=== PATIENT | female | born 1945 | race Caucasian/White ===

== ENCOUNTER → 2016-06-19 | Outpatient (CLI) | payer BC ==
[~2016-06-19] MED LIST: ANT25 PO; ATEN25TA PO; EFFSR75 PO; FEXO1TAB49 PO; LPT10 PO; PANT20TA PO; POTA10TA PO; TOLT2TAB9 PO
--- NOTE | 2016-06-20 05:47 | PAP/PSG TECHNICIAN REPORT ---
[facility] Regional Education Manager Polysomnogram Report Study name: None Report date: 06/20/2016 Study date: 06/19/2016 Referring Physician: ALEX GOMEZ M.D. Name: TONE CRAVEN Interpreting Physician: Flavio Vasquez M.D. Date of : 1945 Regional Education Manager: Puneet Crawford RPSGT. Sex: Female Age: 71 StudyType: PSG PAP Weight: 192 lbs Height: 71 years, Height 5' 0" BMI: 37.49 Medications: NASONEX 50 MCG/ACT, VENLAFAXINE HCL ER 75 MG, ATORVASTATIN CALCIUM 10 MG, PANTOPRAZOLE SODIUM 40 MG, MECLIZINE HCL 25 MG, TRAMADOL HCL 50 MG, TRIAMCINOLONE ACETONIDE 0.1%, VESICARE 5 MG, ALAN Patient History PATIENT HAD A SLEEP STUDY DONE IN 2014 AND WAS TREATED WITH CPAP AT A PRESSURE OF 15CWP. RECENTLY, SHE HAS BEEN STRUGGLING WITH COMPLIANCE DUE TO BREATHING THROUGH HER MOUTH WITH A NASAL MASK. SHE HAS ALSO GAINED SOME WEIGHT SINCE HER LAST STUDY. SHE IS HERE TODAY FOR AN UPDATE. ESS = 16 RM 7 Parameters Monitored NPSG: E1-M2, E2-M1, Fp1-M2, Fp2-M1, F3-M2, F4-M2, F4-M1, C3-M2, C4-M2, C4-M1, O1-M2, O2-M2, O2-M1, T3-M2, T4-M1, P3-M2, P4-M1, CHIN1, CHIN2, HR, EKG, Legs, PFLOW, SNOR, FLOW, CFLOW, Tidal Volume, THOR, ABDO, SpO2, PLTH, CPRESS, ETCO2 Wave, ETCO2, pH Sleep Architecture Sleep Stages Time at Lights Off 10:55:01 PM STAGES Time (min.) TST (%) Time at Lights On 5:38:31 AM Wake 28.0 -- Total Recording Time (TRT) 404.00 min. N1 51.5 14 Total Sleep Period (TSP) 391.5 min. N2 298.0 79 Total Sleep Time (TST) 375.5min. N3 26.0 7 Awake Time 28.0 min. REM 0.0 0 Wake after Sleep Onset 16.0 min. Sleep Efficiency (SE) 93 % Sleep Onset Latency (JET) 12.0 min. Number of Stage 1 Shifts None Awakenings 21 Stage Changes 150 Number of REM periods N/A REM 0.0 0 REM Latency NONE min. NREM 375.5 100 Body Position Analysis Supine Right Left Side Prone Vertical Total Sleep Time (min.) 196.8 0.0 199.2 199.24 0.0 0.0 Total Sleep Time (%) 47% 0% 53% 53 0% N/A% Total Sleep Time REM (min.) 0.0 0.0 0.0 None 0.0 0.0 Total Sleep Time NREM (min.) 176.3 0.0 199.2 None 0.0 0.0 Intermittent Wake (min.) 20.5 0.0 7.5 None 0.0 0.0 Total Sleep Period (%) 47% None None None None None Arousals Myoclonus (PLM) * Events Count Index Events Count Index Spontaneous 116 19 Events Awake (PLMW) 43 92.1 Respiratory 83 13.4 Events Asleep w/ Arousal (PLMA) 124 19.8 PLM 123 20 Events Asleep w/o Arousal (PLMS) 337 53.8 Snoring 14 2 Total Asleep 461 73.7 Total 335 54 Total 504 75 Respiratory Analysis * CA OA MA CH H RERA Total Count 5 13 1 0 193 45 212 Index 0.8 2.1 0.2 0 30.8 7 41.1 Mean Duration 14.0 14.7 16.5 0.00 15.8 16.6 15.8 Longest Duration 14.6 21.1 16.5 0.00 16.5 25.4 33.9 Respiratory Event Summary Total Supine ~Supine Right Left Prone REM NREM Apneas Count 19 7 12 N/A 12 N/A N/A 19 Index 3.0 2 4 N/A 3.6 N/A N/A 3 Hypopneas (4% Desat) Count 193 61 132 N/A 132 N/A N/A 193 Index 30.8 20.8 40 N/A 39.8 N/A N/A 30.8 Apneas & All Hypopneas Count 212 68 144 N/A 144 N/A N/A 212 Index 33.9 23 43 N/A 43 N/A N/A 33.9 Respiratory Events (Health Policy Manager+All Hyp+RERA) Count 212 111 146 N/A 146 N/A N/A 212 Index 41.1 38 44 N/A 44.0 N/A N/A 41.1 Respiratory Related Arousal Count 83 111 30 N/A 30 N/A N/A 84 Index 13.4 18 9 N/A 9 N/A N/A 13 Snoring Analysis Supine Right Left Prone REM NREM Total Snore duration 12.4 min Snores count 89 N/A 315 N/A N/A 404 404 Snore mean duration 1.8 Sec Snores index 30 N/A 95 N/A N/A 64.6 64.6 TST with snoring (%) 3.3% Desaturation Event Summary: Minimum %SpO2 Event Count Mean/Min/Max Duration(sec.) Desaturation Index % Time In Bed > 90 242 21.3 / 8.0 / 60.0 41.1 87.8 86 - 90 3 16.5 / 16.0 / 17.3 3.7 12.0 81 - 85 0 N/A 0.0 0.1 76 - 80 0 N/A 0.0 0.0 71 - 75 0 N/A 0.0 0.0 66 - 70 0 N/A 0.0 0.0 61 - 65 0 N/A 0.0 0.0 56 - 60 0 N/A 0.0 0.0 51 - 55 0 N/A 0.0 0.0 < 50 0 N/A 0.0 0.0 Total REM NREM Awake <50% 0.0 min. 0.0 min. 0.0 min. 0.0 min. 51 - 60% 0.0 min. 0.0 min. 0.0 min. 0.0 min. 61 - 70% 0.0 min. 0.0 min. 0.0 min. 0.0 min. 71 - 80% 0.0 min. 0.0 min. 0.0 min. 0.0 min. 81 - 90% 49.1 min. 0.0 min. 46.9 min. 2.2 min. 91 - 100% 353.7 min. 0.0 min. 328.3 min. 25.4 min. Average 93 0 93 93 Minimum SpO2 84 N/A 84 85 Desaturation Event Index 36.0 0.0 37.1 21.4 # Desat. Events below 89% 87 N/A 81 6 Time(%) with Saturation below 89% 2.8 0.0 2.6 0.2 Time(min.) with Saturation below 89% 11.4 0.0 10.5 0.9 Time (mins) REM (mins) NREM (mins) % of TST SpO2 Below 90% 171 N/A N171 6.6 SpO2 Below 88% 22 0 0 1 Heart Rate Analysis Min (bpm) Max (bpm) Average (bpm) Awake 55 72 64 NREM 54 74 65 REM N/A N/A N/A Overall 54 74 65 Supplemental O2 Values Minimum O2 level: None Value Start Time End Time Regional Education Manager Comments Ms. Craven slept in the left and supine positions. No cardiac arrhythmia noted. Leg movements noted. No bruxism noted. CPAP was initiated at +4 CMH2O and up-titrated to a level of +20 CMH2O. Since hypopneas and rera's continued at 20cwp, I switched to BIPAP starting at 17/13 and increased to 25/18. A Balderrama and LEAFER size small full face Simplus mask was used during titration Ms. Craven awoke to use the restroom 0 times during the night. Ms. Craven stated I slept as well as I do when I am in my own bed. Even at a pressure of 25/18, with an acceptable leak, she continued to have hypopneas and rera's. No REM was noted. The final report will be interpreted and signed by a sleep physician. The completed physician report will then be placed in the patient medical record. Therapy Event: Therapy (cm H20) 4 5 6 7 8 9 10 11 12 Total Time at Pressure (min.) 32.0 9.5 10.2 23.6 28.9 14.3 8.8 12.0 8.9 TST at Pressure (min.) 14.0 9.5 10.2 23.1 25.9 14.3 8.3 10.0 8.9 # Periods 1 1 1 1 1 1 1 1 1 Sleep Onset (min.) 12.0 0.0 0.0 0.0 0.0 0.0 0.0 0.0 0.0 REM Onset (min.) N/A N/A N/A N/A N/A N/A N/A N/A N/A Sleep Efficiency % 43 100 100 97 89 100 94 83 100 Wakefulness (%) 56.3 0.0 0.0 2.1 10.4 0.0 5.7 16.6 0.0 Wakefulness (min.) 18.0 0.0 0.0 0.5 3.0 0.0 0.5 2.0 0.0 NREM 1 (%) 20.3 0.0 4.9 12.7 46.7 21.0 5.8 33.2 33.8 NREM 1 (min.) 6.5 0.0 0.5 3.0 13.5 3.0 0.5 4.0 3.0 NREM 2 (%) 23.4 100.0 83.2 47.9 43.0 79.0 88.5 50.2 66.2 NREM 2 (min.) 7.5 9.5 8.5 11.3 12.4 11.3 7.8 6.0 5.9 NREM 3 (%) 0.0 0.0 11.9 37.2 0.0 0.0 0.0 0.0 0.0 NREM 3 (min.) 0.0 0.0 1.2 8.8 0.0 0.0 0.0 0.0 0.0 REM (%) 0.0 0.0 0.0 0.0 0.0 0.0 0.0 0.0 0.0 REM (min.) 0.0 0.0 0.0 0.0 0.0 0.0 0.0 0.0 0.0 # Arousals 7 1 3 14 36 14 6 14 12 Arousal Index 30.0 6.3 17.6 36.4 83.3 58.9 43.3 83.6 81.2 # Snore 8 65 30 98 35 8 3 7 4 Snore Index 34.3 409.3 176.4 254.6 81.0 33.7 21.6 41.8 27.1 AHI 17.2 50.4 52.9 59.8 71.7 54.7 57.7 71.7 94.7 AHI Supine 19.0 N/A N/A N/A N/A N/A N/A N/A N/A AHI Non-Supine 13.4 50.4 52.9 59.8 71.7 54.7 57.7 71.7 94.7 NREM AHI 17.2 50.4 52.9 59.8 71.7 54.7 57.7 71.7 94.7 REM AHI N/A N/A N/A N/A N/A N/A N/A N/A N/A RDI 17.2 50.4 52.9 59.8 71.7 54.7 57.7 71.7 94.7 # Obstructive 1 0 1 0 2 1 0 0 0 # Central Ap 0 0 0 0 2 1 0 2 0 # Mixed 0 0 0 1 0 0 0 0 0 # Hypopneas 3 8 8 22 27 11 8 10 14 RERAS 0 0 0 0 0 0 0 0 0 Total Respiratory Events 4 8 9 23 31 13 8 12 14 Time Below SpO2 89.00% (min.) 0.2 0.5 0.7 1.5 3.8 1.5 0.4 0.7 0.3 Mean NREM SpO2 (%) 92 91 91 91 92 91 91 92 92 Mean REM SpO2 (%) N/A N/A N/A N/A N/A N/A N/A N/A N/A Mean Sleep SpO2 (%) 92 91 91 91 92 91 91 92 92 Min NREM SpO2 (%) 88 87 84 85 85 86 86 86 88 Min REM SpO2 (%) N/A N/A N/A N/A N/A N/A N/A N/A N/A Position Supine (min.) 9.5 0.0 0.0 0.0 0.0 0.0 0.0 0.0 0.0 Position Non-supine (min.) 4.5 9.5 10.2 23.1 25.9 14.3 8.3 10.0 8.9 LM Index Sleep 34.3 18.9 29.4 57.2 113.4 88.4 72.1 107.5 101.5 LM Index NREM 34.3 18.9 29.4 57.2 113.4 88.4 72.1 107.5 101.5 LM Index REM N/A N/A N/A N/A N/A N/A N/A N/A N/A Mean Heart Rate (bpm) 63 64 63 66 65 66 66 66 65 Min Heart Rate (bpm) 58 60 56 61 59 60 61 59 58 Therapy (cm H20) 13 14 15 16 17 18 19 20 17/13 Total Time at Pressure (min.) 10.6 11.4 44.4 30.0 9.6 9.2 11.3 18.3 7.2 TST at Pressure (min.) 10.6 11.4 43.9 29.0 9.6 9.2 11.3 18.3 7.2 # Periods 1 1 1 1 1 1 1 1 1 Sleep Onset (min.) 0.0 0.0 0.0 0.0 0.0 0.0 0.0 0.0 0.0 REM Onset (min.) N/A N/A N/A N/A N/A N/A N/A N/A N/A Sleep Efficiency % 100 100 98 96 100 100 100 100 100 Wakefulness (%) 0.0 0.0 1.1 3.3 0.0 0.0 0.0 0.0 0.0 Wakefulness (min.) 0.0 0.0 0.5 1.0 0.0 0.0 0.0 0.0 0.0 NREM 1 (%) 0.0 17.5 2.3 20.0 0.0 0.0 4.4 10.9 13.9 NREM 1 (min.) 0.0 2.0 1.0 6.0 0.0 0.0 0.5 2.0 1.0 NREM 2 (%) 100.0 82.5 73.0 63.3 100.0 100.0 82.3 89.1 86.1 NREM 2 (min.) 10.6 9.4 32.4 19.0 9.6 9.2 9.3 16.3 6.2 NREM 3 (%) 0.0 0.0 23.6 13.3 0.0 0.0 13.2 0.0 0.0 NREM 3 (min.) 0.0 0.0 10.5 4.0 0.0 0.0 1.5 0.0 0.0 REM (%) 0.0 0.0 0.0 0.0 0.0 0.0 0.0 0.0 0.0 REM (min.) 0.0 0.0 0.0 0.0 0.0 0.0 0.0 0.0 0.0 # Arousals 8 11 40 24 8 6 10 22 9 Arousal Index 45.4 57.7 54.7 49.6 50.1 39.1 53.0 72.2 74.9 # Snore 6 5 42 22 22 5 7 8 24 Snore Index 34.1 26.2 57.4 45.5 137.8 32.6 37.1 26.3 199.6 AHI 62.5 47.2 4.1 12.4 6.3 13.0 10.6 23.0 74.9 AHI Supine N/A N/A N/A 23.1 6.3 13.0 10.6 23.0 74.9 AHI Non-Supine 62.5 47.2 4.1 6.5 N/A N/A N/A N/A N/A NREM AHI 62.5 47.2 4.1 12.4 6.3 13.0 10.6 23.0 74.9 REM AHI N/A N/A N/A N/A N/A N/A N/A N/A N/A RDI 62.5 47.2 6.8 16.5 37.6 45.6 26.5 55.8 74.9 # Obstructive 2 0 0 0 0 0 0 0 2 # Central Ap 0 0 0 0 0 0 0 0 0 # Mixed 0 0 0 0 0 0 0 0 0 # Hypopneas 9 9 3 6 1 2 2 7 7 RERAS 0 0 2 2 5 5 3 10 0 Total Respiratory Events 11 9 5 8 6 7 5 17 9 Time Below SpO2 89.00% (min.) 0.1 0.0 0.0 0.0 0.0 0.0 0.0 0.0 0.4 Mean NREM SpO2 (%) 92 93 93 94 93 93 94 94 93 Mean REM SpO2 (%) N/A N/A N/A N/A N/A N/A N/A N/A N/A Mean Sleep SpO2 (%) 92 93 93 94 93 93 94 94 93 Min NREM SpO2 (%) 88 89 89 90 91 90 92 90 84 Min REM SpO2 (%) N/A N/A N/A N/A N/A N/A N/A N/A N/A Position Supine (min.) 0.0 0.0 0.0 10.4 9.6 9.2 11.3 18.3 7.2 Position Non-supine (min.) 10.6 11.4 43.9 18.6 0.0 0.0 0.0 0.0 0.0 LM Index Sleep 85.2 136.4 95.7 43.4 62.6 65.2 74.2 98.5 66.5 LM Index NREM 85.2 136.4 95.7 43.4 62.6 65.2 74.2 98.5 66.5 LM Index REM N/A N/A N/A N/A N/A N/A N/A N/A N/A Mean Heart Rate (bpm) 64 63 66 67 65 66 66 65 65 Min Heart Rate (bpm) 59 59 59 57 61 61 61 59 59 Therapy (cm H20) Total Time at Pressure (min.) 8.3 5.5 5.7 7.5 8.9 6.0 61.3 TST at Pressure (min.) 8.3 5.5 5.7 7.0 8.9 6.0 59.3 # Periods 1 1 1 1 1 1 1 Sleep Onset (min.) 0.0 0.0 0.0 0.0 0.0 0.0 0.0 REM Onset (min.) N/A N/A N/A N/A N/A N/A N/A Sleep Efficiency % 100 100 100 93 100 100 96 Wakefulness (%) 0.0 0.0 0.0 6.7 0.0 0.0 3.3 Wakefulness (min.) 0.0 0.0 0.0 0.5 0.0 0.0 2.0 NREM 1 (%) 0.0 0.0 0.0 6.7 5.6 0.0 6.5 NREM 1 (min.) 0.0 0.0 0.0 0.5 0.5 0.0 4.0 NREM 2 (%) 100.0 100.0 100.0 86.7 94.4 100.0 90.2 NREM 2 (min.) 8.3 5.5 5.7 6.5 8.4 6.0 55.3 NREM 3 (%) 0.0 0.0 0.0 0.0 0.0 0.0 0.0 NREM 3 (min.) 0.0 0.0 0.0 0.0 0.0 0.0 0.0 REM (%) 0.0 0.0 0.0 0.0 0.0 0.0 0.0 REM (min.) 0.0 0.0 0.0 0.0 0.0 0.0 0.0 # Arousals 7 7 6 9 17 5 39 Arousal Index 50.3 76.3 62.9 77.0 115.0 50.1 39.4 # Snore 0 3 2 0 0 0 0 Snore Index 0.0 32.7 21.0 0.0 0.0 0.0 0.0 AHI 21.6 43.6 52.4 59.9 40.6 30.1 12.1 AHI Supine 21.6 43.6 52.4 59.9 40.6 30.1 12.1 AHI Non-Supine N/A N/A N/A N/A N/A N/A N/A NREM AHI 21.6 43.6 52.4 59.9 40.6 30.1 12.1 REM AHI N/A N/A N/A N/A N/A N/A N/A RDI 43.2 54.5 62.9 68.5 54.1 40.1 21.2 # Obstructive 0 0 0 1 1 2 0 # Central Ap 0 0 0 0 0 0 0 # Mixed 0 0 0 0 0 0 0 # Hypopneas 3 4 5 6 5 1 12 RERAS 3 1 1 1 2 1 9 Total Respiratory Events 6 5 6 8 8 4 21 Time Below SpO2 89.00% (min.) 0.0 0.0 0.0 0.1 0.0 0.2 0.0 Mean NREM SpO2 (%) 93 93 94 93 94 93 94 Mean REM SpO2 (%) N/A N/A N/A N/A N/A N/A N/A Mean Sleep SpO2 (%) 93 93 94 93 94 93 94 Min NREM SpO2 (%) 91 91 89 88 90 85 89 Min REM SpO2 (%) N/A N/A N/A N/A N/A N/A N/A Position Supine (min.) 8.3 5.5 5.7 7.0 8.9 6.0 59.3 Position Non-supine (min.) 0.0 0.0 0.0 0.0 0.0 0.0 0.0 LM Index Sleep 71.9 109.0 62.9 111.2 115.0 110.2 39.4 LM Index NREM 71.9 109.0 62.9 111.2 115.0 110.2 39.4 LM Index REM N/A N/A N/A N/A N/A N/A N/A Mean Heart Rate (bpm) 66 66 65 64 63 62 61 Min Heart Rate (bpm) 61 61 60 56 58 58 54
--- NOTE | 2016-06-23 07:09 | POLYSOMNOGRAPH REPORT ---
CLINICAL DATA: A 71-year-old female with a BMI of 37.[address] King for an updated CPAP titration study. She has sleep apnea, is being treated with CPAP at 15 cm of water pressure but is struggling with compliance, breathing through her mouth using a nasal mask. She also has gained weight since her last study and is sent for an updated CPAP titration study. SLEEP ARCHITECTURE: Total sleep period was 391.5 minutes. Total sleep time was 375.5 minutes, all non-REM sleep. Sleep onset latency was 12 minutes. REM was not achieved. Sleep efficiency was 93%. Awake after sleep onset was 16 minutes. Sleep consisted of stage N1 14%, N2 79% and N3 7%. AROUSAL DATA: 335 arousals were recorded for an index of 54 per hour. 116 were spontaneous, 123 were due to PLM events. PLM DATA: Severe PLMD was noted. There were 461 limb movements during sleep noted for an index of 73.7 per hour with arousal index of 19.8 per hour. RESPIRATORY DATA: The AHI was 33.9. The RDI was 41.1. There were 5 central, 13 obstructive, 1 mixed apneic episode. The longest duration of apnea was 21.1 seconds. There were 193 hypopneic episodes. The longest duration of hypopnea was 16.5 seconds. There were 45 RERAs. The longest RERA was 25.4 seconds. OXIMETRY DATA: Nocturnal hypoxemia was seen. Oxygen rena was 84% during non-REM sleep. Mean saturation was 93%. Time below 88% was 22 minutes. HEART RATE DATA: Heart rates ranged from 54 to 74 beats per minute. No arrhythmias were noted. PROJECT MANAGER INDUSTRIAL'S COMMENTS AND TREATMENT SUMMARY: The patient slept in the left and supine position. The patient used a CanaryHop size small full facemask. She was initially started on CPAP and was titrated incrementally up to 20 cm water pressure. She continued to have obstructive hypopneic events and snoring and was switched to BiPAP, initially 17/13 and eventually titrated up to 25/18. At her final pressure setting of 25/18, she slept for just under 1 hour with a persistent AHI of 12.1. IMPRESSION: Severe sleep apnea/hypopnea with a very difficult CPAP/BiPAP titration study. No optimal pressure setting was found. Severe PLMD was also seen. RECOMMENDATIONS: The patient could be considered for a trial of auto CPAP 5-20 cm of water pressure with followup in 1-2 months with compliance and effectiveness data. High pressure BiPAP could be utilized although it may be difficult to tolerate. Sleep medicine consultation may be of benefit. Clinical correlation is needed. Treatment for PLMD may also be needed. MTDD
== END | disposition home or self-care (01) ==
LOC: C.NEUR 20:00
PROVIDERS: ATTEND Internal Medicine Geriatric Medicine
DX: G47.33 Obstructive sleep apnea (adult) (pediatric) (principal); G47.61 Periodic limb movement disorder

== ENCOUNTER → 2016-07-14 | Outpatient (CLI) | payer BC ==
--- NOTE | 2016-07-14 17:10 | DIAGNOSTIC IMAGING REPORT ---
LEFT SHOULDER 3 VIEWS HISTORY: M25.512 Acute pain of left [id number] COMPARISON: None. FINDINGS: There is no fracture or dislocation. Mild distal resorption of the left clavicle. Metallic anchors within the humeral head. There is narrowing of the subacromial space suggestive of chronic rotator cuff injury. Linear densities at the left lung base favor subsegmental atelectasis. 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 IMPRESSION: Postoperative and degenerative changes within the left shoulder. No acute fracture or dislocation. Electronically signed by: Harris Méndez M.D. 07/14/2016 5:09 PM Dictated Date/Time: 07/14/2016 5:07 PM
== END | disposition home or self-care (01) ==
LOC: C.RAD1850 16:07
PROVIDERS: ATTEND Internal Medicine
DX: M25.512 Pain in left shoulder (principal)

== ENCOUNTER → 2016-08-12 | Outpatient (CLI) | payer BC ==
[~2016-08-12] VITALS: Ht 149.9 cm; Wt 92.4 kg
[2016-08-12 10:23] VITALS: BP 153/80; PULSE 73; Ht 149.9 cm; Wt 92.4 kg
== END | disposition home or self-care (01) ==
LOC: C.NEUR 09:42
PROVIDERS: ATTEND Internal Medicine Pulmonary Disease
DX: G47.33 Obstructive sleep apnea (adult) (pediatric) (principal); E66.9 Obesity, unspecified; G25.81 Restless legs syndrome

== ENCOUNTER → 2016-08-12 | Outpatient (CLI) | payer BC ==
[2016-08-12 14:54] LABS: BASO % 0.3 %; BASO ABS # 0.02 K/uL (0-0.2); COMPLETE YES; EOS % 5.1 %; HEMATOCRIT 41.9 % (37-47); IG% 0.2 %; LYMPH % 29.3 %; LYMPH ABS # 1.78 K/uL (1.2-3.4); MEAN CELL VOLUME 87.5 fL (80-100); MEAN CORPUSCULAR HEMOGLOBIN 29.4 pg (25-34); MEAN CORPUSCULAR HGB CONC 33.7 g/dl (32-36); MEAN PLATELET VOLUME 10.3 fL (7.4-10.4); MONO % 7.7 %; NEUT % 57.4 %; PLATELET COUNT 200 K/uL (130-400); RED BLOOD COUNT 4.79 M/uL (4.2-5.4); WHITE BLOOD COUNT 6.07 K/uL (4.8-10.8)
[2016-08-12 15:27] LABS: ALT/SGPT 23 U/L (12-78); BLOOD UREA NITROGEN 17 mg/dl (7-18); BUN/CREATININE RATIO 23.8 (10-20); CALCIUM 9.5 mg/dl (8.5-10.1); CARBON DIOXIDE 24 mmol/L (21-32); CHLORIDE 108 mmol/L (98-107); CHOLESTEROL 150 mg/dl (0-200); CREATININE 0.72 mg/dl (0.60-1.20); GLUCOSE 121 mg/dl (70-99); POTASSIUM 4.3 mmol/L (3.5-5.1); SODIUM 140 mmol/L (136-145)
[2016-08-12 15:38] LABS: ALKALINE PHOSPHATASE 139 U/L (45-117); AST/SGOT 18 U/L (15-37); CHOLESTEROL/HDL RATIO 4.5; HDL CHOLESTEROL 33 mg/dl; LDL CHOLESTEROL CALCULATED 78 mg/dl; TRIGLYCERIDES 196 mg/dl (0-150); VERY LOW DENSITY LIPOPROT CALC 39 mg/dl
--- NOTE | 2016-08-28 07:23 | CODING QUERY MEDICAL NECESSITY ---
SUPPORTING DIAGNOSIS NEEDED A supporting diagnosis is required for the test/procedure performed on this patient in order for us to be reimbursed by the patient's insurance. Please provide a supporting diagnosis for the following test/procedure listed below next to the test name along with your signature. *If there is no additional diagnosis for this patient that would support the following test/procedure please document that below next to the test/procedure. Test(s)/Procedure(s) that require a supporting diagnosis: * VITAMIN D 25-HYDROXY DIAGNOSIS: * DOS: 08/12/16 Provider Signature: Date: Thank you Veronica Chapman Health Information Management Once completed, please kindly fax back to [phone] For questions please call [phone]
== END | disposition home or self-care (01) ==
LOC: C.LABBC 11:36
PROVIDERS: ATTEND Internal Medicine Geriatric Medicine
DX: M19.90 Unspecified osteoarthritis, unspecified site (principal); E78.5 Hyperlipidemia, unspecified; R73.9 Hyperglycemia, unspecified; F32.9 Major depressive disorder, single episode, unspecified; I10 Essential (primary) hypertension; G47.33 Obstructive sleep apnea (adult) (pediatric); E66.9 Obesity, unspecified; G25.81 Restless legs syndrome; E55.9 Vitamin D deficiency, unspecified

== ENCOUNTER → 2016-10-05 | Outpatient (CLI) | payer BC ==
[~2016-10-05] MED LIST changes: +CALC500C70 PO; +CHOL1000 PO; +CRAN1TAB PO; +DOXY100C PO; +FSMD/70 PO; +LACT1CHW; +MULT-506 PO; +OMEG12006; -PANT20TA PO; +PANT20TA2 PO; +TRAM-10 PO; +TRIA1SPR4; +TRMO2580 TOP
== END | disposition home or self-care (01) ==
LOC: C.LABSPEC 17:21
PROVIDERS: ATTEND Nurse Practitioner Adult Health
DX: N39.0 Urinary tract infection, site not specified (principal)

== ENCOUNTER → 2016-10-13 | Outpatient (CLI) | payer BC ==
--- NOTE | 2016-10-13 15:22 | MAMMOGRAPHY REPORT ---
BILATERAL DIGITAL SCREENING MAMMOGRAM WITH CAD: 10/13/2016 CLINICAL HISTORY: Routine screening. Patient has no complaints. TECHNIQUE: Bilateral CC and MLO views were obtained. Current study was also evaluated with a Compu ter Aided Detection (CAD) system. COMPARISON: Comparison is made to exams dated: 08/27/2015 mammogram, 07/24/2014 mammogram, 06/06/2013 ma mmogram, 05/16/2012 mammogram, 05/13/2011 mammogram, and 12/02/2009 mammogram - [facility]. BREAST COMPOSITION: There are scattered areas of fibroglandular density in both breasts. FINDINGS: The parenchymal pattern is unchanged. No developing mass, architectural distortion or clu ster of suspicious microcalcifications is seen in either breast. IMPRESSION: ACR BI-RADS CATEGORY 2: BENIGN There is no mammographic evidence of malignancy. A 1 year screening mammogram is recommended. The p atient will receive written notification of the results. Approximately 10% of breast cancers are not detected with mammography. A negative mammographic repor t should not delay biopsy if a clinically suggestive mass is present. Linda Parekh M.D. ay/:10/13/2016 14:54:03 Cloth Folder Hand: Milka ROE(Phylicia)(M), [facility] letter sent: Normal 1/2 BI-RADS Code: ACR BI-RADS Category 2: Benign
== END | disposition home or self-care (01) ==
LOC: C.MAMM 13:28
PROVIDERS: ATTEND Internal Medicine Geriatric Medicine
DX: Z12.31 Encounter for screening mammogram for malignant neoplasm of breast (principal)

== ENCOUNTER 2016-11-15 14:32 | Emergency (ER) | payer BC ==
[~2016-11-15] VITALS: Ht 149.9 cm; Wt 94.4 kg
[2016-11-15 14:38] VITALS: BP 142/80; PULSE 73; TEMP 36.5; O2SAT 95; Ht 149.9 cm; Wt 94.4 kg
[2016-11-15] MEDS ORDERED: ANT25 PO (14:56)
[2016-11-15] MEDS ORDERED: PANT20TA2 PO (14:56)
[2016-11-15] MEDS ORDERED: EFFSR75 PO (14:59)
--- NOTE | 2016-11-15 15:02 | EMERGENCY ROOM VISIT NOTE ---
ED Visit Note First contact with patient: 14:41 CHIEF COMPLAINT: Right wrist pain 4 weeks HISTORY OF PRESENT ILLNESS: This 71-year-old female presents the ER with chief complaint of right wrist pain which has been getting progressively worse over the last 4 weeks. The patient states the pain is over the radial aspect of the wrist. The patient denies any trauma to the wrist. The patient denies any forearm or shoulder pain. The patient does admit that she is on her phone frequently using her right hand. REVIEW OF SYSTEMS: 6 system review was performed and was negative unless stated otherwise in history of present illness. PMH: The patient is healthy; appendectomy, cholecystectomy, back surgery, peptic ulcer disease SOCIAL HISTORY: Patient lives alone. The patient denies any tobacco or alcohol use PHYSICAL EXAM: Vital Signs: Were reviewed Reviewed Nurse's notes. GEN.: 71-year -old white female appears in no acute distress. MENTAL Status: Alert and oriented 3. RIGHT WRIST: No gross bony deformity noted no erythema or edema noted. Positive Nacho's.. Negative Tinel's, negative Phalen's EMERGENCY DEPARTMENT COURSE: The patient was evaluated. The patient was placed in a thumb spica splint. The patient was discharged home in stable condition. DIAGNOSIS: De Quervain's tendinitis right wrist DISCHARGE INSTRUCTIONS AND TREATMENT: Ice to the affected area frequently over the next 2 days. Ibuprofen, 600 mg every 6 hours for pain and inflammation for 5 days. Recommend taking Prilosec daily while taking the ibuprofen. Wear splint except for bathing. If symptoms are not improving in 4-5 days recommend follow-up with [facility] orthopedics. Current/Historical Medications Scheduled Atenolol (Tenormin), 25 MG PO DAILY Atorvastatin (Atorvastatin Calcium), 1 TAB PO DAILY Meclizine HCl (Meclizine HCl), 1 TAB PO DAILY Pantoprazole Sodium (Protonix), 40 MG PO DAILY Tolterodine Tartrate (Tolterodine Tartrate), 2 MG PO BID Venlafaxine Hcl (Effexor Extended Rel), 1 CAP PO DAILY Allergies Coded Allergies: Iodine (Verified Allergy, Unknown, HIVES/ITCHING, 11/15/16) Penicillins (Unverified Allergy, Unknown, unknown, 11/15/16) Ibuprofen (Verified Adverse Reaction, Intermediate, ULCER, 11/15/16) Vital Signs Date Time Temp Pulse Resp B/P (MAP) Pulse Ox O2 Delivery O2 Flow Rate FiO2 11/15/16 14:38 36.5 73 18 142/80 95 Room Air Departure Information Referrals Saul King M.D. (PCP) Patient Instructions [facility]
== END 2016-11-15 15:12 | disposition home or self-care (01) ==
LOC: C.EDB 14:33 → C.EDD 15:12
DX: M65.4 Radial styloid tenosynovitis [de Quervain] (principal); K27.9 Peptic ulcer, site unspecified, unspecified as acute or chronic, without hemorrhage or perforation; Z90.49 Acquired absence of other specified parts of digestive tract; Z90.89 Acquired absence of other organs; Z98.890 Other specified postprocedural states; Z79.899 Other long term (current) drug therapy

== ENCOUNTER → 2016-12-04 | Outpatient (CLI) | payer BC ==
[~2016-12-04] MED LIST changes: -CALC500C70 PO; -CHOL1000 PO; -CRAN1TAB PO; -DOXY100C PO; -FSMD/70 PO; -LACT1CHW; -MULT-506 PO; -OMEG12006; +PANT20TA PO; -PANT20TA2 PO; -TRAM-10 PO; -TRIA1SPR4; -TRMO2580 TOP
== END | disposition home or self-care (01) ==
LOC: C.RDSM 16:20
PROVIDERS: ATTEND Orthopaedic Surgery Sports Medicine
DX: M25.539 Pain in unspecified wrist (principal)

== ENCOUNTER 2017-01-07 14:36 | Emergency (ER) | payer BC ==
[~2017-01-07] VITALS: Ht 149.9 cm; Wt 97.2 kg
[~2017-01-07 14:36] MED LIST changes: -ATEN25TA PO; -FEXO1TAB49 PO; -LPT10 PO; -POTA10TA PO; -TOLT2TAB9 PO
[2017-01-07 14:45] VITALS: TEMP 36.9
[2017-01-07] MEDS ORDERED: LPT10 PO (14:56)
[2017-01-07] MEDS ORDERED: TOLT2TAB9 PO (14:56)
[2017-01-07] MEDS ORDERED: ATEN25TA PO (14:58)
[2017-01-07] MEDS ORDERED: ACETAMINOPHEN 325 MG TAB PO STA (17:48)
[2017-01-07] MEDS ORDERED: SODIUM CHLORIDE 0.9% 1000ML 1,000 ML IV STA (17:48)
[2017-01-07 18:01] VITALS: O2SAT 95; Ht 149.9 cm; Wt 97.2 kg
[2017-01-07] MEDS ORDERED: POTA10TA PO (18:41)
[2017-01-07] MEDS ORDERED: FEXO1TAB49 PO (18:41)
[2017-01-07 18:54] LABS: ALT/SGPT 29 U/L (12-78); BLOOD UREA NITROGEN 21 mg/dl (7-18); BUN/CREATININE RATIO 29.6 (10-20); CALCIUM 9.1 mg/dl (8.5-10.1); CARBON DIOXIDE 27 mmol/L (21-32); CHLORIDE 108 mmol/L (98-107); CREATININE 0.72 mg/dl (0.60-1.20); GLUCOSE 79 mg/dl (70-99); SODIUM 136 mmol/L (136-145)
[2017-01-07 18:55] LABS: ALKALINE PHOSPHATASE 176 U/L (45-117)
--- NOTE | 2017-01-07 18:57 | DIAGNOSTIC IMAGING REPORT ---
HEAD WITHOUT CONTRAST (CT) CLINICAL HISTORY: 71 years-old Female presenting with headache. TECHNIQUE: Multidetector CT imaging of the head was performed without the use of intravenous contrast. IV contrast: None. A dose lowering technique was used consistent with the principles of ALARA (as low as reasonably achievable). COMPARISON: None. CT DOSE (mGy.cm): The estimated cumulative dose is 720.95 mGycm. FINDINGS: Dairy Clerk topogram: Unremarkable. Ventricles and sulci normal in size. Focal round hypodensity in the right occipital lobe may represent the subcortical horn of the right lateral ventricle. No mass effect or midline shift. No hemorrhage or acute territorial infarct. No extra-axial fluid collection. Paranasal sinuses and mastoid air cells clear. Calvarium intact. IMPRESSION: 1. No acute intracranial pathology. Electronically signed by: Gilmar Gaitan M.D. 01/07/2017 6:50 PM Dictated Date/Time: 01/07/2017 6:47 PM
[2017-01-07 19:56] LABS: BASO % 0.1 %; BASO ABS # 0.01 K/uL (0-0.2); COMPLETE YES; EOS % 5.4 %; HEMATOCRIT 43.9 % (37-47); IG% 0.4 %; LYMPH % 20.4 %; LYMPH ABS # 1.63 K/uL (1.2-3.4); MEAN CELL VOLUME 91.1 fL (80-100); MEAN CORPUSCULAR HEMOGLOBIN 28.8 pg (25-34); MEAN CORPUSCULAR HGB CONC 31.7 g/dl (32-36); MEAN PLATELET VOLUME 10.2 fL (7.4-10.4); NEUT % 66.7 %; PLATELET COUNT 220 K/uL (130-400); RED BLOOD COUNT 4.82 M/uL (4.2-5.4); WHITE BLOOD COUNT 7.99 K/uL (4.8-10.8)
[2017-01-07 20:23] LABS: POTASSIUM 4.1 mmol/L (3.5-5.1)
[2017-01-07 20:27] VITALS: PULSE 64; O2SAT 95
[2017-01-07 20:30] LABS: AST/SGOT 18 U/L (15-37); MAGNESIUM 2.1 mg/dl (1.8-2.4)
--- NOTE | 2017-01-07 20:40 | EMERGENCY ROOM VISIT NOTE ---
ED Visit Note First contact with patient: 17:22 71-year-old female here complaining of dizziness especially when she gets up. Patient was fully evaluated by Mary Ji nurse practitioner. Please see her note. I also independently evaluated the patient and her labs. The patient stated that she felt significantly better prior to discharge.
--- NOTE | 2017-01-07 21:33 | EMERGENCY ROOM VISIT NOTE ---
History First contact with patient: 17:22 Chief Complaint: DIZZY Stated Complaint: HOT/COLD, DIZZY Nursing Triage Summary: Pt c/o dizziness and nausea x 3 days "I didn't get much sleep last night. I get up too quick and I get lightheaded." History of Present Illness The patient is a 71 year old female who presents to the Emergency Room with complaints of feeling lightheaded when she stands up too quickly. She states this has been going on for about a week or longer, but seemed to get worse over the past 3 days. She says when she stands up from sitting or lying down she feels lightheaded like she might pass out, with nausea and feeling hot. She states these symptoms last for only a few seconds and never longer than 10-15 seconds, and then she feels fine. She denies any recent illness with vomiting or diarrhea, denies any urinary symptoms, but does admit that she has not been drinking fluids as much as she should. She also notes a mild intermittent headache for the past few days that she took describes as generalized, aching and not throbbing, 3/10. She has not taken any medications for the headache, stating "it really wasn't that bad that I needed medicine for it." She has not had any episodes of syncope with this. She denies any chest pain, shortness of breath, palpitations, vision changes, back pain, abdominal pain, changes in bowel habits, rash. Patient states she went to see her PCP today for her symptoms, and states that while she was in the waiting room she heard that another patient with symptoms similar to her's was being sent to the ER by ambulance, so she decided she should also go to the ER to be checked. Review of Systems A complete 10 point review of systems was reviewed with the patient with pertinent positives and negatives as per history of present illness. All else were negative. Social History Smoking Status: Former Smoker Current/Historical Medications Scheduled Atenolol (Tenormin), 25 MG PO DAILY Atorvastatin (Atorvastatin Calcium), 1 TAB PO DAILY Meclizine HCl (Meclizine HCl), 1 TAB PO DAILY Pantoprazole Sodium (Protonix), 40 MG PO DAILY Tolterodine Tartrate (Tolterodine Tartrate), 2 MG PO BID Venlafaxine Hcl (Effexor Extended Rel), 1 CAP PO DAILY Scheduled PRN Fexofenadine Hcl (Sherri Allergy), 1 TAB PO HS PRN for Anxiety Potassium Chloride (K-Tabs), 10 MEQ PO DAILY PRN for Physical Exam Vital Signs Date Time Temp Pulse Resp B/P (MAP) Pulse Ox O2 Delivery O2 Flow Rate FiO2 01/07/17 21:51 131/79 01/07/17 20:27 64 20 141/76 95 Room Air 01/07/17 18:29 67 125/65 70 142/86 77 142/81 01/07/17 18:29 67 20 125/65 95 Room Air 01/07/17 18:21 68 01/07/17 18:01 95 Room Air 01/07/17 18:01 95 Room Air 01/07/17 14:45 36.9 79 18 133/79 95 Room Air Physical Exam CONSTITUTIONAL: No acute distress. Mildly dehydrated, but otherwise well appearing and well nourished. Alert and oriented X 4 with normal affect. HEENT: Normocephalic, atraumatic. Pupils equal, round and reactive to light, EOMI. TMs normal. Pharynx normal. Tacky mucous membranes. NECK: Supple, full active range of motion without discomfort. RESPIRATORY: Clear to auscultation bilaterally with no wheezing, crackles, rhonchi or stridor. Equal expansion bilaterally. CARDIOVASCULAR: Regular rate and rhythm with no murmurs, rubs or gallops. Normal peripheral perfusion. No edema. GASTROINTESTINAL: Soft, nontender, nondistended. Bowel sounds present in all quadrants. MUSCULOSKELETAL: Full range of motion of all joints without discomfort. INTEGUMENTARY: No rash or other significant dermatologic conditions noted. NEUROLOGIC: Cranial nerves II-XII grossly intact. No focal neurologic deficits noted. Normal strength, normal sensation, normal coordination, normal gait, normal speech. Negative pronator drift, negative facial droop, negative Romberg , normal [id number] test. Medical Decision & Procedures ER Provider Diagnostic Interpretation: HEAD WITHOUT CONTRAST (CT) CLINICAL HISTORY: 71 years-old Female presenting with headache. TECHNIQUE: Multidetector CT imaging of the head was performed without the use of intravenous contrast. IV contrast: None. A dose lowering technique was used consistent with the principles of ALARA (as low as reasonably achievable). COMPARISON: None. CT DOSE (mGy.cm): The estimated cumulative dose is 720.95 mGycm. FINDINGS: [employer] topogram: Unremarkable. Ventricles and sulci normal in size. Focal round hypodensity in the right occipital lobe may represent the subcortical horn of the right lateral ventricle. No mass effect or midline shift. No hemorrhage or acute territorial infarct. No extra-axial fluid collection. Paranasal sinuses and mastoid air cells clear. Calvarium intact. IMPRESSION: 1. No acute intracranial pathology. Laboratory Results 01/07/17 18:05 Red Blood Count 4.82, Mean Corpuscular Volume 91.1, Mean Corpuscular Hemoglobin 28.8, Mean Corpuscular Hemoglobin Concent 31.7, Mean Platelet Volume 10.2, Neutrophils (%) (Auto) 66.7, Lymphocytes (%) (Auto) 20.4, Monocytes (%) (Auto) 7.0, Eosinophils (%) (Auto) 5.4, Basophils (%) (Auto) 0.1, Neutrophils # (Auto) 5.33, Lymphocytes # (Auto) 1.63, Monocytes # (Auto) 0.56, Eosinophils # (Auto) 0.43, Basophils # (Auto) 0.01 01/07/17 18:05 01/07/17 19:57 Test 01/07/17 18:05 01/07/17 19:57 White Blood Count 7.99 K/uL (4.8-10.8) Red Blood Count 4.82 M/uL (4.2-5.4) Hemoglobin 13.9 g/dL (12.0-16.0) Hematocrit 43.9 % (37-47) Mean Corpuscular Volume 91.1 fL (80-100) Mean Corpuscular Hemoglobin 28.8 pg (25-34) Mean Corpuscular Hemoglobin Concent 31.7 g/dl (32-36) Platelet Count 220 K/uL (130-400) Mean Platelet Volume 10.2 fL (7.4-10.4) Neutrophils (%) (Auto) 66.7 % Lymphocytes (%) (Auto) 20.4 % Monocytes (%) (Auto) 7.0 % Eosinophils (%) (Auto) 5.4 % Basophils (%) (Auto) 0.1 % Neutrophils # (Auto) 5.33 K/uL (1.4-6.5) Lymphocytes # (Auto) 1.63 K/uL (1.2-3.4) Monocytes # (Auto) 0.56 K/uL (0.11-0.59) Eosinophils # (Auto) 0.43 K/uL (0-0.5) Basophils # (Auto) 0.01 K/uL (0-0.2) RDW Standard Deviation 45.7 fL (36.4-46.3) RDW Coefficient of Variation 13.8 % (11.5-14.5) Immature Granulocyte % (Auto) 0.4 % Immature Granulocyte # (Auto) 0.03 K/uL (0.00-0.02) Anion Gap 1.0 mmol/L (3-11) Est Creatinine Clear Calc Drug Dose 74.4 ml/min Estimated GFR () 98.3 Estimated GFR (Non- 84.9 BUN/Creatinine Ratio 29.6 (10-20) Bedside Glucose 86 mg/dl (70-90) Calcium Level 9.1 mg/dl (8.5-10.1) Total Bilirubin 0.4 mg/dl (0.2-1) Alanine Aminotransferase (ALT/SGPT) 29 U/L (12-78) Alkaline Phosphatase 176 U/L (45-117) Total Protein 8.1 gm/dl (6.4-8.2) Albumin 3.9 gm/dl (3.4-5.0) Thyroid Stimulating Hormone (TSH) 2.820 uIu/ml (0.300-4.500) Magnesium Level 2.1 mg/dl (1.8-2.4) Direct Bilirubin < 0.1 mg/dl (0-0.2) Aspartate Amino Transf (AST/SGOT) 18 U/L (15-37) Medications Administered Medications (Trade) Dose Ordered Sig/Darnell Route Start Time Stop Time Status Last Admin Dose Admin Sodium Chloride 1,000 ml @ 999 mls/hr Q1H1M STAT IV 01/07/17 17:48 01/07/17 18:48 DC 01/07/17 18:30 999 MLS/HR Acetaminophen (Tylenol Tab) 650 mg NOW STAT PO 01/07/17 17:48 01/07/17 17:51 DC 01/07/17 18:31 650 MG ECG Indication: other (dizziness) Rate (beats per minute): 66 Rhythm: normal sinus Findings: RBBB, no acute ischemic change, left axis deviation, no ectopy Change: no significant change (when compared to EKG from 06/03/2005, incomplete RBBB has progressed to a complete RBBB, no other significant changes) Medical Decision CC: Patient presenting with complaint of lightheadedness Interpretation of Labs: No leukocytosis, no anemia, normal platelets, no significant joint abnormalities, normal renal function, normal liver enzymes, normal TSH. Differential Diagnosis: Includes, but not limited to dehydration, electrolyte abnormality, arrhythmia, orthostatic hypotension/dizziness, vasovagal syndrome, intracranial hemorrhage, CVA, among others. Medication Reconciliation: I attest that I have personally reviewed the patient' s current medication list. Vital signs review: I reviewed the patient's vital signs and interpret them as follows: T: Afebrile; BP: Hypertensive; HR: Within normal limits; RR: Within normal limits; Pulse Ox: Within normal limits on room air. Blood pressure screening: The patient was found to have an elevated blood pressure and was referred to their primary doctor for recheck and further treatment. Summary: Patient was evaluated at bedside, history of physical exam performed. Patient is alert and oriented, no acute distress and nontoxic appearing, noted to ambulate in the hallways to her room with a steady and upright gait. Neurologic exam is normal with no focal deficits or concerning findings. Patient has reproducible symptom of lightheadedness when asked to stand from sitting, but has normal balance. Patient does appear mildly dehydrated on exam. Her only other complaint is a mild generalized headache. Orders were placed at bedside for labs, IV fluids for hydration, Tylenol for headache, EKG to rule out ischemic changes and arrhythmia, head CT to rule out ICH/CVA given her complaint of headache. Patient discussed with Dr. Kim, who agrees with my assessment and plan. Labs reviewed as above, unremarkable. EKG reviewed, no ischemic changes, shows a right bundle branch block and appears relatively unchanged from a previous EKG from 2005. Head CT is negative for any acute abnormalities. Patient reassessed multiple times throughout ED stay, she reports her headache is gone and she feels much better after receiving fluids. Patient was updated on all results and plan for discharge home, and she was encouraged to follow closely with her PCP. Patient was also given strict return precautions should her symptoms worsen, she verbalized understanding. Patient was discharged home in stable condition and ambulatory. Medication Reconcilliation Current Medication List: was personally reviewed by me Blood Pressure Screening Patient's blood pressure: Elevated blood pressure Blood pressure disposition: Referred to PCP Impression Primary Impression: Orthostatic lightheadedness Departure Information Dispostion Home / Self-Care Condition GOOD Referrals Saul King M.D. (PCP) Patient Instructions ED Dizziness Abby GLASGOW [facility] Additional Instructions You have been treated in the Emergency Department today for lightheadedness and dehydration. Laboratory and imaging results have ruled out any emergent reasons for further evaluation or admission. It is ESSENTIAL that you maintain adequate hydration with oral fluids! Some suggestions include: - Water is the IDEAL replacement for lost fluids. You should initially sip at the water to help facilitate increased intestinal absorption rate and to decrease the possibility of nausea/vomiting. - Carbohydrate/Electrolyte-Containing Drinks (i.e. Gatorade, Powerade, Pedialyte). All of these are good choices, but it is important to remember that all of these drinks contain a high concentration of sugar. - Popsicles, ice chips, and fruit juices are all other options. - My FAVORITE dehydration remedy is to mix a 1:1 solution of bottled Gatorade with bottled water. This dilution allows for a palatable flavor with added benefit of a reduction in the amount of sugar consumption. Change positions from lying down to sitting or from sitting to standing SLOWLY, to help avoid symptoms of lightheadedness with position changes. As with all Emergency Department visits, you should follow-up with your Primary Care Provider in 2-3 days for reevaluation. Return to the Emergency Department if your current symptoms worsen despite treatment course outlined above, or if you develop any of the following symptoms : Severe headache, increased thirst, weakness, dizziness, palpitations, confusion, sluggishness, fainting, inability to sweat, or decreased urine output.
[2017-01-07 21:51] VITALS: BP 131/79
== END 2017-01-07 21:53 | disposition home or self-care (01) ==
LOC: C.EDB 14:46 → C.EDC 21:53
DX: R42 Dizziness and giddiness (principal); Z87.891 Personal history of nicotine dependence

== ENCOUNTER → 2017-01-26 | Outpatient (CLI) | payer BC ==
[~2017-01-26] MED LIST changes: +ATEN25TA PO; +FEXO1TAB49 PO; +LPT10 PO; +POTA10TA PO; +TOLT2TAB9 PO
[2017-01-26 17:26] LABS: BLOOD UREA NITROGEN 17 mg/dl (7-18); BUN/CREATININE RATIO 23.2 (10-20); CALCIUM 9.6 mg/dl (8.5-10.1); CARBON DIOXIDE 25 mmol/L (21-32); CHLORIDE 108 mmol/L (98-107); CREATININE 0.75 mg/dl (0.60-1.20); GLUCOSE 106 mg/dl (70-99); SODIUM 140 mmol/L (136-145)
[2017-01-27 06:18] LABS: ESTIMATED AVERAGE GLUCOSE 117 mg/dl; HA1C FLAG Normal (Normal)
--- NOTE | 2017-02-03 11:09 | CODING QUERY NO DIAGNOSIS ---
TREATMENT RENDERED WITHOUT A DIAGNOSIS To promote full compliance with coding requirements relating to patient care, physician participation is requested in all cases of finance controller uncertainty. Please assist us with providing a diagnosis/symptom for the test(s) below: A diagnosis/symptom was not documented on your Order. A valid diagnosis/symptom is required to bill all insurances. Please remember that we are unable to code a diagnosis of rule out, probable, possible, questionable, or suspected. Tests that require a diagnosis: * GGT DIAGNOSIS: * HEPATITIS C, IGG DIAGNOSIS: DATE OF SERVICE: 01/26/17 Provider Signature: Date: Thank you Tre Hendrickson [facility] Information Management Once completed, please kindly fax back to [phone] For questions please call [phone]
== END | disposition home or self-care (01) ==
LOC: C.LABBC 15:16
PROVIDERS: ATTEND Physician Assistant Medical
DX: Z00.00 Encounter for general adult medical examination without abnormal findings (principal); Z11.59 Encounter for screening for other viral diseases; R73.9 Hyperglycemia, unspecified; I10 Essential (primary) hypertension; E55.9 Vitamin D deficiency, unspecified

== ENCOUNTER → 2017-02-12 | Outpatient (CLI) | payer BC ==
--- NOTE | 2017-02-12 11:08 | DIAGNOSTIC IMAGING REPORT ---
WHOLE-BODY NUCLEAR BONE SCAN CLINICAL HISTORY: Elevated serum alkaline phosphatase levels. COMPARISON STUDY: Abdominal CT dated 05/02/2015. TECHNIQUE: Three hours following the IV administration of 26.8 mCi of technetium 99m MDP, whole body nuclear bone scan was performed in the anterior and posterior projections. FINDINGS: There is no abnormal osseous tracer deposition identified typical in appearance for bony metastatic disease or a destructive bony lesion. Mild and typically degenerative activity is noted throughout the spine and there is thoracolumbar scoliosis. Additional foci of typically degenerative activity are identified in the shoulders, knees, ankles, and feet. There is expected excreted activity within the renal collecting system and bladder. IMPRESSION: 1. No pathologic tracer deposition is identified. 2. Foci of typically degenerative activity as above. Electronically signed by: Vignesh Stevenson M.D. 02/12/2017 11:06 AM Dictated Date/Time: 02/12/2017 11:04 AM
== END | disposition home or self-care (01) ==
LOC: C.NUCL 06:51
PROVIDERS: ATTEND Physician Assistant Medical
DX: R74.8 Abnormal levels of other serum enzymes (principal)

== ENCOUNTER → 2017-02-18 | Outpatient (CLI) | payer BC | END | disposition home or self-care (01) | LOC: C.MAMM 13:19 | PROVIDERS: ATTEND Physician Assistant Medical | DX: Z00.00 Encounter for general adult medical examination without abnormal findings (principal); M85.851 Other specified disorders of bone density and structure, right thigh; M85.852 Other specified disorders of bone density and structure, left thigh; M81.0 Age-related osteoporosis without current pathological fracture ==

== ENCOUNTER 2017-03-24 13:26 | Emergency (ER) | payer BC ==
[~2017-03-24] VITALS: Ht 149.9 cm; Wt 96.7 kg
[~2017-03-24 13:26] MED LIST changes: -PANT20TA PO; +PANT20TA2 PO
[2017-03-24 13:30] VITALS: TEMP 37.7; Ht 149.9 cm; Wt 96.7 kg
[2017-03-24] MEDS ORDERED: SODIUM CHLORIDE 0.9% 1000ML 1,000 ML IV STA (13:44)
--- NOTE | 2017-03-24 14:14 | DIAGNOSTIC IMAGING REPORT ---
CHEST ONE VIEW PORTABLE CLINICAL HISTORY: Chest pain. COMPARISON STUDY: Chest radiograph April 08, 2016. FINDINGS: Surgical anchors within each humeral head are incidentally noted. There is no pneumothorax or pleural effusion. Linear bibasilar opacities suggest atelectasis. Cardiomegaly is unchanged. There is no evidence of pulmonary edema. Incidental note is made of thoracic spine scoliosis. IMPRESSION: 1. No acute cardiopulmonary findings. 2. Bibasilar opacities suggestive of atelectasis. Electronically signed by: Fredrick Lechuga M.D. 03/24/2017 2:13 PM Dictated Date/Time: 03/24/2017 2:12 PM
[2017-03-24] MEDS ORDERED: LACT1CHW (14:26)
[2017-03-24] MEDS ORDERED: FSMD/70 PO (14:26)
[2017-03-24] MEDS ORDERED: TRIA1SPR4 (14:26)
[2017-03-24] MEDS ORDERED: CRAN1TAB PO (14:26)
[2017-03-24] MEDS ORDERED: OMEG12006 (14:26)
[2017-03-24] MEDS ORDERED: CHOL1000 PO (14:26)
[2017-03-24] MEDS ORDERED: TRAM-10 PO (14:26)
[2017-03-24] MEDS ORDERED: TRMO2580 TOP (14:26)
[2017-03-24] MEDS ORDERED: MULT-506 PO (14:26)
[2017-03-24] MEDS ORDERED: FEXO1TAB49 PO (14:26)
[2017-03-24] MEDS ORDERED: CALC500C70 PO (14:26)
[2017-03-24 14:47] LABS: BASO % 0.2 %; BASO ABS # 0.02 K/uL (0-0.2); COMPLETE YES; EOS % 2.5 %; HEMATOCRIT 39.5 % (37-47); IG% 0.3 %; LYMPH % 12.3 %; LYMPH ABS # 1.35 K/uL (1.2-3.4); MEAN CELL VOLUME 90.4 fL (80-100); MEAN CORPUSCULAR HEMOGLOBIN 29.5 pg (25-34); MEAN CORPUSCULAR HGB CONC 32.7 g/dl (32-36); MEAN PLATELET VOLUME 9.6 fL (7.4-10.4); MONO % 6.7 %; PLATELET COUNT 212 K/uL (130-400); RED BLOOD COUNT 4.37 M/uL (4.2-5.4); WHITE BLOOD COUNT 10.94 K/uL (4.8-10.8)
[2017-03-24 15:16] LABS: BLOOD UREA NITROGEN 12 mg/dl (7-18); BUN/CREATININE RATIO 15.2 (10-20); CALCIUM 9.3 mg/dl (8.5-10.1); CARBON DIOXIDE 24 mmol/L (21-32); CHLORIDE 105 mmol/L (98-107); CREATININE 0.79 mg/dl (0.60-1.20); GLUCOSE 122 mg/dl (70-99); SODIUM 136 mmol/L (136-145)
[2017-03-24] MEDS ORDERED: LEVOFLOXACIN 250 MG TAB PO ONE (16:00)
[2017-03-24] MEDS ORDERED: DOXY100C PO (16:03)
[2017-03-24 16:09] LABS: POTASSIUM 4.1 mmol/L (3.5-5.1)
[2017-03-24] MEDS ORDERED: DOXYCYCLINE HYCLATE 100 MG CAP PO ONE (16:15)
[2017-03-24 16:19] VITALS: BP 136/76; PULSE 82; O2SAT 93
--- NOTE | 2017-03-24 19:31 | EMERGENCY ROOM VISIT NOTE ---
History Report prepared by Pratik: Tania Cheema Under the Supervision of: Dr. Ty Tomlinson D.O. First contact with patient: 13:34 Chief Complaint: SORETHROAT Stated Complaint: SORETHROAT, DEHYDRATED, NO VOICE History of Present Illness The patient is a 72 year old female who presents to the Emergency Room with complaints of persistent cough starting 1 week ago. The cough is producing a yellow sputum. She also reports rhinorrhea, sinus congestion, and dehydration. She has a sore throat and she is losing her voice which all started 2-3 days ago. She is having some pain with swallowing and her throat feels dry. She is having new SOB with walking. She denies any ear pain, fever, abdominal pain, nausea, vomiting, diarrhea, dysuria, or chest pain. She has a history of sleep apnea. Her mother had emphysema. She quit smoking many years ago. She denies any history of asthma or COPD. She does not have any other medical problems. She also notes that she got "zapped with a bunch of fleas". She was helping her friend with a cat recently. Source of History: patient Onset: 1 week ago Position: other (global) Quality: other (cough) Timing: other (persistent) Associated Symptoms: + sorethroat, + SOB, No fevers, No chest pain, No nausea, No vomiting, No abdominal pain, No diarrhea, No urinary symptoms Note: Pt reports rhinorrhea, sinus congestion, dehydration, losing voice. Review of Systems See HPI for pertinent positives & negatives. A total of 10 systems reviewed and were otherwise negative. Past Medical & Surgical Medical Problems: (1) Sleep apnea Family History No pertinent family history stated. Social History Smoking Status: Never Smoker Marital Status: Occupation Status: retired Current/Historical Medications Scheduled Alendronate/Cholecalciferol (Fosamax+D 70MG/2800 Iu), 1 TABLET PO WK Atenolol (Tenormin), 25 MG PO DAILY Atorvastatin (Atorvastatin Calcium), 1 TAB PO DAILY Calcium/Vitamin D (Os-Joao 500 Plus D), 1 TAB PO DAILY Cholecalciferol (Vitamin D3), 1 TAB PO DAILY Cranberry (Vaccinium Macrocarp (Cranberry), 1 TAB PO prn Doxycycline Hyclate (Vibramycin), 100 MG PO BID Fexofenadine Hcl (Sherri Allergy), 1 TAB PO DAILY Meclizine HCl (Meclizine HCl), 1 TAB PO DAILY Multivitamin (Multivitamin), 1 TAB PO DAILY Pantoprazole Sodium (Protonix), 40 MG PO DAILY Tolterodine Tartrate (Tolterodine Tartrate), 2 MG PO BID Triamcinolone Acetonide (Topic (Triamcinolone Acet 0.025%), 1 APPLN TOP BID Venlafaxine Hcl (Effexor Extended Rel), 1 CAP PO DAILY Scheduled PRN Fexofenadine Hcl (Sherri Allergy), 1 TAB PO HS PRN for Anxiety Potassium Chloride (K-Tabs), 10 MEQ PO DAILY PRN for Tramadol (Ultram), 1 TAB PO TID PRN for Pain Miscellaneous Medications Lactobacillus-Inulin (Culturelle Digestive Heal) [place]-3 Fatty Acids ([place] 3) Triamcinolone Acetonide (Nasal (Nasacort Allergy 24Hr) Allergies Coded Allergies: Sulfamethoxazole w/Trimethoprim (Unverified Allergy, Intermediate, unknown , 03/24/17) Acetaminophen (Unverified Allergy, Unknown, unknown, 03/24/17) Cephalexin (Unverified Allergy, Unknown, unknown, 03/24/17) Etodolac (Unverified Allergy, Unknown, unknown, 03/24/17) Hydrocodone (Unverified Allergy, Unknown, unknown, 03/24/17) Iodine (Verified Allergy, Unknown, HIVES/ITCHING, 03/24/17) Moxifloxacin (Unverified Allergy, Unknown, unknown, 03/24/17) Nitrofurantoin (Unverified Allergy, Unknown, unknown, 03/24/17) Penicillins (Unverified Allergy, Unknown, unknown, 03/24/17) Ibuprofen (Verified Adverse Reaction, Intermediate, ULCER, 03/24/17) Uncoded Allergies: BEE STING (Allergy, Unknown, hives, 03/24/17) Physical Exam Vital Signs Date Time Temp Pulse Resp B/P (MAP) Pulse Ox O2 Delivery O2 Flow Rate FiO2 03/24/17 16:19 82 18 136/76 93 03/24/17 16:18 82 18 136/76 93 Room Air 03/24/17 15:29 83 16 143/80 95 Room Air 03/24/17 14:57 Room Air 03/24/17 13:30 37.7 83 18 123/78 93 Room Air Physical Exam GENERAL: Sitting up in bed with a hoarse voice, no acute distress, nontoxic. EYE EXAM: normal conjunctiva. OROPHARYNX: no exudate, no erythema, lips, buccal mucosa, and tongue normal and mucous membranes are moist NECK: supple, no nuchal rigidity, no adenopathy, non-tender LUNGS: Clear to auscultation. Normal chest wall mechanics HEART: no murmurs, S1 normal and S2 normal ABDOMEN: abdomen soft, non-tender, normo-active bowel sounds, no masses, no rebound or guarding. BACK: Back is symmetrical on inspection and there is no deformity, no midline tenderness, no CVA tenderness. SKIN: no rashes and no bruising UPPER EXTREMITIES: upper extremities are grossly normal. LOWER EXTREMITIES: Legs with multiple scratch luna. Calves equal bilaterally. NEURO EXAM: Normal sensorium, cranial nerves II-XII grossly intact, normal speech, no gross weakness of arms, no gross weakness of legs. Medical Decision & Procedures ER Provider Diagnostic Interpretation: Radiology results as stated below per my review and the radiologist's interpretation: CHEST ONE VIEW PORTABLE CLINICAL HISTORY: Chest pain. COMPARISON STUDY: Chest radiograph April 08, 2016. FINDINGS: Surgical anchors within each humeral head are incidentally noted. There is no pneumothorax or pleural effusion. Linear bibasilar opacities suggest atelectasis. Cardiomegaly is unchanged. There is no evidence of pulmonary edema. Incidental note is made of thoracic spine scoliosis. IMPRESSION: 1. No acute cardiopulmonary findings. 2. Bibasilar opacities suggestive of atelectasis. Electronically signed by: Fredrick Lechuga M.D. 03/24/2017 2:13 PM Dictated Date/Time: 03/24/2017 2:12 PM Laboratory Results 03/24/17 14:27 Red Blood Count 4.37, Mean Corpuscular Volume 90.4, Mean Corpuscular Hemoglobin 29.5, Mean Corpuscular Hemoglobin Concent 32.7, Mean Platelet Volume 9.6, Neutrophils (%) (Auto) 78.0, Lymphocytes (%) (Auto) 12.3, Monocytes (%) (Auto) 6.7, Eosinophils (%) (Auto) 2.5, Basophils (%) (Auto) 0.2, Neutrophils # (Auto) 8.54, Lymphocytes # (Auto) 1.35, Monocytes # (Auto) 0.73, Eosinophils # (Auto) 0.27, Basophils # (Auto) 0.02 03/24/17 14:27 03/24/17 15:39 Test 03/24/17 14:27 03/24/17 15:07 03/24/17 15:39 White Blood Count 10.94 K/uL (4.8-10.8) Red Blood Count 4.37 M/uL (4.2-5.4) Hemoglobin 12.9 g/dL (12.0-16.0) Hematocrit 39.5 % (37-47) Mean Corpuscular Volume 90.4 fL (80-100) Mean Corpuscular Hemoglobin 29.5 pg (25-34) Mean Corpuscular Hemoglobin Concent 32.7 g/dl (32-36) Platelet Count 212 K/uL (130-400) Mean Platelet Volume 9.6 fL (7.4-10.4) Neutrophils (%) (Auto) 78.0 % Lymphocytes (%) (Auto) 12.3 % Monocytes (%) (Auto) 6.7 % Eosinophils (%) (Auto) 2.5 % Basophils (%) (Auto) 0.2 % Neutrophils # (Auto) 8.54 K/uL (1.4-6.5) Lymphocytes # (Auto) 1.35 K/uL (1.2-3.4) Monocytes # (Auto) 0.73 K/uL (0.11-0.59) Eosinophils # (Auto) 0.27 K/uL (0-0.5) Basophils # (Auto) 0.02 K/uL (0-0.2) RDW Standard Deviation 44.8 fL (36.4-46.3) RDW Coefficient of Variation 13.5 % (11.5-14.5) Immature Granulocyte % (Auto) 0.3 % Immature Granulocyte # (Auto) 0.03 K/uL (0.00-0.02) Anion Gap 6.0 mmol/L (3-11) Est Creatinine Clear Calc Drug Dose 66.6 ml/min Estimated GFR () 87.3 Estimated GFR (Non- 75.3 BUN/Creatinine Ratio 15.2 (10-20) Calcium Level 9.3 mg/dl (8.5-10.1) Troponin I < 0.015 ng/ml (0-0.045) Influenza Type A Antigen Neg for Influ A (NEG) Influenza Type B Antigen Neg for Influ B (NEG) Chemistry Specimen Hemolysis Laboratory results per my review. Medications Administered Medications (Trade) Dose Ordered Sig/Darnell Route Start Time Stop Time Status Last Admin Dose Admin Sodium Chloride 1,000 ml @ 999 mls/hr Q1H1M STAT IV 03/24/17 13:44 03/24/17 14:44 DC 03/24/17 14:57 999 MLS/HR Doxycycline Hyclate (Vibramycin Cap) 100 mg ONE ONCE PO 03/24/17 16:15 03/24/17 16:16 DC 03/24/17 16:17 100 MG ECG Indication: SOB/dyspnea Rate (beats per minute): 81 Rhythm: sinus rhythm Findings: Q waves (Septal, Inferior), T-wave inversion (Septal, Anterior), left axis deviation Comparison ECG Date: 07-Jan-2017 Change: no significant change ED Course ED COURSE: Vital signs were reviewed and showed normal vitals. The patients medical record was reviewed The above diagnostic studies were performed and reviewed. ED treatments and interventions as stated above. 1340: The patient was evaluated in room C5. A complete history and physical examination was performed. 1344: NSS 1000 ml @ 999 mls/hr IV. 1615: Vibramycin Cap 100 mg PO. 1558: Upon reevaluation, the patient is resting comfortably.I discussed my findings with the patient and she understands and agrees with the treatment plan. Based on the patients age, coexisting illnesses, exam and lab findings the decision to treat as an outpatient was made. The patient remained stable while under my care. The patient appeared well at the time of discharge. Medical Decision Differential diagnoses includes but is not limited to pneumonia, bronchitis, COPD/Asthma exacerbation, pneumothorax, pulmonary embolism, congestive heart failure, acute coronary syndrome Patient is a 72-year-old female who presents to ER with a productive cough, sore throat, runny nose and loss of voice. She does admit to mild shortness of breath associated with these symptoms. Denies any chest pain. No fevers of of 100.4. CBC shows a leukocytosis of 10.9 thousand. BMP was unremarkable. Troponin was negative. Influenza negative. Strep negative. Chest x-ray shows no focal infiltrate although in the lower lung lee to does appear to be atelectasis. Based on her symptoms I favor this is likely viral with the laryngitis. She was treated with doxycycline due to her allergies. She was discharged to follow-up with PCP as an outpatient. She was also complaining of a flea bite but she has not had any recently and is currently trying to clean the house and the cats of this. Patient was given antibiotics and discharged follow-up with PCP. Discussed with Pt concerning signs and symptoms to watch out for. Pt was instructed to follow up with their PCP and discussed with the patient their option to return to the ED at anytime for persistent or worsening symptoms. The appropriate anticipatory guidance and out-patient management, including indications for return to the emergency department, were explained at length to the patient and understood. Medication Reconcilliation Current Medication List: was personally reviewed by me Blood Pressure Screening Patient's blood pressure: Normal blood pressure Blood pressure disposition: Did not require urgent referral Impression Primary Impression: Bronchitis Additional Impression: Laryngitis Scribe Attestation The scribe's documentation has been prepared under my direction and personally reviewed by me in its entirety. I confirm that the note above accurately reflects all work, treatment, procedures, and medical decision making performed by me. Departure Information Dispostion Home / Self-Care Prescriptions Doxycycline Hyclate (VIBRAMYCIN) 100 Mg Cap 100 MG PO BID for 7 Days, #14 CAP Prov: Ty Tomlinson, DO 03/24/17 Referrals Saul King M.D. (PCP) Forms HOME CARE DOCUMENTATION FORM, IMPORTANT VISIT INFORMATION Patient Instructions Bronchitis Acute, My [facility] Additional Instructions Please follow up with your primary care doctor with in the next 24 hours. Any worsening of your symptoms, please return to the ED immediately. This includes any fevers greater than 100.4, worsening pain, chest pain, shortness breath, persistent nausea, vomiting, unable to eat or drink, or any other concerning signs or symptoms from your standpoint. Problem Qualifiers
== END 2017-03-24 16:27 | disposition home or self-care (01) ==
LOC: C.EDB 13:28 → C.EDC 16:27
DX: J40 Bronchitis, not specified as acute or chronic (principal); J04.0 Acute laryngitis; G47.30 Sleep apnea, unspecified

== ENCOUNTER → 2017-04-01 | Outpatient (CLI) | payer BC ==
[~2017-04-01] VITALS: Ht 149.9 cm; Wt 94.8 kg
[~2017-04-01] MED LIST changes: +CALC500C70 PO; +CHOL1000 PO; +CRAN1TAB PO; +DOXY100C PO; +FSMD/70 PO; +LACT1CHW; +MULT-506 PO; +OMEG12006; +TRAM-10 PO; +TRIA1SPR4; +TRMO2580 TOP
[2017-04-01 15:56] VITALS: BP 112/65; PULSE 82; Ht 149.9 cm; Wt 94.8 kg
== END | disposition home or self-care (01) ==
LOC: C.NEUR 15:02
PROVIDERS: ATTEND Internal Medicine Pulmonary Disease
DX: G47.33 Obstructive sleep apnea (adult) (pediatric) (principal)

== ENCOUNTER → 2017-07-01 | Outpatient (CLI) | payer BC ==
[~2017-07-01] MED LIST changes: -DOXY100C PO
== END | disposition home or self-care (01) ==
LOC: C.LAB 15:36
PROVIDERS: ATTEND Nurse Practitioner Adult Health
DX: R32 Unspecified urinary incontinence (principal); R39.9 Unspecified symptoms and signs involving the genitourinary system

== ENCOUNTER → 2017-07-22 | Outpatient (CLI) | payer BC ==
[2017-07-22 13:23] LABS: BASO % 0.3 %; BASO ABS # 0.02 K/uL (0-0.2); EOS % 3.7 %; EOS ABS # 0.24 K/uL (0-0.5); HEMATOCRIT 43.5 % (37-47); HEMOGLOBIN 14.3 g/dL (12.0-16.0); IG# 0.03 K/uL (0.00-0.02); LYMPH % 24.3 %; LYMPH ABS # 1.56 K/uL (1.2-3.4); MEAN CORPUSCULAR HEMOGLOBIN 30.2 pg (25-34); MEAN CORPUSCULAR HGB CONC 32.9 g/dl (32-36); MEAN PLATELET VOLUME 11.1 fL (7.4-10.4); MONO % 6.2 %; NEUT ABS # 4.18 K/uL (1.4-6.5); PLATELET COUNT 208 K/uL (130-400); RED CELL DISTRIBUTION WIDTH CV 13.9 % (11.5-14.5); RED CELL DISTRIBUTION WIDTH SD 46.9 fL (36.4-46.3); WHITE BLOOD COUNT 6.43 K/uL (4.8-10.8)
[2017-07-22 13:53] LABS: ALBUMIN 3.9 gm/dl (3.4-5.0); ALT/SGPT 25 U/L (12-78); AST/SGOT 15 U/L (15-37); BLOOD UREA NITROGEN 28 mg/dl (7-18); CALCIUM 9.6 mg/dl (8.5-10.1); CARBON DIOXIDE 28 mmol/L (21-32); CREATININE 1.02 mg/dl (0.60-1.20); GLUCOSE 133 mg/dl (70-99); POTASSIUM 4.2 mmol/L (3.5-5.1); SODIUM 140 mmol/L (136-145)
[2017-07-22 14:01] LABS: ALKALINE PHOSPHATASE 113 U/L (45-117); CHOLESTEROL 115 mg/dl (0-200); LDL CHOLESTEROL CALCULATED 51 mg/dl; TOTAL PROTEIN 7.5 gm/dl (6.4-8.2)
== END | disposition home or self-care (01) ==
LOC: C.LABBC 10:46
PROVIDERS: ATTEND Internal Medicine Geriatric Medicine
DX: M19.90 Unspecified osteoarthritis, unspecified site (principal); R73.9 Hyperglycemia, unspecified; G56.00 Carpal tunnel syndrome, unspecified upper limb; I10 Essential (primary) hypertension; R74.8 Abnormal levels of other serum enzymes; R25.2 Cramp and spasm

== ENCOUNTER → 2017-08-23 | Outpatient (CLI) | payer BC | END | disposition home or self-care (01) | LOC: C.LAB 14:55 | PROVIDERS: ATTEND Internal Medicine Geriatric Medicine | DX: R94.6 Abnormal results of thyroid function studies (principal) ==

== ENCOUNTER → 2017-09-30 | Outpatient (CLI) | payer BC ==
[~2017-09-30] VITALS: Ht 149.9 cm; Wt 95.5 kg
[2017-09-30 15:30] VITALS: BP 115/53; PULSE 76; Ht 149.9 cm; Wt 95.5 kg
== END | disposition home or self-care (01) ==
LOC: C.NEUR 14:55
PROVIDERS: ATTEND Internal Medicine Pulmonary Disease
DX: G47.33 Obstructive sleep apnea (adult) (pediatric) (principal)

== ENCOUNTER 2023-05-05 15:48 | Observation (INO) ==
--- NOTE | 2023-05-05 16:09 | ED Triage Note ---
Date of Service May 05, 2023 Provider in Triage Author: Emmanuel Quiñones A History of Present Illness This patient was briefly evaluated while in triage. An abbreviated physical exam was performed. This patient is a 78-year-old Female who presents to the ED for evaluation of visual loss in the right eye. Started about 10 pm yesterday. Still there when she went to bed at 1am. Woke and vision still "fuzzy". Had an echo today with Gerrardo independently of symptoms. Did get an acute visit with an eye doctor and sent to the ER for evaluation. No fevers/chills. Had strange vision symptoms earlier this month too, lasting about 3 to 4 hours. Physical Exam Limited Triage Exam: VITALS: Vitals are noted on the nurse's note and reviewed by myself. Vital signs stable. GENERAL: Elderly white female who is in no acute distress and resting comfortably. Patient is cooperative with the examination. HEART: Regular rate and rhythm without murmurs gallops or rubs. LUNGS: Clear to auscultation bilaterally without wheezes, rales or rhonchi. No retractions or accessory muscle use. NEURO: Patient was alert and oriented to person place and time. CN II through XII grossly intact. GCS 15. Full ROM. Initial orders for labs and / or imaging were placed and patient was placed in the waiting area until a bed is available. Please see further documentation for the full ED course.
[2023-05-05] MEDS ORDERED: diphenhydrAMINE 50 MG/ML VIAL IV STA (16:12)
[2023-05-05] MEDS ORDERED: methylPREDNISolone 125 MG/2 ML VIAL IV STA (16:12)
[2023-05-05 16:45] LABS: Appearance Urine Clear (Clear); Bilirubin Urine Negative (Negative); Blood Urine Negative (Negative); Color Urine Yellow; Glucose Urine UA Negative (Negative); Ketones Urine Negative (Negative); Leukocyte Esterase Urine Negative (Negative); Nitrite Urine Negative (Negative); Protein Urine Negative (Negative); Specific Gravity Urine 1.014 (1.000-1.030); Urobilinogen Urine Negative (Negative); pH Urine 5.5 (4.5-7.5)
[2023-05-05 17:12] LABS: Basophils # (auto) 0.04 K/uL (0.00-0.20); Basophils % (auto) 0.6 %; Eosinophils # (auto) 0.27 K/uL (0.00-0.50); Eosinophils % (auto) 4.1 %; Hematocrit (blood only) 39.6 % (37.0-47.0); Hemoglobin 13.1 g/dl (12.0-16.0); Immature Granulocytes # (auto) 0.03 K/uL (0.01-0.20); Immature Granulocytes % (auto) 0.5 %; Lymphocytes # (auto) 1.63 K/uL (1.20-3.40); Lymphocytes % (auto) 24.8 %; Mean Corpuscular Hemoglobin 29.6 pg (25.0-34.0); Mean Corpuscular Hgb Conc 33.1 g/dL (32.0-36.0); Mean Corpuscular Volume 89.4 fL (80.0-100.0); Mean Platelet Volume 10.1 fL (9.4-12.4); Monocytes # (auto) 0.51 K/uL (0.11-0.59); Monocytes % (auto) 7.8 %; Neutrophils # (auto) 4.08 K/uL (1.40-6.50); Neutrophils % (auto) 62.2 %; Platelet Count 215 K/uL (130-400); RDW Coefficient of Variation 13.4 % (11.5-14.5); RDW Standard Deviation 44.4 fL (36.4-46.3); Red Blood Count 4.43 M/uL (4.20-5.40); White Blood Count 6.56 K/ul (4.8-10.8)
[2023-05-05 17:16] LABS: iSTAT Creatinine 0.9 mg/dl (0.6-1.3); iSTAT Hemoglobin 12.6 g/dl (12.0-16.0); iSTAT Ionized Calcium 1.16 mmol/l (1.12-1.32); iSTAT Potassium 4.2 mmol/L (3.3-5.0)
[2023-05-05] MEDS ORDERED: OPTIRAY 320 125ml IV ONE (17:23)
[2023-05-05 17:36] LABS: Alanine Aminotransferase 13 U/L (7-52); Albumin Globulin Ratio 1.5 (0.9-2); Albumin Level 4.2 gm/dl (3.4-5.0); Alkaline Phosphatase 95 U/L (34-104); Anion Gap 7 (3-11); Aspartate Aminotransferase 19 U/L (13-39); BUN Creatinine Ratio 21.3 (10-20); Bilirubin,Total 0.4 mg/dl (0.2-1.0); Blood Urea Nitrogen 19 mg/dl (6-23); C Reactive Protein < 0.50 mg/dl (0-0.5); Calcium 9.6 mg/dl (8.6-10.3); Carbon Dioxide 25 mmol/L (21-32); Chloride 107 mmol/L (98-107); Creatinine Clr Calc Pharmacy 51.6 ml/min; Est GFR (African American) 72.5 ml/min; Est GFR (Non-African American) 62.5 ml/min; Globulin 2.8 gm/dl (2.5-4.0); Glucose 105 mg/dl (70-99(Fasting)); Potassium 4.2 mmol/L (3.5-5.1); Sodium 139 mmol/L (136-145)
[2023-05-05 17:39] LABS: Troponin I High Sensitivity 2.4 pg/ml (0-14)
--- NOTE | 2023-05-05 17:40 | CT Scan Report ---
CT angio head w con, CT angio neck with con, CT head/brain wo con CLINICAL HISTORY: 78 years-old Female with Visual changes/TIA. Acute strokelike symptoms COMPARISON STUDY: None TECHNIQUE: Unenhanced axial CT scan of the brain is performed. Subsequently, following the IV adminis tration of 118 cc of Optiray, CT angiogram of the head and neck was performed from the skull base to the vertex. Images are reviewed in the axial, sagittal, and coronal planes. 3-D MIPS images are creat ed and assessed. IV contrast was administered without complication. All measurements were obtained ac cording to NASCET criteria. A dose lowering technique was utilized adhering to the principles of INA [place]. CT DOSE: 1067.3 mGy.cm FINDINGS: CT BRAIN: There is no acute intracranial hemorrhage, midline shift, hydrocephalus, intracranial mass, territori al ischemia or abnormal extra-axial collections. No abnormal intra-axial or extra-axial enhancement. Mastoid air cells and middle ear cavities are clear. No calvarial fracture. Prior bilateral lens rep air. Paranasal sinuses are clear. CT ANGIOGRAM OF THE HEAD AND NECK: Atherosclerosis of the thoracic aorta with normal three-vessel morphology. There is patency of the in nominate and imaged subclavian arteries. The common and internal carotid arteries are patent. The manuela ateral anterior and middle cerebral arteries are also patent. The vertebrobasilar system and posterio r cerebral arteries are widely patent. There is no aneurysm, high-grade stenosis, or proximal branch occlusion identified. Dural sinuses appear patent. Lung apices are clear. No pneumothorax. Unremarkable soft tissues. No acute fracture. Multilevel dege nerative changes of the cervical spine. IMPRESSION: 1. No acute intracranial abnormality. 2. Unremarkable CTA of the head and neck. ACT 112: Negative or not required by law. The above report was generated using voice recognition software. It may contain grammatical, syntax o r spelling errors. Electronically signed by: Nilesh Cornell M.D. 05/05/2023 5:38 PM
[2023-05-05 17:42] LABS: Adenovirus PCR Not Detected (NotDetected); Bordetella parapertussis PCR Not Detected (NotDetected); Bordetella pertussis PCR Not Detected (NotDetected); Chlamydia pneumoniae PCR Not Detected (NotDetected); Coronavirus 229E PCR Not Detected (NotDetected); Coronavirus CoV-2 (COVID19)PCR Not Detected (NotDetected); Coronavirus HKU1 PCR Not Detected (NotDetected); Coronavirus NL63 PCR Not Detected (NotDetected); Coronavirus OC43PCR Not Detected (NotDetected); Human Metapneumovirus PCR Not Detected (NotDetected); Influenza A PCR Not Detected (NotDetected); Influenza B PCR Not Detected (NotDetected); Mycoplasma pneumoniae PCR Not Detected (NotDetected); Parainfluenza Virus 1 PCR Not Detected (NotDetected); Parainfluenza Virus 2 PCR Not Detected (NotDetected); Parainfluenza Virus 3 PCR Not Detected (NotDetected); Parainfluenza Virus 4 PCR Not Detected (NotDetected); Respiratory Syncytial VirusPCR Not Detected (NotDetected); Rhinovirus/Enterovirus PCR Not Detected (NotDetected)
[2023-05-05 17:43] LABS: Partial Thromboplastin Ratio 0.9; Partial Thromboplastin Time 25 Seconds (21-31); Prothrombin Time 10.5 Seconds (9.0-12.0)
--- NOTE | 2023-05-05 18:39 | History & Physical Report ---
Date of Service May 05, 2023 Assessment & Plan (1) Stroke-like symptoms: Plan: Right eye vision loss / blurry - seen by metal stud framer and requested stroke workup Continued blurring of vision but much improved since last night. Brain MRI Limited TTE for bubble study Telemetry overnight Given no retinal artery occlusion seen on optometry exam and vision blurring rather than loss currently will defer any antiplatelet/high-dose statin pending further workup Plan VTE prophylaxis - low risk Diet - heart healthy Disposition - observation to med telemetry Admission and Anticipated Discharge Date Admission Date: May 05, 2023 History of Present Illness Chief Complaint: Right eye blurring / vision loss Primary Care Provider: Leobardo Richmond DO Sara Craven is a 78-year-old female who presents to the ER for stroke evaluation after right eye vision loss at 10pm yesterday. Patient was sent to the ER by optometry for stroke workup. However the ER provider discussed with the precision dancer medical grade shoemaker who reportedly discussed with the metal stud framer who saw the patient and did not see any retinal artery occlusion. The patient reports slow onset of vision blurring started at 10pm yesterday while driving - describes this as a vision fog and blurring rather than a curtain to the point of not being able to see anything out of her right eye. She noted her left eye vision was fine when she tested both. This morning her right eye vision had improved enough to be able to drive again however she made an eye appointment later in the day. She underwent her previously planned dobutamine stress echo this morning prior to her eye appointment. She continues to feel her vision is not yet back to normal but significantly improved from yesterday. Usually her vision if normal in both eyes. She was sent over to the ER by her metal stud framer for a stroke workup although no information was sent with the patient. She is prescribed pilocarpine but denies any Sjogren's or consistent dry eye - she is prescribed this for dry mouth by her dentist and has been on it for the last year. Allergies Allergy/AdvReac Type Severity Reaction Status Date / Time bee venom protein (honey bee) Allergy Severe swelling Verified 05/05/23 20:38 cephalexin Allergy Severe hives Verified 05/05/23 20:38 moxifloxacin Allergy Severe rash Verified 05/05/23 20:38 Bactrim Allergy Intermediate unknown Verified 12/12/17 21:40 iodine Allergy Intermediate HIVES/ITCHI Verified 05/05/23 20:38 NG sulfamethoxazole Allergy Intermediate nausea, Verified 05/05/23 20:38 facial swelling hydrocodone Allergy Unknown unknown Verified 05/05/23 20:38 Penicillins Allergy Unknown unknown Verified 05/05/23 20:38 chlorpheniramine AdvReac Intermediate tremor Verified 05/05/23 20:38 [From [facility]] etodolac AdvReac Intermediate nausea Verified 05/05/23 20:38 ibuprofen AdvReac Intermediate ULCER Verified 04/27/23 13:06 trimethoprim AdvReac Intermediate nausea Verified 04/27/23 13:06 Home Medications Medication Instructions Recorded Confirmed Type ascorbic acid (vitamin C) 500 mg 500 mg PO WK 03/03/18 05/05/23 History tablet (Vitamin C) magnesium aspartate-potassium 250 mg PO DAILY PRN leg cramps 03/03/18 05/05/23 History aspartate 250 mg-250 mg capsule multivitamin 1 tab PO HS 04/29/20 05/05/23 History cholecalciferol (vitamin D3) 25 2,000 unit PO HS 05/09/20 05/05/23 History mcg (1,000 unit) tablet (Vitamin D3) guaifenesin 600 mg tablet, 600 mg PO Q12H PRN Congestion 10/01/20 05/05/23 History extended release 12 hr (Mucinex) nystatin 100,000 unit/gram topical 1 unit topical BID PRN Rash #60 11/05/21 05/05/23 Rx powder grams gabapentin 100 mg capsule 100 mg PO QPM PRN Pain #30 caps 02/17/22 05/05/23 Rx atorvastatin 10 mg tablet (Lipitor) 5 mg (1/2 x 10 mg) PO HS #90 tabs 09/22/22 05/05/23 Rx fexofenadine 180 mg tablet 180 mg PO HS 09/22/22 05/05/23 History olopatadine 0.2 % eye drops 1 drp ophthalmic (eye) DAILY #2.5 09/22/22 05/05/23 Rx (Pataday Once Daily Relief) mL fesoterodine 8 mg tablet,extended 8 mg PO DAILY #90 tabs 03/25/23 05/05/23 Rx release 24 hr (Toviaz) lisinopril 10 mg tablet 10 mg PO HS #90 tabs 03/25/23 05/05/23 Rx mometasone 50 mcg/actuation nasal 2 spray intranasal DAILY PRN 03/25/23 05/05/23 Rx spray Allergy Symptoms #17 grams pantoprazole 20 mg tablet,delayed 40 mg (2 x 20 mg) PO HS #180 tabs 03/25/23 05/05/23 Rx release (Protonix) venlafaxine 37.5 mg 37.5 mg PO DAILY PRN Anxiety #90 03/25/23 05/05/23 Rx capsule,extended release 24 hr caps venlafaxine 75 mg capsule,extended 75 mg PO HS #90 caps 03/25/23 05/05/23 Rx release 24 hr pilocarpine HCl 5 mg tablet 5 mg PO TID 05/05/23 05/05/23 History solifenacin 10 mg tablet (Vesicare) 10 mg PO HS PRN .If runs out of 05/05/23 05/05/23 History toziaz Past Med/Surg History Medical History History of anesthesia reaction Chronic back pain Urinary incontinence Depression with anxiety Hyperlipidemia Essential (primary) hypertension Carotid bruit Chronic GERD Age related osteoporosis Sleep apnea Surgical History History of cataract surgery History of lumbar spinal fusion History of repair of left rotator cuff History of repair of right rotator cuff History of cholecystectomy History of tooth extraction History of wisdom tooth extraction History of tonsillectomy and adenoidectomy H/O colonoscopy Hx of appendectomy Family History Mother Diabetes Anxiety Depression Emphysema lung Lung disease Sister Ovarian cancer Osteoporosis Coronary heart disease Uterine cancer Myocardial infarction Heart disease Stroke Renal function impairment with growth failure Father Diabetes Family history of diabetes mellitus Other Breast cancer Colorectal cancer No family history of adverse response to anesthesia Denies family history of Prostate cancer Lung cancer Social History Smoking Status: Former smoker Tobacco Type: Cigarettes Age Started Using Tobacco: 21; Age Quit Using Tobacco: 41; packs per day: 0.5; Second Hand Exposure: Yes; Do You Dip or Chew Tobacco: No; Hx Alcohol Use: No Hx Substance Use: No Preferred Language: Mohawk Communication Ability: Effective Visual Impairment: Limited Hearing Ability: Normal 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 Beliefs That Will Affect Care: None marital status: / Current Living Situation: Alone Current Living Situation Comment: apartment building> family close by current occupational status: retired How many Children do You have: 0 Other Information That Helps Us Care for You: No Feels Safe at Home: Yes Safety Concerns: Feels Safe At This Time Childhood Exposure to Second-Hand Smoke: Yes Diet: regular caffeine: Yes (alot of iced tea ) Dental Care, Regularly: Yes Physical Activity Frequency: Does not Exercise Seatbelt Use: always Sunscreen Use: No Assistive Devices: CPAP Review of Systems Review of Systems: All systems reviewed & are unremarkable except as noted in HPI & below Physical Exam Constitutional: WD/WN, vitals as above Eyes: PERRL, conjunctivae normal, anicteric sclerae ENMT: external ear and nose normal, oropharynx normal Neck: trachea midline, no thyromegaly Respiratory: normal respiratory effort, lungs clear to auscultation Cardiovascular: RRR, no murmur, no edema Gastrointestinal (Abdomen): normal bowel sounds, soft, nontender, no hepatosplenomegaly Musculoskeletal: no cyanosis or clubbing, extremities motor strength 5/5 Skin: no rashes, warm and dry Neurologic: moves all extremities and awake; no focal motor deficits and not confused Speech / Cognition: normal speech Motor/Sensory: no tremor and no pronator drift Cranial Nerves: sense of smell intact, PERRL, EOM intact bilaterally, normal facial strength, tongue midline, able to elevate shoulders bilaterally and symmetric palate elevation Psychiatric: A+Ox3, euthymic affect Results & Data Results & Data Vital Signs (Past 12 Hours) Vital Signs Temp Pulse Resp BP Pulse Ox O2 Del Method 05/05/23 16:56 75 05/05/23 16:06 36.5 C 82 16 152/78 H 94 Room Air Laboratory Results Abnormal lab results 05/05/23 05/05/23 Range/Units 16:52 17:02 POC Anion Gap 14.0 L (16-25) mmol/L BUN/Creatinine Ratio 21.3 H (10-20) Glucose 105 H (70-99(Fasting)) mg/dl POC Glucose (other) 111 H (70-99) mg/dl Diagnostic Findings CT angio head w con, CT angio neck with con, CT head/brain wo con CLINICAL HISTORY: 78 years-old Female with Visual changes/TIA. Acute strokelike symptoms COMPARISON STUDY: None TECHNIQUE: Unenhanced axial CT scan of the brain is performed. Subsequently, following the IV administration of 118 cc of Optiray, CT angiogram of the head and neck was performed from the skull base to the vertex. Images are reviewed in the axial, sagittal, and coronal planes. 3-D MIPS images are created and assessed. IV contrast was administered without complication. All measurements were obtained according to NASCET criteria. A dose lowering technique was utilized adhering to the principles of ALARA. CT DOSE: 1067.3 mGy.cm FINDINGS: CT BRAIN: There is no acute intracranial hemorrhage, midline shift, hydrocephalus, intracranial mass, territorial ischemia or abnormal extra-axial collections. No abnormal intra-axial or extra-axial enhancement. Mastoid air cells and middle ear cavities are clear. No calvarial fracture. Prior bilateral lens repair. Paranasal sinuses are clear. CT ANGIOGRAM OF THE HEAD AND NECK: Atherosclerosis of the thoracic aorta with normal three-vessel morphology. There is patency of the innominate and imaged subclavian arteries. The common and internal carotid arteries are patent. The bilateral anterior and middle cerebral arteries are also patent. The vertebrobasilar system and posterior cerebral arteries are widely patent. There is no aneurysm, high-grade stenosis, or proximal branch occlusion identified. Dural sinuses appear patent. Lung apices are clear. No pneumothorax. Unremarkable soft tissues. No acute fracture. Multilevel degenerative changes of the cervical spine. IMPRESSION: 1. No acute intracranial abnormality. 2. Unremarkable CTA of the head and neck. Medications Administered ER medications given: Solu-Medrol 125 mg IV Diphenhydramine 25 mg IV ECG Rate (beats per minute): 85 Rhythm: normal sinus Findings: + RBBB and + left axis deviation Comparison ECG Date: from (May 13, 2022) Change: no significant change Code Status & VTE Plan Code Status Full PG Care Time/CCT Total # of Minutes Spent Total Time Spent with Patient: Total time spent is greater than 50% in coordination of care (as documented) at patient's floor/unit and/or counseling patient: Coding Level of Care Code 84159 INT INP/OBS CARE 2/55MIN Diagnoses Stroke-like symptoms R29.90
--- NOTE | 2023-05-05 21:39 | Magnetic Resonance Report ---
Exam(s): MRI HEAD Without Contrast EXAM: MR Head Without Intravenous Contrast CLINICAL HISTORY: Reason for exam: Right eye vision loss ?CVA. TECHNIQUE: Magnetic resonance images of the head/brain without intravenous contrast in multiple planes. COMPARISON: No relevant prior studies available. FINDINGS: Brain: Unremarkable. No mass. No hemorrhage. No acute infarct. Ventricles: Unremarkable. No ventriculomegaly. Bones/joints: Unremarkable. No acute fracture. Sinuses: Unremarkable as visualized. No acute sinusitis. Mastoid air cells: Unremarkable as visualized. No mastoid effusion. Orbits: Unremarkable as visualized. IMPRESSION: Normal head/brain MRI. If evaluation of the arteries (including the ophthalmic artery) are required, consider CTA. Electronically signed by: Juan Jose Redding MD 05/05/23 21:38 PM
--- NOTE | 2023-05-06 00:09 | Emergency Department Note ---
Impression & Plan Change in vision ED Provider Note Diagnosis: Vision change Disposition: Admission CHIEF COMPLAINT: Vision change HPI: Patient is a 78-year-old female presenting with complaint of acute vision change. Patient states last evening approximately 10 PM while driving she noticed loss of vision of her right eye. Patient states she is that she felt there was a fog over her right eye had to drive home using only her left eye. Patient went to her normal echo stress test this morning and then went to her eye doctor for an acute appointment. Patient reportedly had full evaluation with eye doctor and they recommended her to come to the emergency room for further workup for potential stroke. Patient denies any previous diagnosed strokes. Patient states however on April 11 of this year she had similar symptoms that resolved on their own. Patient states today symptoms lasted longer. Patient denies any muscle strength or sensory deficits. PAST MEDICAL HISTORY: See Below PAST SURGICAL HISTORY: See Below SOCIAL HISTORY: See Below HOME MEDICATIONS: See Below ALLERGIES: See Below VITALS: See Below PHYSICAL EXAMINATION: GENERAL: Well appearing, well nourished, NAD, non-toxic. EYE EXAM: Normal conjunctiva. Blurred vision right eye OROPHARYNX: Moist mucus membranes. Grossly normal dentition. NECK: Supple, LUNGS: Clear to auscultation. Normal chest wall mechanics. HEART: NSR ABDOMEN: Abdomen soft, non-tender, normo-active bowel sounds, no masses, no rebound or guarding BACK: No CVA TTP. SKIN: No rashes and no bruising. UPPER EXTREMITIES: Upper extremities are grossly normal LOWER EXTREMITIES: Grossly normal, no edema. NEURO EXAM: A&O x3,, normal speech, moves all 4 extremities PSYCH: Cooperative MEDICAL DECISION MAKING: Reviewed external documents: History obtained from: Patient ER Course: Patient is a 78-year-old female presenting for acute vision change. Patient's symptoms started 10 PM last evening. Patient greater than 4-1/2 hours from time of onset and is not a TNK or tPA candidate. Patient has no sensory or muscle strength deficits on exam. Patient states her vision has significantly improved and now is very mildly blurred. But significantly better than last evening. Patient went to the synthetic staple extruder today and was sent over for stroke workup. I consulted with the synthetic staple extruder and they state that they did not see any retinal artery occlusion on exam. Recommended further stroke workup. Patient had CT scan of head with and without contrast today without any signs of intracranial hemorrhage or large vessel occlusion. Patient's case discussed with hospital service who agrees to admit the patient further treatment and evaluation Labs (independently interpreted) are significant for: No significant electrolyte abnormalities EKG interpretation (independently interpreted): Sinus rhythm no ST segment elevation or depression bundle branch block present Medications given: Solu-Medrol, Benadryl pretreatment for CT Consultants: Hospitalist, synthetic staple extruder on-call Triage Nursing notes reviewed and agree them. Vital Signs: reviewed and remarkable for: no significant abnormalities Past Med/Surg History Medical History History of anesthesia reaction Chronic back pain Urinary incontinence Depression with anxiety Hyperlipidemia Essential (primary) hypertension Carotid bruit Chronic GERD Age related osteoporosis Sleep apnea Surgical History History of cataract surgery History of lumbar spinal fusion History of repair of left rotator cuff History of repair of right rotator cuff History of cholecystectomy History of tooth extraction History of wisdom tooth extraction History of tonsillectomy and adenoidectomy H/O colonoscopy Hx of appendectomy Family History Mother Diabetes Anxiety Depression Emphysema lung Lung disease Sister Ovarian cancer Osteoporosis Coronary heart disease Uterine cancer Myocardial infarction Heart disease Stroke Renal function impairment with growth failure Father Diabetes Family history of diabetes mellitus Other Breast cancer Colorectal cancer No family history of adverse response to anesthesia Denies family history of Prostate cancer Lung cancer Social History Smoking Status: Unknown if ever smoked Tobacco Type: Cigarettes Age Started Using Tobacco: 21; Age Quit Using Tobacco: 41; packs per day: 0.5; Second Hand Exposure: Yes; Do You Dip or Chew Tobacco: No; Hx Alcohol Use: Yes Alcohol type: hard liquor and other Alcohol type Comment: wine coolers Alcohol Intake Frequency: Monthly or Less Hx Substance Use: No Preferred Language: Slovak Communication Ability: Effective Visual Impairment: Limited Hearing Ability: Normal Director Of Finance Required: No Beliefs That Will Affect Care: None marital status: / Current Living Situation: Alone Current Living Situation Comment: apartment building> family close by current occupational status: retired How many Children do You have: 0 Feels Safe at Home: Yes Childhood Exposure to Second-Hand Smoke: Yes Diet: regular caffeine: Yes (alot of iced tea ) Dental Care, Regularly: Yes Physical Activity Frequency: Does not Exercise Seatbelt Use: always Sunscreen Use: No Assistive Devices: CPAP, Denture - Upper and Glasses Allergies Allergies Allergy/AdvReac Type Severity Reaction Status Date / Time bee venom protein (honey bee) Allergy Severe swelling Verified 05/05/23 20:38 cephalexin Allergy Severe hives Verified 05/05/23 20:38 moxifloxacin Allergy Severe rash Verified 05/05/23 20:38 Bactrim Allergy Intermediate unknown Verified 12/12/17 21:40 iodine Allergy Intermediate HIVES/ITCHI Verified 05/05/23 20:38 NG sulfamethoxazole Allergy Intermediate nausea, Verified 05/05/23 20:38 facial swelling hydrocodone Allergy Unknown unknown Verified 05/05/23 20:38 Penicillins Allergy Unknown unknown Verified 05/05/23 20:38 chlorpheniramine AdvReac Intermediate tremor Verified 05/05/23 20:38 [facility] etodolac AdvReac Intermediate nausea Verified 05/05/23 20:38 ibuprofen AdvReac Intermediate ULCER Verified 04/27/23 13:06 trimethoprim AdvReac Intermediate nausea Verified 04/27/23 13:06 Home Meds Home Medications Medication Instructions Recorded Confirmed ascorbic acid (vitamin C) 500 mg 500 mg PO WK 03/03/18 05/05/23 tablet (Vitamin C) magnesium aspartate-potassium 250 mg PO DAILY PRN leg cramps 03/03/18 05/05/23 aspartate 250 mg-250 mg capsule multivitamin 1 tab PO HS 04/29/20 05/05/23 cholecalciferol (vitamin D3) 25 2,000 unit PO HS 05/09/20 05/05/23 mcg (1,000 unit) tablet (Vitamin D3) guaifenesin 600 mg tablet, 600 mg PO Q12H PRN Congestion 10/01/20 05/05/23 extended release 12 hr (Mucinex) fexofenadine 180 mg tablet 180 mg PO HS 09/22/22 05/05/23 pilocarpine HCl 5 mg tablet 5 mg PO TID 05/05/23 05/05/23 solifenacin 10 mg tablet (Vesicare) 10 mg PO HS PRN .If runs out of 05/05/23 05/05/23 toziaz Previous Rx's Medication Instructions Recorded nystatin 100,000 unit/gram topical 1 unit topical BID PRN Rash #60 11/05/21 powder grams gabapentin 100 mg capsule 100 mg PO QPM PRN Pain #30 caps 02/17/22 atorvastatin 10 mg tablet (Lipitor) 5 mg (1/2 x 10 mg) PO HS #90 tabs 09/22/22 olopatadine 0.2 % eye drops 1 drp ophthalmic (eye) DAILY #2.5 09/22/22 (Pataday Once Daily Relief) mL fesoterodine 8 mg tablet,extended 8 mg PO DAILY #90 tabs 03/25/23 release 24 hr (Toviaz) lisinopril 10 mg tablet 10 mg PO HS #90 tabs 03/25/23 mometasone 50 mcg/actuation nasal 2 spray intranasal DAILY PRN 03/25/23 spray Allergy Symptoms #17 grams pantoprazole 20 mg tablet,delayed 40 mg (2 x 20 mg) PO HS #180 tabs 03/25/23 release (Protonix) venlafaxine 37.5 mg 37.5 mg PO DAILY PRN Anxiety #90 03/25/23 capsule,extended release 24 hr caps venlafaxine 75 mg capsule,extended 75 mg PO HS #90 caps 03/25/23 release 24 hr Results & Data (ED) Vital Signs Vital Signs - 24 hr 05/05/23 16:06 05/05/23 16:56 05/05/23 17:50 Temperature 36.5 C Temperature Source Temporal Artery Scan Pulse Rate 82 75 Pulse Rate [Apical] Pulse Rate from SpO2 Sensor 71 Respiratory Rate 16 Respiratory Effort / Characteristics Non-Labored Spontaneous Respiratory Depth Normal Blood Pressure 152/78 H Blood Pressure [Left Arm] Blood Pressure Mean 102 Blood Pressure Mean [Left Arm] Blood Pressure Position [Left Arm] Pulse Oximetry 94 93 Oxygen Delivery Method Room Air Sepsis Recent Fever Within 48 Hours No Sepsis New/Unexplained Change in Mental Status N/A Sepsis Action Taken by Nursing No Action Required 05/05/23 18:20 05/05/23 19:00 05/05/23 20:00 Temperature Temperature Source Pulse Rate 72 68 Pulse Rate [Apical] 63 Pulse Rate from SpO2 Sensor 73 67 Respiratory Rate 24 17 21 Respiratory Effort / Characteristics Respiratory Depth Normal Blood Pressure 135/75 135/75 Blood Pressure [Left Arm] 127/74 Blood Pressure Mean 95 95 Blood Pressure Mean [Left Arm] 91 Blood Pressure Position [Left Arm] Semi-fowlers Pulse Oximetry 93 94 94 Oxygen Delivery Method Room Air Sepsis Recent Fever Within 48 Hours Sepsis New/Unexplained Change in Mental Status Sepsis Action Taken by Nursing 05/05/23 20:23 05/05/23 22:00 Temperature Temperature Source Pulse Rate 70 Pulse Rate [Apical] 71 Pulse Rate from SpO2 Sensor Respiratory Rate 20 Respiratory Effort / Characteristics Respiratory Depth Normal Blood Pressure Blood Pressure [Left Arm] 133/77 Blood Pressure Mean Blood Pressure Mean [Left Arm] 95 Blood Pressure Position [Left Arm] Semi-fowlers Pulse Oximetry 92 Oxygen Delivery Method Room Air Sepsis Recent Fever Within 48 Hours Sepsis New/Unexplained Change in Mental Status Sepsis Action Taken by Nursing Laboratory Data 05/05/23 16:52 05/05/23 16:52 Lab Results 05/05/23 05/05/23 05/05/23 Range/Units 16:34 16:35 16:52 WBC 6.56 (4.8-10.8) K/ul RBC 4.43 (4.20-5.40) M/uL Hgb 13.1 (12.0-16.0) g/dl POC Hgb (12.0-16.0) g/dl Hct 39.6 (37.0-47.0) % POC Hct (37-47) % MCV 89.4 (80.0-100.0) fL MCH 29.6 (25.0-34.0) pg MCHC 33.1 (32.0-36.0) g/dL RDW Std Deviation 44.4 (36.4-46.3) fL RDW Coeff of Praveen 13.4 (11.5-14.5) % Plt Count 215 (130-400) K/uL MPV 10.1 (9.4-12.4) fL Immature Gran % (Auto) 0.5 % Neut % (Auto) 62.2 % Lymph % (Auto) 24.8 % Wells % (Auto) 7.8 % Eos % (Auto) 4.1 % Baso % (Auto) 0.6 % Neut # (Auto) 4.08 (1.40-6.50) K/uL Lymph # (Auto) 1.63 (1.20-3.40) K/uL Wells # (Auto) 0.51 (0.11-0.59) K/uL Eos # (Auto) 0.27 (0.00-0.50) K/uL Baso # (Auto) 0.04 (0.00-0.20) K/uL Immature Gran # (Auto) 0.03 (0.01-0.20) K/uL ESR 10 (0-30) mm/hr PT 10.5 (9.0-12.0) Seconds INR 1.0 (0.9-1.1) APTT 25 (21-31) Seconds PTT Ratio 0.9 POC Sodium (135-144) mmol/L Sodium 139 (136-145) mmol/L POC Potassium (3.3-5.0) mmol/L Potassium 4.2 (3.5-5.1) mmol/L POC Chloride (101-112) mmol/L Chloride 107 (98-107) mmol/L Carbon Dioxide 25 (21-32) mmol/L POC Total CO2 (24-31) mmol/L Anion Gap 7 (3-11) POC Anion Gap (16-25) mmol/L POC BUN (7-18) mg/dl BUN 19 (6-23) mg/dl Creatinine 0.89 (0.6-1.2) mg/dl POC Creatinine (0.6-1.3) mg/dl Est Cr Clr Drug Dosing 51.6 ml/min Est GFR ( Amer) 72.5 ml/min Est GFR (Non-Af Amer) 62.5 ml/min BUN/Creatinine Ratio 21.3 H (10-20) Glucose 105 H (70-99(Fasting)) mg/dl POC Glucose (other) (70-99) mg/dl Calcium 9.6 (8.6-10.3) mg/dl POC Ioniz Calcium Sarah (1.12-1.32) mmol/l Magnesium 2.0 (1.7-2.4) mg/dl Total Bilirubin 0.4 (0.2-1.0) mg/dl AST 19 (13-39) U/L ALT 13 (7-52) U/L Alkaline Phosphatase 95 (34-104) U/L Troponin I High Sens 2.4 (0-14) pg/ml C-Reactive Protein < 0.50 (0-0.5) mg/dl Total Protein 7.0 (6.0-8.3) gm/dl Albumin 4.2 (3.4-5.0) gm/dl Globulin 2.8 (2.5-4.0) gm/dl Albumin/Globulin Ratio 1.5 (0.9-2) Urine Color Yellow Urine Appearance Clear (Clear) Urine pH 5.5 (4.5-7.5) Ur Specific [place] 1.014 (1.000-1.030) Urine Protein Negative (Negative) Urine Glucose (UA) Negative (Negative) Urine Ketones Negative (Negative) Urine Blood Negative (Negative) Urine Nitrite Negative (Negative) Urine Bilirubin Negative (Negative) Urine Urobilinogen Negative (Negative) Ur Leukocyte Esterase Negative (Negative) Adenovirus (PCR) Not Detected (NotDetected) B. pertussis DNA (PCR) Not Detected (NotDetected) B.parapertussis DNA PCR Not Detected (NotDetected) C. pneumoniae DNA (PCR) Not Detected (NotDetected) Coronavirus OC43 (PCR) Not Detected (NotDetected) Coronavirus HKU1 (PCR) Not Detected (NotDetected) Coronavirus 229E (PCR) Not Detected (NotDetected) SARS-CoV-2 (PCR) Not Detected (NotDetected) Coronavirus NL63 (PCR) Not Detected (NotDetected) Human Metapneumovir PCR Not Detected (NotDetected) Influenza Type A (PCR) Not Detected (NotDetected) Influenza Type B (PCR) Not Detected (NotDetected) M. pneumoniae (PCR) Not Detected (NotDetected) Parainfluenza 1 (PCR) Not Detected (NotDetected) Parainfluenza 2 (PCR) Not Detected (NotDetected) Parainfluenza 3 (PCR) Not Detected (NotDetected) Parainfluenza 4 (PCR) Not Detected (NotDetected) RSV (PCR) Not Detected (NotDetected) Entero/Rhino (PCR) Not Detected (NotDetected) 05/05/23 Range/Units 17:02 WBC (4.8-10.8) K/ul RBC (4.20-5.40) M/uL Hgb (12.0-16.0) g/dl POC Hgb 12.6 (12.0-16.0) g/dl Hct (37.0-47.0) % POC Hct 37 (37-47) % MCV (80.0-100.0) fL MCH (25.0-34.0) pg MCHC (32.0-36.0) g/dL RDW Std Deviation (36.4-46.3) fL RDW Coeff of Praveen (11.5-14.5) % Plt Count (130-400) K/uL MPV (9.4-12.4) fL Immature Gran % (Auto) % Neut % (Auto) % Lymph % (Auto) % Wells % (Auto) % Eos % (Auto) % Baso % (Auto) % Neut # (Auto) (1.40-6.50) K/uL Lymph # (Auto) (1.20-3.40) K/uL [place] # (Auto) (0.11-0.59) K/uL Eos # (Auto) (0.00-0.50) K/uL Baso # (Auto) (0.00-0.20) K/uL Immature Gran # (Auto) (0.01-0.20) K/uL ESR (0-30) mm/hr PT (9.0-12.0) Seconds INR (0.9-1.1) APTT (21-31) Seconds PTT Ratio POC Sodium 141 (135-144) mmol/L Sodium (136-145) mmol/L POC Potassium 4.2 (3.3-5.0) mmol/L Potassium (3.5-5.1) mmol/L POC Chloride 107 (101-112) mmol/L Chloride (98-107) mmol/L Carbon Dioxide (21-32) mmol/L POC Total CO2 24 (24-31) mmol/L Anion Gap (3-11) POC Anion Gap 14.0 L (16-25) mmol/L POC BUN 18 (7-18) mg/dl BUN (6-23) mg/dl Creatinine (0.6-1.2) mg/dl POC Creatinine 0.9 (0.6-1.3) mg/dl Est Cr Clr Drug Dosing ml/min Est GFR ( Amer) ml/min Est GFR (Non-Af Amer) ml/min BUN/Creatinine Ratio (10-20) Glucose (70-99(Fasting)) mg/dl POC Glucose (other) 111 H (70-99) mg/dl Calcium (8.6-10.3) mg/dl POC Ioniz Calcium Sarah 1.16 (1.12-1.32) mmol/l Magnesium (1.7-2.4) mg/dl Total Bilirubin (0.2-1.0) mg/dl AST (13-39) U/L ALT (7-52) U/L Alkaline Phosphatase (34-104) U/L Troponin I High Sens (0-14) pg/ml C-Reactive Protein (0-0.5) mg/dl Total Protein (6.0-8.3) gm/dl Albumin (3.4-5.0) gm/dl Globulin (2.5-4.0) gm/dl Albumin/Globulin Ratio (0.9-2) Urine Color Urine Appearance (Clear) Urine pH (4.5-7.5) Ur Specific [place] (1.000-1.030) Urine Protein (Negative) Urine Glucose (UA) (Negative) Urine Ketones (Negative) Urine Blood (Negative) Urine Nitrite (Negative) Urine Bilirubin (Negative) Urine Urobilinogen (Negative) Ur Leukocyte Esterase (Negative) Adenovirus (PCR) (NotDetected) B. pertussis DNA (PCR) (NotDetected) B.parapertussis DNA PCR (NotDetected) C. pneumoniae DNA (PCR) (NotDetected) Coronavirus OC43 (PCR) (NotDetected) Coronavirus HKU1 (PCR) (NotDetected) Coronavirus 229E (PCR) (NotDetected) SARS-CoV-2 (PCR) (NotDetected) Coronavirus NL63 (PCR) (NotDetected) Human Metapneumovir PCR (NotDetected) Influenza Type A (PCR) (NotDetected) Influenza Type B (PCR) (NotDetected) M. pneumoniae (PCR) (NotDetected) Parainfluenza 1 (PCR) (NotDetected) Parainfluenza 2 (PCR) (NotDetected) Parainfluenza 3 (PCR) (NotDetected) Parainfluenza 4 (PCR) (NotDetected) RSV (PCR) (NotDetected) Entero/Rhino (PCR) (NotDetected) Administered Medications Discontinued Medications Diphenhydramine HCl (Diphenhydramine 50 Mg/Ml Vial) 25 mg IV NOW STA Stop: 05/05/23 16:13 Last Admin: 05/05/23 16:55 Dose: 25 mg Documented By: ISABELLA Ioversol (Optiray 320 125ml) 118 ml IV ONCE ONE Stop: 05/05/23 17:24 Last Admin: 05/05/23 17:24 Dose: 118 ml Documented By: EAB Methylprednisolone (Methylprednisolone 125 Mg/2 Ml Vial) 125 mg IV NOW STA Stop: 05/05/23 16:13 Last Admin: 05/05/23 16:57 Dose: 125 mg Documented By: ISABELLA Imaging Data Radiologist's Impression: Head CT 05/05/23 16:10 CT angio head w con, CT angio neck with con, CT head/brain wo con CLINICAL HISTORY: 78 years-old Female with Visual changes/TIA. Acute strokelike symptoms COMPARISON STUDY: None TECHNIQUE: Unenhanced axial CT scan of the brain is performed. Subsequently, following the IV administration of 118 cc of Optiray, CT angiogram of the head and neck was performed from the skull base to the vertex. Images are reviewed in the axial, sagittal, and coronal planes. 3-D MIPS images are created and assessed. IV contrast was administered without complication. All measurements were obtained according to NASCET criteria. A dose lowering technique was utilized adhering to the principles of ALARA. CT DOSE: 1067.3 mGy.cm FINDINGS: CT BRAIN: There is no acute intracranial hemorrhage, midline shift, hydrocephalus, intracranial mass, territorial ischemia or abnormal extra-axial collections. No abnormal intra-axial or extra-axial enhancement. Mastoid air cells and middle ear cavities are clear. No calvarial fracture. Prior bilateral lens repair. Paranasal sinuses are clear. CT ANGIOGRAM OF THE HEAD AND NECK: Atherosclerosis of the thoracic aorta with normal three-vessel morphology. There is patency of the innominate and imaged subclavian arteries. The common and internal carotid arteries are patent. The bilateral anterior and middle cerebral arteries are also patent. The vertebrobasilar system and posterior cerebral arteries are widely patent. There is no aneurysm, high-grade stenosis, or proximal branch occlusion identified. Dural sinuses appear patent. Lung apices are clear. No pneumothorax. Unremarkable soft tissues. No acute fracture. Multilevel degenerative changes of the cervical spine. IMPRESSION: 1. No acute intracranial abnormality. 2. Unremarkable CTA of the head and neck. ACT 112: Negative or not required by law. The above report was generated using voice recognition software. It may contain grammatical, syntax or spelling errors. Electronically signed by: Nilesh Cornell M.D. 05/05/2023 5:38 PM Head CTA 05/05/23 16:10 CT angio head w con, CT angio neck with con, CT head/brain wo con CLINICAL HISTORY: 78 years-old Female with Visual changes/TIA. Acute strokelike symptoms COMPARISON STUDY: None TECHNIQUE: Unenhanced axial CT scan of the brain is performed. Subsequently, following the IV administration of 118 cc of Optiray, CT angiogram of the head and neck was performed from the skull base to the vertex. Images are reviewed in the axial, sagittal, and coronal planes. 3-D MIPS images are created and assessed. IV contrast was administered without complication. All measurements were obtained according to NASCET criteria. A dose lowering technique was utilized adhering to the principles of ALARA. CT DOSE: 1067.3 mGy.cm FINDINGS: CT BRAIN: There is no acute intracranial hemorrhage, midline shift, hydrocephalus, intracranial mass, territorial ischemia or abnormal extra-axial collections. No abnormal intra-axial or extra-axial enhancement. Mastoid air cells and middle ear cavities are clear. No calvarial fracture. Prior bilateral lens repair. Paranasal sinuses are clear. CT ANGIOGRAM OF THE HEAD AND NECK: Atherosclerosis of the thoracic aorta with normal three-vessel morphology. There is patency of the innominate and imaged subclavian arteries. The common and internal carotid arteries are patent. The bilateral anterior and middle cerebral arteries are also patent. The vertebrobasilar system and posterior cerebral arteries are widely patent. There is no aneurysm, high-grade stenosis, or proximal branch occlusion identified. Dural sinuses appear patent. Lung apices are clear. No pneumothorax. Unremarkable soft tissues. No acute fracture. Multilevel degenerative changes of the cervical spine. IMPRESSION: 1. No acute intracranial abnormality. 2. Unremarkable CTA of the head and neck. ACT 112: Negative or not required by law. The above report was generated using voice recognition software. It may contain grammatical, syntax or spelling errors. Electronically signed by: Nilesh Cornell M.D. 05/05/2023 5:38 PM Neck CTA 05/05/23 16:10 CT angio head w con, CT angio neck with con, CT head/brain wo con CLINICAL HISTORY: 78 years-old Female with Visual changes/TIA. Acute strokelike symptoms COMPARISON STUDY: None TECHNIQUE: Unenhanced axial CT scan of the brain is performed. Subsequently, following the IV administration of 118 cc of Optiray, CT angiogram of the head and neck was performed from the skull base to the vertex. Images are reviewed in the axial, sagittal, and coronal planes. 3-D MIPS images are created and assessed. IV contrast was administered without complication. All measurements were obtained according to NASCET criteria. A dose lowering technique was utilized adhering to the principles of ALARA. CT DOSE: 1067.3 mGy.cm FINDINGS: CT BRAIN: There is no acute intracranial hemorrhage, midline shift, hydrocephalus, intracranial mass, territorial ischemia or abnormal extra-axial collections. No abnormal intra-axial or extra-axial enhancement. Mastoid air cells and middle ear cavities are clear. No calvarial fracture. Prior bilateral lens repair. Paranasal sinuses are clear. CT ANGIOGRAM OF THE HEAD AND NECK: Atherosclerosis of the thoracic aorta with normal three-vessel morphology. There is patency of the innominate and imaged subclavian arteries. The common and internal carotid arteries are patent. The bilateral anterior and middle cerebral arteries are also patent. The vertebrobasilar system and posterior cerebral arteries are widely patent. There is no aneurysm, high-grade stenosis, or proximal branch occlusion identified. Dural sinuses appear patent. Lung apices are clear. No pneumothorax. Unremarkable soft tissues. No acute fracture. Multilevel degenerative changes of the cervical spine. IMPRESSION: 1. No acute intracranial abnormality. 2. Unremarkable CTA of the head and neck. ACT 112: Negative or not required by law. The above report was generated using voice recognition software. It may contain grammatical, syntax or spelling errors. Electronically signed by: Nilesh Cornell M.D. 05/05/2023 5:38 PM Brain MRI 05/05/23 19:36 Exam(s): MRI HEAD Without Contrast EXAM: MR Head Without Intravenous Contrast CLINICAL HISTORY: Reason for exam: Right eye vision loss ?CVA. TECHNIQUE: Magnetic resonance images of the head/brain without intravenous contrast in multiple planes. COMPARISON: No relevant prior studies available. FINDINGS: Brain: Unremarkable. No mass. No hemorrhage. No acute infarct. Ventricles: Unremarkable. No ventriculomegaly. Bones/joints: Unremarkable. No acute fracture. Sinuses: Unremarkable as visualized. No acute sinusitis. Mastoid air cells: Unremarkable as visualized. No mastoid effusion. Orbits: Unremarkable as visualized. IMPRESSION: Normal head/brain MRI. If evaluation of the arteries (including the ophthalmic artery) are required, consider CTA. Electronically signed by: Juan Jose Redding MD 05/05/23 21:38 PM Discharge Plan Visit Data Chief Complaint: Eye Problems Stated Complaint: RT EYE BLURRY VISION ED Provider: Pedro Luis Dodd Discharge Problem: Change in vision Forms Stand Alone Forms: [facility] Prescriptions Prescriptions: No Action cholecalciferol (vitamin D3) [Vitamin D3] 25 mcg (1,000 unit) tablet 2,000 unit PO HS gabapentin 100 mg capsule 100 mg PO QPM PRN (Reason: Pain) Qty: 30 0RF pantoprazole [Protonix] 20 mg tablet,delayed release (DR/EC) 40 mg PO HS Qty: 180 3RF Rx Instructions: two 20 mg tablets venlafaxine 75 mg capsule,extended release 24hr 75 mg PO HS Qty: 90 3RF venlafaxine 37.5 mg capsule,extended release 24hr 37.5 mg PO DAILY PRN (Reason: Anxiety) Qty: 90 0RF mometasone 50 mcg/actuation spray,non-aerosol 2 spray INTRANASAL DAILY PRN (Reason: Allergy Symptoms) Qty: 17 0RF lisinopril 10 mg tablet 10 mg PO HS Qty: 90 3RF fesoterodine [Toviaz] 8 mg tablet extended release 24 hr 8 mg PO DAILY Qty: 90 3RF nystatin 100,000 unit/gram powder 1 unit TOP BID PRN (Reason: Rash) Qty: 60 1RF pilocarpine HCl 5 mg tablet 5 mg PO TID fexofenadine 180 mg tablet 180 mg PO HS atorvastatin [Lipitor] 10 mg tablet 5 mg PO HS Qty: 90 3RF olopatadine [Pataday Once Daily Relief] 0.2 % drops 1 drp ophthalmic (eye) DAILY Qty: 2.5 0RF ascorbic acid (vitamin C) [Vitamin C] 500 mg Tablet 500 mg PO WK magnesium, potassium aspartate 250-250 mg Capsule 250 mg PO DAILY PRN (Reason: leg cramps) multivitamin Tablet 1 tab PO HS guaifenesin [Mucinex] 600 mg Tablet Extended Release 12hr 600 mg PO Q12H PRN (Reason: Congestion) solifenacin [Vesicare] 10 mg tablet 10 mg PO HS PRN (Reason: .If runs out of [facility]) Referrals Referrals: Leobardo Richmond DO [Primary Care Provider] -
[2023-05-06] MEDS ORDERED: PANTOprazole 40 MG TAB PO SCH (00:52)
[2023-05-06] MEDS ORDERED: VENLAFAXINE HCL XR 75 MG CAPXR PO SCH (00:52)
[2023-05-06] MEDS ORDERED: ATORVASTATIN 10 MG TAB PO SCH (00:52)
[2023-05-06] MEDS ORDERED: lisinopril 10 MG TAB PO SCH (00:52)
[2023-05-06] MEDS ORDERED: GABAPENTIN 100 MG CAP PO PRN (00:52)
[2023-05-06] MEDS ORDERED: PHARMACIST DISCHARGE MED REC CONSULT PRN (00:52)
[2023-05-06] MEDS ORDERED: VENLAFAXINE HCL XR 37.5 MG CAPXR PO PRN (00:52)
[2023-05-06] MEDS ORDERED: ACETAMINOPHEN 325 MG TAB PO PRN (00:52)
[2023-05-06] MEDS: PILOCARPINE HCL 5 MG TABLET PO SCH ×3 (01:29→15:28)
[2023-05-06 07:17] LABS: Basophils # (auto) 0.01 K/uL (0.00-0.20); Basophils % (auto) 0.2 %; Hematocrit (blood only) 39.4 % (37.0-47.0); Hemoglobin 13.3 g/dl (12.0-16.0); Immature Granulocytes # (auto) 0.04 K/uL (0.01-0.20); Immature Granulocytes % (auto) 0.6 %; Lymphocytes # (auto) 0.78 K/uL (1.20-3.40); Lymphocytes % (auto) 12.7 %; Mean Corpuscular Hemoglobin 29.6 pg (25.0-34.0); Mean Corpuscular Hgb Conc 33.8 g/dL (32.0-36.0); Mean Corpuscular Volume 87.8 fL (80.0-100.0); Mean Platelet Volume 10.4 fL (9.4-12.4); Monocytes % (auto) 1.6 %; Neutrophils # (auto) 5.23 K/uL (1.40-6.50); Neutrophils % (auto) 84.9 %; Platelet Count 197 K/uL (130-400); RDW Coefficient of Variation 13.2 % (11.5-14.5); RDW Standard Deviation 42.3 fL (36.4-46.3); Red Blood Count 4.49 M/uL (4.20-5.40); White Blood Count 6.16 K/ul (4.8-10.8)
[2023-05-06 07:38] LABS: BUN Creatinine Ratio 27.3 (10-20); Calcium 9.9 mg/dl (8.6-10.3); Chol HDL Ratio 2.8 (0-5); Creatinine Clr Calc Pharmacy 58.6 ml/min; Est GFR (African American) 86.3 ml/min; Est GFR (Non-African American) 74.5 ml/min; Potassium 3.9 mmol/L (3.5-5.1)
[2023-05-06 07:52] LABS: Estimated Average Glucose 114 mg/dl; Hemoglobin A1C 5.6 % (4.5-5.6)
--- NOTE | 2023-05-06 08:58 | Electrocardiogram Report ---
Test Reason : Blood Pressure : / mmHG Vent. 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
[2023-05-06] MEDS ORDERED: OXYBUTYNIN CHLORIDE XL 5 MG TABCR PO SCH (09:00)
--- NOTE | 2023-05-06 13:11 | Discharge Summary ---
Date of Service May 06, 2023 Admission HPI Per Admitting Provider Sara Craven is a 78-year-old female who presents to the ER for stroke evaluation after right eye vision loss at 10pm yesterday. Patient was sent to the ER by optometry for stroke workup. However the ER provider discussed with the workers compensation defense attorney hobbing machine operator who reportedly discussed with the sheet metal erector who saw the patient and did not see any retinal artery occlusion. The patient reports slow onset of vision blurring started at 10pm yesterday while driving - describes this as a vision fog and blurring rather than a curtain to the point of not being able to see anything out of her right eye. She noted her left eye vision was fine when she tested both. This morning her right eye vision had improved enough to be able to drive again however she made an eye appointment later in the day. She underwent her previously planned dobutamine stress echo this morning prior to her eye appointment. She continues to feel her vision is not yet back to normal but significantly improved from yesterday. Usually her vision if normal in both eyes. She was sent over to the ER by her sheet metal erector for a stroke workup although no information was sent with the patient. She is prescribed pilocarpine but denies any Sjogren's or consistent dry eye - she is prescribed this for dry mouth by her dentist and has been on it for the last year. Principal Diagnosis TIA / amaurosis fugax, less likely atypical migraine with aura Discharge Exam PHYSICAL EXAMINATION Last 24h vital signs reviewed, see documentation in flowsheet General: comfortable appearing, no distress HEENT: Normocephalic, atraumatic, pupils round and equal, sclerae anicteric, no conjunctival injection, moist mucus membranes Lungs: Normal respiratory effort. Clear to auscultation bilaterally. No RRW Heart: Regular rate and rhythm, no murmurs. No JVD Abdomen: Soft, nontender, nondistended. Bowel sounds present. Extremities: Warm, dry, well-perfused. No extremity edema. Neuro: Alert and oriented x 4, extraocular movements intact no nystagmus conjugate gaze, visual lee full bilaterally to confrontation face symmetric, speech normal in content and benjamin tongue midline palate elevates evenly shoulder shrug equal upper extremity strength 5 out of 5, no pronator drift, lower extremity strength 5 out of 5, no dysmetria on [id number] Psych: Normal affect and behavior Discharge Data Allergies Allergy/AdvReac Type Severity Reaction Status Date / Time bee venom protein (honey bee) Allergy Severe swelling Verified 05/05/23 20:38 cephalexin Allergy Severe hives Verified 05/05/23 20:38 moxifloxacin Allergy Severe rash Verified 05/05/23 20:38 Bactrim Allergy Intermediate unknown Verified 12/12/17 21:40 iodine Allergy Intermediate HIVES/ITCHI Verified 05/05/23 20:38 NG sulfamethoxazole Allergy Intermediate nausea, Verified 05/05/23 20:38 facial swelling hydrocodone Allergy Unknown unknown Verified 05/05/23 20:38 Penicillins Allergy Unknown unknown Verified 05/05/23 20:38 chlorpheniramine AdvReac Intermediate tremor Verified 05/05/23 20:38 [From [facility]] etodolac AdvReac Intermediate nausea Verified 05/05/23 20:38 ibuprofen AdvReac Intermediate ULCER Verified 04/27/23 13:06 trimethoprim AdvReac Intermediate nausea Verified 04/27/23 13:06 Consultations 05/05/23 18:46 ED Decision to Admit Stat Ordered Studies 05/05/23 16:10 CT angio head w con Stat CT angio neck with con Stat CT head/brain wo con Stat 05/05/23 19:36 MRI Brain [MR brain wo con] Routine Head CT 05/05/23 16:10 CT angio head w con, CT angio neck with con, CT head/brain wo con CLINICAL HISTORY: 78 years-old Female with Visual changes/TIA. Acute strokelike symptoms COMPARISON STUDY: None TECHNIQUE: Unenhanced axial CT scan of the brain is performed. Subsequently, following the IV administration of 118 cc of Optiray, CT angiogram of the head and neck was performed from the skull base to the vertex. Images are reviewed in the axial, sagittal, and coronal planes. 3-D MIPS images are created and assessed. IV contrast was administered without complication. All measurements were obtained according to NASCET criteria. A dose lowering technique was utilized adhering to the principles of ALARA. CT DOSE: 1067.3 mGy.cm FINDINGS: CT BRAIN: There is no acute intracranial hemorrhage, midline shift, hydrocephalus, intracranial mass, territorial ischemia or abnormal extra-axial collections. No abnormal intra-axial or extra-axial enhancement. Mastoid air cells and middle ear cavities are clear. No calvarial fracture. Prior bilateral lens repair. Paranasal sinuses are clear. CT ANGIOGRAM OF THE HEAD AND NECK: Atherosclerosis of the thoracic aorta with normal three-vessel morphology. There is patency of the innominate and imaged subclavian arteries. The common and internal carotid arteries are patent. The bilateral anterior and middle cerebral arteries are also patent. The vertebrobasilar system and posterior cerebral arteries are widely patent. There is no aneurysm, high-grade stenosis, or proximal branch occlusion identified. Dural sinuses appear patent. Lung apices are clear. No pneumothorax. Unremarkable soft tissues. No acute fracture. Multilevel degenerative changes of the cervical spine. IMPRESSION: 1. No acute intracranial abnormality. 2. Unremarkable CTA of the head and neck. ACT 112: Negative or not required by law. The above report was generated using voice recognition software. It may contain grammatical, syntax or spelling errors. Electronically signed by: Nilesh Cornell M.D. 05/05/2023 5:38 PM Head CTA 05/05/23 16:10 CT angio head w con, CT angio neck with con, CT head/brain wo con CLINICAL HISTORY: 78 years-old Female with Visual changes/TIA. Acute strokelike symptoms COMPARISON STUDY: None TECHNIQUE: Unenhanced axial CT scan of the brain is performed. Subsequently, following the IV administration of 118 cc of Optiray, CT angiogram of the head and neck was performed from the skull base to the vertex. Images are reviewed in the axial, sagittal, and coronal planes. 3-D MIPS images are created and assessed. IV contrast was administered without complication. All measurements were obtained according to NASCET criteria. A dose lowering technique was utilized adhering to the principles of ALARA. CT DOSE: 1067.3 mGy.cm FINDINGS: CT BRAIN: There is no acute intracranial hemorrhage, midline shift, hydrocephalus, intracranial mass, territorial ischemia or abnormal extra-axial collections. No abnormal intra-axial or extra-axial enhancement. Mastoid air cells and middle ear cavities are clear. No calvarial fracture. Prior bilateral lens repair. Paranasal sinuses are clear. CT ANGIOGRAM OF THE HEAD AND NECK: Atherosclerosis of the thoracic aorta with normal three-vessel morphology. There is patency of the innominate and imaged subclavian arteries. The common and internal carotid arteries are patent. The bilateral anterior and middle cerebral arteries are also patent. The vertebrobasilar system and posterior cerebral arteries are widely patent. There is no aneurysm, high-grade stenosis, or proximal branch occlusion identified. Dural sinuses appear patent. Lung apices are clear. No pneumothorax. Unremarkable soft tissues. No acute fracture. Multilevel degenerative changes of the cervical spine. IMPRESSION: 1. No acute intracranial abnormality. 2. Unremarkable CTA of the head and neck. ACT 112: Negative or not required by law. The above report was generated using voice recognition software. It may contain grammatical, syntax or spelling errors. Electronically signed by: Nilesh Cornell M.D. 05/05/2023 5:38 PM Neck CTA 05/05/23 16:10 CT angio head w con, CT angio neck with con, CT head/brain wo con CLINICAL HISTORY: 78 years-old Female with Visual changes/TIA. Acute strokelike symptoms COMPARISON STUDY: None TECHNIQUE: Unenhanced axial CT scan of the brain is performed. Subsequently, following the IV administration of 118 cc of Optiray, CT angiogram of the head and neck was performed from the skull base to the vertex. Images are reviewed in the axial, sagittal, and coronal planes. 3-D MIPS images are created and assessed. IV contrast was administered without complication. All measurements were obtained according to NASCET criteria. A dose lowering technique was utilized adhering to the principles of ALARA. CT DOSE: 1067.3 mGy.cm FINDINGS: CT BRAIN: There is no acute intracranial hemorrhage, midline shift, hydrocephalus, intracranial mass, territorial ischemia or abnormal extra-axial collections. No abnormal intra-axial or extra-axial enhancement. Mastoid air cells and middle ear cavities are clear. No calvarial fracture. Prior bilateral lens repair. Paranasal sinuses are clear. CT ANGIOGRAM OF THE HEAD AND NECK: Atherosclerosis of the thoracic aorta with normal three-vessel morphology. There is patency of the innominate and imaged subclavian arteries. The common and internal carotid arteries are patent. The bilateral anterior and middle cerebral arteries are also patent. The vertebrobasilar system and posterior cerebral arteries are widely patent. There is no aneurysm, high-grade stenosis, or proximal branch occlusion identified. Dural sinuses appear patent. Lung apices are clear. No pneumothorax. Unremarkable soft tissues. No acute fracture. Multilevel degenerative changes of the cervical spine. IMPRESSION: 1. No acute intracranial abnormality. 2. Unremarkable CTA of the head and neck. ACT 112: Negative or not required by law. The above report was generated using voice recognition software. It may contain grammatical, syntax or spelling errors. Electronically signed by: Nilesh Cornell M.D. 05/05/2023 5:38 PM Brain MRI 05/05/23 19:36 Exam(s): MRI HEAD Without Contrast EXAM: MR Head Without Intravenous Contrast CLINICAL HISTORY: Reason for exam: Right eye vision loss ?CVA. TECHNIQUE: Magnetic resonance images of the head/brain without intravenous contrast in multiple planes. COMPARISON: No relevant prior studies available. FINDINGS: Brain: Unremarkable. No mass. No hemorrhage. No acute infarct. Ventricles: Unremarkable. No ventriculomegaly. Bones/joints: Unremarkable. No acute fracture. Sinuses: Unremarkable as visualized. No acute sinusitis. Mastoid air cells: Unremarkable as visualized. No mastoid effusion. Orbits: Unremarkable as visualized. IMPRESSION: Normal head/brain MRI. If evaluation of the arteries (including the ophthalmic artery) are required, consider CTA. Electronically signed by: Juan Jose Redding MD 05/05/23 21:38 PM Hospital Course (1) Stroke-like symptoms: Right eye vision loss -this episode seems to have lasted a little over 24 hours, resolved overnight while sleeping and when she woke up today vision is normal, she does have bifrontal throbbing headache without nausea photophobia or phon ophobia. She has had similar headaches in the past which improved with Excedrin. The vision symptom was more of a graying out of her entire field of vision of the right eye, there were no flashing lights zigzags etc. to suggest an aura. She had a similar episode of right eye vision loss in the fall at the time of the [facility] fair that lasted about 4 hours and spontaneously resolved. She did not seek care at that time. She cannot recall whether there was an associated headache. She has had no associated neurological symptoms beside the vision loss. Occasionally she has had numbness and tingling of her right anterior lateral forearm and hand but this is in the distribution of an ulnar nerve compression and does not sound concerning for TIAs. CTA head and neck reviewed no significant intra or extracranial stenoses. Brain MRI obtained overnight no acute findings including no infarct no mass lesions. Limited TTE for bubble study was obtained and no shunt present. Reviewed dobuta mine stress echo obtained yesterday morning it was negative for inducible ischemia, normal EF, no significant valvular disease. Nothing to suggest an embolic source. She had no atrial fibrillation on telemetry or EKG, no history of such. Discussed with neurologist, presentation is consistent with TIA specifically amaurosis fugax. Could be an atypical migraine with aura, however, she has several risk factors for stroke and it is safest to treated as TIA. He recommended starting daily low-dose aspirin for stroke prophylaxis. May follow- up in primary care. If any recurrent symptoms could consider changing to Plavix. Regarding her headache I treated it with acetaminophen and tramadol and it resolved. I discussed the symptoms of stroke with her and when to seek emergency care. A1c is 5.6%, LDL is 58 so she will continue her current simvastatin, urinalysis was negative, she may have CKD stage II and creatinine is at her baseline. She has KATHE and regularly uses her nighttime CPAP Total Time Total Time Spent Total Time Spent (In Minutes): I personally spent: 40 minutes today on clinical care activities including: reviewing chart notes and vital signs reviewing labs reviewing studies discussion with neurologist examining and counseling the patient -2 bedside visits Discussion with bedside RN writing orders documentation Discharge Plan Discharge Items Patient Disposition: Home - Self-Care Reason For Visit: STROKE-LIKE SYMPTOMS Discharge Diagnosis: TIA causing transient monocular vision loss (amaurosis fugax) Activity: Resume your previous activity Non-emergency contact: Primary Care Provider Call non-emergency contact if: you have any medication questions Follow-up/Referrals: Leobardo Richmond DO [Primary Care Provider] - 05/12/23 2:00 pm Diet: Regular Addtl Attending Provider Instructions: You had an episode of transient visual loss in the right eye. It is possible that this is a type of TIA (temporary stroke-like episode) -brain MRI was negative for stroke -the arteries in your head and neck are open - no blockages -the neurologist recommends taking baby aspirin daily for stroke prevention -if you have recurrence of symptoms like visual loss or other stroke-like symptoms, seek immediate medical attention - call 911 or go to the ER immediatel y - "time is brain" It is possible that these events are an unusual presentation of migraine headache, however, you have risk factors for stroke so it is safest to treat it with stroke prevention measures It was a pleasure taking care of you in the hospital Mary Méndez MD Addtl Photography Teacher Provider Instructions: Risk Factors for Stroke: You can reduce your chances of stroke by working with your medical provider to adopt a healthy lifestyle. Some specific ways to lower your chance of stroke are: * If you are a smoker, now is the time to stop smoking cigarettes * If you are diabetic, improve the control of your blood sugars * Avoid excessive amounts of alcohol * Control high blood pressure * Lose weight if you are overweight * Be sure to lead an active lifestyle * Eat a healthy diet low in salt, cholesterol and fat You should know about other risk factors for stroke that you are unable to control. These include: * Age 55 years or older * Male gender * Certain racial groups: , or / * Family History of Stroke, Mini stroke or Heart Attack * Sickle Cell Disease Follow Up: It is important for you to keep your follow up appointments with your medical provider. Who to Call and When: Medical Emergencies: Call 911 immediately if you experience any of the following warning signs and symptoms of Stroke: * Sudden numbness or weakness of the face, arm or leg, especially on one side of the body * Sudden confusion, trouble speaking or understanding * Sudden trouble seeing in one or both eyes * Sudden trouble walking, dizziness, loss of balance or coordination * Sudden severe headache with no cause Do not delay calling 911 if you experience any warning signs or symptoms of a stroke. Delay in seeking medical attention may affect what treatments can be given to you. . Pending Studies at Discharge: No Stand-Alone Forms: My [facility], Smoking Cessation, Medications to Prevent Stroke Medications and DC Order Prescriptions: New Pharmacist Discharge Consult [Pharmacist Discharge Med Rec Consult] 1 ea Not Applicable UD PRN (Reason: TIA) Qty: 1 0RF aspirin 81 mg tablet,chewable 81 mg PO DAILY Qty: 1 0RF Rx Instructions: buy over the counter, for TIA/stroke prevention Continued cholecalciferol (vitamin D3) [Vitamin D3] 25 mcg (1,000 unit) tablet 2,000 unit PO HS gabapentin 100 mg capsule 100 mg PO QPM PRN (Reason: Pain) Qty: 30 0RF pantoprazole [Protonix] 20 mg tablet,delayed release (DR/EC) 40 mg PO HS Qty: 180 3RF Rx Instructions: two 20 mg tablets venlafaxine 75 mg capsule,extended release 24hr 75 mg PO HS Qty: 90 3RF venlafaxine 37.5 mg capsule,extended release 24hr 37.5 mg PO DAILY PRN (Reason: Anxiety) Qty: 90 0RF mometasone 50 mcg/actuation spray,non-aerosol 2 spray INTRANASAL DAILY PRN (Reason: Allergy Symptoms) Qty: 17 0RF lisinopril 10 mg tablet 10 mg PO HS Qty: 90 3RF fesoterodine [Toviaz] 8 mg tablet extended release 24 hr 8 mg PO DAILY Qty: 90 3RF nystatin 100,000 unit/gram powder 1 unit TOP BID PRN (Reason: Rash) Qty: 60 1RF pilocarpine HCl 5 mg tablet 5 mg PO TID fexofenadine 180 mg tablet 180 mg PO HS atorvastatin [Lipitor] 10 mg tablet 5 mg PO HS Qty: 90 3RF olopatadine [Pataday Once Daily Relief] 0.2 % drops 1 drp ophthalmic (eye) DAILY Qty: 2.5 0RF ascorbic acid (vitamin C) [Vitamin C] 500 mg Tablet 500 mg PO WK magnesium, potassium aspartate 250-250 mg Capsule 250 mg PO DAILY PRN (Reason: leg cramps) multivitamin Tablet 1 tab PO HS guaifenesin [Mucinex] 600 mg Tablet Extended Release 12hr 600 mg PO Q12H PRN (Reason: Congestion) solifenacin [Vesicare] 10 mg tablet 10 mg PO HS PRN (Reason: .If runs out of toziaz) Discharge Orders: Discharge Order (Routine); Ordered 05/06/23 Ordered By: Mary Méndez Admission Data Admit Date/Time: 05/05/23 19:05 Attending Provider: Mary Méndez Admit Provider: Xavier Camejo Primary Care Provider: Leobardo Richmond Other Providers: Xavier Camejo Other Interventions: Discharge Summary Assessment (RN) Last Done: 05/06/23 15:55 Coding Level of Care Code 85835 INP/OBS DISCH >30 MIN Diagnoses Stroke-like symptoms R29.90
[2023-05-06] MEDS ORDERED: ASPIRIN 81 MG CHEW PO SCH (13:30)
[2023-05-06] MEDS ORDERED: traMADol HCL 50 MG TABLET PO STA (13:41)
[2023-05-06] MEDS ORDERED: ACETAMINOPHEN 500 MG TAB PO ONE (13:43)
[2023-05-06] MEDS ORDERED: STROKE PATIENT DISCHARGE STA (13:45)
--- NOTE | 2023-05-06 14:15 | Pharmacy Report ---
- Date of Service May 06, 2023 - Pharmacy CVA/TIA Medication Review Medications to Prevent Stroke handout has been added to the patients discharge packet. Antiplatelet(s) * Aspirin 81 mg daily Cholesterol * High intensity statin deferred due to age >75, no evidence of atherosclerosis (cerebral, coronary, or PVD) DVT Prophylaxis * None Therapeutic Anticoagulation * No history of Afib/Aflutter noted Type 2 Diabetes * Patient does not have T2DM
[2023-05-06] MEDS ORDERED: FEXOFENADINE HCL 180 MG TAB PO SCH (21:00)
== END 2023-05-06 19:55 | disposition home or self-care (01) ==
LOC: ED 15:48 → 2N 15:48 → SUATTDRO 19:05 → 2N 05-06 00:15

== ENCOUNTER 2023-06-27 19:31 | Inpatient (IN) ==
[2023-06-27] MEDS: diphenhydrAMINE 50 MG/ML VIAL IV STA (20:00)
[2023-06-27] MEDS: methylPREDNISolone 125 MG/2 ML VIAL IV STA (20:00)
--- NOTE | 2023-06-27 20:01 | Emergency Department Note ---
Impression & Plan Sudden visual loss of right eye ED Provider Note Name: TONE GOMEZ Age: 78 Sex: Female Arrives Via: Walk-In Informant: Patient ED Provider: Ernesto Patterson MD Chief Complaint: Visual disturbance Impression: As per impressions above Medical Decision Makin-year-old female arrives to the ER for evaluation of visual disturbance. I evaluated patient on arrival to room B2 when she was placed in the room. On discussion with patient she makes it clear that she actually cannot see anything out of her right eye and it was sudden in nature. At this point a stroke alert was initiated by me. She was moved to the trauma bay. Unfortunately patient has very difficult access for IV which prolonged time to CT and on top of that patient also has an allergy to iodine and required pretreatment prior to IV dye. Given my concerns for acute occlusion I did feel that CT angiography was necessary so we awaited the pretreatment prior to taking her to CT. CT scan of the head fortunately unremarkable. Stroke neurology was consulted at [place]. We had a long evaluation of the patient together with somewhat difficulty getting a easily reproducible exam. At times patient was having improvement of her vision and then it would worsen again. After this occurred multiple times it was finally decided that we should proceed with TNKase in case this is an embolic source of occlusion. Throughout this patient's blood pressure remained relatively stable. She is adamant she has no difficulty breathing she has had no recent head injuries and she is adamant she has no headache. She also notes no history of GI bleed or stomach ulcers. Patient is well aware of the risks of bleeding and this was discussed by both me and by the stroke neurologist with the patient. She is aware of bleeding on the brain, stomach, eye, amongst others which could be severe and possibly even cause worse outcome There were multiple delays involved with this case. Initial primary issue was IV access and needing to give her pretreatment prior to CT. It was further complicated by the fact that her symptoms seem to be waxing and waning and getting a reproducible exam was quite difficult and it was not until quite some time evaluating the patient between myself and stroke neurology that decision to proceed with TNKase was advised by stroke neurologist. Further consideration was also given that this is now happened 3 times to the patient and both times previously the symptoms resolved after a few hours without clear etiology and having had a negative MRI just 1 month ago. Following TNKase being given about 20 minutes later patient notes vision started to improve. Then she would say vision got worse again. She noted headache this a CT of the head was obtained. Fortunately this was negative. Triage/Nursing Notes reviewed by Me Differential:Stroke, dissection, retinal artery occlusion, retinal detachment, migraine, many other pathologies considered Vital Signs: reviewed and remarkable for no significant abnormalities Interventions: 1 L normal saline bolus IV, TNKase IV Labs:ED labs Reviewed by me and remarkable for no significant abnormalities Imaging:CT of the head without contrast as per my informal interpretation reveals no intracranial hemorrhage or mass effect. CT angiography of the head and neck as per radiologist no evidence of dissection or embolic phenomenon. CT of the head without contrast post TNKase after developing headache as per my informal interpretation reveals no intracranial hemorrhage or mass effect. Confirmed by radiologist. Next EKG:As per my interpretation. Indication stroke. Normal sinus rhythm at 71 bpm and a QTc of 454. When compared to EKG of May 05, 2023 there is no significant change. Cardiac/Tele Monitoring: Cardiac Monitoring: An Order was placed for continuous cardiac monitoring. The monitor shows a rate of 70 with a normal sinus rhythm. Consults:Dr Hodge Stroke Neurology -after extensive evaluation and discussions with patient she advised proceeding with TNKase for treatment of stroke Dr. [facility] consulted for further management Plan: Disposition:Hospitalization. Condition: Fair History of Present Illness: 78-year-old female arrives for evaluation of loss of vision. Patient notes that she was at home in no distress where around 7 PM this evening she realized she could not see out of her right eye. She denies headache or neck pain. Denies any other weakness or neurologic deficits. She is not having any trouble walking or talking. States she does not have any blurry vision she just cannot see anything out of her right eye. She states it is similar to an episode 1 month ago for which she was evaluated in the ER at that time. They noted she might of had a stroke back then but they are unsure. Patient is on 81 mg aspirin daily. She denies any recent falls, trauma, injuries. She states she otherwise feels well without any shortness of breath, chest pain, fevers, chills, back pain, neck pain, urinary/bowel symptoms or other concerning signs or symptoms. Past Medical History:Dyslipidemia, hyperglycemia, hypertension, GERD Home Medications:See Below Allergies:See Below Vitals:Blood Pressure: 142/79, Pulse 84, RR 20, T 36.3C, O2 95% on RA Physical Exam: GENERAL: Patient is elderly appearing and in mild distress. RESPIRATORY: No dyspnea. Clear to auscultation and equal bilaterally. CARDIOVASCULAR: Regular rate and rhythm.No murmur appreciated. GASTROINTESTINAL: Abdomen soft, non-tender, no peritonitis. EXTREMITIES: Normal motion all extremities, no cyanosis, no edema. NEUROLOGIC: Alert and oriented. No focal neurologic deficits appreciated. NIH 2, complete visual loss right eye no visual deficit left eye SKIN: No rash, no jaundice, no diaphoresis. PSYCH: Appropriate GCS: 15 ED Course: Times/Reassessments: Extensive bedside management of patient. Throughout her stay she seemed to have waxing and waning symptoms times saying vision had improved and then stating that it had not Critical Care: I have personally spent 90 minutes of critical care time in the direct management of this patient. Acute visual loss right eye concern for acute stroke and thrombolytic given. This was a life/limb threatening event. This 90 minutes is in excess of all separately billable procedures. Ernesto Patterson MD Past Med/Surg History Medical History History of anesthesia reaction had dizziness after spinal anesthesia Chronic back pain Urinary incontinence Depression with anxiety Hyperlipidemia Essential (primary) hypertension Carotid bruit Neg Carotid , 09/2022 Chronic GERD Age related osteoporosis Sleep apnea cpap > machine is currently away being serviced Surgical History History of cataract surgery LEFT History of lumbar spinal fusion L3, L4, L5 History of repair of left rotator cuff History of repair of right rotator cuff History of cholecystectomy History of tooth extraction partial upper History of wisdom tooth extraction History of tonsillectomy and adenoidectomy H/O colonoscopy 11/11 CT Colonography, Repeat 5 yrs Hx of appendectomy Family History Mother Diabetes Anxiety Depression Emphysema lung Lung disease Sister Ovarian cancer Osteoporosis Coronary heart disease Uterine cancer Myocardial infarction Heart disease Stroke Renal function impairment with growth failure Father Diabetes Family history of diabetes mellitus Other Breast cancer Colorectal cancer No family history of adverse response to anesthesia Denies family history of Prostate cancer Lung cancer Social History Smoking Status: Former smoker Tobacco Type: Cigarettes Age Started Using Tobacco: 21; Age Quit Using Tobacco: 41; packs per day: 0.5; Second Hand Exposure: Yes; Do You Dip or Chew Tobacco: No; Hx Alcohol Use: No Hx Substance Use: No Preferred Language: Armenian Communication Ability: Effective Visual Impairment: Limited Hearing Ability: Normal Admitting Representative Required: No Beliefs That Will Affect Care: None marital status: / Current Living Situation: Alone Current Living Situation Comment: apartment building> family close by current occupational status: retired How many Children do You have: 0 Feels Safe at Home: Yes Safety Concerns: Feels Safe At This Time Childhood Exposure to Second-Hand Smoke: Yes Diet: regular caffeine: Yes (alot of iced tea ) Dental Care, Regularly: Yes Physical Activity Frequency: Does not Exercise Seatbelt Use: always Sunscreen Use: No Assistive Devices: CPAP and Glasses Assistive Devices Comment: reading glasses and home CPAP @ home Allergies Allergies Allergy/AdvReac Type Severity Reaction Status Date / Time bee venom protein (honey bee) Allergy Severe swelling Verified 06/27/23 20:30 cephalexin Allergy Severe hives Verified 06/27/23 20:30 moxifloxacin Allergy Severe rash Verified 06/27/23 20:30 iodine Allergy Intermediate HIVES/ITCHI Verified 06/27/23 20:30 NG sulfamethoxazole Allergy Intermediate nausea, Verified 06/27/23 20:30 facial swelling hydrocodone Allergy Unknown unknown Verified 06/27/23 20:30 Penicillins Allergy Unknown unknown Verified 06/27/23 20:30 chlorpheniramine AdvReac Intermediate tremor Verified 06/27/23 20:30 [From Tussionex] etodolac AdvReac Intermediate nausea Verified 06/27/23 20:30 ibuprofen AdvReac Intermediate ULCER Verified 06/27/23 20:30 trimethoprim AdvReac Intermediate nausea Verified 06/27/23 20:30 Home Meds Home Medications Medication Instructions Recorded Confirmed magnesium aspartate-potassium 250 mg PO HS PRN leg cramps 03/03/18 06/27/23 aspartate 250 mg-250 mg capsule multivitamin 1 tab PO HS 04/29/20 06/27/23 cholecalciferol (vitamin D3) 25 2,000 unit PO HS 05/09/20 06/27/23 mcg (1,000 unit) tablet (Vitamin D3) guaifenesin 600 mg tablet, 600 mg PO Q12H PRN Congestion 10/01/20 06/27/23 extended release 12 hr (Mucinex) fexofenadine 180 mg tablet 180 mg PO HS 09/22/22 06/27/23 pilocarpine HCl 5 mg tablet 5 mg PO TID 05/05/23 06/27/23 solifenacin 10 mg tablet (Vesicare) 10 mg PO HS PRN .If runs out of 05/05/23 06/27/23 toziaz ascorbic acid (vitamin C) 500 mg 500 mg PO HS 05/07/23 06/27/23 tablet (Vitamin C) aspirin 81 mg chewable tablet 81 mg PO HS 06/27/23 06/27/23 fesoterodine 8 mg tablet,extended 8 mg PO HS 06/27/23 06/27/23 release 24 hr (Toviaz) metoprolol succinate 25 mg 25 mg PO HS 06/27/23 06/27/23 tablet,extended release 24 hr Previous Rx's Medication Instructions Recorded nystatin 100,000 unit/gram topical 1 unit topical BID PRN Rash #60 11/05/21 powder grams gabapentin 100 mg capsule 100 mg PO QPM PRN Pain #30 caps 02/17/22 atorvastatin 10 mg tablet (Lipitor) 5 mg (1/2 x 10 mg) PO HS #90 tabs 09/22/22 lisinopril 10 mg tablet 10 mg PO HS #90 tabs 03/25/23 mometasone 50 mcg/actuation nasal 2 spray intranasal DAILY PRN 03/25/23 spray Allergy Symptoms #17 grams venlafaxine 37.5 mg 37.5 mg PO DAILY PRN Anxiety #90 03/25/23 capsule,extended release 24 hr caps venlafaxine 75 mg capsule,extended 75 mg PO HS #90 caps 03/25/23 release 24 hr olopatadine 0.2 % eye drops 1 drp ophthalmic (eye) DAILY PRN 05/07/23 (Pataday Once Daily Relief) itching #2.5 mL pantoprazole 20 mg tablet,delayed 40 mg (2 x 20 mg) PO HS #180 tabs 06/03/23 release (Protonix) Results & Data (ED) Vital Signs Vital Signs - 24 hr 06/27/23 19:34 06/27/23 20:30 06/27/23 20:45 Temperature 36.3 C L Temperature Source Temporal Artery Scan Pulse Rate 84 74 Pulse Rate [Radial] Pulse Rate from SpO2 Sensor 80 74 Respiratory Rate 20 21 Respiratory Effort / Characteristics Respiratory Depth Respiratory Pattern Blood Pressure 142/79 H 150/86 H Blood Pressure [Right Arm] Blood Pressure Mean 100 121 Blood Pressure Mean [Right Arm] Blood Pressure Position [Right Arm] Pulse Oximetry 95 90 93 Oxygen Delivery Method Room Air Room Air Sepsis Recent Fever Within 48 Hours No Sepsis New/Unexplained Change in Mental Status No Sepsis Action Taken by Nursing No Action Required 06/27/23 21:00 06/27/23 21:12 06/27/23 21:13 Temperature Temperature Source Pulse Rate 69 74 Pulse Rate [Radial] 73 Pulse Rate from SpO2 Sensor 68 Respiratory Rate 17 20 Respiratory Effort / Characteristics Non-Labored Spontaneous Respiratory Depth Normal Respiratory Pattern Regular Blood Pressure 150/86 H Blood Pressure [Right Arm] 140/77 Blood Pressure Mean 107 Blood Pressure Mean [Right Arm] 98 Blood Pressure Position [Right Arm] Pulse Oximetry 95 95 Oxygen Delivery Method Room Air Sepsis Recent Fever Within 48 Hours Sepsis New/Unexplained Change in Mental Status Sepsis Action Taken by Nursing 06/27/23 21:15 06/27/23 21:18 06/27/23 21:23 Temperature Temperature Source Pulse Rate 73 74 Pulse Rate [Radial] Pulse Rate from SpO2 Sensor 73 74 Respiratory Rate 17 21 Respiratory Effort / Characteristics Respiratory Depth Respiratory Pattern Blood Pressure 148/78 H 139/75 Blood Pressure [Right Arm] Blood Pressure Mean 101 96 Blood Pressure Mean [Right Arm] Blood Pressure Position [Right Arm] Pulse Oximetry 96 95 99 Oxygen Delivery Method Room Air Sepsis Recent Fever Within 48 Hours Sepsis New/Unexplained Change in Mental Status Sepsis Action Taken by Nursing 06/27/23 21:24 06/27/23 21:29 06/27/23 21:30 Temperature Temperature Source Pulse Rate 72 Pulse Rate [Radial] 72 71 Pulse Rate from SpO2 Sensor 72 Respiratory Rate 18 18 15 Respiratory Effort / Characteristics Non-Labored Spontaneous Non-Labored Spontaneous Respiratory Depth Normal Normal Respiratory Pattern Regular Regular Blood Pressure 134/87 Blood Pressure [Right Arm] 139/75 134/87 Blood Pressure Mean 102 Blood Pressure Mean [Right Arm] 96 102 Blood Pressure Position [Right Arm] Pulse Oximetry 96 96 96 Oxygen Delivery Method Room Air Room Air Sepsis Recent Fever Within 48 Hours Sepsis New/Unexplained Change in Mental Status Sepsis Action Taken by Nursing 06/27/23 21:44 06/27/23 21:44 06/27/23 21:47 Temperature Temperature Source Pulse Rate Pulse Rate [Radial] 74 Pulse Rate from SpO2 Sensor 73 Respiratory Rate 18 Respiratory Effort / Characteristics Non-Labored Spontaneous Respiratory Depth Normal Respiratory Pattern Regular Blood Pressure Blood Pressure [Right Arm] 125/77 Blood Pressure Mean Blood Pressure Mean [Right Arm] 93 Blood Pressure Position [Right Arm] Pulse Oximetry 95 95 95 Oxygen Delivery Method Room Air Room Air Sepsis Recent Fever Within 48 Hours Sepsis New/Unexplained Change in Mental Status Sepsis Action Taken by Nursing 06/27/23 21:49 06/27/23 21:59 06/27/23 22:01 Temperature Temperature Source Pulse Rate 69 Pulse Rate [Radial] 78 Pulse Rate from SpO2 Sensor 69 Respiratory Rate 18 24 Respiratory Effort / Characteristics Non-Labored Spontaneous Respiratory Depth Normal Respiratory Pattern Regular Blood Pressure 125/77 Blood Pressure [Right Arm] 163/83 H Blood Pressure Mean 114 Blood Pressure Mean [Right Arm] 109 Blood Pressure Position [Right Arm] Lying Pulse Oximetry 95 95 Oxygen Delivery Method Room Air Sepsis Recent Fever Within 48 Hours Sepsis New/Unexplained Change in Mental Status Sepsis Action Taken by Nursing 06/27/23 22:03 06/27/23 22:14 Temperature Temperature Source Pulse Rate 69 Pulse Rate [Radial] 68 Pulse Rate from SpO2 Sensor 70 Respiratory Rate 14 15 Respiratory Effort / Characteristics Non-Labored Spontaneous Respiratory Depth Normal Respiratory Pattern Regular Blood Pressure 163/83 H Blood Pressure [Right Arm] 168/80 H Blood Pressure Mean 109 Blood Pressure Mean [Right Arm] 109 Blood Pressure Position [Right Arm] Pulse Oximetry 94 95 Oxygen Delivery Method Room Air Sepsis Recent Fever Within 48 Hours Sepsis New/Unexplained Change in Mental Status Sepsis Action Taken by Nursing Laboratory Data 06/27/23 20:08 06/27/23 20:08 Lab Results 06/27/23 06/27/23 Range/Units 20:08 21:22 WBC 7.65 (4.8-10.8) K/ul RBC 4.78 (4.20-5.40) M/uL Hgb 13.7 (12.0-16.0) g/dl Hct 42.2 (37.0-47.0) % MCV 88.3 (80.0-100.0) fL MCH 28.7 (25.0-34.0) pg MCHC 32.5 (32.0-36.0) g/dL RDW Std Deviation 43.2 (36.4-46.3) fL RDW Coeff of Praveen 13.3 (11.5-14.5) % Plt Count 221 (130-400) K/uL MPV 10.3 (9.4-12.4) fL Immature Gran % (Auto) 0.1 % Neut % (Auto) 63.9 % Lymph % (Auto) 23.7 % [place] % (Auto) 6.9 % Eos % (Auto) 4.6 % Baso % (Auto) 0.8 % Neut # (Auto) 4.89 (1.40-6.50) K/uL Lymph # (Auto) 1.81 (1.20-3.40) K/uL [place] # (Auto) 0.53 (0.11-0.59) K/uL Eos # (Auto) 0.35 (0.00-0.50) K/uL Baso # (Auto) 0.06 (0.00-0.20) K/uL Immature Gran # (Auto) 0.01 (0.01-0.20) K/uL PT 10.3 (9.0-12.0) Seconds INR 0.9 (0.9-1.1) APTT 27 (21-31) Seconds PTT Ratio 1.0 Sodium 138 (136-145) mmol/L Potassium 4.1 (3.5-5.1) mmol/L Chloride 107 (98-107) mmol/L Carbon Dioxide 25 (21-32) mmol/L Anion Gap 6 (3-11) BUN 22 (6-23) mg/dl Creatinine 0.80 (0.6-1.2) mg/dl Est Cr Clr Drug Dosing 56.0 ml/min Est GFR ( Amer) 82.4 ml/min Est GFR (Non-Af Amer) 71.1 ml/min BUN/Creatinine Ratio 27.5 H (10-20) Glucose 110 H (70-99(Fasting)) mg/dl Calcium 10.0 (8.6-10.3) mg/dl Magnesium 1.9 (1.7-2.4) mg/dl Total Bilirubin 0.4 (0.2-1.0) mg/dl AST 17 (13-39) U/L ALT 13 (7-52) U/L Alkaline Phosphatase 97 (34-104) U/L Troponin I High Sens < 2.3 (0-14) pg/ml Total Protein 7.1 (6.0-8.3) gm/dl Albumin 4.3 (3.4-5.0) gm/dl Globulin 2.8 (2.5-4.0) gm/dl Albumin/Globulin Ratio 1.5 (0.9-2) Urine Color Yellow Urine Appearance Clear (Clear) Urine pH 7.0 (4.5-7.5) Ur Specific [place] 1.020 (1.000-1.030) Urine Protein Negative (Negative) Urine Glucose (UA) Negative (Negative) Urine Ketones Negative (Negative) Urine Blood Trace-intact H (Negative) Urine Nitrite Negative (Negative) Urine Bilirubin Negative (Negative) Urine Urobilinogen Negative (Negative) Ur Leukocyte Esterase 1+ H (Negative) Urine RBC 0-4 (0-4) /hpf Urine WBC 10-30 H (0-5) /hpf Ur Epithelial Cells >30 H (0-5) /lpf Urine Bacteria 1+ H (Negative) Blood Type O Positive Antibody Screen NEGATIVE Administered Medications Discontinued Medications Diphenhydramine HCl (Diphenhydramine 50 Mg/Ml Vial) 50 mg IV NOW STA Stop: 06/27/23 19:55 Last Admin: 06/27/23 20:00 Dose: 50 mg Documented By: JASON Sodium Chloride (Nss) 1,000 mls @ 999 mls/hr IV .Q1H1M ONE Stop: 06/27/23 21:52 Last Infusion: 06/27/23 21:17 Dose: Infused Documented By: Admin: 06/27/23 20:53 Dose: 999 mls/hr Documented By: JASON Tenecteplase 22 mg/ Syringe 4.4 mls @ 52.8 mls/min IV NOW ONE; Protocol Stop: 06/27/23 21:06 Last Admin: 06/27/23 21:12 Dose: 52.8 mls/min Documented By: JASON Co-signed By: DAVIN Ioversol (Optiray 320 125ml) 117 ml IV ONCE ONE Stop: 06/27/23 20:21 Last Admin: 06/27/23 20:16 Dose: 117 ml Documented By: GERTRUDIS Methylprednisolone (Methylprednisolone 125 Mg/2 Ml Vial) 125 mg IV NOW STA Stop: 06/27/23 19:55 Last Admin: 06/27/23 20:00 Dose: 125 mg Documented By: JASON Sodium Chloride (Sodium Chloride 0.9% 10ml Flush) 20 ml IV NOW STA Stop: 06/27/23 20:56 Last Admin: 06/27/23 21:16 Dose: 20 ml Documented By: JASON Imaging Data Radiologist's Impression: Head CT 06/27/23 19:52 CR Exam(s): CT HEAD Without Contrast EXAM: CT Head Without Intravenous Contrast CLINICAL HISTORY: Reason for exam: neuro deficit, acute stroke suspected. TECHNIQUE: Axial computed tomography images of the head/brain without intravenous contrast. CTDI is 45.62 mGy and DLP is 677.48 mGy-cm. Automated exposure control was utilized for the study. A dose lowering technique was utilized adhering to the principles of ALARA. COMPARISON: Head CT 05/05/23. FINDINGS: Brain: No mass effect or acute infarct. No acute hemorrhage. Stable, mild atrophy and chronic white matter disease. Ventricles: No hydrocephalus or midline shift. Bones/joints: No acute bony lesion. Soft tissues: No scalp hematoma. Sinuses: Clear. Mastoid air cells: No mastoid effusion. IMPRESSION: 1. Mild age-related findings. 2. No acute infarct, bleed, acute intracranial abnormality, or interval change. Communications: Call Doctor Stroke Electronically signed by: Meme Pablo M.D. 06/27/23 20:48 PM Head CTA 06/27/23 19:52 CR Exam(s): CTA HEAD With Contrast IV Amt: 117 ml EXAM: CT Angiography Head With Intravenous Contrast CLINICAL HISTORY: Reason for exam: neuro deficit, acute stroke suspected. TECHNIQUE: Axial computed tomographic angiography images of the head with intravenous contrast. CTDI is 74.32 mGy and DLP is 1086.87 mGy-cm. Automated exposure control was utilized for the study. A dose lowering technique was utilized adhering to the principles of ALARA. MIP reconstructed images were created and reviewed. Mild motion artifact. CONTRAST: Patient received 117 ml of IV contrast COMPARISON: None. FINDINGS: Right internal carotid artery: Patent. Right anterior cerebral artery: Patent. Right middle cerebral artery: Patent. Right posterior cerebral artery: Patent. Right vertebral artery: Patent. Left internal carotid artery: Patent. Left anterior cerebral artery: Patent. Left middle cerebral artery: Patent. Left posterior cerebral artery: Patent. Left vertebral artery: Patent. Basilar artery: Patent. Other: Minimal atherosclerosis bilateral cavernous ICA, without significant stenosis. IMPRESSION: 1. No aneurysm or large vessel occlusion. Communications: Call Doctor Stroke Electronically signed by: Meme Pablo M.D. 06/27/23 20:48 PM Neck CTA 06/27/23 19:52 CR Exam(s): CTA NECK With Contrast IV Amt: 117 ml EXAM: CT Angiography Neck With Intravenous Contrast CLINICAL HISTORY: Reason for exam: neuro deficit, acute stroke suspected. TECHNIQUE: Routine carotid CT angiography protocol was performed with intravenous contrast. NASCET criteria using the distal ICAs for comparison were used for evaluation of stenoses. CTDI is 74.32 mGy and DLP is 1086.87 mGy-cm. Automated exposure control was utilized for the study. A dose lowering technique was utilized adhering to the principles of ALARA. MIP reconstructed images were created and reviewed. CONTRAST: Patient received 117 ml of IV contrast COMPARISON: None. FINDINGS: Right common carotid artery: Patent. Right internal carotid artery: Patent. Right vertebral artery: Patent. Left common carotid artery: Patent. Left internal carotid artery: Patent. Left vertebral artery: Patent. Left dominant system. Other: Moderate ectasia of the vessels. Mild atherosclerosis of the aortic arch. No significant atherosclerosis of the carotid bifurcations. IMPRESSION: 1. No dissection, occlusion, or significant stenosis. CAROTID STENOSIS REFERENCE USING NASCET CRITERIA: % ICA stenosis = (1 - narrowest ICA diameter/diameter of distal cervical ICA) x 100. Mild - <50% stenosis. Moderate - 50-69% stenosis. Severe - 70-94% stenosis. Near occlusion - 95-99% stenosis. Occluded - 100% stenosis. Communications: Call Doctor Stroke Electronically signed by: Meme Pablo M.D. 06/27/23 20:[address] 06/27/23 21:39 Exam(s): CT HEAD Without Contrast EXAM: CT Head Without Intravenous Contrast CLINICAL HISTORY: Reason for exam: headache post TPA. TECHNIQUE: Axial computed tomography images of the head/brain without intravenous contrast. Automated exposure control was utilized for the study. A dose lowering technique was utilized adhering to the principles of ALARA. COMPARISON: Head CT 8:10 PM, same day. FINDINGS: Brain: No mass effect or acute infarct. No acute hemorrhage post TPA. Mild atrophy and chronic white matter disease, stable. Ventricles: No hydrocephalus or midline shift. Bones/joints: No acute bony lesion. Soft tissues: No scalp hematoma. Sinuses: Clear. Mastoid air cells: No mastoid effusion. IMPRESSION: 1. Stable exam. No acute bleed or new finding. Electronically signed by: Meme Pablo M.D. 06/27/23 22:06 PM Discharge Plan Visit Data Chief Complaint: Visual Disturbance Stated Complaint: RIGHT EYE BLURRED VISION ED Provider: Ernesto Patterson Discharge Problem: Sudden visual loss of right eye Patient Disposition: Admitted As Inpatient Discharge Instructions Interventions: ED Discharge Assessment Last Done: 06/27/23 22:35
[2023-06-27] MEDS: OPTIRAY 320 125ml IV ONE (20:16)
[2023-06-27 20:20] LABS: Basophils # (auto) 0.06 K/uL (0.00-0.20); Basophils % (auto) 0.8 %; Eosinophils # (auto) 0.35 K/uL (0.00-0.50); Eosinophils % (auto) 4.6 %; Hematocrit (blood only) 42.2 % (37.0-47.0); Hemoglobin 13.7 g/dl (12.0-16.0); Immature Granulocytes # (auto) 0.01 K/uL (0.01-0.20); Immature Granulocytes % (auto) 0.1 %; Lymphocytes # (auto) 1.81 K/uL (1.20-3.40); Lymphocytes % (auto) 23.7 %; Mean Corpuscular Hemoglobin 28.7 pg (25.0-34.0); Mean Corpuscular Hgb Conc 32.5 g/dL (32.0-36.0); Mean Corpuscular Volume 88.3 fL (80.0-100.0); Mean Platelet Volume 10.3 fL (9.4-12.4); Monocytes # (auto) 0.53 K/uL (0.11-0.59); Monocytes % (auto) 6.9 %; Neutrophils # (auto) 4.89 K/uL (1.40-6.50); Neutrophils % (auto) 63.9 %; Platelet Count 221 K/uL (130-400); RDW Coefficient of Variation 13.3 % (11.5-14.5); RDW Standard Deviation 43.2 fL (36.4-46.3); Red Blood Count 4.78 M/uL (4.20-5.40); White Blood Count 7.65 K/ul (4.8-10.8)
[2023-06-27 20:39] LABS: Alanine Aminotransferase 13 U/L (7-52); Albumin Globulin Ratio 1.5 (0.9-2); Albumin Level 4.3 gm/dl (3.4-5.0); Alkaline Phosphatase 97 U/L (34-104); Anion Gap 6 (3-11); Aspartate Aminotransferase 17 U/L (13-39); BUN Creatinine Ratio 27.5 (10-20); Bilirubin,Total 0.4 mg/dl (0.2-1.0); Blood Urea Nitrogen 22 mg/dl (6-23); Carbon Dioxide 25 mmol/L (21-32); Chloride 107 mmol/L (98-107); Est GFR (African American) 82.4 ml/min; Est GFR (Non-African American) 71.1 ml/min; Globulin 2.8 gm/dl (2.5-4.0); Glucose 110 mg/dl (70-99(Fasting)); Magnesium 1.9 mg/dl (1.7-2.4); Potassium 4.1 mmol/L (3.5-5.1); Sodium 138 mmol/L (136-145); Total Protein 7.1 gm/dl (6.0-8.3)
[2023-06-27 20:46] LABS: Troponin I High Sensitivity < 2.3 pg/ml (0-14)
--- NOTE | 2023-06-27 20:48 | CT Scan Report ---
Exam(s): CTA HEAD With Contrast IV Amt: 117 ml EXAM: CT Angiography Head With Intravenous Contrast CLINICAL HISTORY: Reason for exam: neuro deficit, acute stroke suspected. TECHNIQUE: Axial computed tomographic angiography images of the head with intravenous contrast. CTDI is 74.32 mGy and DLP is 1086.87 mGy-cm. Automated exposure control was utilized for the study. A dose lowering technique was utilized adhering to the principles of ALARA. MIP reconstructed images were created and reviewed. Mild motion artifact. CONTRAST: Patient received 117 ml of IV contrast COMPARISON: None. FINDINGS: Right internal carotid artery: Patent. Right anterior cerebral artery: Patent. Right middle cerebral artery: Patent. Right posterior cerebral artery: Patent. Right vertebral artery: Patent. Left internal carotid artery: Patent. Left anterior cerebral artery: Patent. Left middle cerebral artery: Patent. Left posterior cerebral artery: Patent. Left vertebral artery: Patent. Basilar artery: Patent. Other: Minimal atherosclerosis bilateral cavernous ICA, without significant stenosis. IMPRESSION: 1. No aneurysm or large vessel occlusion. Communications: Call Doctor Stroke Electronically signed by: Meme Pablo M.D. 06/27/23 20:48 PM
--- NOTE | 2023-06-27 20:49 | CT Scan Report ---
Exam(s): CT HEAD Without Contrast EXAM: CT Head Without Intravenous Contrast CLINICAL HISTORY: Reason for exam: neuro deficit, acute stroke suspected. TECHNIQUE: Axial computed tomography images of the head/brain without intravenous contrast. CTDI is 45.62 mGy and DLP is 677.48 mGy-cm. Automated exposure control was utilized for the study. A dose lowering technique was utilized adhering to the principles of ALARA. COMPARISON: Head CT 05/05/23. FINDINGS: Brain: No mass effect or acute infarct. No acute hemorrhage. Stable, mild atrophy and chronic white matter disease. Ventricles: No hydrocephalus or midline shift. Bones/joints: No acute bony lesion. Soft tissues: No scalp hematoma. Sinuses: Clear. Mastoid air cells: No mastoid effusion. IMPRESSION: 1. Mild age-related findings. 2. No acute infarct, bleed, acute intracranial abnormality, or interval change. Communications: Call Doctor Stroke Electronically signed by: Meme Pablo M.D. 06/27/23 20:48 PM
--- NOTE | 2023-06-27 20:49 | CT Scan Report ---
Exam(s): CTA NECK With Contrast IV Amt: 117 ml EXAM: CT Angiography Neck With Intravenous Contrast CLINICAL HISTORY: Reason for exam: neuro deficit, acute stroke suspected. TECHNIQUE: Routine carotid CT angiography protocol was performed with intravenous contrast. NASCET criteria using the distal ICAs for comparison were used for evaluation of stenoses. CTDI is 74.32 mGy and DLP is 1086.87 mGy-cm. Automated exposure control was utilized for the study. A dose lowering technique was utilized adhering to the principles of ALARA. MIP reconstructed images were created and reviewed. CONTRAST: Patient received 117 ml of IV contrast COMPARISON: None. FINDINGS: Right common carotid artery: Patent. Right internal carotid artery: Patent. Right vertebral artery: Patent. Left common carotid artery: Patent. Left internal carotid artery: Patent. Left vertebral artery: Patent. Left dominant system. Other: Moderate ectasia of the vessels. Mild atherosclerosis of the aortic arch. No significant atherosclerosis of the carotid bifurcations. IMPRESSION: 1. No dissection, occlusion, or significant stenosis. CAROTID STENOSIS REFERENCE USING NASCET CRITERIA: % ICA stenosis = (1 - narrowest ICA diameter/diameter of distal cervical ICA) x 100. Mild - <50% stenosis. Moderate - 50-69% stenosis. Severe - 70-94% stenosis. Near occlusion - 95-99% stenosis. Occluded - 100% stenosis. Communications: Call Doctor Stroke Electronically signed by: Meme Pablo M.D. 06/27/23 20:48 PM
[2023-06-27] MEDS: SODIUM CHLORIDE 0.9% 1,000 ML IV ONE (20:53)
[2023-06-27 20:55] LABS: INR 0.9 (0.9-1.1); Partial Thromboplastin Time 27 Seconds (21-31); Prothrombin Time 10.3 Seconds (9.0-12.0)
[2023-06-27] MEDS ORDERED: STAT IV/IM STA (20:55)
[2023-06-27] MEDS ORDERED: No Aspirin within 24hrs of THROMBOLYTIC-Stroke PO SCH (21:00)
[2023-06-27] MEDS: TENECTEPLASE 22 MG in SYRINGE 0 ML IV ONE (21:12)
[2023-06-27] MEDS: SODIUM CHLORIDE 0.9% 10ML FLUSH IV STA (21:16)
--- NOTE | 2023-06-27 22:07 | CT Scan Report ---
Exam(s): CT HEAD Without Contrast EXAM: CT Head Without Intravenous Contrast CLINICAL HISTORY: Reason for exam: headache post TPA. TECHNIQUE: Axial computed tomography images of the head/brain without intravenous contrast. Automated exposure control was utilized for the study. A dose lowering technique was utilized adhering to the principles of ALARA. COMPARISON: Head CT 8:10 PM, same day. FINDINGS: Brain: No mass effect or acute infarct. No acute hemorrhage post TPA. Mild atrophy and chronic white matter disease, stable. Ventricles: No hydrocephalus or midline shift. Bones/joints: No acute bony lesion. Soft tissues: No scalp hematoma. Sinuses: Clear. Mastoid air cells: No mastoid effusion. IMPRESSION: 1. Stable exam. No acute bleed or new finding. Electronically signed by: Meme Pablo M.D. 06/27/23 22:06 PM
[2023-06-27 22:19] LABS: Appearance Urine Clear (Clear); Bilirubin Urine Negative (Negative); Blood Urine Trace-intact (Negative); Color Urine Yellow; Glucose Urine UA Negative (Negative); Ketones Urine Negative (Negative); Leukocyte Esterase Urine 1+ (Negative); Nitrite Urine Negative (Negative); Protein Urine Negative (Negative); Urobilinogen Urine Negative (Negative)
--- NOTE | 2023-06-27 22:24 | History & Physical Report ---
Date of Service June 27, 2023 Assessment & Plan (1) Change in vision: Plan: 78yo female with history of HTN, HLP presenting with painless monocular vision loss of the right eye that occurred acutely at 19:00 this evening. Patient with no additional ocular or neurologic complaints. Patient administered dose of tenecteplase at 21:12. Neurologic status unchanged. -Admit to ICU for ongoing post-TNK management -Neuro checks and NIHSS per protocol -Maintain blood pressure -Bleeding precautions -Check Lipid panel -Check HgbA1C -Check ESR and CRP -Check echo with bubble study -Check MRI brain with/without contrast tomorrow at 21:00 -Continue ASA 81mg po daily - start < 24 hours after TNK -Continue Atorvastatin - will increase to 40mg daily -PT/OT evaluation (2) Essential (primary) hypertension: Plan: Chronic. Blood pressure at goal presently -Continue home Lisinopril and Metoprolol -Will use IV Labetalol as needed overnight to maintain blood pressure <185/110 (3) Hyperlipidemia: Plan: Chronic. Stable -Check Lipid panel per protocol -Increase Atorvastatin to 40mg po daily (4) Chronic GERD: Plan: Chronic. Stable -Protonix 40mg po qHS (5) Depression with anxiety: Plan: Chronic. Stable -Continue Venlafaxine at home dose -Continue Pilocarpine for dry mouth F/E/N - Saline lock. Electrolytes WNL. Heart healthy diet as tolerated Ppx - SCDs to bilateral LE Code - Full per discussion with patient on admission Dispo - Admit to MICU for post-TNK management and monitoring History of Present Illness Chief Complaint: painless monocular vision loss Primary Care Provider: DO Sara Seo Herber is a 78yo female with history of HTN, HLP presenting with acute onset of painless vision loss of the right eye. Pateint reports around 19:00 she was getting ready to go for dinner when the vision in her right eye became fuzzy. She reports she initially had preserved vision in the periphery of her right eye but then lost vision in the entire visual field. She reports her visual field is white. No floaters or amarosis fugax description. No eye pain or tearing, flashing lights or aura. She denies headache, numbness/tingling/weakness or other neurologic complaints. Patient was discussed with the Stroke Neurologist in the ER and the decision was made to administer tenecteplase. She was given a dose at 21:12. She reports no change in her vision of the right eye. Did develop a headache after administration of tenecteplase - repeat CT of the head was performed and is unremarkable. She remained afebrile, HD stable. BP at goal ER Course: Benadryl 50mg IV Solumedrol 125mg IV NSS x 1L Tenecteplase 22mg Patient presented to [facility] in a similar fashion on 05/05/23 when she presented with painless vision loss in the right eye. Her symptoms lasted a little over 24 hours. She had a lipid panel performed on 05/06/23 (Zheh=070, HDL=43, LDL=58, DL=417), AIC=5.6 and a normal echo study with bubble. Allergies Allergy/AdvReac Type Severity Reaction Status Date / Time bee venom protein (honey bee) Allergy Severe swelling Verified 06/27/23 20:30 cephalexin Allergy Severe hives Verified 06/27/23 20:30 moxifloxacin Allergy Severe rash Verified 06/27/23 20:30 iodine Allergy Intermediate HIVES/ITCHI Verified 06/27/23 20:30 NG sulfamethoxazole Allergy Intermediate nausea, Verified 06/27/23 20:30 facial swelling hydrocodone Allergy Unknown unknown Verified 06/27/23 20:30 Penicillins Allergy Unknown unknown Verified 06/27/23 20:30 chlorpheniramine AdvReac Intermediate tremor Verified 06/27/23 20:30 [From Tussionex] etodolac AdvReac Intermediate nausea Verified 06/27/23 20:30 ibuprofen AdvReac Intermediate ULCER Verified 06/27/23 20:30 trimethoprim AdvReac Intermediate nausea Verified 06/27/23 20:30 Home Medications Medication Instructions Recorded Confirmed Type magnesium aspartate-potassium 250 mg PO HS PRN leg cramps 03/03/18 06/27/23 History aspartate 250 mg-250 mg capsule multivitamin 1 tab PO HS 04/29/20 06/27/23 History cholecalciferol (vitamin D3) 25 2,000 unit PO HS 05/09/20 06/27/23 History mcg (1,000 unit) tablet (Vitamin D3) guaifenesin 600 mg tablet, 600 mg PO Q12H PRN Congestion 10/01/20 06/27/23 Histo ry extended release 12 hr (Mucinex) nystatin 100,000 unit/gram topical 1 unit topical BID PRN Rash #60 11/05/21 06/27/23 Rx powder grams gabapentin 100 mg capsule 100 mg PO QPM PRN Pain #30 caps 02/17/22 06/27/23 Rx atorvastatin 10 mg tablet (Lipitor) 5 mg (1/2 x 10 mg) PO HS #90 tabs 09/22/22 06/27/23 Rx fexofenadine 180 mg tablet 180 mg PO HS 09/22/22 06/27/23 History lisinopril 10 mg tablet 10 mg PO HS #90 tabs 03/25/23 06/27/23 Rx mometasone 50 mcg/actuation nasal 2 spray intranasal DAILY PRN 03/25/23 06/27/23 Rx spray Allergy Symptoms #17 grams venlafaxine 37.5 mg 37.5 mg PO DAILY PRN Anxiety #90 03/25/23 06/27/23 Rx capsule,extended release 24 hr caps venlafaxine 75 mg capsule,extended 75 mg PO HS #90 caps 03/25/23 06/27/23 Rx release 24 hr pilocarpine HCl 5 mg tablet 5 mg PO TID 05/05/23 06/27/23 History solifenacin 10 mg tablet (Vesicare) 10 mg PO HS PRN .If runs out of 05/05/23 06/27/23 History toziaz ascorbic acid (vitamin C) 500 mg 500 mg PO HS 05/07/23 06/27/23 History tablet (Vitamin C) olopatadine 0.2 % eye drops 1 drp ophthalmic (eye) DAILY PRN 05/07/23 06/27/23 Rx (Pataday Once Daily Relief) itching #2.5 mL pantoprazole 20 mg tablet,delayed 40 mg (2 x 20 mg) PO HS #180 tabs 06/03/23 06/27/23 Rx release (Protonix) aspirin 81 mg chewable tablet 81 mg PO HS 06/27/23 06/27/23 History fesoterodine 8 mg tablet,extended 8 mg PO HS 06/27/23 06/27/23 History release 24 hr (Toviaz) metoprolol succinate 25 mg 25 mg PO HS 06/27/23 06/27/23 History tablet,extended release 24 hr Past Med/Surg History Medical History History of anesthesia reaction had dizziness after spinal anesthesia Chronic back pain Urinary incontinence Depression with anxiety Hyperlipidemia Essential (primary) hypertension Carotid bruit Neg Carotid US, 09/2022 Chronic GERD Age related osteoporosis Sleep apnea cpap > machine is currently away being serviced Surgical History History of cataract surgery LEFT History of lumbar spinal fusion L3, L4, L5 History of repair of left rotator cuff History of repair of right rotator cuff History of cholecystectomy History of tooth extraction partial upper History of wisdom tooth extraction History of tonsillectomy and adenoidectomy H/O colonoscopy 11/11 CT Colonography, Repeat 5 yrs Hx of appendectomy Family History Mother Diabetes Anxiety Depression Emphysema lung Lung disease Sister Ovarian cancer Osteoporosis Coronary heart disease Uterine cancer Myocardial infarction Heart disease Stroke Renal function impairment with growth failure Father Diabetes Family history of diabetes mellitus Other Breast cancer Colorectal cancer No family history of adverse response to anesthesia Denies family history of Prostate cancer Lung cancer Social History Smoking Status: Former smoker Tobacco Type: Cigarettes Age Started Using Tobacco: 21; Age Quit Using Tobacco: 41; packs per day: 0.5; Second Hand Exposure: Yes; Do You Dip or Chew Tobacco: No; Hx Alcohol Use: No Hx Substance Use: No Preferred Language: Welsh Communication Ability: Effective Visual Impairment: Limited Hearing Ability: Normal Correspondence Clerk Required: No Beliefs That Will Affect Care: None marital status: / Current Living Situation: Alone Current Living Situation Comment: apartment building> family close by current occupational status: retired How many Children do You have: 0 Feels Safe at Home: Yes Safety Concerns: Feels Safe At This Time Childhood Exposure to Second-Hand Smoke: Yes Diet: regular caffeine: Yes (alot of iced tea ) Dental Care, Regularly: Yes Physical Activity Frequency: Does not Exercise Seatbelt Use: always Sunscreen Use: No Assistive Devices: CPAP and Glasses Assistive Devices Comment: reading glasses and home CPAP @ home Review of Systems Review of Systems: All systems reviewed & are unremarkable except as noted in HPI & below Physical Exam Physical Exam: General: patient resting comfortably, NAD, non-toxic in appearance, AA&O x 4 Skin: warm, dry, intact, no rashes or lesions HEENT: NC/AT, PERRL, EOMI, anicteric sclera, conjunctiva without injection, external ear normal to inspection and nontender, nares patent, moist mucus membranes, dentition intact, no oropharyngeal lesions, neck supple, trachea midline, no LAD, no thyromegaly, no JVD Heart: +S1/S2, regular, no m/r/g Lungs: equal air entry bilaterally, no rales/rhonchi/wheezes Abd: +BS, soft, NT/ND, no masses/organomegaly/ascites Ext: warm, 2+ pulses in UE/LE bilaterally, no clubbing/cyanosis or edema Neuro: AA&O x 4, speech clear, no facial droop, CN II - XII grossly intact with exception of visual loss in right eye, sensation to light touch intact, MS 5/5 in UE/LE bilaterally, gait not assessed Results & Data Results & Data Vital Signs (Past 12 Hours) Vital Signs Temp Pulse Pulse Resp BP BP Pulse Ox 06/27/23 22:14 68 15 168/80 H 95 06/27/23 22:03 69 14 163/83 H 94 06/27/23 22:01 69 24 95 06/27/23 21:59 78 18 163/83 H 95 06/27/23 21:49 125/77 06/27/23 21:47 95 06/27/23 21:44 95 06/27/23 21:44 74 18 125/77 95 06/27/23 21:30 72 15 134/87 96 06/27/23 21:29 71 18 134/87 96 06/27/23 21:24 72 18 139/75 96 06/27/23 21:23 74 21 139/75 99 06/27/23 21:18 95 06/27/23 21:15 73 17 148/78 H 96 06/27/23 21:13 74 06/27/23 21:12 73 20 140/77 95 06/27/23 21:00 69 17 150/86 H 95 06/27/23 20:45 74 21 93 06/27/23 20:30 150/86 H 90 06/27/23 19:34 36.3 C L 84 20 142/79 H 95 O2 Del Method 06/27/23 22:14 Room Air 06/27/23 22:03 06/27/23 22:01 06/27/23 21:59 Room Air 06/27/23 21:49 06/27/23 21:47 06/27/23 21:44 Room Air 06/27/23 21:44 Room Air 06/27/23 21:30 06/27/23 21:29 Room Air 06/27/23 21:24 Room Air 06/27/23 21:23 06/27/23 21:18 Room Air 06/27/23 21:15 06/27/23 21:13 06/27/23 21:12 Room Air 06/27/23 21:00 06/27/23 20:45 06/27/23 20:30 Room Air 06/27/23 19:34 Room Air Laboratory Results Laboratory Results WBC 7.65 K/ul (4.8-10.8) 06/27/23 20:08 RBC 4.78 M/uL (4.20-5.40) 06/27/23 20:08 Hgb 13.7 g/dl (12.0-16.0) 06/27/23 20:08 Hct 42.2 % (37.0-47.0) 06/27/23 20:08 MCV 88.3 fL (80.0-100.0) 06/27/23 20:08 MCH 28.7 pg (25.0-34.0) 06/27/23 20:08 MCHC 32.5 g/dL (32.0-36.0) 06/27/23 20:08 RDW Std Deviation 43.2 fL (36.4-46.3) 06/27/23 20:08 RDW Coeff of Praveen 13.3 % (11.5-14.5) 06/27/23 20:08 Plt Count 221 K/uL (130-400) 06/27/23 20:08 MPV 10.3 fL (9.4-12.4) 06/27/23 20:08 Immature Gran % (Auto) 0.1 % 06/27/23 20:08 Neut % (Auto) 63.9 % 06/27/23 20:08 Lymph % (Auto) 23.7 % 06/27/23 20:08 Gilliam % (Auto) 6.9 % 06/27/23 20:08 Eos % (Auto) 4.6 % 06/27/23 20:08 Baso % (Auto) 0.8 % 06/27/23 20:08 Neut # (Auto) 4.89 K/uL (1.40-6.50) 06/27/23 20:08 Lymph # (Auto) 1.81 K/uL (1.20-3.40) 06/27/23 20:08 Gilliam # (Auto) 0.53 K/uL (0.11-0.59) 06/27/23 20:08 Eos # (Auto) 0.35 K/uL (0.00-0.50) 06/27/23 20:08 Baso # (Auto) 0.06 K/uL (0.00-0.20) 06/27/23 20:08 Immature Gran # (Auto) 0.01 K/uL (0.01-0.20) 06/27/23 20:08 PT 10.3 Seconds (9.0-12.0) 06/27/23 20:08 INR 0.9 (0.9-1.1) 06/27/23 20:08 APTT 27 Seconds (21-31) 06/27/23 20:08 PTT Ratio 1.0 06/27/23 20:08 Sodium 138 mmol/L (136-145) 06/27/23 20:08 Potassium 4.1 mmol/L (3.5-5.1) 06/27/23 20:08 Chloride 107 mmol/L (98-107) 06/27/23 20:08 Carbon Dioxide 25 mmol/L (21-32) 06/27/23 20:08 Anion Gap 6 (3-11) 06/27/23 20:08 BUN 22 mg/dl (6-23) 06/27/23 20:08 Creatinine 0.80 mg/dl (0.6-1.2) 06/27/23 20:08 Est Cr Clr Drug Dosing 56.0 ml/min 06/27/23 20:08 Est GFR ( Amer) 82.4 ml/min 06/27/23 20:08 Est GFR (Non-Af Amer) 71.1 ml/min 06/27/23 20:08 BUN/Creatinine Ratio 27.5 (10-20) H 06/27/23 20:08 Glucose 110 mg/dl (70-99(Fasting)) H 06/27/23 20:08 Calcium 10.0 mg/dl (8.6-10.3) 06/27/23 20:08 Magnesium 1.9 mg/dl (1.7-2.4) 06/27/23 20:08 Total Bilirubin 0.4 mg/dl (0.2-1.0) 06/27/23 20:08 AST 17 U/L (13-39) 06/27/23 20:08 ALT 13 U/L (7-52) 06/27/23 20:08 Alkaline Phosphatase 97 U/L (34-104) 06/27/23 20:08 Troponin I High Sens < 2.3 pg/ml (0-14) 06/27/23 20:08 Total Protein 7.1 gm/dl (6.0-8.3) 06/27/23 20:08 Albumin 4.3 gm/dl (3.4-5.0) 06/27/23 20:08 Globulin 2.8 gm/dl (2.5-4.0) 06/27/23 20:08 Albumin/Globulin Ratio 1.5 (0.9-2) 06/27/23 20:08 Urine Color Yellow 06/27/23 21:22 Urine Appearance Clear (Clear) 06/27/23 21:22 Urine pH 7.0 (4.5-7.5) 06/27/23 21:22 Ur Specific [place] 1.020 (1.000-1.030) 06/27/23 21:22 Urine Protein Negative (Negative) 06/27/23 21:22 Urine Glucose (UA) Negative (Negative) 06/27/23 21:22 Urine Ketones Negative (Negative) 06/27/23 21:22 Urine Blood Trace-intact (Negative) H 06/27/23 21:22 Urine Nitrite Negative (Negative) 06/27/23 21:22 Urine Bilirubin Negative (Negative) 06/27/23 21:22 Urine Urobilinogen Negative (Negative) 06/27/23 21:22 Ur Leukocyte Esterase 1+ (Negative) H 06/27/23 21:22 Urine RBC 0-4 /hpf (0-4) 06/27/23 21:22 Urine WBC 10-30 /hpf (0-5) H 06/27/23 21:22 Ur Epithelial Cells >30 /lpf (0-5) H 06/27/23 21:22 Urine Bacteria 1+ (Negative) H 06/27/23 21:22 Nasal Screen MRSA (PCR) Negative (Negative) 06/27/23 Unknown Blood Type O Positive 06/27/23 20:08 Antibody Screen NEGATIVE 06/27/23 20:08 Impressions Head CTA 06/27/23 19:52 CR Exam(s): CTA HEAD With Contrast IV Amt: 117 ml EXAM: CT Angiography Head With Intravenous Contrast CLINICAL HISTORY: Reason for exam: neuro deficit, acute stroke suspected. TECHNIQUE: Axial computed tomographic angiography images of the head with intravenous contrast. CTDI is 74.32 mGy and DLP is 1086.87 mGy-cm. Automated exposure control was utilized for the study. A dose lowering technique was utilized adhering to the principles of ALARA. MIP reconstructed images were created and reviewed. Mild motion artifact. CONTRAST: Patient received 117 ml of IV contrast COMPARISON: None. FINDINGS: Right internal carotid artery: Patent. Right anterior cerebral artery: Patent. Right middle cerebral artery: Patent. Right posterior cerebral artery: Patent. Right vertebral artery: Patent. Left internal carotid artery: Patent. Left anterior cerebral artery: Patent. Left middle cerebral artery: Patent. Left posterior cerebral artery: Patent. Left vertebral artery: Patent. Basilar artery: Patent. Other: Minimal atherosclerosis bilateral cavernous ICA, without significant stenosis. IMPRESSION: 1. No aneurysm or large vessel occlusion. Communications: Call Doctor Stroke Electronically signed by: Meme Pablo M.D. 06/27/23 20:48 PM Neck CTA 06/27/23 19:52 CR Exam(s): CTA NECK With Contrast IV Amt: 117 ml EXAM: CT Angiography Neck With Intravenous Contrast CLINICAL HISTORY: Reason for exam: neuro deficit, acute stroke suspected. TECHNIQUE: Routine carotid CT angiography protocol was performed with intravenous contrast. NASCET criteria using the distal ICAs for comparison were used for evaluation of stenoses. CTDI is 74.32 mGy and DLP is 1086.87 mGy-cm. Automated exposure control was utilized for the study. A dose lowering technique was utilized adhering to the principles of ALARA. MIP reconstructed images were created and reviewed. CONTRAST: Patient received 117 ml of IV contrast COMPARISON: None. FINDINGS: Right common carotid artery: Patent. Right internal carotid artery: Patent. Right vertebral artery: Patent. Left common carotid artery: Patent. Left internal carotid artery: Patent. Left vertebral artery: Patent. Left dominant system. Other: Moderate ectasia of the vessels. Mild atherosclerosis of the aortic arch. No significant atherosclerosis of the carotid bifurcations. IMPRESSION: 1. No dissection, occlusion, or significant stenosis. CAROTID STENOSIS REFERENCE USING NASCET CRITERIA: % ICA stenosis = (1 - narrowest ICA diameter/diameter of distal cervical ICA) x 100. Mild - <50% stenosis. Moderate - 50-69% stenosis. Severe - 70-94% stenosis. Near occlusion - 95-99% stenosis. Occluded - 100% stenosis. Communications: Call Doctor Stroke Electronically signed by: Meme Pablo M.D. 06/27/23 20:[address] 06/27/23 21:39 Exam(s): CT HEAD Without Contrast EXAM: CT Head Without Intravenous Contrast CLINICAL HISTORY: Reason for exam: headache post TPA. TECHNIQUE: Axial computed tomography images of the head/brain without intravenous contrast. Automated exposure control was utilized for the study. A dose lowering technique was utilized adhering to the principles of ALARA. COMPARISON: Head CT 8:10 PM, same day. FINDINGS: Brain: No mass effect or acute infarct. No acute hemorrhage post TPA. Mild atrophy and chronic white matter disease, stable. Ventricles: No hydrocephalus or midline shift. Bones/joints: No acute bony lesion. Soft tissues: No scalp hematoma. Sinuses: Clear. Mastoid air cells: No mastoid effusion. IMPRESSION: 1. Stable exam. No acute bleed or new finding. Electronically signed by: Meme Pablo M.D. 06/27/23 22:06 PM ECG Additional Comments: EKG - NSR at 71bpm, left axis deviation, BK=763, HQQ=273, MGm=693, no acute ischemic changes PG Care Time/CCT Total # of Minutes Spent Total Time Spent with Patient: Total time spent is greater than 50% in coordination of care (as documented) at patient's floor/unit and/or counseling patient: Coding Level of Care Code 96614 INT INP/OBS CARE MIN Diagnoses Change in vision H53.9 Essential (primary) hypertension I10 Hyperlipidemia E78.5 Chronic GERD K21.9 Depression with anxiety F41.8
[2023-06-27 22:32] LABS: Epithelial Cell Urine >30 /lpf (0-5)
[2023-06-27 22:34] LABS: Bacteria Urine 1+ (Negative); RBC Urine 0-4 /hpf (0-4)
[2023-06-27] MEDS ORDERED: PHARMACIST DISCHARGE MED REC CONSULT PRN (22:46)
--- NOTE | 2023-06-27 22:54 | Critical Care Consultation ---
Date of Consultation June 27, 2023 Assessment & Plan (1) Change in vision: (2) Dyspnea: (3) Essential (primary) hypertension: (4) Hyperlipidemia: (5) Hyperglycemia, unspecified: (6) Depression with anxiety: (7) Sleep apnea: Plan Reason Critically Ill: 78 YOF presents with monocular complete painless vision loss of RIGHT EYE with onset at around 1900- deemed TNK candidate and received TNK at 2014. Neuro - Vision loss, post TNK, chronic anxiety/depression CAM ICU: Negative - NIHSS- 2 post TNK administration - head and neck CTA/CT negative for acute process, significant stenosis or aneurysm - Continue post TNK protocol- nuero exams and BP goals - Continue with home CPAP of 14 for KATHE - Telemetry x24 hours to evaluate for dysrhythmia - Patient had extended monitoring performed as outpatient- 06/16- No sustained dysrhythmia noted rare PAC and PVCS - ECHO with bubble- had one completed in April admission that was negative - Lipid Panel - HGB A1c - Imaging PRN any change and 24 hour post TNK - Depression/anxiety- continue home venlafaxine Cardiac - HTN, Palpitations, HLD - Hold home oral agents to allow for permissive HTN with goal <185/110 - Defer high intensity statin pending lipids and primary service Respiratory - KATHE, chronic dyspnea - No acute need at this time - Home CPAP 14cm H20 - Continue home inhalers GI - No acute needs - Advance diet as tolerated RENAL/LYTES - No acute needs - ICU electrolyte protocol - No acute needs - Alvarez placed prior to TNK- remove when able ENDO - Elevated serum glucose without diagnosis of DM - Follow up HGBA1c - defer managment at this time to Primary hospitalist service or PCP HEME -No acute needs ID - No concern for infectious etiology LINES/IV ACCESS - PIV alvarez Continue use of these lines DVT PROPHYLAXIS - SCDS, chemoprophylaxis contraindicated post thrombolytic patient DISPO: ICU 24 hours post TNK I have personally spent 45 minutes of critical care time in the direct management of this patient. This is a life/limb threatening event. This includes time spent evaluating patient, direct bedside care, chart review, placing orders, interpretation of diagnostic studies, discussion with consultants, patient, and family members, as well as other required patient management activities. This time is exclusive of all separately billable procedures, and teaching time and separate from and in addition to any other critical care service time. Thank you for allowing us to participate in the care of this patient. Please refer to my attending physician's documentation for any further recommendations. History of Present Illness Reason for Consultation: Stroke like symptoms s/p TNK administration Requesting Physician: Rebecca Jenkins Attending Physician: Rebecca Jenkins History of Present Illness 78 YOF with past medical history of: HTN, Depression with anxiety, GERD, KATHE, palpitations, chronic dyspnea. Patient arrives to the EMD today for complaints of RIGHT sided acute vision loss that occurred close to 1900 today. Patient reports that she was getting up to go for dinner and her right eye just went blind. The vision loss was sudden without pain, and appears as white fog over her eye and did not have a pattern of loss to it (not central then out, or left to right or top to bottom). This was not associated with any other neurological finding or headache. In the EMD the patient underwent stroke alert protocol, had head CT, CTA of the head and neck performed. She was deemed a TNK candidate and received this at 2014 on 06/27/23. Patient has not had any change to her vision, she did have an onset of a left frontal unilateral headache following TNK and had repeat head CT performed that was negative for acute bleed. Patient will be admitted to the ICU post TNK protocol, frequent neurological exams, BP control if needed. Repeat imaging prn and 24 hour post TNK. Patient reports she has had these exact symptoms involving the same eye 3 times over the past year. She reports the first time was in Mar 2023 when flying back from [place]. 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 She states that the episodes last for 12-13 hours and spontaneously resolve. She reports as well that the other episodes were also not associated with any other neurological symptoms. She reports history of Migraines "many years ago and haven't had one for many years." CODE: FULL Allergies Allergy/AdvReac Type Severity Reaction Status Date / Time bee venom protein (honey bee) Allergy Severe swelling Verified 06/27/23 20:30 cephalexin Allergy Severe hives Verified 06/27/23 20:30 moxifloxacin Allergy Severe rash Verified 06/27/23 20:30 iodine Allergy Intermediate HIVES/ITCHI Verified 06/27/23 20:30 NG sulfamethoxazole Allergy Intermediate nausea, Verified 06/27/23 20:30 facial swelling hydrocodone Allergy Unknown unknown Verified 06/27/23 20:30 Penicillins Allergy Unknown unknown Verified 06/27/23 20:30 chlorpheniramine AdvReac Intermediate tremor Verified 06/27/23 20:30 [facility] etodolac AdvReac Intermediate nausea Verified 06/27/23 20:30 ibuprofen AdvReac Intermediate ULCER Verified 06/27/23 20:30 trimethoprim AdvReac Intermediate nausea Verified 06/27/23 20:30 Home Medications Medication Instructions Recorded Confirmed Type magnesium aspartate-potassium 250 mg PO HS PRN leg cramps 03/03/18 06/27/23 History aspartate 250 mg-250 mg capsule multivitamin 1 tab PO HS 04/29/20 06/27/23 History cholecalciferol (vitamin D3) 25 2,000 unit PO HS 05/09/20 06/27/23 History mcg (1,000 unit) tablet (Vitamin D3) guaifenesin 600 mg tablet, 600 mg PO Q12H PRN Congestion 10/01/20 06/27/23 History extended release 12 hr (Mucinex) nystatin 100,000 unit/gram topical 1 unit topical BID PRN Rash #60 11/05/21 06/27/23 Rx powder grams gabapentin 100 mg capsule 100 mg PO QPM PRN Pain #30 caps 02/17/22 06/27/23 Rx atorvastatin 10 mg tablet (Lipitor) 5 mg (1/2 x 10 mg) PO HS #90 tabs 09/22/22 06/27/23 Rx fexofenadine 180 mg tablet 180 mg PO HS 09/22/22 06/27/23 History lisinopril 10 mg tablet 10 mg PO HS #90 tabs 03/25/23 06/27/23 Rx mometasone 50 mcg/actuation nasal 2 spray intranasal DAILY PRN 03/25/23 06/27/23 Rx spray Allergy Symptoms #17 grams venlafaxine 37.5 mg 37.5 mg PO DAILY PRN Anxiety #90 03/25/23 06/27/23 Rx capsule,extended release 24 hr caps venlafaxine 75 mg capsule,extended 75 mg PO HS #90 caps 03/25/23 06/27/23 Rx release 24 hr pilocarpine HCl 5 mg tablet 5 mg PO TID 05/05/23 06/27/23 History solifenacin 10 mg tablet (Vesicare) 10 mg PO HS PRN .If runs out of 05/05/23 06/27/23 History toziaz ascorbic acid (vitamin C) 500 mg 500 mg PO HS 05/07/23 06/27/23 History tablet (Vitamin C) olopatadine 0.2 % eye drops 1 drp ophthalmic (eye) DAILY PRN 05/07/23 06/27/23 Rx (Pataday Once Daily Relief) itching #2.5 mL pantoprazole 20 mg tablet,delayed 40 mg (2 x 20 mg) PO HS #180 tabs 06/03/23 06/27/23 Rx release (Protonix) aspirin 81 mg chewable tablet 81 mg PO HS 06/27/23 06/27/23 History fesoterodine 8 mg tablet,extended 8 mg PO HS 06/27/23 06/27/23 History release 24 hr (Toviaz) metoprolol succinate 25 mg 25 mg PO HS 06/27/23 06/27/23 History tablet,extended release 24 hr Patient History Medical History History of anesthesia reaction had dizziness after spinal anesthesia Chronic back pain Urinary incontinence Depression with anxiety Hyperlipidemia Essential (primary) hypertension Carotid bruit Neg Carotid US, 09/2022 Chronic GERD Age related osteoporosis Sleep apnea cpap > machine is currently away being serviced Surgical History History of cataract surgery LEFT History of lumbar spinal fusion L3, L4, L5 History of repair of left rotator cuff History of repair of right rotator cuff History of cholecystectomy History of tooth extraction partial upper History of wisdom tooth extraction History of tonsillectomy and adenoidectomy H/O colonoscopy 11/11 CT Colonography, Repeat 5 yrs Hx of appendectomy Family History Mother Diabetes Anxiety Depression Emphysema lung Lung disease Sister Ovarian cancer Osteoporosis Coronary heart disease Uterine cancer Myocardial infarction Heart disease Stroke Renal function impairment with growth failure Father Diabetes Family history of diabetes mellitus Other Breast cancer Colorectal cancer No family history of adverse response to anesthesia Denies family history of Prostate cancer Lung cancer Social History Smoking Status: Former smoker Tobacco Type: Cigarettes Age Started Using Tobacco: 21; Age Quit Using Tobacco: 41; packs per day: 0.5; Second Hand Exposure: Yes; Do You Dip or Chew Tobacco: No; Hx Alcohol Use: No Hx Substance Use: No Preferred Language: Azeri Communication Ability: Effective Visual Impairment: Limited Hearing Ability: Normal Integration Director Required: No Beliefs That Will Affect Care: None marital status: / Current Living Situation: Alone Current Living Situation Comment: apartment building> family close by current occupational status: retired How many Children do You have: 0 Feels Safe at Home: Yes Safety Concerns: Feels Safe At This Time Childhood Exposure to Second-Hand Smoke: Yes Diet: regular caffeine: Yes (alot of iced tea ) Dental Care, Regularly: Yes Physical Activity Frequency: Does not Exercise Seatbelt Use: always Sunscreen Use: No Assistive Devices: CPAP and Glasses Assistive Devices Comment: reading glasses and home CPAP @ home Review of Systems Review of Systems: REVIEW OF SYSTEMS: Constitutional: No fever, sweats or chills Eyes: (+) vision loss to right eye, No diplopia, no worsening or blurred vision ENT: normal hearing, no trouble swallowing Respiratory: (+) chronic dyspnea, No cough, sputum, dyspnea at rest or on exertion Cardiovascular: No chest pain, tightness or palpitations Abdomen: No pain, nausea, vomiting, diarrhea or constipation Musculoskeletal: No joint pain, calf pain, swelling Neurologic: No weakness, numbness/tingling, or balance problems Psychiatric: (+) anxiety Skin: No rash or itch Physical Exam Physical Exam: PHYSICAL EXAM: General: awake, alert, no apparent distress Head: Normocephalic, atraumatic ENT: PERRLA, EOMI, no pharyngeal exudate, mucous membranes moist Neuro: AAO x 3, speech clear and appropriate, strength intact bilaterally 5/5, sensation intact and equal all extremities and dermatomes, no pronator drift, complete vision loss of right eye, no vision loss or change to left eye. NIHSS- 2 Chest: equal rise and fall of the chest, no accessory muscle use, no heaves or thrills, Clear to auscultation, on room air, Cardiac: Regular rate and rhythm, telemetry reviewed, skin warm dry, cap refill <3 seconds, peripheral pulses +2 no JVD, no murmur, no edema GI: NABS x 4 quadrants, soft, nontender to palpation, no rebound, guarding or tenderness : Alvarez to gravity Extremities: Normal inspection, no peripheral edema or erythema, calfs nontender to palpation Psych: Normal mood and affect Skin: no rash or erythema Results & Data Results & Data Vital Signs (Past 12 Hours) Vital Signs Temp Pulse Pulse Resp BP BP Pulse Ox 06/27/23 22:29 73 18 158/88 H 95 06/27/23 22:14 68 15 168/80 H 95 06/27/23 22:03 69 14 163/83 H 94 06/27/23 22:01 69 24 95 06/27/23 21:59 78 18 163/83 H 95 06/27/23 21:49 125/77 06/27/23 21:47 95 06/27/23 21:44 95 06/27/23 21:44 74 18 125/77 95 06/27/23 21:30 72 15 134/87 96 06/27/23 21:29 71 18 134/87 96 06/27/23 21:24 72 18 139/75 96 06/27/23 21:23 74 21 139/75 99 06/27/23 21:18 95 06/27/23 21:15 73 17 148/78 H 96 06/27/23 21:13 74 06/27/23 21:12 73 20 140/77 95 06/27/23 21:00 69 17 150/86 H 95 06/27/23 20:45 74 21 93 06/27/23 20:30 150/86 H 90 06/27/23 19:34 36.3 C L 84 20 142/79 H 95 O2 Del Method 06/27/23 22:29 Room Air 06/27/23 22:14 Room Air 06/27/23 22:03 06/27/23 22:01 06/27/23 21:59 Room Air 06/27/23 21:49 06/27/23 21:47 06/27/23 21:44 Room Air 06/27/23 21:44 Room Air 06/27/23 21:30 06/27/23 21:29 Room Air 06/27/23 21:24 Room Air 06/27/23 21:23 06/27/23 21:18 Room Air 06/27/23 21:15 06/27/23 21:13 06/27/23 21:12 Room Air 06/27/23 21:00 06/27/23 20:45 06/27/23 20:30 Room Air 06/27/23 19:34 Room Air Laboratory Results Abnormal lab results 06/27/23 06/27/23 Range/Units 20:08 21:22 BUN/Creatinine Ratio 27.5 H (10-20) Glucose 110 H (70-99(Fasting)) mg/dl Urine Blood Trace-intact H (Negative) Ur Leukocyte Esterase 1+ H (Negative) Urine WBC 10-30 H (0-5) /hpf Ur Epithelial Cells >30 H (0-5) /lpf Urine Bacteria 1+ H (Negative) Diagnostic Findings Head CT 06/27/23 19:52 CR Exam(s): CT HEAD Without Contrast EXAM: CT Head Without Intravenous Contrast CLINICAL HISTORY: Reason for exam: neuro deficit, acute stroke suspected. TECHNIQUE: Axial computed tomography images of the head/brain without intravenous contrast. CTDI is 45.62 mGy and DLP is 677.48 mGy-cm. Automated exposure control was utilized for the study. A dose lowering technique was utilized adhering to the principles of ALARA. COMPARISON: Head CT 05/05/23. FINDINGS: Brain: No mass effect or acute infarct. No acute hemorrhage. Stable, mild atrophy and chronic white matter disease. Ventricles: No hydrocephalus or midline shift. Bones/joints: No acute bony lesion. Soft tissues: No scalp hematoma. Sinuses: Clear. Mastoid air cells: No mastoid effusion. IMPRESSION: 1. Mild age-related findings. 2. No acute infarct, bleed, acute intracranial abnormality, or interval change. Communications: Call Doctor Stroke Electronically signed by: Meme Pablo M.D. 06/27/23 20:48 PM Head CTA 06/27/23 19:52 CR Exam(s): CTA HEAD With Contrast IV Amt: 117 ml EXAM: CT Angiography Head With Intravenous Contrast CLINICAL HISTORY: Reason for exam: neuro deficit, acute stroke suspected. TECHNIQUE: Axial computed tomographic angiography images of the head with intravenous contrast. CTDI is 74.32 mGy and DLP is 1086.87 mGy-cm. Automated exposure control was utilized for the study. A dose lowering technique was utilized adhering to the principles of ALARA. MIP reconstructed images were created and reviewed. Mild motion artifact. CONTRAST: Patient received 117 ml of IV contrast COMPARISON: None. FINDINGS: Right internal carotid artery: Patent. Right anterior cerebral artery: Patent. Right middle cerebral artery: Patent. Right posterior cerebral artery: Patent. Right vertebral artery: Patent. Left internal carotid artery: Patent. Left anterior cerebral artery: Patent. Left middle cerebral artery: Patent. Left posterior cerebral artery: Patent. Left vertebral artery: Patent. Basilar artery: Patent. Other: Minimal atherosclerosis bilateral cavernous ICA, without significant stenosis. IMPRESSION: 1. No aneurysm or large vessel occlusion. Communications: Call Doctor Stroke Electronically signed by: Meme Pablo M.D. 06/27/23 20:48 PM Neck CTA 06/27/23 19:52 CR Exam(s): CTA NECK With Contrast IV Amt: 117 ml EXAM: CT Angiography Neck With Intravenous Contrast CLINICAL HISTORY: Reason for exam: neuro deficit, acute stroke suspected. TECHNIQUE: Routine carotid CT angiography protocol was performed with intravenous contrast. NASCET criteria using the distal ICAs for comparison were used for evaluation of stenoses. CTDI is 74.32 mGy and DLP is 1086.87 mGy-cm. Automated exposure control was utilized for the study. A dose lowering technique was utilized adhering to the principles of ALARA. MIP reconstructed images were created and reviewed. CONTRAST: Patient received 117 ml of IV contrast COMPARISON: None. FINDINGS: Right common carotid artery: Patent. Right internal carotid artery: Patent. Right vertebral artery: Patent. Left common carotid artery: Patent. Left internal carotid artery: Patent. Left vertebral artery: Patent. Left dominant system. Other: Moderate ectasia of the vessels. Mild atherosclerosis of the aortic arch. No significant atherosclerosis of the carotid bifurcations. IMPRESSION: 1. No dissection, occlusion, or significant stenosis. CAROTID STENOSIS REFERENCE USING NASCET CRITERIA: % ICA stenosis = (1 - narrowest ICA diameter/diameter of distal cervical ICA) x 100. Mild - <50% stenosis. Moderate - 50-69% stenosis. Severe - 70-94% stenosis. Near occlusion - 95-99% stenosis. Occluded - 100% stenosis. Communications: Call Doctor Stroke Electronically signed by: Meme Pablo M.D. 06/27/23 20:[address] 06/27/23 21:39 Exam(s): CT HEAD Without Contrast EXAM: CT Head Without Intravenous Contrast CLINICAL HISTORY: Reason for exam: headache post TPA. TECHNIQUE: Axial computed tomography images of the head/brain without intravenous contrast. Automated exposure control was utilized for the study. A dose lowering technique was utilized adhering to the principles of ALARA. COMPARISON: Head CT 8:10 PM, same day. FINDINGS: Brain: No mass effect or acute infarct. No acute hemorrhage post TPA. Mild atrophy and chronic white matter disease, stable. Ventricles: No hydrocephalus or midline shift. Bones/joints: No acute bony lesion. Soft tissues: No scalp hematoma. Sinuses: Clear. Mastoid air cells: No mastoid effusion. IMPRESSION: 1. Stable exam. No acute bleed or new finding. Electronically signed by: Meme Pablo M.D. 06/27/23 22:06 PM Medications Administered Discontinued Medications Diphenhydramine HCl (Diphenhydramine 50 Mg/Ml Vial) 50 mg IV NOW STA Stop: 06/27/23 19:55 Last Admin: 06/27/23 20:00 Dose: 50 mg Documented By: JASON Sodium Chloride (Nss) 1,000 mls @ 999 mls/hr IV .Q1H1M ONE Stop: 06/27/23 21:52 Last Infusion: 06/27/23 21:17 Dose: Infused Documented By: Admin: 06/27/23 20:53 Dose: 999 mls/hr Documented By: JASON Tenecteplase 22 mg/ Syringe 4.4 mls @ 52.8 mls/min IV NOW ONE; Protocol Stop: 06/27/23 21:06 Last Admin: 06/27/23 21:12 Dose: 52.8 mls/min Documented By: JASON Co-signed By: DAVIN Ioversol (Optiray 320 125ml) 117 ml IV ONCE ONE Stop: 06/27/23 20:21 Last Admin: 06/27/23 20:16 Dose: 117 ml Documented By: GERTRUDIS Methylprednisolone (Methylprednisolone 125 Mg/2 Ml Vial) 125 mg IV NOW STA Stop: 06/27/23 19:55 Last Admin: 02/04/24 20:00 Dose: 125 mg Documented By: JASON Sodium Chloride (Sodium Chloride 0.9% 10ml Flush) 20 ml IV NOW STA Stop: 06/27/23 20:56 Last Admin: 06/27/23 21:16 Dose: 20 ml Documented By: JASON ECG Additional Comments: Normal sinus rhythm Left axis deviation Right bundle branch block Possible Lateral infarct (cited on or before 07-JAN-2017) Abnormal ECG When compared with ECG of 05-MAY-2023 16:27, Questionable change in initial forces of Lateral leads Coding Level of Care Code 90303 IN/OBS CONSULT LVL 4,60M Diagnoses Change in vision H53.9 Dyspnea R06.00 Essential (primary) hypertension I10 Hyperlipidemia E78.5 Hyperglycemia, unspecified R73.9 Depression with anxiety F41.8 Sleep apnea G47.30
[2023-06-28 05:02] LABS: Basophils # (auto) 0.02 K/uL (0.00-0.20); Basophils % (auto) 0.3 %; Hematocrit (blood only) 43.5 % (37.0-47.0); Hemoglobin 14.4 g/dl (12.0-16.0); Immature Granulocytes # (auto) 0.01 K/uL (0.01-0.20); Immature Granulocytes % (auto) 0.1 %; Lymphocytes # (auto) 0.74 K/uL (1.20-3.40); Lymphocytes % (auto) 10.9 %; Mean Corpuscular Hemoglobin 29.1 pg (25.0-34.0); Mean Corpuscular Hgb Conc 33.1 g/dL (32.0-36.0); Mean Corpuscular Volume 87.9 fL (80.0-100.0); Mean Platelet Volume 10.8 fL (9.4-12.4); Monocytes # (auto) 0.06 K/uL (0.11-0.59); Monocytes % (auto) 0.9 %; Neutrophils # (auto) 5.98 K/uL (1.40-6.50); Neutrophils % (auto) 87.8 %; Platelet Count 219 K/uL (130-400); RDW Coefficient of Variation 13.2 % (11.5-14.5); RDW Standard Deviation 42.9 fL (36.4-46.3); Red Blood Count 4.95 M/uL (4.20-5.40); White Blood Count 6.81 K/ul (4.8-10.8)
[2023-06-28 05:09] LABS: Anion Gap 8 (3-11); BUN Creatinine Ratio 26.8 (10-20); Blood Urea Nitrogen 19 mg/dl (6-23); C Reactive Protein < 0.50 mg/dl (0-0.5); Calcium 9.5 mg/dl (8.6-10.3); Carbon Dioxide 23 mmol/L (21-32); Chloride 106 mmol/L (98-107); Chol HDL Ratio 3.2 (0-5); Cholesterol 120 mg/dl (0-200); Est GFR (African American) 95.2 ml/min; Est GFR (Non-African American) 82.2 ml/min; Glucose 181 mg/dl (70-99(Fasting)); HDL Cholesterol 38 mg/dl; LDL Cholesterol Calculated 62 mg/dl; Sodium 137 mmol/L (136-145); Triglycerides 99 mg/dl (0-150); VLDL Cholesterol 20 mg/dl (0-30)
[2023-06-28] MEDS: ICU Protocol for HYPERglycemia SCH (07:02)
--- NOTE | 2023-06-28 07:02 | Hospitalist Progress Note ---
Date of Service June 28, 2023 Assessment & Plan (1) Change in vision: Plan: 78yo female with history of HTN, HLP presenting with painless monocular vision loss of the right eye that occurred acutely at 19:00 this evening. Patient with no additional ocular or neurologic complaints. Patient administered dose of tenecteplase at 21:12. Neurologic status unchanged. -Admit to ICU for ongoing post-TNK management -Neuro checks and NIHSS per protocol -Maintain blood pressure -Bleeding precautions -Lipid panel TC 120, LDL 62, -Pending HgbA1C - ESR 14 and CRP <0.5 -pending echo with bubble study -Pending MRI brain with/without contrast -Continue ASA 81mg po daily - start < 24 hours after TNK -Continue Atorvastatin - will increase to 40mg daily visioin loss persiste in right eye -PT/OT evaluation (2) Essential (primary) hypertension: Plan: Chronic. Blood pressure at goal presently -Continue home Lisinopril and Metoprolol -Will use IV Labetalol as needed overnight to maintain blood pressure <185/110 (3) Hyperlipidemia: Plan: Chronic. Stable -Increase Atorvastatin to 40mg po daily (4) Chronic GERD: Plan: Chronic. Stable -Protonix 40mg po qHS (5) Depression with anxiety: Plan: Chronic. Stable -Continue Venlafaxine at home dose -Continue Pilocarpine for dry mouth Ppx - SCDs to bilateral LE Code - Full per discussion with patient on admission Admission and Anticipated Discharge Date Admission Date: June 27, 2023 Subjective pt has persistent decreased vision in her right eye states maybe had some transient improvement but now worsened, some retro orbital pain Physical Exam Physical Exam: eye exam is with limited pupil response, no light reflex is seen in right, left eye is normal neck without bruits cardiac is regular Results & Data Results & Data Vital Signs (Past 12 Hours) Vital Signs Temp Pulse Pulse Resp BP BP Pulse Ox 06/28/23 06:12 97.9 F 64 14 145/77 H 92 06/28/23 05:12 97.9 F 63 14 149/77 H 92 06/28/23 04:42 97.9 F 76 16 139/69 93 06/28/23 04:12 98.2 F 62 16 111/65 94 06/28/23 03:42 98.1 F 71 16 130/73 92 06/28/23 03:12 98.1 F 66 14 113/55 L 93 06/28/23 02:42 97.9 F 64 14 112/63 91 06/28/23 02:12 97.9 F 72 14 130/71 91 06/28/23 02:07 67 15 93 06/28/23 01:42 98.1 F 66 14 138/66 92 06/28/23 01:12 98.2 F 70 14 129/72 93 06/28/23 00:42 97.9 F 66 16 118/58 L 93 06/28/23 00:12 97.9 F 67 16 134/71 95 06/27/23 23:42 98.1 F 66 16 157/90 H 95 06/27/23 23:18 98.1 F 75 16 145/95 H 94 06/27/23 23:17 68 22 95 06/27/23 23:12 97.9 F 66 16 155/88 H 93 06/27/23 23:00 06/27/23 22:57 98.1 F 75 16 145/95 H 94 06/27/23 22:46 66 06/27/23 22:46 06/27/23 22:45 145/95 H 06/27/23 22:45 70 15 93 06/27/23 22:29 73 18 158/88 H 95 06/27/23 22:14 68 15 168/80 H 95 06/27/23 22:03 69 14 163/83 H 94 06/27/23 22:01 69 24 95 06/27/23 21:59 78 18 163/83 H 95 06/27/23 21:49 125/77 06/27/23 21:47 95 06/27/23 21:44 95 06/27/23 21:44 74 18 125/77 95 06/27/23 21:30 72 15 134/87 96 06/27/23 21:29 71 18 134/87 96 06/27/23 21:24 72 18 139/75 96 06/27/23 21:23 74 21 139/75 99 06/27/23 21:18 95 06/27/23 21:15 73 17 148/78 H 96 06/27/23 21:13 74 06/27/23 21:12 73 20 140/77 95 06/27/23 21:00 69 17 150/86 H 95 06/27/23 20:45 74 21 93 06/27/23 20:30 150/86 H 90 06/27/23 19:34 97.3 F L 84 20 142/79 H 95 Pulse Ox O2 Del Method O2 Del Method O2 Flow Rate FiO2 06/28/23 06:12 Nasal Cannula 2 06/28/23 05:12 Nasal Cannula 2 06/28/23 04:42 Nasal Cannula 2 06/28/23 04:12 Nasal Cannula 2 06/28/23 03:42 Nasal Cannula 2 06/28/23 03:12 Nasal Cannula 2 06/28/23 02:42 Nasal Cannula 2 06/28/23 02:12 Room Air 06/28/23 02:07 21 06/28/23 01:42 CPAP 06/28/23 01:12 CPAP 06/28/23 00:42 CPAP 06/28/23 00:12 CPAP 06/27/23 23:42 CPAP 06/27/23 23:18 Room Air 06/27/23 23:17 21 06/27/23 23:12 Room Air 06/27/23 23:00 Room Air 06/27/23 22:57 Room Air 06/27/23 22:46 06/27/23 22:46 94 Room Air 06/27/23 22:45 06/27/23 22:45 06/27/23 22:29 Room Air 06/27/23 22:14 Room Air 06/27/23 22:03 06/27/23 22:01 06/27/23 21:59 Room Air 06/27/23 21:49 06/27/23 21:47 06/27/23 21:44 Room Air 06/27/23 21:44 Room Air 06/27/23 21:30 06/27/23 21:29 Room Air 06/27/23 21:24 Room Air 06/27/23 21:23 06/27/23 21:18 Room Air 06/27/23 21:15 06/27/23 21:13 06/27/23 21:12 Room Air 06/27/23 21:00 06/27/23 20:45 06/27/23 20:30 Room Air 06/27/23 19:34 Room Air Laboratory Results Reviewed CBC Reviewed chemistry Reviewed coagulation Personally spoke to Dr. Buitrago in ophthalmology to ask if there is any additional input they like to give regarding her eye they will follow-up in outpatient PG Care Time/CCT Total # of Minutes Spent Total Time Spent with Patient: Total time spent is greater than 50% in coordination of care (as documented) at patient's floor/unit and/or counseling patient: Coding Level of Care Code 51910 SUB INP/OBS CARE 3/50MIN Diagnoses Change in vision H53.9 Essential (primary) hypertension I10 Hyperlipidemia E78.5 Chronic GERD K21.9 Depression with anxiety F41.8
[2023-06-28] MEDS: PILOCARPINE HCL 5 MG TABLET PO SCH (07:38)
[2023-06-28 08:02] LABS: Estimated Average Glucose 126 mg/dl
--- NOTE | 2023-06-28 08:25 | Critical Care Progress Note ---
Date of Service June 28, 2023 Assessment & Plan (1) Sudden visual loss of right eye: (2) Stroke-like symptoms: (3) Essential (primary) hypertension: (4) Hyperlipidemia: Plan Reason for ICU admission: Ms. Craven is a 78 y/o female with HTN, Depression/anxiety, GERD, KATHE on home CPAP, migraines, and history of TIA on 05/15 who was admitted to the ICU due to painless right-sided monocular vision loss and is s/p TNK around 8:15pm yesterday evening. Last 24 hours: Patient has remained stable and this morning's NIHSS is 2. Her vision in her right eye had begun to improve at around 2:30am this morning and she was beginning to see colors and shapes, but then at the time of evaluation she was c/o returning white in her right eye similar to what she had experienced yesterday. She also endorses throbbing headache in the right side of her head. She denies any weakness, SOB, or any other symptom. MRI with and without contrast was ordered for 9pm today, but was changed to be done this morning with a CT at 9pm. Neurology also consulted given patient's current symptoms concerning for TIA vs. CVA as well as its recurrence throughout this past year, will appreciate their input. NEURO: - NIHSS is 2 post TNK administration - Head and neck CTA/CT negative for acute process, significant stenosis or aneurysm - Continue post TNK protocol- nuero exams and BP goals - Telemetry has remained in NSR - ECHO with bubble in 05/15 negative; no history of NICK * TTE pending this morning - Lipid Panel unremarkable (Total cholesterol 120, LDL 62) - HGB A1c 6.0 - Imaging PRN any change and 24 hour post TNK - Brain MRI with and without contrast for this morning, and Head CT for 9pm today - Consult for Neurology placed, will appreciate their input - Consider ophthalmology evaluation as outpatient as well given recurrence of vision symptoms. CARDIOVASCULAR: - History if HTN - Home antihypertensives on hold for permissive hypertension with goal of < 185/110 mmHg - Blood pressures have remained within goal - Normal lipid profile. Defer initiation of high-intensity statin to primary team. PULMONARY: - Patient with history of KATHE on home CPAP * Continue CPAP during admission - Was breathing at room air, but NC was placed due to O2 Sat decrease to 89%. Currently saturating 95% with NC at 2 lpm. GI: - History of GERD - GI ppx: Pantoprazole 40mg HEMATOLOGY: - HH stable - VTE ppx: SCDs ID: - No concern for infectious process - abx: none RENAL/ELECTROLYTES: - Renal function at patient;s baseline (Cr of 0.71) - No electrolyte disturbances ENDO: - Patient with blood glucose levels of 181 on admission. No diagnosis of diabetes mellitus. - Normal Hgb A1c (6.0) - No indication for glycemic control LINES/DRAINS/ACCESS: PIV, Mars CODE STATUS: FULL CODE Admission and Anticipated Discharge Date Admission Date: June 27, 2023 Supervising Physician Co-Signing Physician Notes Patient seen with resident physician. Agree with the note as outlined aside for any additions/exceptions: Neurology input appreciated. Patient with likely central retinal artery occlusion. Continue post TNK protocol for 24 hours. MRI brain and post 24-hour CT head pending. Patient tolerating diet. She has persistent visual field defects on the right. No vascular anomalies seen on CTA imaging of the head or neck. Can downgrade out of the ICU later this evening if CT head negative for bleed. Subjective Ms. Craven is a 78 y/o female with PMHx of HTN, Depression/anxiety, GERD, KATHE on home CPAP, and history of TIA on 05/15 who arrived to ED yesterday due to acute right-sided vision loss since 7pm yesterday evening. Her vision loss is painless, and appears like white fog over her general visual field. This was not associated to a headache or any other neurological deficits such as hemiparesis, ataxia, dysarthria, or any other symptom. She had a similar presentation in her TIA from 05/15, as well as several times (3 times) throughout this last year that last around 12-13 hours and then resolve. She is s/p TNK at approximately 8:15pm yesterday, as per neurology recommendation. Head CT/CTA throughout this time has remained unremarkable. Today patient was evaluated at bedside and found to be aaox3, calm, cooperative, and in no acute distress. Patient refers that since ~2:30am her vision had started to get better and had been able to see colors and shaped from her right eye, but now her vision from her right eye is starting to turn white again similar to what she had experienced yesterday. She also endorses having right sided throbbing headache. She denies chest pain, SOB, fevers, chills, weakness, malaise, or any other symptom. Review of Systems Review of Systems: All systems reviewed & are unremarkable except as noted in HPI & below Physical Exam Physical Exam: GENERAL: awake, alert, oriented in all spheres, afebrile, no acute distress HEAD: atraumatic, normocephalic EYES: EOM intact bilaterally, left pupil is reactive to light, right pupillary reflex more sluggish THROAT: normal to visual inspection CARDIO: RRR, no r/m/g RESPIRATORY: CTA, normal respiratory effort, breathing at room air, no respiratory distress GI: non-distended, non-tender : positive Mars draining clear urine EXTREMITIES: SCDs in place in bilateral LE, no pedal edema observed SKIN: warm, dry, no rashes NEURO: alert, able to answer questions, symmetric eyebrow rise, symmetric smile, no deviation on tongue protrusion, normal hand noc technician bilaterally, no pronator drift noted Results & Data Results & Data Vital Signs (Past 12 Hours) Vital Signs Temp Pulse Pulse Resp BP BP Pulse Ox 06/28/23 08:12 36.5 C 79 14 141/67 H 94 06/28/23 07:30 87 15 06/28/23 07:12 65 16 125/59 L 94 06/28/23 06:12 36.6 C 64 14 145/77 H 92 06/28/23 05:12 36.6 C 63 14 149/77 H 92 06/28/23 04:42 36.6 C 76 16 139/69 93 06/28/23 04:12 36.8 C 62 16 111/65 94 06/28/23 03:42 36.7 C 71 16 130/73 92 06/28/23 03:12 36.7 C 66 14 113/55 L 93 06/28/23 02:42 36.6 C 64 14 112/63 91 06/28/23 02:12 36.6 C 72 14 130/71 91 06/28/23 02:07 67 15 93 06/28/23 01:42 36.7 C 66 14 138/66 92 06/28/23 01:12 36.8 C 70 14 129/72 93 06/28/23 00:42 36.6 C 66 16 118/58 L 93 06/28/23 00:12 36.6 C 67 16 134/71 95 06/27/23 23:42 36.7 C 66 16 157/90 H 95 06/27/23 23:18 36.7 C 75 16 145/95 H 94 06/27/23 23:17 68 22 95 06/27/23 23:12 36.6 C 66 16 155/88 H 93 06/27/23 23:00 06/27/23 22:57 36.7 C 75 16 145/95 H 94 06/27/23 22:46 66 06/27/23 22:46 06/27/23 22:45 145/95 H 06/27/23 22:45 70 15 93 06/27/23 22:29 73 18 158/88 H 95 06/27/23 22:14 68 15 168/80 H 95 06/27/23 22:03 69 14 163/83 H 94 06/27/23 22:01 69 24 95 06/27/23 21:59 78 18 163/83 H 95 06/27/23 21:49 125/77 06/27/23 21:47 95 06/27/23 21:44 95 06/27/23 21:44 74 18 125/77 95 06/27/23 21:30 72 15 134/87 96 06/27/23 21:29 71 18 134/87 96 06/27/23 21:24 72 18 139/75 96 06/27/23 21:23 74 21 139/75 99 06/27/23 21:18 95 06/27/23 21:15 73 17 148/78 H 96 06/27/23 21:13 74 06/27/23 21:12 73 20 140/77 95 06/27/23 21:00 69 17 150/86 H 95 06/27/23 20:45 74 21 93 06/27/23 20:30 150/86 H 90 Pulse Ox O2 Del Method O2 Del Method O2 Flow Rate FiO2 06/28/23 08:12 Room Air 06/28/23 07:30 06/28/23 07:12 Room Air 06/28/23 06:12 Nasal Cannula 2 06/28/23 05:12 Nasal Cannula 2 06/28/23 04:42 Nasal Cannula 2 06/28/23 04:12 Nasal Cannula 2 06/28/23 03:42 Nasal Cannula 2 06/28/23 03:12 Nasal Cannula 2 06/28/23 02:42 Nasal Cannula 2 06/28/23 02:12 Room Air 06/28/23 02:07 21 06/28/23 01:42 CPAP 06/28/23 01:12 CPAP 06/28/23 00:42 CPAP 06/28/23 00:12 CPAP 06/27/23 23:42 CPAP 06/27/23 23:18 Room Air 06/27/23 23:17 21 06/27/23 23:12 Room Air 06/27/23 23:00 Room Air 06/27/23 22:57 Room Air 06/27/23 22:46 06/27/23 22:46 94 Room Air 06/27/23 22:45 06/27/23 22:45 06/27/23 22:29 Room Air 06/27/23 22:14 Room Air 06/27/23 22:03 06/27/23 22:01 06/27/23 21:59 Room Air 06/27/23 21:49 06/27/23 21:47 06/27/23 21:44 Room Air 06/27/23 21:44 Room Air 06/27/23 21:30 06/27/23 21:29 Room Air 06/27/23 21:24 Room Air 06/27/23 21:23 06/27/23 21:18 Room Air 06/27/23 21:15 06/27/23 21:13 06/27/23 21:12 Room Air 06/27/23 21:00 06/27/23 20:45 06/27/23 20:30 Room Air Coding Level of Care Code 90001 SUB INP/OBS CARE 2/35MIN Diagnoses Sudden visual loss of right eye H53.131 Stroke-like symptoms R29.90 Essential (primary) hypertension I10 Hyperlipidemia E78.5 Resident Activity Tracking Resident Involvement: Resident Care Provided Care Provided: Adult Hospital Medicine
--- NOTE | 2023-06-28 08:57 | Billing Data ---
Date of Service June 28, 2023 Coding Level of Care Code 97593 SUB INP/OBS CARE
--- NOTE | 2023-06-28 09:54 | Neurology Consultation ---
Date of Consultation June 28, 2023 Assessment & Plan (1) Sudden visual loss of right eye: (2) Retinal artery occlusion, central: Plan 78-year-old female presenting with painless monocular vision loss to the right eye without other neurologic signs or symptoms such as dysarthria, vertigo, ataxia or hemiparesis. She had a very similar presentation 3 to 4 weeks ago. She did receive TNKase yesterday but continues to have profound vision loss for the right eye. Her right pupil is nonreactive. I suspect this patient has had a central retinal artery occlusion, although central retinal venous occlusion is also possible. The differential diagnosis may also include ischemic optic neuropathy. A retrochiasmal stroke is also possible although she does not have any vision field loss to the left eye. Her inflammatory markers including ESR and CRP are normal and she does not have signs or symptoms that strongly suggest giant cell arteritis. Her signs and symptoms are not very consistent with ocular migraine. Follow-up with MRI results. May resume aspirin 24 hours after administration of TNK, per thrombolysis protocol. Continue medical management of blood pressure per protocol. Continue with atorvastatin as ordered. Patient will need outpatient ophthalmology evaluation. Consider repeat mobile cardiac outpatient telemetry, 30 days, versus implantable loop recorder. Should follow-up with cardiology as well. History of Present Illness Reason for Consultation: vision loss, s/p TNKase Requesting Physician: Toro Attending Physician: Yoan Castillo MD History of Present Illness The patient is a 78-year-old female who presented to the emergency department yesterday for recurrence of painless monocular vision loss to the right eye. She had a very similar episode 3 to 4 weeks ago for which she was admitted to [facility] and had an extensive unremarkable stroke evaluation at that time including CT angiography and brain MRI. She had a 2-week outpatient cardiac monitor technician, completed on May 27, revealing rare PACs, brief episodes of PAT, rare PVCs, as well as sinus tachycardia, sinus bradycardia, no pauses greater than 2 seconds, no atrial fibrillation. Patient did inform me that she had an episode of atrial fibrillation a few years ago. She follows with Dr. Amaro/Dr. Buitrago and has had cataract surgery previously. As above, she presented again to the emergency department yesterday for recurrence of acute painless monocular vision loss to the right eye, sudden onset, white haziness to the visual field, followed by complete vision loss. Minimal to no light perception. She had an unremarkable repeat CTA of the head and neck and did have a telestroke consultation and was administered TNKase. She is currently in the ICU. She had a follow-up CT of the head this morning, no hemorrhage. I did independently review these images. This morning, the patient continues to have near complete vision loss for the right eye, she can vaguely make out motion of my hand. She complains of a moderate global headache. No history of migraine. She denies any associated myalgia or jaw pain. No vision field loss for the left eye. No other associated acute neurologic symptoms such as facial droop, hemiparesis, numbness or ataxia. She has been taking aspirin, atorvastatin, lisinopril, metoprolol as an outpatient. Past medical history notable for hyperlipidemia, hyperglycemia, hypertension. Allergies Allergy/AdvReac Type Severity Reaction Status Date / Time bee venom protein (honey bee) Allergy Severe swelling Verified 06/27/23 20:30 cephalexin Allergy Severe hives Verified 06/27/23 20:30 moxifloxacin Allergy Severe rash Verified 06/27/23 20:30 iodine Allergy Intermediate HIVES/ITCHI Verified 06/27/23 20:30 NG sulfamethoxazole Allergy Intermediate nausea, Verified 06/27/23 20:30 facial swelling hydrocodone Allergy Unknown unknown Verified 06/27/23 20:30 Penicillins Allergy Unknown unknown Verified 06/27/23 20:30 chlorpheniramine AdvReac Intermediate tremor Verified 06/27/23 20:30 [From Tussionex] etodolac AdvReac Intermediate nausea Verified 06/27/23 20:30 ibuprofen AdvReac Intermediate ULCER Verified 06/27/23 20:30 trimethoprim AdvReac Intermediate nausea Verified 06/27/23 20:30 Home Medications Medication Instructions Recorded Confirmed Type magnesium aspartate-potassium 250 mg PO HS PRN leg cramps 03/03/18 06/27/23 History aspartate 250 mg-250 mg capsule multivitamin 1 tab PO HS 04/29/20 06/27/23 History cholecalciferol (vitamin D3) 25 2,000 unit PO HS 05/09/20 06/27/23 History mcg (1,000 unit) tablet (Vitamin D3) guaifenesin 600 mg tablet, 600 mg PO Q12H PRN Congestion 10/01/20 06/27/23 History extended release 12 hr (Mucinex) nystatin 100,000 unit/gram topical 1 unit topical BID PRN Rash #60 11/05/21 06/27/23 Rx powder grams gabapentin 100 mg capsule 100 mg PO QPM PRN Pain #30 caps 02/17/22 06/27/23 Rx atorvastatin 10 mg tablet (Lipitor) 5 mg (1/2 x 10 mg) PO HS #90 tabs 09/22/22 06/27/23 Rx fexofenadine 180 mg tablet 180 mg PO HS 09/22/22 06/27/23 History lisinopril 10 mg tablet 10 mg PO HS #90 tabs 03/25/23 06/27/23 Rx mometasone 50 mcg/actuation nasal 2 spray intranasal DAILY PRN 03/25/23 06/27/23 Rx spray Allergy Symptoms #17 grams venlafaxine 37.5 mg 37.5 mg PO DAILY PRN Anxiety #90 03/25/23 06/27/23 Rx capsule,extended release 24 hr caps venlafaxine 75 mg capsule,extended 75 mg PO HS #90 caps 03/25/23 06/27/23 Rx release 24 hr pilocarpine HCl 5 mg tablet 5 mg PO TID 05/05/23 06/27/23 History solifenacin 10 mg tablet (Vesicare) 10 mg PO HS PRN .If runs out of 05/05/23 06/27/23 History toziaz ascorbic acid (vitamin C) 500 mg 500 mg PO HS 05/07/23 06/27/23 History tablet (Vitamin C) olopatadine 0.2 % eye drops 1 drp ophthalmic (eye) DAILY PRN 05/07/23 06/27/23 Rx (Pataday Once Daily Relief) itching #2.5 mL pantoprazole 20 mg tablet,delayed 40 mg (2 x 20 mg) PO HS #180 tabs 06/03/23 06/27/23 Rx release (Protonix) aspirin 81 mg chewable tablet 81 mg PO HS 06/27/23 06/27/23 History fesoterodine 8 mg tablet,extended 8 mg PO HS 06/27/23 06/27/23 History release 24 hr (Toviaz) metoprolol succinate 25 mg 25 mg PO HS 06/27/23 06/27/23 History tablet,extended release 24 hr Patient History Medical History History of anesthesia reaction had dizziness after spinal anesthesia Chronic back pain Urinary incontinence Depression with anxiety Hyperlipidemia Essential (primary) hypertension Carotid bruit Neg Carotid , 09/2022 Chronic GERD Age related osteoporosis Sleep apnea cpap > machine is currently away being serviced Surgical History History of cataract surgery LEFT History of lumbar spinal fusion L3, L4, L5 History of repair of left rotator cuff History of repair of right rotator cuff History of cholecystectomy History of tooth extraction partial upper History of wisdom tooth extraction History of tonsillectomy and adenoidectomy H/O colonoscopy 11/11 CT Colonography, Repeat 5 yrs Hx of appendectomy Family History Mother Diabetes Anxiety Depression Emphysema lung Lung disease Sister Ovarian cancer Osteoporosis Coronary heart disease Uterine cancer Myocardial infarction Heart disease Stroke Renal function impairment with growth failure Father Diabetes Family history of diabetes mellitus Other Breast cancer Colorectal cancer No family history of adverse response to anesthesia Denies family history of Prostate cancer Lung cancer Social History Smoking Status: Former smoker Tobacco Type: Cigarettes Age Started Using Tobacco: 21; Age Quit Using Tobacco: 41; packs per day: 0.5; Second Hand Exposure: Yes; Do You Dip or Chew Tobacco: No; Hx Alcohol Use: No Hx Substance Use: No Preferred Language: Vietnamese Communication Ability: Effective Visual Impairment: Limited Hearing Ability: Normal Finance Teacher Required: No Beliefs That Will Affect Care: None marital status: / Current Living Situation: Alone Current Living Situation Comment: apartment building> family close by current occupational status: retired How many Children do You have: 0 Feels Safe at Home: Yes Safety Concerns: Feels Safe At This Time Childhood Exposure to Second-Hand Smoke: Yes Diet: regular caffeine: Yes (alot of iced tea ) Dental Care, Regularly: Yes Physical Activity Frequency: Does not Exercise Seatbelt Use: always Sunscreen Use: No Assistive Devices: CPAP and Glasses Assistive Devices Comment: reading glasses and home CPAP @ home Review of Systems Constitutional: no fever and no chills Eyes: as per Subjective / HPI Ear, Nose, Mouth, Throat: no hearing loss Respiratory: no cough and no dyspnea Cardiovascular: no chest pain and no palpitations Gastrointestinal: no nausea and no vomiting Genitourinary: no urinary incontinence Musculoskeletal: no neck pain and no myalgia Integumentary: no rash and no lesions Neurologic: + headache(s); no gait abnormality, no l ocalized weakness, no loss of sensation, no lack of coordination, no tremor(s), no abnormal movements, no abnormal speech and no memory loss Psychiatric: no depression and no anxiety Hematologic / Lymphatic: no easy bleeding and no easy bruising Exam (Neuro) Constitutional: well developed and well nourished Eyes: EOM intact bilaterally; + abnormal visual field confrontation, + no PERRL (Right pupil nonreactive to light) and no nystagmus Neurologic: Oriented to:: Person, Place and Time Memory: Short Term Intact and Remote Intact Attention: Span Intact and Concentration Intact Speech Fluency: negative Dysarthria or Dysfluency Speech Aphasia: negative Aphasia Fund of Knowledge: Current Events, Past History and Vocabulary Cranial Nerves: Normal V, VII, VIII, IX, X, XI and XII; Abnorm II or III, IV, Motor Strength: Normal Lower Extremities and Normal Upper Extremities Motor Tone: Normal Lower Extremities and Normal Upper Extremities Muscle Bulk/Involuntary Movements: No Involuntary Movements; negative Muscle Atrophy Sensation: Light Touch Intact and Pain/Temperature Intact Coordination: Normal; negative Dysdiadochokinesia, Finger-Nose Abnormal or Heel-Rodriguez Abnormal Deep Tendon Reflexes: Rt Triceps: 2+, Lt Triceps: 2+, Rt Biceps: 2+, Lt Biceps: 2+, Rt Brachioradialis: 2+, Lt Brachioradialis: 2+, Rt Patellar: 2+, Lt Patellar: 2+, Rt Ankle: 1+ and Lt Ankle: 1+ Special Tests: negative Babinski Present Results & Data Vital Signs (Past 12 Hours) Vital Signs Temp Pulse Pulse Resp BP BP Pulse Ox 06/28/23 09:12 36.5 C 73 16 145/80 H 94 06/28/23 08:12 36.5 C 79 14 141/67 H 94 06/28/23 07:30 87 15 06/28/23 07:12 65 16 125/59 L 94 06/28/23 06:12 36.6 C 64 14 145/77 H 92 06/28/23 05:12 36.6 C 63 14 149/77 H 92 06/28/23 04:42 36.6 C 76 16 139/69 93 06/28/23 04:12 36.8 C 62 16 111/65 94 06/28/23 03:42 36.7 C 71 16 130/73 92 06/28/23 03:12 36.7 C 66 14 113/55 L 93 06/28/23 02:42 36.6 C 64 14 112/63 91 06/28/23 02:12 36.6 C 72 14 130/71 91 06/28/23 02:07 67 15 93 06/28/23 01:42 36.7 C 66 14 138/66 92 06/28/23 01:12 36.8 C 70 14 129/72 93 06/28/23 00:42 36.6 C 66 16 118/58 L 93 06/28/23 00:12 36.6 C 67 16 134/71 95 06/27/23 23:42 36.7 C 66 16 157/90 H 95 06/27/23 23:18 36.7 C 75 16 145/95 H 94 06/27/23 23:17 68 22 95 06/27/23 23:12 36.6 C 66 16 155/88 H 93 06/27/23 23:00 06/27/23 22:57 36.7 C 75 16 145/95 H 94 06/27/23 22:46 66 06/27/23 22:46 06/27/23 22:45 145/95 H 06/27/23 22:45 70 15 93 06/27/23 22:29 73 18 158/88 H 95 06/27/23 22:14 68 15 168/80 H 95 06/27/23 22:03 69 14 163/83 H 94 06/27/23 22:01 69 24 95 06/27/23 21:59 78 18 163/83 H 95 06/27/23 21:49 125/77 06/27/23 21:47 95 06/27/23 21:44 95 06/27/23 21:44 74 18 125/77 95 Pulse Ox O2 Del Method O2 Del Method O2 Flow Rate FiO2 06/28/23 09:12 Nasal Cannula 2 06/28/23 08:12 Room Air 06/28/23 07:30 06/28/23 07:12 Room Air 06/28/23 06:12 Nasal Cannula 2 06/28/23 05:12 Nasal Cannula 2 06/28/23 04:42 Nasal Cannula 2 06/28/23 04:12 Nasal Cannula 2 06/28/23 03:42 Nasal Cannula 2 06/28/23 03:12 Nasal Cannula 2 06/28/23 02:42 Nasal Cannula 2 06/28/23 02:12 Room Air 06/28/23 02:07 21 06/28/23 01:42 CPAP 06/28/23 01:12 CPAP 06/28/23 00:42 CPAP 06/28/23 00:12 CPAP 06/27/23 23:42 CPAP 06/27/23 23:18 Room Air 06/27/23 23:17 21 06/27/23 23:12 Room Air 06/27/23 23:00 Room Air 06/27/23 22:57 Room Air 06/27/23 22:46 06/27/23 22:46 94 Room Air 06/27/23 22:45 06/27/23 22:45 06/27/23 22:29 Room Air 06/27/23 22:14 Room Air 06/27/23 22:03 06/27/23 22:01 06/27/23 21:59 Room Air 06/27/23 21:49 06/27/23 21:47 06/27/23 21:44 Room Air 06/27/23 21:44 Room Air Laboratory Results WBC 6.81, hemoglobin 14.4, hematocrit 43.5, platelet count 219, sodium 137, potassium 4.0, BUN 19, creatinine 0.71, glucose 177, hemoglobin A1c 6.0, magnesium 1.9, AST 17, ALT 13, CRP less than 0.50, ESR 14, triglycerides 99, cholesterol 120, LDL 62, HDL [address] of the head, CTA of the head and neck are as described in the HPI. I independently reviewed these images. Brain MRI from previous admission, 05/05/2023 was reviewed as well, no acute process on that study. Carotid duplex completed October 01, 2022 was unremarkable. Lower extremity Doppler from September 20, 2022, right lower limb, was normal. An electrocardiogram completed yesterday revealed a normal sinus rhythm, 71 bpm. Recent cardiac event monitoring is as described in the HPI. Dobutamine stress echo completed May 05, 2023 revealed normal ventricular size and systolic function, borderline left atrium dilatation. No significant valvular abnormality. A follow-up limited echo completed May 06 was negative for interatrial shunt. Coding Level of Care Code 57420 INT INP/OBS CARE 3/75MIN Diagnoses Sudden visual loss of right eye H53.131 Retinal artery occlusion, central H34.10 Time Spent (min) 80
--- NOTE | 2023-06-28 12:54 | Electrocardiogram Report ---
Test Reason : Blood Pressure : / mmHG Vent. Rate : 071 BPM Atrial Rate : 071 BPM P-R Int : 150 ms QRS Dur : 150 ms QT Int : 418 ms P-R-T Axes : 052 -55 -03 degrees QTc Int : 454 ms Normal sinus rhythm Left axis deviation Right bundle branch block Possible Old Anterolateral infarct (cited on or before 07-JAN-2017) Abnormal ECG When compared with ECG of 05-MAY-2023 16:27, No significant change Confirmed by Andre Guillermo ([id number]) on 06/28/2023 12:53:48 PM Referred By: Provider Outside Confirmed By:Andre Guillermo
[2023-06-28] MEDS: GADOBUTROL 65ML VIAL IV ONE (13:10)
--- NOTE | 2023-06-28 13:38 | Magnetic Resonance Report ---
MRI OF THE BRAIN WITHOUT AND WITH IV CONTRAST CLINICAL HISTORY: Right vision loss. COMPARISON STUDY: MRI of the brain May 05, 2023. Head CT and CTA of the head June 27, 2023. TECHNIQUE: Utilizing a 1.5 Zo magnet and dedicated coil, multiplanar, multiecho imaging of the br ain was performed pre and postcontrast administration. IV administration of 9 mL of Gadavist contras t was uneventful. FINDINGS: There are no foci of restricted diffusion to suggest acute infarct. No acute intracranial h emorrhage, midline shift or mass effect is present. Ventricular system is unremarkable. Basal cistern s are patent. There are no extra-axial collections. Postcontrast sequences are suboptimal given motio n artifact. No intracranial mass or pathologic enhancement is identified. A few small T2 hyperintense foci are unchanged since MRI of May 05, 2023. The appearance of the brain is unchanged. Calvari al signal is normal. No evidence for sinusitis. No mastoid fluid IMPRESSION: 1. No acute intracranial findings. 2. No change in appearance of the brain since MRI of May 05, 2023. ACT 112: Negative or not required by law. Electronically signed by: Fredrick Lechuga M.D. 06/28/2023 1:36 PM
[2023-06-28] MEDS: PANTOprazole 40 MG TAB PO SCH (20:45)
[2023-06-28] MEDS: ATORVASTATIN 40 MG TAB PO SCH (20:46)
[2023-06-28] MEDS: FEXOFENADINE HCL 180 MG TAB PO SCH (20:46)
[2023-06-28] MEDS: lisinopril 10 MG TAB PO SCH (20:46)
[2023-06-28] MEDS: VENLAFAXINE HCL XR 37.5 MG CAPXR PO PRN (20:46)
[2023-06-28] MEDS: METOPROLOL SUCC 25MG EXT REL TAB PO SCH (20:46)
[2023-06-28] MEDS: VENLAFAXINE HCL XR 75 MG CAPXR PO SCH (20:49)
--- NOTE | 2023-06-28 22:25 | CT Scan Report ---
Exam(s): CT HEAD Without Contrast EXAM: CT Head Without Intravenous Contrast CLINICAL HISTORY: Reason for exam: s/p TNK. [address] TECHNIQUE: Axial computed tomography images of the head/brain without intravenous contrast. CTDI is 35.79 mGy and DLP is 547.75 mGy-cm. Automated exposure control was utilized for the study. A dose lowering technique was utilized adhering to the principles of ALARA. COMPARISON: MRI brain 06/28/2023. CT head 06/27/2023. FINDINGS: Brain: Global parenchymal volume loss with chronic microvascular ischemic changes. No hemorrhage. Ventricles: Unremarkable. No ventriculomegaly. Bones/joints: Unremarkable. No acute fracture. Soft tissues: Unremarkable. Sinuses: Unremarkable as visualized. Mastoid air cells: Unremarkable as visualized. No mastoid effusion. IMPRESSION: 1. No intracranial hemorrhage or other acute intracranial abnormality. 2. Global parenchymal volume loss with chronic microvascular ischemic changes. Electronically signed by: Edmundo Noonan MD 06/28/23 22:24 PM
[2023-06-29 04:56] LABS: Basophils # (auto) 0.04 K/uL (0.00-0.20); Basophils % (auto) 0.3 %; Eosinophils # (auto) 0.05 K/uL (0.00-0.50); Eosinophils % (auto) 0.4 %; Hematocrit (blood only) 40.4 % (37.0-47.0); Hemoglobin 13.2 g/dl (12.0-16.0); Immature Granulocytes # (auto) 0.07 K/uL (0.01-0.20); Immature Granulocytes % (auto) 0.6 %; Lymphocytes # (auto) 2.33 K/uL (1.20-3.40); Lymphocytes % (auto) 19.7 %; Mean Corpuscular Hgb Conc 32.7 g/dL (32.0-36.0); Mean Corpuscular Volume 88.8 fL (80.0-100.0); Mean Platelet Volume 10.4 fL (9.4-12.4); Monocytes # (auto) 0.82 K/uL (0.11-0.59); Monocytes % (auto) 6.9 %; Neutrophils # (auto) 8.51 K/uL (1.40-6.50); Neutrophils % (auto) 72.1 %; Platelet Count 197 K/uL (130-400); RDW Coefficient of Variation 13.5 % (11.5-14.5); Red Blood Count 4.55 M/uL (4.20-5.40); White Blood Count 11.82 K/ul (4.8-10.8)
[2023-06-29 05:10] LABS: BUN Creatinine Ratio 25.6 (10-20); Calcium 9.2 mg/dl (8.6-10.3); Creatinine Clr Calc Pharmacy 58.3 ml/min; Est GFR (Non-African American) 73.3 ml/min; Potassium 3.7 mmol/L (3.5-5.1)
[2023-06-29] MEDS: ASPIRIN 81 MG ECTAB PO SCH (08:30)
[2023-06-29] MEDS ORDERED: ASPIRIN 81 MG CHEW PO SCH (09:00)
[2023-06-29] MEDS ORDERED: STROKE PATIENT DISCHARGE STA (12:26)
--- NOTE | 2023-06-29 18:32 | Discharge Summary ---
Date of Service June 29, 2023 Admission HPI Per Admitting Provider Sara Craven is a 78yo female with history of HTN, HLP presenting with acute onset of painless vision loss of the right eye. Pateint reports around 19:00 she was getting ready to go for dinner when the vision in her right eye became fuzzy. She reports she initially had preserved vision in the periphery of her right eye but then lost vision in the entire visual field. She reports her visual field is white. No floaters or amarosis fugax description. No eye pain or tearing, flashing lights or aura. She denies headache, numbness/tingling/weakness or other neurologic complaints. Patient was discussed with the Stroke Neurologist in the ER and the decision was made to administer tenecteplase. She was given a dose at 21:12. She reports no change in her vision of the right eye. Did develop a headache after administration of tenecteplase - repeat CT of the head was performed and is unremarkable. Patient presented to [facility] in a similar fashion on 05/05/23 when she presented with painless vision loss in the right eye. Her symptoms lasted a little over 24 hours. She had a lipid panel performed on 05/06/23 (Ypto=721, HDL=43, LDL=58, OJ=270), AIC=5.6 and a normal echo study with bubble. Principal Diagnosis Amaurosis fugax treated as stroke with TNK administration Discharge Exam Patient has no focal neurological loss. She continues to have waxing waning changes of her right eye. The patient has no light reflex and I cannot see her retina on ophthalmologic exam. Discharge Data Allergies Allergy/AdvReac Type Severity Reaction Status Date / Time bee venom protein (honey bee) Allergy Severe swelling Verified 06/27/23 20:30 cephalexin Allergy Severe hives Verified 06/27/23 20:30 moxifloxacin Allergy Severe rash Verified 06/27/23 20:30 iodine Allergy Intermediate HIVES/ITCHI Verified 06/27/23 20:30 NG sulfamethoxazole Allergy Intermediate nausea, Verified 06/27/23 20:30 facial swelling hydrocodone Allergy Unknown unknown Verified 06/27/23 20:30 Penicillins Allergy Unknown unknown Verified 06/27/23 20:30 chlorpheniramine AdvReac Intermediate tremor Verified 06/27/23 20:30 [From [facility]] etodolac AdvReac Intermediate nausea Verified 06/27/23 20:30 ibuprofen AdvReac Intermediate ULCER Verified 06/27/23 20:30 trimethoprim AdvReac Intermediate nausea Verified 06/27/23 20:30 Consultations 06/27/23 21:34 ED Decision to Admit Stat 06/27/23 22:46 Consult Chairman & Ceo Routine 06/28/23 08:15 Consult Neurology Routine Ordered Studies Head CT 06/27/23 19:52 CR Exam(s): CT HEAD Without Contrast EXAM: CT Head Without Intravenous Contrast CLINICAL HISTORY: Reason for exam: neuro deficit, acute stroke suspected. TECHNIQUE: Axial computed tomography images of the head/brain without intravenous contrast. CTDI is 45.62 mGy and DLP is 677.48 mGy-cm. Automated exposure control was utilized for the study. A dose lowering technique was utilized adhering to the principles of ALARA. COMPARISON: Head CT 05/05/23. FINDINGS: Brain: No mass effect or acute infarct. No acute hemorrhage. Stable, mild atrophy and chronic white matter disease. Ventricles: No hydrocephalus or midline shift. Bones/joints: No acute bony lesion. Soft tissues: No scalp hematoma. Sinuses: Clear. Mastoid air cells: No mastoid effusion. IMPRESSION: 1. Mild age-related findings. 2. No acute infarct, bleed, acute intracranial abnormality, or interval change. Communications: Call Doctor Stroke Electronically signed by: Meme Pablo M.D. 06/27/23 20:48 PM Head CTA 06/27/23 19:52 CR Exam(s): CTA HEAD With Contrast IV Amt: 117 ml EXAM: CT Angiography Head With Intravenous Contrast CLINICAL HISTORY: Reason for exam: neuro deficit, acute stroke suspected. TECHNIQUE: Axial computed tomographic angiography images of the head with intravenous contrast. CTDI is 74.32 mGy and DLP is 1086.87 mGy-cm. Automated exposure control was utilized for the study. A dose lowering technique was utilized adhering to the principles of ALARA. MIP reconstructed images were created and reviewed. Mild motion artifact. CONTRAST: Patient received 117 ml of IV contrast COMPARISON: None. FINDINGS: Right internal carotid artery: Patent. Right anterior cerebral artery: Patent. Right middle cerebral artery: Patent. Right posterior cerebral artery: Patent. Right vertebral artery: Patent. Left internal carotid artery: Patent. Left anterior cerebral artery: Patent. Left middle cerebral artery: Patent. Left posterior cerebral artery: Patent. Left vertebral artery: Patent. Basilar artery: Patent. Other: Minimal atherosclerosis bilateral cavernous ICA, without significant stenosis. IMPRESSION: 1. No aneurysm or large vessel occlusion. Communications: Call Doctor Stroke Electronically signed by: Meme Pablo M.D. 06/27/23 20:48 PM Neck CTA 06/27/23 19:52 CR Exam(s): CTA NECK With Contrast IV Amt: 117 ml EXAM: CT Angiography Neck With Intravenous Contrast CLINICAL HISTORY: Reason for exam: neuro deficit, acute stroke suspected. TECHNIQUE: Routine carotid CT angiography protocol was performed with intravenous contrast. NASCET criteria using the distal ICAs for comparison were used for evaluation of stenoses. CTDI is 74.32 mGy and DLP is 1086.87 mGy-cm. Automated exposure control was utilized for the study. A dose lowering technique was utilized adhering to the principles of ALARA. MIP reconstructed images were created and reviewed. CONTRAST: Patient received 117 ml of IV contrast COMPARISON: None. FINDINGS: Right common carotid artery: Patent. Right internal carotid artery: Patent. Right vertebral artery: Patent. Left common carotid artery: Patent. Left internal carotid artery: Patent. Left vertebral artery: Patent. Left dominant system. Other: Moderate ectasia of the vessels. Mild atherosclerosis of the aortic arch. No significant atherosclerosis of the carotid bifurcations. IMPRESSION: 1. No dissection, occlusion, or significant stenosis. CAROTID STENOSIS REFERENCE USING NASCET CRITERIA: % ICA stenosis = (1 - narrowest ICA diameter/diameter of distal cervical ICA) x 100. Mild - <50% stenosis. Moderate - 50-69% stenosis. Severe - 70-94% stenosis. Near occlusion - 95-99% stenosis. Occluded - 100% stenosis. Communications: Call Doctor Stroke Electronically signed by: Meme Pablo M.D. 06/27/23 20:[address] 06/27/23 21:39 Exam(s): CT HEAD Without Contrast EXAM: CT Head Without Intravenous Contrast CLINICAL HISTORY: Reason for exam: headache post TPA. TECHNIQUE: Axial computed tomography images of the head/brain without intravenous contrast. Automated exposure control was utilized for the study. A dose lowering technique was utilized adhering to the principles of ALARA. COMPARISON: Head CT 8:10 PM, same day. FINDINGS: Brain: No mass effect or acute infarct. No acute hemorrhage post TPA. Mild atrophy and chronic white matter disease, stable. Ventricles: No hydrocephalus or midline shift. Bones/joints: No acute bony lesion. Soft tissues: No scalp hematoma. Sinuses: Clear. Mastoid air cells: No mastoid effusion. IMPRESSION: 1. Stable exam. No acute bleed or new finding. Electronically signed by: Meme Pablo M.D. 06/27/23 22:06 PM Brain MRI 06/28/23 08:12 MRI OF THE BRAIN WITHOUT AND WITH IV CONTRAST CLINICAL HISTORY: Right vision loss. COMPARISON STUDY: MRI of the brain May 05, 2023. Head CT and CTA of the head June 27, 2023. TECHNIQUE: Utilizing a 1.5 Zo magnet and dedicated coil, multiplanar, multiecho imaging of the brain was performed pre and postcontrast administration. IV administration of 9 mL of Gadavist contrast was uneventful. FINDINGS: There are no foci of restricted diffusion to suggest acute infarct. No acute intracranial hemorrhage, midline shift or mass effect is present. Ventricular system is unremarkable. Basal cisterns are patent. There are no extra-axial collections. Postcontrast sequences are suboptimal given motion artifact. No intracranial mass or pathologic enhancement is identified. A few small T2 hyperintense foci are unchanged since MRI of May 05, 2023. The appearance of the brain is unchanged. Calvarial signal is normal. No evidence for sinusitis. No mastoid fluid IMPRESSION: 1. No acute intracranial findings. 2. No change in appearance of the brain since MRI of May 05, 2023. ACT 112: Negative or not required by law. Electronically signed by: Fredrick Lechuga M.D. 06/28/2023 1:[address] 06/28/23 21:00 Exam(s): CT HEAD Without Contrast EXAM: CT Head Without Intravenous Contrast CLINICAL HISTORY: Reason for exam: s/p TNK. [address] TECHNIQUE: Axial computed tomography images of the head/brain without intravenous contrast. CTDI is 35.79 mGy and DLP is 547.75 mGy-cm. Automated exposure control was utilized for the study. A dose lowering technique was utilized adhering to the principles of ALARA. COMPARISON: MRI brain 06/28/2023. CT head 06/27/2023. FINDINGS: Brain: Global parenchymal volume loss with chronic microvascular ischemic changes. No hemorrhage. Ventricles: Unremarkable. No ventriculomegaly. Bones/joints: Unremarkable. No acute fracture. Soft tissues: Unremarkable. Sinuses: Unremarkable as visualized. Mastoid air cells: Unremarkable as visualized. No mastoid effusion. IMPRESSION: 1. No intracranial hemorrhage or other acute intracranial abnormality. 2. Global parenchymal volume loss with chronic microvascular ischemic changes. Electronically signed by: Edmundo Noonan MD 06/28/23 22:24 PM Hospital Course (1) Change in vision: 78yo female with history of HTN, HLP presenting with painless monocular vision loss of the right eye that occurred acutely at 19:00 this evening. Patient with no additional ocular or neurologic complaints. Patient administered dose of tenecteplase at 21:12. Neurologic status unchanged. -Admitted to ICU for ongoing post-TNK management -Patient without significant neurological changes other than persistent and intermittent vision worsening and improving of her right eye. Given the fact that there was no light reflex seen I did speak with Dr. Buitrago on 06/28 and he states that murmur done her hospital stay at their office would make time to see her. At the time of discharge she was going to travel directly to their office and see Dr. Maher on 06/29/2023 -Lipid panel TC 120, LDL 62, [id number] - ESR 14 and CRP <0.5 Echocardiogram shows preserved ejection fraction aortic sclerosis mild aortic insufficiency grade 1 diastolic dysfunction and no intra arterial shunt -MRI of the brain is without evidence of stroke as well as repeat multiple CT scans which were done due to complaints of headache -Continue ASA 81mg po daily - start < 24 hours after TNK -Continue Atorvastatin -no defined stroke at this time Vision loss persists in right eye Patient was able to ambulate in the room she is limited however by depth perception changes due to her right eye but felt comfortable going home she was told not to drive until she sees her geodetic surveyor technologist and has further recommendations (2) Essential (primary) hypertension: Chronic. Blood pressure at goal presently -Continue home Lisinopril and Metoprolol (3) Hyperlipidemia: Chronic. Stable -Continues on atorvastatin, lipid panel is favorable (4) Chronic GERD: Chronic. Stable -Protonix 40mg po qHS (5) Depression with anxiety: Chronic. Stable -Continue Venlafaxine at home dose -Continue Pilocarpine for dry mouth Total Time Total Time Spent Total Time Spent (In Minutes): It required greater than 30 minutes to prepare this patient for discharge. Discharge Plan Discharge Items Patient Disposition: Home - Self-Care Reason For Visit: RIGHT VISION LOSS Discharge Diagnosis: right eye vision loss, suspect possible amarosis fugax cannot rule out arterial occlusion to retina Activity: Resume your previous activity Activity Comment: care with walking as depth perception may be off Non-emergency contact: Primary Care Provider and Specialist Call non-emergency contact if: your symptoms worsen Follow-up/Referrals: Sinan Amaro MD [Surgeon] - (Please contact Dr. Amaro's office to schedule a follow up. Thank you! ) Leobardo Richmond DO [Primary Care Provider] - 07/08/23 11:30 am Diet: Heart Healthy Nelia Attending Provider Instructions: you had treatement for possible stroke, however all of your images did not show any stroke in your brain and all your circulation seems to be without blockage you have persistent vision loss in your right eye, please go to your eye appointment today as soon as you leave with Dr Amaro Please do not drive and have further advice on driving from Dr Oh office Addtl Quantitative Strategy Analyst Provider Instructions: with regard to your eyedrops be sure to ask Dr Amaro about using these in your right eye Pending Studies at Discharge: No Stand-Alone Forms: My [employer], Smoking Cessation Medications and DC Order Prescriptions: Continued cholecalciferol (vitamin D3) [Vitamin D3] 25 mcg (1,000 unit) tablet 2,000 unit PO HS gabapentin 100 mg capsule 100 mg PO QPM PRN (Reason: Pain) Qty: 30 0RF ascorbic acid (vitamin C) [Vitamin C] 500 mg tablet 500 mg PO HS Patient Comments: Pt states she takes daily. Was previously listed as weekly. olopatadine [Pataday Once Daily Relief] 0.2 % drops 1 drp ophthalmic (eye) DAILY PRN (Reason: itching) Qty: 2.5 0RF pantoprazole [Protonix] 20 mg tablet,delayed release (DR/EC) 40 mg PO HS Qty: 180 3RF Rx Instructions: two 20 mg tablets venlafaxine 75 mg capsule,extended release 24hr 75 mg PO HS Qty: 90 3RF venlafaxine 37.5 mg capsule,extended release 24hr 37.5 mg PO DAILY PRN (Reason: Anxiety) Qty: 90 0RF mometasone 50 mcg/actuation spray,non-aerosol 2 spray INTRANASAL DAILY PRN (Reason: Allergy Symptoms) Qty: 17 0RF lisinopril 10 mg tablet 10 mg PO HS Qty: 90 3RF nystatin 100,000 unit/gram powder 1 unit TOP BID PRN (Reason: Rash) Qty: 60 1RF pilocarpine HCl 5 mg tablet 5 mg PO TID fexofenadine 180 mg tablet 180 mg PO HS atorvastatin [Lipitor] 10 mg tablet 5 mg PO HS Qty: 90 3RF magnesium, potassium aspartate 250-250 mg Capsule 250 mg PO HS PRN (Reason: leg cramps) multivitamin Tablet 1 tab PO HS guaifenesin [Mucinex] 600 mg Tablet Extended Release 12hr 600 mg PO Q12H PRN (Reason: Congestion) solifenacin [Vesicare] 10 mg tablet 10 mg PO HS PRN (Reason: .If runs out of toziaz) aspirin 81 mg tablet,chewable 81 mg PO HS Rx Instructions: buy over the counter, for TIA/stroke prevention metoprolol succinate 25 mg tablet extended release 24 hr 25 mg PO HS fesoterodine [Toviaz] 8 mg tablet extended release 24 hr 8 mg PO HS Discharge Orders: Discharge Order (Routine); Ordered 06/29/23 Ordered By: Yoan Field/Other Patient Handouts: Prediabetes, Stroke: Taking Medicines, 5 Steps for Eating Healthier, Stroke Prevention Eating Healthy, Stroke Prevention Activity Admission Data Admit Date/Time: 06/27/23 22:23 Attending Provider: Yoan Castillo Admit Provider: Rebecca Jenkins Primary Care Provider: Leobardo Richmond Other Providers: Rebecca Jenkins; Angel Sevilla; Leobardo Flores Other Interventions: Discharge Summary Assessment (RN) Last Done: 06/29/23 13:55 Coding Level of Care Code 01258 INP/OBS DISCH >30 MIN Diagnoses Change in vision H53.9 Essential (primary) hypertension I10 Hyperlipidemia E78.5 Chronic GERD K21.9 Depression with anxiety F41.8
== END 2023-06-29 13:58 | disposition home or self-care (01) | DRG 123 ==
LOC: ED 19:31 → 1E 22:23 → SUATTDRO 22:23 → 1E 22:35

== ENCOUNTER 2023-11-12 15:05 | Inpatient (IN) ==
[2023-11-12 16:17] LABS: iSTAT Creatinine 1.1 mg/dl (0.6-1.3); iSTAT Hemoglobin 14.3 g/dl (12.0-16.0); iSTAT Ionized Calcium 1.23 mmol/l (1.12-1.32); iSTAT Potassium 4.4 mmol/L (3.3-5.0)
[2023-11-12 16:19] LABS: Hematocrit (blood only) 42.2 % (37.0-47.0); Hemoglobin 13.8 g/dl (12.0-16.0); Mean Corpuscular Hgb Conc 32.7 g/dL (32.0-36.0); Mean Corpuscular Volume 88.7 fL (80.0-100.0); Mean Platelet Volume 10.5 fL (9.4-12.4); Platelet Count 212 K/uL (130-400); RDW Coefficient of Variation 13.8 % (11.5-14.5); RDW Standard Deviation 44.7 fL (36.4-46.3); Red Blood Count 4.76 M/uL (4.20-5.40)
--- NOTE | 2023-11-12 16:20 | CT Scan Report ---
CT SCAN OF THE BRAIN WITHOUT IV CONTRAST CLINICAL HISTORY: Neurological deficit. Stroke like symptoms. COMPARISON STUDY: CT of the brain dated 06/28/2023. TECHNIQUE: Unenhanced axial CT scan of the brain is performed from the vertex to the skull base. A do se lowering technique was utilized adhering to the principles of ALARA. CT DOSE: 547.75 mGy.cm FINDINGS: Brain parenchyma: There is age-related involutional change noting mild subcortical and periventricula r microangiopathic disease. There is no hemorrhage, mass effect, or evidence of acute territorial isc hemia by CT criteria. Stephenson-white matter differentiation is preserved. No extra-axial fluid collection is seen. Ventricles, sulci, cisterns: Prominent secondary to involutional change. Intracranial vasculature: There is atherosclerotic calcification of the cavernous carotid and vertebr al arteries. Calvarium: Unremarkable. Sinuses and mastoids: The visualized paranasal sinuses are clear. The mastoid air cells are well pneu matized. Orbits: The bony orbits are grossly intact. There are bilateral ocular lens implants. IMPRESSION: There is no hemorrhage, mass effect, or evidence of acute territorial ischemia by CT kelly dukes. ACT 112: Negative or not required by law. Electronically signed by: Vignesh Stevenson M.D. 11/12/2023 4:18 PM
--- NOTE | 2023-11-12 16:20 | XRay Report ---
SINGLE VIEW CHEST CLINICAL HISTORY: Strokelike symptoms. FINDINGS: A PA chest radiograph is compared to study dated 1220 2. The examination is degraded by api bj lordotic positioning. The heart is enlarged. The pulmonary vasculature is noncongested. Chronic i nterstitial thickening is similar to previous. Linear scarring/atelectasis is seen in the left lower lung. No airspace consolidation or pleural effusion is identified. No pneumothorax is seen. The bony thorax is grossly intact. Degenerative change and scoliosis is noted in the spine. Fusion hardware is noted in the lumbar spine. Surgical anchors are present in both humeral heads. Arthritic change is n oted in the shoulders. IMPRESSION: Cardiomegaly with no active disease in the chest. ACT 112: Negative or not required by law. Electronically signed by: Vignesh Stevenson M.D. 11/12/2023 4:19 PM
[2023-11-12 16:30] LABS: Alanine Aminotransferase 12 U/L (7-52); Albumin Globulin Ratio 1.4 (0.9-2); Albumin Level 4.4 gm/dl (3.4-5.0); Alkaline Phosphatase 87 U/L (34-104); Anion Gap 7 (3-11); Aspartate Aminotransferase 19 U/L (13-39); BUN Creatinine Ratio 25.2 (10-20); Bilirubin,Total 0.5 mg/dl (0.2-1.0); Blood Urea Nitrogen 27 mg/dl (6-23); Calcium 10.5 mg/dl (8.6-10.3); Carbon Dioxide 26 mmol/L (21-32); Chloride 105 mmol/L (98-107); Creatinine Clr Calc Pharmacy 42.6 ml/min; Globulin 3.2 gm/dl (2.5-4.0); Glucose 97 mg/dl (70-99(Fasting)); Potassium 4.6 mmol/L (3.5-5.1); Sodium 138 mmol/L (136-145); Total Protein 7.6 gm/dl (6.0-8.3)
--- NOTE | 2023-11-12 16:41 | Electrocardiogram Report ---
Test Reason : Blood Pressure : / mmHG Vent. Rate : 072 BPM Atrial Rate : 072 BPM P-R Int : 144 ms QRS Dur : 138 ms QT Int : 436 ms P-R-T Axes : 032 -71 -08 degrees QTc Int : 477 ms Normal sinus rhythm Left axis deviation Right bundle branch block Septal infarct , age undetermined Possible Lateral infarct (cited on or before 07-JAN-2017) Inferior infarct , age undetermined Abnormal ECG When compared with ECG of 27-JUN-2023 20:50, Septal infarct is now Present No significant change was found Confirmed by Sinan Carmona ([id number]) on 11/12/2023 4:41:34 PM Referred By: Confirmed By:Sinan Carmona
[2023-11-12 16:45] LABS: INR 0.9 (0.9-1.1); Partial Thromboplastin Time 27 Seconds (21-31); Prothrombin Time 10.3 Seconds (9.0-12.0)
--- NOTE | 2023-11-12 17:08 | Emergency Department Note ---
Impression & Plan Change in vision, History of central retinal artery occlusion, Essential (primary) hypertension ED Provider Note NAME: TONE GOMEZ AGE: 78 SEX: F : 1945 ARRIVES VIA: Walk-In INFORMANT: Patient ED PROVIDER(S): Zurdo Britton MD CHIEF COMPLAINT: Vision changes, referred. PLAN: Disposition: Admit MEDICAL DECISION MAKING: The patient is a pleasant 78-year-old woman with a past medical history of hypertension, GERD, history of right eye retinal artery occlusion in June of this year with prior episodes as well as similar symptoms who presents emergency department via walk-in referred by her primary care doctor's office and question by her chief specialist leed and (for evaluation of fluctuating symptoms of black spots in her vision which she has had intermittently related to her retinal artery occlusion but intermittent episodes of a white out of her right eye field of vision that is occurred several times since the beginning of October and then most recently several days ago. She denies any spots or white out of her vision at this time. She has any fevers, chills, cough, congestion, GI/ symptoms. Patient reports that she had been on aspirin but was taken off possibly due to concern for bleeding in her eye though she admits that she is not entirely sure about the details. She also is unsure why she did not come to the hospital yesterday when she had seen her eye doctor but her understanding is now that they wanted her to come to the hospital for a stroke work-up. Of note, the patient did arrive to emergency department during time of high volume, acuity and prolonged emergency department waiting times. Critical pathways initiated from triage. On evaluation the patient is no distress, afebrile stable vital signs. She appears clinically dry. Her pupils are equal bilaterally and reactive. She has gross visual lee intact at this time. EKG without overt acute ischemia. CXR negative for acute cardiopulmonary process per my personal preliminary review/interpretation. WBC, H/H and platelets within normal limits. Chemistry without metabolic acidosis. Electrolytes and LFTs without significant abnormality. High- sensitivity troponin is undetectable. CT of the head was performed and was negative for acute abnormalities. Patient reports that she is unaware of any contrast allergy though this is noted in her record. Thus, we agreed to proceed with CTA imaging. Pretreatment dexamethasone provided out of caution. CT of the head and neck were subsequently negative for acute abnormalities. However given the patient's report of new right eye vision changes in the setting of her history of CRAO she agree with plan for admission for further stroke evaluation. Case was discussed with JESUS Pedraza hospitalist, who will evaluate the patient for admission. Further management per admitting team. Triage Nursing notes reviewed and agree them. Prior/external medical records reviewed Vital Signs: reviewed Differential diagnosis: Infection, dehydration, metabolic abnormality, hypo/hyperglycemia, electrolyte disturbance, anemia, hypoxia, cardiac sources, intracerebral event, toxicologic, neurologic, as well as other pathologies. ER treatment provided: See below. Diagnostics interpreted by me: ECG: Normal sinus rhythm, 72 bpm, no ectopy, right bundle branch block, no overt ST elevation or depression, QTc 477, QRS 138. Cardiac Monitoring: An order for continuous cardiac monitoring was placed and demonstrated Normal sinus rhythm, 72 bpm, no ectopy. Laboratory studies: See below Imaging studies: See below Consultation(s): Case was discussed with JESUS Pedraza hospitalist, who will evaluate the patient for admission. HPI: The patient is a pleasant 78-year-old woman with a past medical history of hypertension, GERD, history of right eye retinal artery occlusion in June of this year with prior episodes as well as similar symptoms who presents emergency department via walk-in referred by her primary care doctor's office and question by her chief specialist leed and (for evaluation of fluctuating symptoms of black spots in her vision which she has had intermittently related to her retinal artery occlusion but intermittent episodes of a white out of her right eye field of vision that is occurred several times since the beginning of October and then most recently several days ago. She denies any spots or white out of her vision at this time. She has any fevers, chills, cough, congestion, GI/ symptoms. Patient reports that she had been on aspirin but was taken off possibly due to concern for bleeding in her eye though she admits that she is not entirely sure about the details. She also is unsure why she did not come to the hospital yesterday when she had seen her eye doctor but her understanding is now that they wanted her to come to the hospital for a stroke work-up. ROS: See above HPI for pertinent positives & negatives. A total of 10 systems reviewed and were otherwise negative. VITALS:See Below PHYSICAL EXAMINATION: GENERAL: Awake, alert, well-appearing, in no distress HENT: Normocephalic, atraumatic. Oropharynx unremarkable. EYES: Normal conjunctiva. Sclera non-icteric. EOMI. No nystamgus. PEARRL. NECK: Supple. No nuchal rigidity. FROM. No JVD. RESPIRATORY: Clear to auscultation. CARDIAC: Regular rate, normal rhythm. Extremities warm and well perfused. Pulses equal. ABDOMEN: Soft, non-distended. No tenderness to palpation. No rebound or guarding. No masses. MUSCULOSKELETAL: Chest examination reveals no tenderness. The back is symmetrical on inspection without obvious abnormality. There is no CVA tenderness to palpation. No joint edema. LOWER EXTREMITIES: Calves are equal size bilaterally and non-tender. No edema. No discoloration. NEURO: Normal sensorium. No sensory or motor deficits noted. SKIN: No rash or jaundice noted. 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) Medical History History of anesthesia reaction had dizziness after spinal anesthesia Chronic back pain Urinary incontinence Carotid bruit Neg Carotid US, 09/2022 Surgical History History of cataract surgery LEFT History of lumbar spinal fusion L3, L4, L5 History of repair of left rotator cuff History of repair of right rotator cuff History of cholecystectomy History of tooth extraction partial upper History of wisdom tooth extraction History of tonsillectomy and adenoidectomy H/O colonoscopy 11/11 CT Colonography, Repeat 5 yrs Hx of appendectomy Family History Mother Diabetes Anxiety Depression Emphysema lung Lung disease Sister Ovarian cancer Osteoporosis Coronary heart disease Uterine cancer Myocardial infarction Heart disease Stroke Renal function impairment with growth failure Father Diabetes Family history of diabetes mellitus Other Breast cancer Colorectal cancer No family history of adverse response to anesthesia Denies family history of Prostate cancer Lung cancer Social History Smoking Status: Former smoker Tobacco Type: Cigarettes Age Started Using Tobacco: 21; Age Quit Using Tobacco: 41; packs per day: 0.5; Second Hand Exposure: Yes; Do You Dip or Chew Tobacco: No; Hx Alcohol Use: No Hx Substance Use: No Preferred Language: B[place] Communication Ability: Effective Visual Impairment: Limited Hearing Ability: Normal Veneer Trimmer Required: No Beliefs That Will Affect Care: None marital status: / Current Living Situation: Alone Current Living Situation Comment: apartment building> family close by current occupational status: retired How many Children do You have: 0 Feels Safe at Home: Yes Childhood Exposure to Second-Hand Smoke: Yes Diet: regular caffeine: Yes (alot of iced tea ) Dental Care, Regularly: Yes Physical Activity Frequency: Does not Exercise Seatbelt Use: always Sunscreen Use: No Assistive Devices: CPAP and Glasses Allergies Allergies Allergy/AdvReac Type Severity Reaction Status Date / Time bee venom protein (honey bee) Allergy Severe swelling Verified 11/12/23 18:15 cephalexin Allergy Severe hives Verified 11/12/23 18:15 moxifloxacin Allergy Severe rash Verified 11/12/23 18:15 iodine Allergy Intermediate HIVES/ITCHI Verified 11/12/23 18:15 NG sulfamethoxazole Allergy Intermediate nausea, Verified 11/12/23 18:15 facial swelling hydrocodone Allergy Unknown unknown Verified 11/12/23 18:15 Penicillins Allergy Unknown unknown Verified 11/12/23 18:15 chlorpheniramine AdvReac Intermediate tremor Verified 11/12/23 18:15 [From Tussionex] etodolac AdvReac Intermediate nausea Verified 11/12/23 18:15 ibuprofen AdvReac Intermediate ULCER Verified 11/12/23 18:15 trimethoprim AdvReac Intermediate nausea Verified 11/12/23 18:15 Home Meds Home Medications Medication Instructions Recorded Confirmed magnesium aspartate-potassium 250 mg PO HS PRN leg cramps 03/03/18 11/12/23 aspartate 250 mg-250 mg capsule multivitamin 1 tab PO HS 04/29/20 11/12/23 cholecalciferol (vitamin D3) 25 2,000 unit PO HS 05/09/20 11/12/23 mcg (1,000 unit) tablet (Vitamin D3) guaifenesin 600 mg tablet, 600 mg PO Q12H PRN Congestion 10/01/20 11/12/23 extended release 12 hr (Mucinex) fexofenadine 180 mg tablet 180 mg PO HS 09/22/22 11/12/23 pilocarpine HCl 5 mg tablet 5 mg PO TID PRN DRY MOUTH PER PT 05/05/23 11/12/23 solifenacin 10 mg tablet (Vesicare) 10 mg PO HS PRN .If runs out of 05/05/23 11/12/23 toziaz ascorbic acid (vitamin C) 500 mg 500 mg PO HS 05/07/23 11/12/23 tablet (Vitamin C) metoprolol succinate 25 mg 25 mg PO HS 06/27/23 11/12/23 tablet,extended release 24 hr beets chewable 1 tab PO HS 09/27/23 11/12/23 vibegron 75 mg tablet (Gemtesa) 75 mg PO HS 11/12/23 11/12/23 Previous Rx's Medication Instructions Recorded nystatin 100,000 unit/gram topical 1 unit topical BID PRN Rash #60 11/05/21 powder grams atorvastatin 10 mg tablet (Lipitor) 5 mg (1/2 x 10 mg) PO HS #90 tabs 09/22/22 lisinopril 10 mg tablet 10 mg PO HS #90 tabs 03/25/23 mometasone 50 mcg/actuation nasal 2 spray intranasal DAILY PRN 03/25/23 spray Allergy Symptoms #17 grams venlafaxine 75 mg capsule,extended 75 mg PO HS #90 caps 03/25/23 release 24 hr olopatadine 0.2 % eye drops 1 drp ophthalmic (eye) DAILY PRN 05/07/23 (Pataday Once Daily Relief) itching #2.5 mL pantoprazole 20 mg tablet,delayed 40 mg (2 x 20 mg) PO HS #180 tabs 06/03/23 release (Protonix) fesoterodine 8 mg tablet,extended 8 mg PO HS #30 tabs 07/19/23 release 24 hr (Toviaz) venlafaxine 37.5 mg 37.5 mg PO DAILY PRN Anxiety #90 09/27/23 capsule,extended release 24 hr caps Results & Data (ED) Vital Signs Vital Signs - 24 hr 11/12/23 15:06 11/12/23 15:06 11/12/23 18:05 Temperature 36.6 C Temperature Source Temporal Artery Scan Pulse Rate 76 65 Pulse Rate [Right Finger] Pulse Rate from SpO2 Sensor Pulse Rhythm Respiratory Rate 18 Respiratory Effort / Characteristics Respiratory Depth Respiratory Pattern Blood Pressure 141/75 H Blood Pressure [Right Arm] Blood Pressure Mean 97 Blood Pressure Mean [Right Arm] Blood Pressure Position [Right Arm] Pulse Oximetry 92 Oxygen Delivery Method Room Air Sepsis Recent Fever Within 48 Hours No Sepsis New/Unexplained Change in Mental Status N/A Sepsis Action Taken by Nursing No Action Required 11/12/23 18:09 11/12/23 18:15 11/12/23 19:09 Temperature 36.7 C Temperature Source Oral Pulse Rate 66 62 Pulse Rate [Right Finger] 99 H Pulse Rate from SpO2 Sensor 64 Pulse Rhythm Regular Respiratory Rate 16 16 28 H Respiratory Effort / Characteristics Non-Labored Respiratory Depth Normal Respiratory Pattern Regular Blood Pressure Blood Pressure [Right Arm] 122/66 Blood Pressure Mean Blood Pressure Mean [Right Arm] 84 Blood Pressure Position [Right Arm] Lying Pulse Oximetry 94 93 95 Oxygen Delivery Method Room Air Room Air Sepsis Recent Fever Within 48 Hours Sepsis New/Unexplained Change in Mental Status Sepsis Action Taken by Nursing 11/12/23 19:12 11/12/23 19:30 11/12/23 19:42 Temperature Temperature Source Pulse Rate 73 70 68 Pulse Rate [Right Finger] Pulse Rate from SpO2 Sensor 65 70 69 Pulse Rhythm Respiratory Rate 18 17 24 Respiratory Effort / Characteristics Respiratory Depth Respiratory Pattern Blood Pressure Blood Pressure [Right Arm] Blood Pressure Mean Blood Pressure Mean [Right Arm] Blood Pressure Position [Right Arm] Pulse Oximetry 95 91 93 Oxygen Delivery Method Sepsis Recent Fever Within 48 Hours Sepsis New/Unexplained Change in Mental Status Sepsis Action Taken by Nursing 11/12/23 19:57 11/12/23 20:00 11/12/23 20:12 Temperature Temperature Source Pulse Rate 67 66 68 Pulse Rate [Right Finger] Pulse Rate from SpO2 Sensor 66 66 67 Pulse Rhythm Respiratory Rate 18 21 21 Respiratory Effort / Characteristics Respiratory Depth Respiratory Pattern Blood Pressure Blood Pressure [Right Arm] Blood Pressure Mean Blood Pressure Mean [Right Arm] Blood Pressure Position [Right Arm] Pulse Oximetry 91 94 95 Oxygen Delivery Method Sepsis Recent Fever Within 48 Hours Sepsis New/Unexplained Change in Mental Status Sepsis Action Taken by Nursing 11/12/23 20:21 11/12/23 20:30 11/12/23 20:42 Temperature Temperature Source Pulse Rate 80 73 63 Pulse Rate [Right Finger] Pulse Rate from SpO2 Sensor 65 65 63 Pulse Rhythm Respiratory Rate 22 15 22 Respiratory Effort / Characteristics Respiratory Depth Respiratory Pattern Blood Pressure Blood Pressure [Right Arm] Blood Pressure Mean Blood Pressure Mean [Right Arm] Blood Pressure Position [Right Arm] Pulse Oximetry 93 92 91 Oxygen Delivery Method Sepsis Recent Fever Within 48 Hours Sepsis New/Unexplained Change in Mental Status Sepsis Action Taken by Nursing 11/12/23 20:54 11/12/23 21:00 11/12/23 21:00 Temperature Temperature Source Pulse Rate 61 71 Pulse Rate [Right Finger] Pulse Rate from SpO2 Sensor 62 65 Pulse Rhythm Respiratory Rate 16 17 Respiratory Effort / Characteristics Respiratory Depth Respiratory Pattern Blood Pressure 131/67 Blood Pressure [Right Arm] Blood Pressure Mean 106 Blood Pressure Mean [Right Arm] Blood Pressure Position [Right Arm] Pulse Oximetry 93 91 Oxygen Delivery Method Sepsis Recent Fever Within 48 Hours Sepsis New/Unexplained Change in Mental Status Sepsis Action Taken by Nursing 11/12/23 21:12 11/12/23 21:27 11/12/23 21:30 Temperature Temperature Source Pulse Rate 64 65 Pulse Rate [Right Finger] Pulse Rate from SpO2 Sensor 65 65 Pulse Rhythm Respiratory Rate 15 18 Respiratory Effort / Characteristics Respiratory Depth Respiratory Pattern Blood Pressure 128/69 Blood Pressure [Right Arm] Blood Pressure Mean 94 Blood Pressure Mean [Right Arm] Blood Pressure Position [Right Arm] Pulse Oximetry 90 94 Oxygen Delivery Method Sepsis Recent Fever Within 48 Hours Sepsis New/Unexplained Change in Mental Status Sepsis Action Taken by Nursing 11/12/23 21:30 11/12/23 21:42 11/12/23 22:03 Temperature Temperature Source Pulse Rate 63 66 63 Pulse Rate [Right Finger] Pulse Rate from SpO2 Sensor 61 66 Pulse Rhythm Respiratory Rate 17 16 Respiratory Effort / Characteristics Respiratory Depth Respiratory Pattern Blood Pressure Blood Pressure [Right Arm] Blood Pressure Mean Blood Pressure Mean [Right Arm] Blood Pressure Position [Right Arm] Pulse Oximetry 93 92 Oxygen Delivery Method Sepsis Recent Fever Within 48 Hours Sepsis New/Unexplained Change in Mental Status Sepsis Action Taken by Nursing Laboratory Data Attestation: I reviewed the patient's lab results. 11/12/23 15:57 11/12/23 15:57 Lab Results 11/12/23 11/12/23 Range/Units 15:57 16:05 WBC 6.20 (4.8-10.8) K/ul RBC 4.76 (4.20-5.40) M/uL Hgb 13.8 (12.0-16.0) g/dl POC Hgb 14.3 (12.0-16.0) g/dl Hct 42.2 (37.0-47.0) % POC Hct 42 (37-47) % MCV 88.7 (80.0-100.0) fL MCH 29.0 (25.0-34.0) pg MCHC 32.7 (32.0-36.0) g/dL RDW Std Deviation 44.7 (36.4-46.3) fL RDW Coeff of Praveen 13.8 (11.5-14.5) % Plt Count 212 (130-400) K/uL MPV 10.5 (9.4-12.4) fL PT 10.3 (9.0-12.0) Seconds INR 0.9 (0.9-1.1) APTT 27 (21-31) Seconds PTT Ratio 1.0 POC Sodium 139 (135-144) mmol/L Sodium 138 (136-145) mmol/L POC Potassium 4.4 (3.3-5.0) mmol/L Potassium 4.6 (3.5-5.1) mmol/L POC Chloride 106 (101-112) mmol/L Chloride 105 (98-107) mmol/L Carbon Dioxide 26 (21-32) mmol/L POC Total CO2 26 (24-31) mmol/L Anion Gap 7 (3-11) POC Anion Gap 13.0 L (16-25) mmol/L POC BUN 25 H (7-18) mg/dl BUN 27 H (6-23) mg/dl Creatinine 1.07 (0.6-1.2) mg/dl POC Creatinine 1.1 (0.6-1.3) mg/dl Est Cr Clr Drug Dosing 42.6 ml/min Est GFR ( Amer) 58.0 ml/min Est GFR (Non-Af Amer) 50.0 ml/min BUN/Creatinine Ratio 25.2 H (10-20) Glucose 97 (70-99(Fasting)) mg/dl POC Glucose (other) 93 (70-99) mg/dl Calcium 10.5 H (8.6-10.3) mg/dl POC Ioniz Calcium Sarah 1.23 (1.12-1.32) mmol/l Magnesium 2.0 (1.7-2.4) mg/dl Total Bilirubin 0.5 (0.2-1.0) mg/dl AST 19 (13-39) U/L ALT 12 (7-52) U/L Alkaline Phosphatase 87 (34-104) U/L Troponin I High Sens < 2.3 (0-14) pg/ml C-Reactive Protein < 0.50 (0-0.5) mg/dl Total Protein 7.6 (6.0-8.3) gm/dl Albumin 4.4 (3.4-5.0) gm/dl Globulin 3.2 (2.5-4.0) gm/dl Albumin/Globulin Ratio 1.4 (0.9-2) Administered Medications Discontinued Medications Acetaminophen (Acetaminophen 650 Mg Supp) 650 mg DE NOW STA Stop: 11/12/23 22:22 Last Admin: 11/12/23 22:52 Dose: Not Given Documented By: KG Acetaminophen (Acetaminophen 325 Mg Tab) 650 mg PO NOW STA Stop: 11/12/23 22:30 Last Admin: 11/12/23 22:42 Dose: 650 mg Documented By: KG Aspirin (Aspirin 81 Mg Ectab) 81 mg PO NOW STA Stop: 11/12/23 22:22 Last Admin: 11/12/23 22:42 Dose: 81 mg Documented By: KG Dexamethasone Sodium Phosphate (DexamethasonePf 10 Mg/Ml Vial) 10 mg IV NOW ONE Stop: 11/12/23 18:59 Last Admin: 11/12/23 19:10 Dose: 10 mg Documented By: KG Sodium Chloride (Nss) 1,000 mls @ 999 mls/hr IV .Q1H1M ONE Stop: 11/12/23 18:25 Last Infusion: 11/12/23 19:11 Dose: Infused Documented By: Admin: 11/12/23 18:03 Dose: 999 mls/hr Documented By: JOY Ioversol (Optiray 320 125ml) 118 ml IV ONCE ONE Stop: 11/12/23 19:21 Last Admin: 11/12/23 19:21 Dose: 118 ml Documented By: JESSICA Imaging Data Radiologist's Impression: Chest X-Ray 11/12/23 15:15 SINGLE VIEW CHEST CLINICAL HISTORY: Strokelike symptoms. FINDINGS: A PA chest radiograph is compared to study dated 1220 06. The examination is degraded by apical lordotic positioning. The heart is enlarged. The pulmonary vasculature is noncongested. Chronic interstitial thickening is similar to previous. Linear scarring/atelectasis is seen in the left lower lung. No airspace consolidation or pleural effusion is identified. No pneumothorax is seen. The bony thorax is grossly intact. Degenerative change and scoliosis is noted in the spine. Fusion hardware is noted in the lumbar spine. Surgical anchors are present in both humeral heads. Arthritic change is noted in the shoulders. IMPRESSION: Cardiomegaly with no active disease in the chest. ACT 112: Negative or not required by law. Electronically signed by: Vignesh Stevenson M.D. 11/12/2023 4:[address] 11/12/23 15:15 CT SCAN OF THE BRAIN WITHOUT IV CONTRAST CLINICAL HISTORY: Neurological deficit. Stroke like symptoms. COMPARISON STUDY: CT of the brain dated 06/28/2023. TECHNIQUE: Unenhanced axial CT scan of the brain is performed from the vertex to the skull base. A dose lowering technique was utilized adhering to the principles of ALARA. CT DOSE: 547.75 mGy.cm FINDINGS: Brain parenchyma: There is age-related involutional change noting mild subcortical and periventricular microangiopathic disease. There is no hemorrhage, mass effect, or evidence of acute territorial ischemia by CT criteria. Stephenson-white matter differentiation is preserved. No extra-axial fluid collection is seen. Ventricles, sulci, cisterns: Prominent secondary to involutional change. Intracranial vasculature: There is atherosclerotic calcification of the cavernous carotid and vertebral arteries. Calvarium: Unremarkable. Sinuses and mastoids: The visualized paranasal sinuses are clear. The mastoid air cells are well pneumatized. Orbits: The bony orbits are grossly intact. There are bilateral ocular lens implants. IMPRESSION: There is no hemorrhage, mass effect, or evidence of acute territorial ischemia by CT criteria. ACT 112: Negative or not required by law. Electronically signed by: Vignesh Stevenson M.D. 11/12/2023 4:18 PM Head CTA 11/12/23 18:58 Exam(s): CTA HEAD With Contrast IV Amt: 118 ml optiray 320 EXAM: CT Angiography Head With Intravenous Contrast CLINICAL HISTORY: Right eye vision changes, h/o right RAC. TECHNIQUE: Axial computed tomographic angiography images of the head with intravenous contrast. CTDI is 16.61 mGy and DLP is 439.5 mGy-cm. Automated exposure control was utilized for the study. A dose lowering technique was utilized adhering to the principles of ALARA. MIP reconstructed images were created and reviewed. CONTRAST: Patient received 118 ml optiray 320 of IV contrast COMPARISON: Noncontrast examination performed at 1557 hrs. FINDINGS: Right internal carotid artery: No acute findings. Intracranial segment is patent with no significant stenosis. No aneurysm. Right anterior cerebral artery: Unremarkable. No occlusion or significant stenosis. No aneurysm. Right middle cerebral artery: Unremarkable. No occlusion or significant stenosis. No aneurysm. Right posterior cerebral artery: Unremarkable. No occlusion or significant stenosis. No aneurysm. Right vertebral artery: Unremarkable as visualized. Left internal carotid artery: No acute findings. Intracranial segment is patent with no significant stenosis. No aneurysm. Left anterior cerebral artery: Unremarkable. No occlusion or significant stenosis. No aneurysm. Left middle cerebral artery: Unremarkable. No occlusion or significant stenosis. No aneurysm. Left posterior cerebral artery: Unremarkable. No occlusion or significant stenosis. No aneurysm. Left vertebral artery: The distal left vertebral artery is dominant and is widely patent. Basilar artery: Unremarkable. No occlusion or significant stenosis. No aneurysm. Brain: No abnormal parenchymal enhancement identified. IMPRESSION: Negative intracranial CTA examination. Electronically signed by: Albino Archibald MD 11/12/23 21:21 PM Neck CTA 11/12/23 18:58 Exam(s): CTA NECK With Contrast IV Amt: 118 ml optiray 320 EXAM: CT Angiography Neck With Intravenous Contrast CLINICAL HISTORY: Right eye vision changes, h/o right RAC. TECHNIQUE: Routine carotid CT angiography protocol was performed with intravenous contrast. NASCET criteria using the distal ICAs for comparison were used for evaluation of stenoses. CTDI is 16.61 mGy and DLP is 439.5 mGy-cm. Automated exposure control was utilized for the study. A dose lowering technique was utilized adhering to the principles of ALARA. MIP reconstructed images were created and reviewed. CONTRAST: Patient received 118 ml optiray 320 of IV contrast COMPARISON: CTA neck 06/27/2023 FINDINGS: VASCULATURE: Right common carotid artery: Unremarkable. No occlusion or significant stenosis. No dissection. Right internal carotid artery: Unremarkable. Extracranial segment is patent with no occlusion or significant stenosis. No dissection. Right external carotid artery: Unremarkable. No occlusion. Right vertebral artery: Unremarkable. No occlusion or significant stenosis. No dissection. Left common carotid artery: Unremarkable. No occlusion or significant stenosis. No dissection. Left internal carotid artery: Unremarkable. Extracranial segment is patent with no occlusion or significant stenosis. No dissection. Left external carotid artery: Unremarkable. No occlusion. Left vertebral artery: The left vertebral artery is dominant and is widely patent. No occlusion or significant stenosis. No dissection. Brachiocephalic and subclavian arteries: There is a type I branching pattern of the proximal great vessels without ostial stenosis. Aorta: The aortic arch is patent without dissection or aneurysm. NECK: Bones/joints: Unremarkable. No acute fracture. Soft tissues: Unremarkable. Lung apices: Clear. CAROTID STENOSIS REFERENCE USING NASCET CRITERIA: % ICA stenosis = (1 - narrowest ICA diameter/diameter of distal cervical ICA) x 100. Mild - <50% stenosis. Moderate - 50-69% stenosis. Severe - 70-94% stenosis. Near occlusion - 95-99% stenosis. Occluded - 100% stenosis. IMPRESSION: Negative cervical CTA examination. No alteration from the prior examination. Electronically signed by: Albino Archibald MD 11/12/23 21:26 PM Brain MRI 11/12/23 22:10 Exam(s): MRI HEAD Without Contrast EXAM: MR Head Without Intravenous Contrast CLINICAL HISTORY: Intermittent loss of vision in R eye. TECHNIQUE: Magnetic resonance images of the head/brain without intravenous contrast in multiple planes. COMPARISON: MRI without contrast dated 06/28/2023 FINDINGS: Brain: No intracranial hemorrhage. No mass-effect. Similar minimal punctate, hyperintense T2 foci, unchanged in appearance. Diffusion- weighted imaging is negative for acute or subacute infarct. The parenchyma is stable in appearance with similar morphology. Ventricles: Unremarkable. No ventriculomegaly. Bones/joints: The expected midline structures are stable and unremarkable on the sagittal T1 imaging. No acute fracture. Sinuses: Unremarkable as visualized. No acute sinusitis. Mastoid air cells: Unremarkable as visualized. No mastoid effusion. Orbits: Unremarkable as visualized. IMPRESSION: No evidence of acute or subacute infarct. No alteration from the prior examination. Electronically signed by: Albino Archibald MD 11/13/23 00:16 AM Discharge Plan Visit Data Chief Complaint: Stroke/CVA Symptoms Stated Complaint: DR RICHMOND REF FOR POSSIBLE STROKE ED Provider: Zurdo Britton Discharge Problem: Change in vision, History of central retinal artery occlusion, Essential (primary) hypertension Forms Stand Alone Forms: My [facility] Facter[facility] Prescriptions Prescriptions: No Action cholecalciferol (vitamin D3) [Vitamin D3] 25 mcg (1,000 unit) tablet 2,000 unit PO HS ascorbic acid (vitamin C) [Vitamin C] 500 mg tablet 500 mg PO HS Patient Comments: Pt states she takes daily. Was previously listed as weekly. olopatadine [Pataday Once Daily Relief] 0.2 % drops 1 drp ophthalmic (eye) DAILY PRN (Reason: itching) Qty: 2.5 0RF pantoprazole [Protonix] 20 mg tablet,delayed release (DR/EC) 40 mg PO HS Qty: 180 3RF Rx Instructions: two 20 mg tablets venlafaxine 75 mg capsule,extended release 24hr 75 mg PO HS Qty: 90 3RF mometasone 50 mcg/actuation spray,non-aerosol 2 spray INTRANASAL DAILY PRN (Reason: Allergy Symptoms) Qty: 17 0RF lisinopril 10 mg tablet 10 mg PO HS Qty: 90 3RF nystatin 100,000 unit/gram powder 1 unit TOP BID PRN (Reason: Rash) Qty: 60 1RF beets chewable 1 tab PO HS venlafaxine 37.5 mg capsule,extended release 24hr 37.5 mg PO DAILY PRN (Reason: Anxiety) Qty: 90 0RF pilocarpine HCl 5 mg tablet 5 mg PO TID PRN (Reason: DRY MOUTH PER PT) fexofenadine 180 mg tablet 180 mg PO HS atorvastatin [Lipitor] 10 mg tablet 5 mg PO HS Qty: 90 3RF fesoterodine [Toviaz] 8 mg tablet extended release 24 hr 8 mg PO HS Qty: 30 11RF magnesium, potassium aspartate 250-250 mg Capsule 250 mg PO HS PRN (Reason: leg cramps) multivitamin Tablet 1 tab PO HS guaifenesin [Mucinex] 600 mg Tablet Extended Release 12hr 600 mg PO Q12H PRN (Reason: Congestion) solifenacin [Vesicare] 10 mg tablet 10 mg PO HS PRN (Reason: .If runs out of [facility]) Gemtesa 75 mg tablet 75 mg PO HS metoprolol succinate 25 mg tablet extended release 24 hr 25 mg PO HS Referrals Referrals: Leobardo Richmond DO [Primary Care Provider] -
[2023-11-12] MEDS: SODIUM CHLORIDE 0.9% 1,000 ML IV ONE (18:03)
[2023-11-12] MEDS: dexAMETHasone**PF** 10 MG/ML VIAL IV ONE (19:10)
[2023-11-12] MEDS: OPTIRAY 320 125ml IV ONE (19:21)
[2023-11-12 20:33] LABS: Troponin I High Sensitivity < 2.3 pg/ml (0-14)
--- NOTE | 2023-11-12 21:23 | History & Physical Report ---
Date of Service November 12, 2023 Assessment & Plan (1) Sudden visual loss of right eye: Plan: Intermittent sudden vision loss in the right eye times several months, but this is occurred twice in the past 2 days Patient describes it as a "curtain coming down"; she then loses vision (lost vision yesterday for approximately 2-hours) Amaurosis fugax CRP ordered, pending A.m. CBC, BMP, fasting lipid panel, A1c (2) Stroke-like symptoms: Plan: Concern for decreased blood flow to the right eye secondary to embolism Clinically, patient denies slurred speech, facial droop, or unilateral deficits Head CT without acute finding Head/neck CTA without acute findings Brain MRI ordered, pending Echocardiogram with bubble study ordered, pending Hypercoagulable panel ordered, pending Patient passed dysphagia screen in the ED, okay to eat Fall precautions PT/OT evaluations appreciated Will start patient on aspirin 81 mg daily (3) Hyperlipidemia: Plan: Patient is on atorvastatin 10 mg at night Will increase to atorvastatin 40 mg HS Follow a.m. fasting lipid panel (4) Sleep apnea: Plan: Patient uses CPAP at night, but declines it while inpatient She reports she is amenable to having supplemental oxygen at bedtime (5) Urinary incontinence, mixed: Plan: Continue Gemtesa Contine Toziaz or formulary equivalent Plan Disposition: Admit to PCU telemetry Full code Heart healthy diet, easy to chew (aspiration precautions) VTE PPx: SCDs, ASA History of Present Illness Chief Complaint: Stroke/CVA symptoms Primary Care Provider: Leobardo Richmond DO Sara is a 78yo female with PMH of osteoporosis, urinary incontinence, GERD, sleep apnea, depression, anxiety, hyperlipidemia, HTN, and retinal artery occlusion. She presented at the behest of her PCP for a stroke workup on 11/11. Patient has had intermittent problems with her right eyes since March 2023, when she developed a "salt and pepper shade". Then beginning in June 2023, she has had intermittent loss of vision in her right eye. She describes it as like a "curtain" coming down of her eye. This intermittent loss of vision occurs for 2 hours at a time, before she regains vision. It was happening monthly, but she reports it recently happened twice in the past 2 days. Patient does follow with a retinal specialist, who was seen 2 days ago and performed an "IV test" to determine blood flow to her right eye; concerned that there was decreased blood flow. She was then sent in by her PCP. She denies history of stroke or strokelike symptoms such as slurred speech, facial droop, or unilateral deficits. No PMH of [place]. She has had an intermittent headache on the right side of the face, for which she has been taking Advil and Tylenol intermittently. She does not wear contacts. History of cataract surgery. Patient does use a CPAP at night; no other supplemental oxygen use. Patient has an allergy to dye, and cannot take prednisone. She denies tick bites, but does occasionally have heat rashes she denies smoking, tobacco use, and recent alcohol use. Patient's vitals are stable to admission. ED Course: Dexamethasone 10 mg IV NSS 1000 mL IV ROS: Patient endorses intermittent loss of vision in right eye, occasional blurriness in left eye, difficulty swallowing, lightheadedness when standing too quickly, night-sweats, dry mouth, dry cough, intermittent wheeze, occasional numbness/tingling in arms and legs, and urinary incontinence. Patient denies fever, chills, new body aches, tick bites, changes in hearing/taste/smell, chest pain, SOB, pleuritic CP, hemoptysis, abdominal pain, N/V/D, burning with urination, or changes in urinary/bowel habits. Allergies Allergy/AdvReac Type Severity Reaction Status Date / Time bee venom protein (honey bee) Allergy Severe swelling Verified 11/12/23 18:15 cephalexin Allergy Severe hives Verified 11/12/23 18:15 moxifloxacin Allergy Severe rash Verified 11/12/23 18:15 iodine Allergy Intermediate HIVES/ITCHI Verified 11/12/23 18:15 NG sulfamethoxazole Allergy Intermediate nausea, Verified 11/12/23 18:15 facial swelling hydrocodone Allergy Unknown unknown Verified 11/12/23 18:15 Penicillins Allergy Unknown unknown Verified 11/12/23 18:15 chlorpheniramine AdvReac Intermediate tremor Verified 11/12/23 18:15 [From [facility]] etodolac AdvReac Intermediate nausea Verified 11/12/23 18:15 ibuprofen AdvReac Intermediate ULCER Verified 11/12/23 18:15 trimethoprim AdvReac Intermediate nausea Verified 11/12/23 18:15 Home Medications Medication Instructions Recorded Confirmed Type magnesium aspartate-potassium 250 mg PO HS PRN leg cramps 03/03/18 11/12/23 History aspartate 250 mg-250 mg capsule multivitamin 1 tab PO HS 04/29/20 11/12/23 History cholecalciferol (vitamin D3) 25 2,000 unit PO HS 05/09/20 11/12/23 History mcg (1,000 unit) tablet (Vitamin D3) guaifenesin 600 mg tablet, 600 mg PO Q12H PRN Congestion 10/01/20 11/12/23 History extended release 12 hr (Mucinex) nystatin 100,000 unit/gram topical 1 unit topical BID PRN Rash #60 11/05/21 11/12/23 Rx powder grams atorvastatin 10 mg tablet (Lipitor) 5 mg (1/2 x 10 mg) PO HS #90 tabs 09/22/22 11/12/23 Rx fexofenadine 180 mg tablet 180 mg PO HS 09/22/22 11/12/23 History lisinopril 10 mg tablet 10 mg PO HS #90 tabs 03/25/23 11/12/23 Rx mometasone 50 mcg/actuation nasal 2 spray intranasal DAILY PRN 03/25/23 11/12/23 Rx spray Allergy Symptoms #17 grams venlafaxine 75 mg capsule,extended 75 mg PO HS #90 caps 03/25/23 11/12/23 Rx release 24 hr pilocarpine HCl 5 mg tablet 5 mg PO TID PRN DRY MOUTH PER PT 05/05/23 11/12/23 History solifenacin 10 mg tablet (Vesicare) 10 mg PO HS PRN .If runs out of 05/05/23 11/12/23 History toziaz ascorbic acid (vitamin C) 500 mg 500 mg PO HS 05/07/23 11/12/23 History tablet (Vitamin C) olopatadine 0.2 % eye drops 1 drp ophthalmic (eye) DAILY PRN 05/07/23 11/12/23 Rx (Pataday Once Daily Relief) itching #2.5 mL pantoprazole 20 mg tablet,delayed 40 mg (2 x 20 mg) PO HS #180 tabs 06/03/23 11/12/23 Rx release (Protonix) metoprolol succinate 25 mg 25 mg PO HS 06/27/23 11/12/23 History tablet,extended release 24 hr fesoterodine 8 mg tablet,extended 8 mg PO HS #30 tabs 07/19/23 11/12/23 Rx release 24 hr (Toviaz) beets chewable 1 tab PO HS 09/27/23 11/12/23 History venlafaxine 37.5 mg 37.5 mg PO DAILY PRN Anxiety #90 09/27/23 11/12/23 Rx capsule,extended release 24 hr caps vibegron 75 mg tablet (Gemtesa) 75 mg PO HS 11/12/23 11/12/23 History Past Med/Surg History Problem List (Updated 11/13/23 @ 00:51 by Zurdo Britton MD) History of central retinal artery occlusion (Acute) Retinal artery occlusion, central Sudden visual loss of right eye (Acute) Change in vision (Acute) Stroke-like symptoms Palpitations with regular cardiac rhythm Exertional dyspnea Essential (primary) hypertension (Acute) Hyperglycemia, unspecified Hyperlipidemia Depression with anxiety Sleep apnea (Chronic) cpap > machine is currently away being serviced Chronic GERD Urinary incontinence, mixed Obesity Age related osteoporosis (Chronic) Medical History History of anesthesia reaction had dizziness after spinal anesthesia Chronic back pain Urinary incontinence Carotid bruit Neg Carotid US, 09/2022 Surgical History History of cataract surgery LEFT History of lumbar spinal fusion L3, L4, L5 History of repair of left rotator cuff History of repair of right rotator cuff History of cholecystectomy History of tooth extraction partial upper History of wisdom tooth extraction History of tonsillectomy and adenoidectomy H/O colonoscopy 11/11 CT Colonography, Repeat 5 yrs Hx of appendectomy Family History Mother Diabetes Anxiety Depression Emphysema lung Lung disease Sister Ovarian cancer Osteoporosis Coronary heart disease Uterine cancer Myocardial infarction Heart disease Stroke Renal function impairment with growth failure Father Diabetes Family history of diabetes mellitus Other Breast cancer Colorectal cancer No family history of adverse response to anesthesia Denies family history of Prostate cancer Lung cancer Social History Smoking Status: Former smoker Tobacco Type: Cigarettes Age Started Using Tobacco: 21; Age Quit Using Tobacco: 41; packs per day: 0.5; Second Hand Exposure: No; Do You Dip or Chew Tobacco: No; Tobacco Cessation Education Requested by Patient: No Hx Alcohol Use: Yes Alcohol type: hard liquor and other Alcohol type Comment: wine coolers Alcohol Intake Frequency: Monthly or Less Hx Substance Use: No Preferred Language: [place]ican Communication Ability: Effective Visual Impairment: Limited Hearing Ability: Normal Executive Asst Required: No Beliefs That Will Affect Care: None marital status: / Current Living Situation: Alone Current Living Situation Comment: apartment building> family close by current occupational status: retired How many Children do You have: 0 Other Information That Helps Us Care for You: No Feels Safe at Home: Yes Safety Concerns: Feels Safe At This Time Childhood Exposure to Second-Hand Smoke: Yes Diet: regular caffeine: Yes (alot of iced tea ) Dental Care, Regularly: Yes Physical Activity Frequency: Does not Exercise Seatbelt Use: always Sunscreen Use: No Assistive Devices: Cane, CPAP and Walker Review of Systems Review of Systems: See HPI above Physical Exam Physical Exam: General: no acute distress; non-toxic appearing; well-nourished; cooperative; SpO2 92% on RA HEENT: normocephalic, atraumatic; no scleral icterus; right sclera is mildly erythematous; PERRLA w/ EOMs intact, however EOMs do cause some dizziness; moist mucus membrane; vision and hearing intact Neck: supple; no lymphadenopathy; trachea midline; patient demonstrates ability to shrug shoulders against resistance and rotate neck without pain or dizziness Skin: warm, dry without signs of tenting; no cyanosis; no rashes, bruising, lesions, or erythema noted CV: chest wall NTP; RRR; S1/S2 normal; no murmurs/rubs/gallops; pulses intact and symmetric at radial, DP, and PT Lungs: no acute respiratory distress; symmetrical chest wall expansion; clear breath sounds across all lung lee w/o adventitious sounds; no wheezing ABD: Soft, NTP; BS present; no rebound/guarding; no distention MSK: no tics or fasciculations; nonpitting edema noted in the LEs b/l, nonerythematous Neuro: A&Ox3; normal mood and affect; slow, paused speech, but fluent; no facial droop; no focal deficits; sensation grossly intact and symmetric in the face/UEs/LEs b/l; negative pronator drift Results & Data Results & Data Vital Signs (Past 12 Hours) Vital Signs Temp Pulse Pulse Resp BP BP Pulse Ox 11/12/23 18:15 66 16 93 11/12/23 18:09 36.7 C 99 H 16 122/66 94 11/12/23 18:05 65 11/12/23 15:06 11/12/23 15:06 36.6 C 76 18 141/75 H 92 O2 Del Method 11/12/23 18:15 Room Air 11/12/23 18:09 Room Air 11/12/23 18:05 11/12/23 15:06 Room Air 11/12/23 15:06 Laboratory Results Abnormal lab results 11/12/23 11/12/23 Range/Units 15:57 16:05 POC Anion Gap 13.0 L (16-25) mmol/L POC BUN 25 H (7-18) mg/dl BUN 27 H (6-23) mg/dl BUN/Creatinine Ratio 25.2 H (10-20) Calcium 10.5 H (8.6-10.3) mg/dl Diagnostic Findings Chest X-Ray 11/12/23 15:15 SINGLE VIEW CHEST CLINICAL HISTORY: Strokelike symptoms. FINDINGS: A PA chest radiograph is compared to study dated 1220 2. The examination is degraded by apical lordotic positioning. The heart is enlarged. The pulmonary vasculature is noncongested. Chronic interstitial thickening is similar to previous. Linear scarring/atelectasis is seen in the left lower lung. No airspace consolidation or pleural effusion is identified. No pneumothorax is seen. The bony thorax is grossly intact. Degenerative change and scoliosis is noted in the spine. Fusion hardware is noted in the lumbar spine. Surgical anchors are present in both humeral heads. Arthritic change is noted in the shoulders. IMPRESSION: Cardiomegaly with no active disease in the chest. ACT 112: Negative or not required by law. Electronically signed by: Vignesh Stevenson M.D. 11/12/2023 4:[address] 11/12/23 15:15 CT SCAN OF THE BRAIN WITHOUT IV CONTRAST CLINICAL HISTORY: Neurological deficit. Stroke like symptoms. COMPARISON STUDY: CT of the brain dated 06/28/2023. TECHNIQUE: Unenhanced axial CT scan of the brain is performed from the vertex to the skull base. A dose lowering technique was utilized adhering to the principles of ALARA. CT DOSE: 547.75 mGy.cm FINDINGS: Brain parenchyma: There is age-related involutional change noting mild subcortical and periventricular microangiopathic disease. There is no hemorrhage, mass effect, or evidence of acute territorial ischemia by CT criteria. Stephenson-white matter differentiation is preserved. No extra-axial fluid collection is seen. Ventricles, sulci, cisterns: Prominent secondary to involutional change. Intracranial vasculature: There is atherosclerotic calcification of the cavernous carotid and vertebral arteries. Calvarium: Unremarkable. Sinuses and mastoids: The visualized paranasal sinuses are clear. The mastoid air cells are well pneumatized. Orbits: The bony orbits are grossly intact. There are bilateral ocular lens implants. IMPRESSION: There is no hemorrhage, mass effect, or evidence of acute territorial ischemia by CT criteria. ACT 112: Negative or not required by law. Electronically signed by: Vignesh Stevenson M.D. 11/12/2023 4:18 PM Head CTA 11/12/23 18:58 Exam(s): CTA HEAD With Contrast IV Amt: 118 ml optiray 320 EXAM: CT Angiography Head With Intravenous Contrast CLINICAL HISTORY: Right eye vision changes, h/o right RAC. TECHNIQUE: Axial computed tomographic angiography images of the head with intravenous contrast. CTDI is 16.61 mGy and DLP is 439.5 mGy-cm. Automated exposure control was utilized for the study. A dose lowering technique was utilized adhering to the principles of ALARA. MIP reconstructed images were created and reviewed. CONTRAST: Patient received 118 ml optiray 320 of IV contrast COMPARISON: Noncontrast examination performed at 1557 hrs. FINDINGS: Right internal carotid artery: No acute findings. Intracranial segment is patent with no significant stenosis. No aneurysm. Right anterior cerebral artery: Unremarkable. No occlusion or significant stenosis. No aneurysm. Right middle cerebral artery: Unremarkable. No occlusion or significant stenosis. No aneurysm. Right posterior cerebral artery: Unremarkable. No occlusion or significant stenosis. No aneurysm. Right vertebral artery: Unremarkable as visualized. Left internal carotid artery: No acute findings. Intracranial segment is patent with no significant stenosis. No aneurysm. Left anterior cerebral artery: Unremarkable. No occlusion or significant stenosis. No aneurysm. Left middle cerebral artery: Unremarkable. No occlusion or significant stenosis. No aneurysm. Left posterior cerebral artery: Unremarkable. No occlusion or significant stenosis. No aneurysm. Left vertebral artery: The distal left vertebral artery is dominant and is widely patent. Basilar artery: Unremarkable. No occlusion or significant stenosis. No aneurysm. Brain: No abnormal parenchymal enhancement identified. IMPRESSION: Negative intracranial CTA examination. Electronically signed by: Albino Archibald MD 11/12/23 21:21 PM ECG Additional Comments: ECG revealed NSR at 72bpm; QTc 477 Code Status & VTE Plan Code Status Full code VTE Prophylaxis Plan VTE Prophylaxis will be ordered: Yes Supervising Physician Co-Signing Physician Notes Attending addendum: I have physically seen this patient, have supervised the CLAY's activities, and agree with the H&P unless as otherwise noted. Assessment and Plan: Amaurosis fugax- Patient describes classic process of curtain coming down across her vision Most recent episode of 2 hours duration yesterday Patient referred by eye doctor for stroke workup CT scan head, CTA head and neck: Negative Ordered arterial hypercoagulable workup Start aspirin 81 mg daily Order MRI brain without contrast The patient will be admitted to telemetry for serial cardiac enzymes, serial EKG's, cardiac rhythm monitoring and a 2-D echocardiogram with Dopplers. PT/OT/speech assessment next neurology Hyperlipidemia- Increase atorvastatin from 10 to 40 mg for high-dose treatment Fasting lipid panel in a.m. Hemoglobin A1c in the a.m. Sleep apnea- CPAP at bedtime PG Care Time/CCT Total # of Minutes Spent Total Time Spent with Patient: Total time spent is greater than 50% in coordination of care (as documented) at patient's floor/unit and/or counseling patient: C[place] [address] INT INP/OBS CARE 3/75MIN Patient Type Established Medical Decision Making High Complexity Diagnoses Sudden visual loss of right eye H53.131 Stroke-like symptoms R29.90 Hyperlipidemia E78.5 Sleep apnea G47.30 Urinary incontinence, mixed N39.46
--- NOTE | 2023-11-12 21:27 | CT Scan Report ---
Exam(s): CTA NECK With Contrast IV Amt: 118 ml optiray 320 EXAM: CT Angiography Neck With Intravenous Contrast CLINICAL HISTORY: Right eye vision changes, h/o right RAC. TECHNIQUE: Routine carotid CT angiography protocol was performed with intravenous contrast. NASCET criteria using the distal ICAs for comparison were used for evaluation of stenoses. CTDI is 16.61 mGy and DLP is 439.5 mGy-cm. Automated exposure control was utilized for the study. A dose lowering technique was utilized adhering to the principles of ALARA. MIP reconstructed images were created and reviewed. CONTRAST: Patient received 118 ml optiray 320 of IV contrast COMPARISON: CTA neck 06/27/2023 FINDINGS: VASCULATURE: Right common carotid artery: Unremarkable. No occlusion or significant stenosis. No dissection. Right internal carotid artery: Unremarkable. Extracranial segment is patent with no occlusion or significant stenosis. No dissection. Right external carotid artery: Unremarkable. No occlusion. Right vertebral artery: Unremarkable. No occlusion or significant stenosis. No dissection. Left common carotid artery: Unremarkable. No occlusion or significant stenosis. No dissection. Left internal carotid artery: Unremarkable. Extracranial segment is patent with no occlusion or significant stenosis. No dissection. Left external carotid artery: Unremarkable. No occlusion. Left vertebral artery: The left vertebral artery is dominant and is widely patent. No occlusion or significant stenosis. No dissection. Brachiocephalic and subclavian arteries: There is a type I branching pattern of the proximal great vessels without ostial stenosis. Aorta: The aortic arch is patent without dissection or aneurysm. NECK: Bones/joints: Unremarkable. No acute fracture. Soft tissues: Unremarkable. Lung apices: Clear. CAROTID STENOSIS REFERENCE USING NASCET CRITERIA: % ICA stenosis = (1 - narrowest ICA diameter/diameter of distal cervical ICA) x 100. Mild - <50% stenosis. Moderate - 50-69% stenosis. Severe - 70-94% stenosis. Near occlusion - 95-99% stenosis. Occluded - 100% stenosis. IMPRESSION: Negative cervical CTA examination. No alteration from the prior examination. Electronically signed by: Albino Archibald MD 11/12/23 21:26 PM
[2023-11-12] MEDS ORDERED: PHARMACIST DISCHARGE MED REC CONSULT PRN (22:10)
[2023-11-12] MEDS: ASPIRIN 81 MG ECTAB PO STA (22:42)
[2023-11-12] MEDS: ACETAMINOPHEN 325 MG TAB PO STA (22:42)
[2023-11-12] MEDS: ACETAMINOPHEN 650 MG SUPP PR STA (22:52)
[2023-11-12 23:08] LABS: C Reactive Protein < 0.50 mg/dl (0-0.5)
--- NOTE | 2023-11-13 00:17 | Magnetic Resonance Report ---
Exam(s): MRI HEAD Without Contrast EXAM: MR Head Without Intravenous Contrast CLINICAL HISTORY: Intermittent loss of vision in R eye. TECHNIQUE: Magnetic resonance images of the head/brain without intravenous contrast in multiple planes. COMPARISON: MRI without contrast dated 06/28/2023 FINDINGS: Brain: No intracranial hemorrhage. No mass-effect. Similar minimal punctate, hyperintense T2 foci, unchanged in appearance. Diffusion- weighted imaging is negative for acute or subacute infarct. The parenchyma is stable in appearance with similar morphology. Ventricles: Unremarkable. No ventriculomegaly. Bones/joints: The expected midline structures are stable and unremarkable on the sagittal T1 imaging. No acute fracture. Sinuses: Unremarkable as visualized. No acute sinusitis. Mastoid air cells: Unremarkable as visualized. No mastoid effusion. Orbits: Unremarkable as visualized. IMPRESSION: No evidence of acute or subacute infarct. No alteration from the prior examination. Electronically signed by: Albino Archibald MD 11/13/23 00:16 AM
[2023-11-13] MEDS ORDERED: ONDANSETRON INJ 2 MG/ML 2 ML VIAL IV PRN (00:57)
[2023-11-13] MEDS ORDERED: NON-FORMULARY MEDICATION (Magnesium, Potassium Aspartate 250-250 mg Capsule) PO PRN (00:57)
[2023-11-13] MEDS ORDERED: guaiFENesin 600 MG TABCR PO PRN (00:57)
[2023-11-13] MEDS ORDERED: VENLAFAXINE HCL XR 37.5 MG CAPXR PO PRN (00:57)
[2023-11-13] MEDS ORDERED: NON-FORMULARY MEDICATION (Solifenacin [Vesicare] 10 mg tablet) PO PRN (00:57)
[2023-11-13] MEDS ORDERED: FLUTICASONE PROPIONATE NA SPR 16 GM BTL PRN (01:35)
[2023-11-13] MEDS: lisinopril 10 MG TAB PO SCH (02:00)
[2023-11-13] MEDS: PANTOprazole 40 MG TAB PO SCH (02:01)
[2023-11-13] MEDS: VENLAFAXINE HCL XR 75 MG CAPXR PO SCH (02:01)
[2023-11-13] MEDS: VIBEGRON 75 MG TAB PO SCH (02:01)
[2023-11-13] MEDS: METOPROLOL SUCC 25MG EXT REL TAB PO SCH (02:01)
--- NOTE | 2023-11-13 02:42 | Billing Data ---
Date of Service November 13, 2023 Coding Level of Care Code 31800 INT INP/OBS CARE
[2023-11-13] MEDS: ACETAMINOPHEN 325 MG TAB PO PRN (03:47)
[2023-11-13 07:55] LABS: Basophils # (auto) 0.01 K/uL (0.00-0.20); Basophils % (auto) 0.1 %; Hematocrit (blood only) 42.1 % (37.0-47.0); Hemoglobin 13.7 g/dl (12.0-16.0); Immature Granulocytes # (auto) 0.02 K/uL (0.01-0.20); Immature Granulocytes % (auto) 0.3 %; Mean Corpuscular Hgb Conc 32.5 g/dL (32.0-36.0); Mean Platelet Volume 10.7 fL (9.4-12.4); Monocytes # (auto) 0.06 K/uL (0.11-0.59); Monocytes % (auto) 0.9 %; Neutrophils # (auto) 6.19 K/uL (1.40-6.50); Neutrophils % (auto) 88.7 %; Platelet Count 200 K/uL (130-400); RDW Coefficient of Variation 13.2 % (11.5-14.5); RDW Standard Deviation 43.6 fL (36.4-46.3); Red Blood Count 4.73 M/uL (4.20-5.40); White Blood Count 6.98 K/ul (4.8-10.8)
[2023-11-13 08:10] LABS: BUN Creatinine Ratio 30.1 (10-20); Calcium 9.9 mg/dl (8.6-10.3); Chol HDL Ratio 3.2 (0-5); Creatinine Clr Calc Pharmacy 54.6 ml/min; Est GFR (African American) 78.8 ml/min; Potassium 4.4 mmol/L (3.5-5.1)
[2023-11-13] MEDS: ASPIRIN 81 MG ECTAB PO SCH (08:23)
[2023-11-13] MEDS: PILOCARPINE HCL 5 MG TABLET PO PRN (08:25)
[2023-11-13 08:35] LABS: Estimated Average Glucose 126 mg/dl
--- NOTE | 2023-11-13 12:37 | Hospitalist Progress Note ---
Date of Service November 13, 2023 Assessment & Plan (1) Sudden visual loss of right eye: Plan: Intermittent sudden vision loss in the right eye times several months, but this is occurred twice in the 2 days prior to presenting to ED Patient describes it as a "curtain coming down"; she then loses vision (lost vision for approximately 2-hours during this episode) Amaurosis fugax Follows with ophthalmology Lipid panel WNL, A1c 6.0, CRP WNL Intermittent elevated calcium levels. Continue to monitor in outpatient setting for hyperparathyroidism Vision loss resolved Patient notes right-sided floaters returned 11/13/2023 Patient reportedly felt unsteady on her feet 11/13/2023. Given that she lives alone, continue hospital stay for another night to ensure safety with ambulation prior to discharge (2) Stroke-like symptoms: Plan: Concern for decreased blood flow to the right eye secondary to embolism Clinically, patient denies slurred speech, facial droop, or unilateral deficits Head CT without acute finding Head/neck CTA without acute findings Brain MRI ordered without evidence of acute or subacute infarct Echocardiogram with bubble study 11/13/2023: EF= 55-60%. Compared with study from 04/2023, no significant change. Hypercoagulable panel ordered, pending Continue aspirin 81 mg daily (3) Hyperlipidemia: Plan: Patient was on atorvastatin 10 mg at night Increased to atorvastatin 40 mg HS (4) Sleep apnea: Plan: Patient uses CPAP at night, but declines it while inpatient She reports she is amenable to having supplemental oxygen at bedtime (5) Urinary incontinence, mixed: Plan: [facility] Plan CODE STATUS: Full code VTE PPx: SCDs, ASA Admission and Anticipated Discharge Date Admission Date: November 12, 2023 Subjective Patient seen and evaluated at bedside. She reports that her visual field in her right eye has returned. She also notes that right-sided floaters have returned as well. Her workup for stroke has been negative. Additionally, she reports that she feels unsteady on her feet today. Since she lives alone at home, she requested to stay the night in the hospital to ensure she is safe with ambulation at home. I was in agreement. She is eager to walk the halls this afternoon. No additional complaints at this time. Physical Exam Physical Exam: General: No acute distress, nondiaphoretic, well-developed, well-nourished. HEENT: normocephalic, atraumatic; no scleral icterus; right sclera is mildly erythematous; PERRLA w/ EOMs intact, moist mucus membrane; vision and hearing intact Skin: The skin was without rashes, erythema, or bruising. 1+ nonpitting edema noted in the LEs b/l, nonerythematous Cardiac: Regular rate and rhythm without murmurs gallops or rubs. Pulm: Clear to auscultation bilaterally without wheezes, rales or rhonchi. No retractions or accessory muscle use. Abdominal: Positive bowel sounds x 4. Soft, nontender, without masses or organomegaly. No guarding or rebound tenderness. Neuro: A&O x3. No focal neurological deficits. Results & Data Results & Data Vital Signs (Past 12 Hours) Vital Signs Temp Pulse Pulse Resp BP Pulse Ox O2 Del Method 11/13/23 11:50 36.7 C 58 L 18 135/69 97 Room Air 11/13/23 08:02 36.6 C 67 20 160/97 H 95 Nasal Cannula 11/13/23 03:42 36.6 C 90 20 146/90 H 93 Room Air 11/13/23 01:15 66 25 H 93 11/13/23 01:06 66 18 93 11/13/23 01:03 66 11/13/23 00:57 65 16 144/82 H 95 Nasal Cannula 11/13/23 00:51 108 H 27 H 89 L 11/13/23 00:48 72 25 H 91 O2 Flow Rate 11/13/23 11:50 11/13/23 08:02 2 11/13/23 03:42 11/13/23 01:15 11/13/23 01:06 11/13/23 01:03 11/13/23 00:57 2 11/13/23 00:51 11/13/23 00:48 Laboratory Results Reviewed CBC Reviewed chemistries Diagnostic Findings Reviewed echocardiogram 11/13/2023 Interpretation summary: Left ventricular systolic function is normal. No regional wall motion abnormalities noted. There is borderline concentric left ventricular hypertrophy. Left ventricular ejection fraction= 55-60%. There is mild tricuspid regurgitation. Compared with study of 05/05/2023, no significant change. PG Care Time/CCT Total # of Minutes Spent Total Time Spent with Patient: Total time spent is greater than 50% in coordination of care (as documented) at patient's floor/unit and/or counseling patient: Coding Level of Care Code 51767 SUB INP/OBS CARE 2/35MIN Diagnoses Sudden visual loss of right eye H53.131 Stroke-like symptoms R29.90 Hyperlipidemia E78.5 Sleep apnea G47.30 Urinary incontinence, mixed N39.46
--- NOTE | 2023-11-13 13:29 | XCELERA ---
[id number] [id number]
[2023-11-13] MEDS: OXYBUTYNIN CHLORIDE XL 5 MG TABCR PO SCH (20:45)
[2023-11-13] MEDS: FEXOFENADINE HCL 180 MG TAB PO SCH (20:45)
[2023-11-13] MEDS: ATORVASTATIN 40 MG TAB PO SCH (20:46)
[2023-11-14 07:29] LABS: Basophils # (auto) 0.03 K/uL (0.00-0.20); Basophils % (auto) 0.3 %; Eosinophils # (auto) 0.03 K/uL (0.00-0.50); Eosinophils % (auto) 0.3 %; Hematocrit (blood only) 40.1 % (37.0-47.0); Immature Granulocytes # (auto) 0.04 K/uL (0.01-0.20); Immature Granulocytes % (auto) 0.4 %; Lymphocytes # (auto) 1.77 K/uL (1.20-3.40); Lymphocytes % (auto) 16.8 %; Mean Corpuscular Hgb Conc 32.4 g/dL (32.0-36.0); Mean Corpuscular Volume 89.5 fL (80.0-100.0); Mean Platelet Volume 10.8 fL (9.4-12.4); Monocytes # (auto) 0.66 K/uL (0.11-0.59); Monocytes % (auto) 6.3 %; Neutrophils # (auto) 7.99 K/uL (1.40-6.50); Neutrophils % (auto) 75.9 %; Platelet Count 198 K/uL (130-400); RDW Coefficient of Variation 13.6 % (11.5-14.5); RDW Standard Deviation 44.6 fL (36.4-46.3); Red Blood Count 4.48 M/uL (4.20-5.40); White Blood Count 10.52 K/ul (4.8-10.8)
[2023-11-14 07:48] LABS: Calcium 9.8 mg/dl (8.6-10.3); Potassium 4.2 mmol/L (3.5-5.1)
[2023-11-14 07:54] LABS: BUN Creatinine Ratio 25.6 (10-20); Est GFR (African American) 71.5 ml/min; Est GFR (Non-African American) 61.7 ml/min
[2023-11-14] MEDS: STROKE PATIENT DISCHARGE STA (12:48)
--- NOTE | 2023-11-14 15:09 | Discharge Summary ---
Discharge Summary Date of Service November 14, 2023 Principal Dx & Hospital Course #1 = Principal Diagnosis (1) Sudden visual loss of right eye: Patient presented with transient monocular visual loss, right side. History of intermittent sudden vision loss in the right eye over the past several months, but this is occurred twice in the 2 days prior to presenting to ED. - Patient described it as a "curtain coming down"; she then lost vision for approximately 2-hours during this episode - Suspect Amaurosis fugax - Follows with ophthalmology - Lipid panel WNL, A1c 6.0, CRP WNL on admission - Vision loss resolved. Patient did note some right-sided floaters in her visual field on 11/12, however resolved day of discharge. - Intermittent elevated calcium levels. Continue to monitor in outpatient setting for hyperparathyroidism. - Patient is to call business insurance agent to schedule follow-up appointment after discharge. (2) Stroke-like symptoms: Concern for decreased blood flow to the right eye secondary to embolism Clinically, patient denied slurred speech, facial droop, or unilateral deficits Head CT without acute finding Head/neck CTA without acute findings Brain MRI ordered without evidence of acute or subacute infarct Echocardiogram with bubble study 11/13/2023: EF= 55-60%. Compared with study from 04/2023, no significant change. (3) Hyperlipidemia: Continue atorvastatin 10 mg at night (4) Sleep apnea: Patient uses CPAP at night, but declines it while inpatient. (5) Urinary incontinence, mixed: Continue Gemtesa Contine To[facility] Plan CODE STATUS: Full code Notes For Next Care Provider Patient presented with transient monocular vision loss, right side. Self resolved. Extensive neurological and vascular workup negative. Patient is to follow-up with ophthalmology on discharge; she will call to schedule the appointment. Medication Changes From Visit None Admission HPI Per Admitting Provider Sara is a 78yo female with PMH of osteoporosis, urinary incontinence, GERD, sleep apnea, depression, anxiety, hyperlipidemia, HTN, and retinal artery occlusion. She presented at the behest of her PCP for a stroke workup on 11/11. Patient has had intermittent problems with her right eyes since March 2023, when she developed a "salt and pepper shade". Then beginning in June 2023, she has had intermittent loss of vision in her right eye. She describes it as like a "curtain" coming down of her eye. This intermittent loss of vision occurs for 2 hours at a time, before she regains vision. It was happening monthly, but she reports it recently happened twice in the past 2 days. Patient does follow with a retinal specialist, who was seen 2 days ago and performed an "IV test" to determine blood flow to her right eye; concerned that there was decreased blood flow. She was then sent in by her PCP. She denies history of stroke or strokelike symptoms such as slurred speech, facial droop, or unilateral deficits. No PMH of [place]. She has had an intermittent headache on the right side of the face, for which she has been taking Advil and Tylenol intermittently. She does not wear contacts. History of cataract surgery. Patient does use a CPAP at night; no other supplemental oxygen use. Patient has an allergy to dye, and cannot take prednisone. She denies tick bites, but does occasionally have heat rashes she denies smoking, tobacco use, and recent alcohol use. Patient's vitals are stable to admission. ED Course: Dexamethasone 10 mg IV NSS 1000 mL IV ROS: Patient endorses intermittent loss of vision in right eye, occasional blurriness in left eye, difficulty swallowing, lightheadedness when standing too quickly, night-sweats, dry mouth, dry cough, intermittent wheeze, occasional numbness/tingling in arms and legs, and urinary incontinence. Patient denies fever, chills, new body aches, tick bites, changes in hearing/taste/smell, chest pain, SOB, pleuritic CP, hemoptysis, abdominal pain, N/V/D, burning with urination, or changes in urinary/bowel habits. Admission Exam Per Admitting Provider General: no acute distress; non-toxic appearing; well-nourished; cooperative; SpO2 92% on RA HEENT: normocephalic, atraumatic; no scleral icterus; right sclera is mildly erythematous; PERRLA w/ EOMs intact, however EOMs do cause some dizziness; moist mucus membrane; vision and hearing intact Neck: supple; no lymphadenopathy; trachea midline; patient demonstrates ability to shrug shoulders against resistance and rotate neck without pain or dizziness Skin: warm, dry without signs of tenting; no cyanosis; no rashes, bruising, lesions, or erythema noted CV: chest wall NTP; RRR; S1/S2 normal; no murmurs/rubs/gallops; pulses intact and symmetric at radial, DP, and PT Lungs: no acute respiratory distress; symmetrical chest wall expansion; clear breath sounds across all lung lee w/o adventitious sounds; no wheezing ABD: Soft, NTP; BS present; no rebound/guarding; no distention MSK: no tics or fasciculations; nonpitting edema noted in the LEs b/l, nonerythematous Neuro: A&Ox3; normal mood and affect; slow, paused speech, but fluent; no facial droop; no focal deficits; sensation grossly intact and symmetric in the face/UEs/LEs b/l; negative pronator drift Discharge Exam General: No acute distress, nondiaphoretic, well-developed, well-nourished. HEENT: normocephalic, atraumatic; no scleral icterus; PERRLA w/ EOMs intact, moist mucus membrane; vision and hearing intact Skin: The skin was without rashes, erythema, or bruising. 1+ nonpitting edema noted in the LEs b/l, nonerythematous Cardiac: Regular rate and rhythm without murmurs gallops or rubs. Pulm: Clear to auscultation bilaterally without wheezes, rales or rhonchi. No retractions or accessory muscle use. Abdominal: Positive bowel sounds x 4. Soft, nontender, without masses or organomegaly. No guarding or rebound tenderness. Neuro: A&O x3. No focal neurological deficits. Updated Medication List Medication Instructions Recorded Confirmed Type magnesium aspartate-potassium 250 mg PO HS PRN leg cramps 03/03/18 11/12/23 History aspartate 250 mg-250 mg capsule multivitamin 1 tab PO HS 04/29/20 11/12/23 History cholecalciferol (vitamin D3) 25 2,000 unit PO HS 05/09/20 11/12/23 History mcg (1,000 unit) tablet (Vitamin D3) guaifenesin 600 mg tablet, 600 mg PO Q12H PRN Congestion 10/01/20 11/12/23 History extended release 12 hr (Mucinex) nystatin 100,000 unit/gram topical 1 unit topical BID PRN Rash #60 11/05/21 11/12/23 Rx powder grams atorvastatin 10 mg tablet (Lipitor) 5 mg (1/2 x 10 mg) PO HS #90 tabs 09/22/22 11/12/23 Rx fexofenadine 180 mg tablet 180 mg PO HS 09/22/22 11/12/23 History lisinopril 10 mg tablet 10 mg PO HS #90 tabs 03/25/23 11/12/23 Rx mometasone 50 mcg/actuation nasal 2 spray intranasal DAILY PRN 03/25/23 11/12/23 Rx spray Allergy Symptoms #17 grams venlafaxine 75 mg capsule,extended 75 mg PO HS #90 caps 03/25/23 11/12/23 Rx release 24 hr pilocarpine HCl 5 mg tablet 5 mg PO TID PRN DRY MOUTH PER PT 05/05/23 11/12/23 History solifenacin 10 mg tablet (Vesicare) 10 mg PO HS PRN .If runs out of 05/05/23 11/12/23 History toziaz ascorbic acid (vitamin C) 500 mg 500 mg PO HS 05/07/23 11/12/23 History tablet (Vitamin C) olopatadine 0.2 % eye drops 1 drp ophthalmic (eye) DAILY PRN 05/07/23 11/12/23 Rx (Pataday Once Daily Relief) itching #2.5 mL pantoprazole 20 mg tablet,delayed 40 mg (2 x 20 mg) PO HS #180 tabs 06/03/23 11/12/23 Rx release (Protonix) metoprolol succinate 25 mg 25 mg PO HS 06/27/23 11/12/23 History tablet,extended release 24 hr fesoterodine 8 mg tablet,extended 8 mg PO HS #30 tabs 07/19/23 11/12/23 Rx release 24 hr (Toviaz) beets chewable 1 tab PO HS 09/27/23 11/12/23 History venlafaxine 37.5 mg 37.5 mg PO DAILY PRN Anxiety #90 09/27/23 11/12/23 Rx capsule,extended release 24 hr caps vibegron 75 mg tablet (Gemtesa) 75 mg PO HS 11/12/23 11/12/23 History Hospital Stay Data Consultations 11/12/23 20:20 ED Decision to Admit Stat Diagnostic Imagining Performed Chest X-Ray 11/12/23 15:15 SINGLE VIEW CHEST CLINICAL HISTORY: Strokelike symptoms. FINDINGS: A PA chest radiograph is compared to study dated 1220 06. The examination is degraded by apical lordotic positioning. The heart is enlarged. The pulmonary vasculature is noncongested. Chronic interstitial thickening is similar to previous. Linear scarring/atelectasis is seen in the left lower lung. No airspace consolidation or pleural effusion is identified. No pneumothorax is seen. The bony thorax is grossly intact. Degenerative change and scoliosis is noted in the spine. Fusion hardware is noted in the lumbar spine. Surgical anchors are present in both humeral heads. Arthritic change is noted in the shoulders. IMPRESSION: Cardiomegaly with no active disease in the chest. ACT 112: Negative or not required by law. Electronically signed by: Vignesh Stevenson M.D. 11/12/2023 4:[address] 11/12/23 15:15 CT SCAN OF THE BRAIN WITHOUT IV CONTRAST CLINICAL HISTORY: Neurological deficit. Stroke like symptoms. COMPARISON STUDY: CT of the brain dated 06/28/2023. TECHNIQUE: Unenhanced axial CT scan of the brain is performed from the vertex to the skull base. A dose lowering technique was utilized adhering to the principles of ALARA. CT DOSE: 547.75 mGy.cm FINDINGS: Brain parenchyma: There is age-related involutional change noting mild subcortical and periventricular microangiopathic disease. There is no hemorrhage, mass effect, or evidence of acute territorial ischemia by CT criteria. Stephenson-white matter differentiation is preserved. No extra-axial fluid collection is seen. Ventricles, sulci, cisterns: Prominent secondary to involutional change. Intracranial vasculature: There is atherosclerotic calcification of the cavernous carotid and vertebral arteries. Calvarium: Unremarkable. Sinuses and mastoids: The visualized paranasal sinuses are clear. The mastoid air cells are well pneumatized. Orbits: The bony orbits are grossly intact. There are bilateral ocular lens implants. IMPRESSION: There is no hemorrhage, mass effect, or evidence of acute territorial ischemia by CT criteria. ACT 112: Negative or not required by law. Electronically signed by: Vignesh Stevenson M.D. 11/12/2023 4:18 PM Head CTA 11/12/23 18:58 Exam(s): CTA HEAD With Contrast IV Amt: 118 ml optiray 320 EXAM: CT Angiography Head With Intravenous Contrast CLINICAL HISTORY: Right eye vision changes, h/o right RAC. TECHNIQUE: Axial computed tomographic angiography images of the head with intravenous contrast. CTDI is 16.61 mGy and DLP is 439.5 mGy-cm. Automated exposure control was utilized for the study. A dose lowering technique was utilized adhering to the principles of ALARA. MIP reconstructed images were created and reviewed. CONTRAST: Patient received 118 ml optiray 320 of IV contrast COMPARISON: Noncontrast examination performed at 1557 hrs. FINDINGS: Right internal carotid artery: No acute findings. Intracranial segment is patent with no significant stenosis. No aneurysm. Right anterior cerebral artery: Unremarkable. No occlusion or significant stenosis. No aneurysm. Right middle cerebral artery: Unremarkable. No occlusion or significant stenosis. No aneurysm. Right posterior cerebral artery: Unremarkable. No occlusion or significant stenosis. No aneurysm. Right vertebral artery: Unremarkable as visualized. Left internal carotid artery: No acute findings. Intracranial segment is patent with no significant stenosis. No aneurysm. Left anterior cerebral artery: Unremarkable. No occlusion or significant stenosis. No aneurysm. Left middle cerebral artery: Unremarkable. No occlusion or significant stenosis. No aneurysm. Left posterior cerebral artery: Unremarkable. No occlusion or significant stenosis. No aneurysm. Left vertebral artery: The distal left vertebral artery is dominant and is widely patent. Basilar artery: Unremarkable. No occlusion or significant stenosis. No aneurysm. Brain: No abnormal parenchymal enhancement identified. IMPRESSION: Negative intracranial CTA examination. Electronically signed by: Albino Archibald MD 11/12/23 21:21 PM Neck CTA 11/12/23 18:58 Exam(s): CTA NECK With Contrast IV Amt: 118 ml optiray 320 EXAM: CT Angiography Neck With Intravenous Contrast CLINICAL HISTORY: Right eye vision changes, h/o right RAC. TECHNIQUE: Routine carotid CT angiography protocol was performed with intravenous contrast. NASCET criteria using the distal ICAs for comparison were used for evaluation of stenoses. CTDI is 16.61 mGy and DLP is 439.5 mGy-cm. Automated exposure control was utilized for the study. A dose lowering technique was utilized adhering to the principles of ALARA. MIP reconstructed images were created and reviewed. CONTRAST: Patient received 118 ml optiray 320 of IV contrast COMPARISON: CTA neck 06/27/2023 FINDINGS: VASCULATURE: Right common carotid artery: Unremarkable. No occlusion or significant stenosis. No dissection. Right internal carotid artery: Unremarkable. Extracranial segment is patent with no occlusion or significant stenosis. No dissection. Right external carotid artery: Unremarkable. No occlusion. Right vertebral artery: Unremarkable. No occlusion or significant stenosis. No dissection. Left common carotid artery: Unremarkable. No occlusion or significant stenosis. No dissection. Left internal carotid artery: Unremarkable. Extracranial segment is patent with no occlusion or significant stenosis. No dissection. Left external carotid artery: Unremarkable. No occlusion. Left vertebral artery: The left vertebral artery is dominant and is widely patent. No occlusion or significant stenosis. No dissection. Brachiocephalic and subclavian arteries: There is a type I branching pattern of the proximal great vessels without ostial stenosis. Aorta: The aortic arch is patent without dissection or aneurysm. NECK: Bones/joints: Unremarkable. No acute fracture. Soft tissues: Unremarkable. Lung apices: Clear. CAROTID STENOSIS REFERENCE USING NASCET CRITERIA: % ICA stenosis = (1 - narrowest ICA diameter/diameter of distal cervical ICA) x 100. Mild - <50% stenosis. Moderate - 50-69% stenosis. Severe - 70-94% stenosis. Near occlusion - 95-99% stenosis. Occluded - 100% stenosis. IMPRESSION: Negative cervical CTA examination. No alteration from the prior examination. Electronically signed by: Albino Archibald MD 11/12/23 21:26 PM Brain MRI 11/12/23 22:10 Exam(s): MRI HEAD Without Contrast EXAM: MR Head Without Intravenous Contrast CLINICAL HISTORY: Intermittent loss of vision in R eye. TECHNIQUE: Magnetic resonance images of the head/brain without intravenous contrast in multiple planes. COMPARISON: MRI without contrast dated 06/28/2023 FINDINGS: Brain: No intracranial hemorrhage. No mass-effect. Similar minimal punctate, hyperintense T2 foci, unchanged in appearance. Diffusion- weighted imaging is negative for acute or subacute infarct. The parenchyma is stable in appearance with similar morphology. Ventricles: Unremarkable. No ventriculomegaly. Bones/joints: The expected midline structures are stable and unremarkable on the sagittal T1 imaging. No acute fracture. Sinuses: Unremarkable as visualized. No acute sinusitis. Mastoid air cells: Unremarkable as visualized. No mastoid effusion. Orbits: Unremarkable as visualized. IMPRESSION: No evidence of acute or subacute infarct. No alteration from the prior examination. Electronically signed by: Albino Archibald MD 11/13/23 00:16 AM Pending Results Patient Have Any Pending Studies at Discharge: No Discharge Instructions Given to Patient (Per Discharging Provider) Mrs. Craven, Cristobal were admitted to the hospital because of the sudden vision loss in your right eye. You had an extensive workup including head CT, head/neck CTA, brain MRI, echocardiogram, and lab work which were all normal. This ruled out neurological or vascular causes for the vision loss. These episodes you have could potentially be due to idiopathic retinal vasospasm. The transient one- sided vision loss where it appears like a curtain is dropping down is suggestive of retinal ischemia. Upon discharge from the hospital: * Follow-up with ophthalmology and your PCP. You can call their offices to schedule your appointment date and time. * Continue your home medications as prescribed. There are no changes to your home medicines at this time. Please return to the hospital if you experience any of the following: Visual changes in 1 or both eyes, sudden loss of balance or coordination, sudden/severe headache, sudden weakness/tingling/numbness on one side of your body, slurred speech, sudden trouble walking, dizziness, lightheadedness, chest pain, shortness of breath, difficulty breathing, or passing out. It was a pleasure taking care of you while you were in the hospital, Mary Cummings PA-C Total Time Total Time Spent Total Time Spent (In Minutes): Greater than 30 minutes spent completing this discharge process including direct patient care, medication reconciliation, documentation, review of labs and images, and coordination of care. Coding Level of Care Code 85950 INP/OBS DISCH >30 MIN Diagnoses Sudden visual loss of right eye H53.131 Stroke-like symptoms R29.90 Hyperlipidemia E78.5 Sleep apnea G47.30 Urinary incontinence, mixed N39.46
== END 2023-11-14 12:51 | disposition home or self-care (01) | DRG 123 ==
LOC: ED 15:05 → SUATTDRO 22:21 → EDINP 22:21 → 2E 11-13 00:57

== ENCOUNTER 2024-12-01 15:51 | Inpatient (IN) ==
--- NOTE | 2024-12-01 16:02 | Emergency Department Note ---
Impression & Plan Abdominal pain, Ileus, Vomiting ED Provider Note NAME: TONE GOMEZ AGE: 79 SEX: F : 1945 ARRIVES VIA: Ambulance INFORMANT: Patient, ED PROVIDER(S): Ty Tomlinson DO CHIEF COMPLAINT: Abdominal pain HPI: Patient is a 79-year-old female with a past medical history of prediabetes, morbid obesity and hyperlipidemia with a previous history of cholecystectomy that presents to the ER for abdominal distention which has been worsening over the past month. She notes vomiting started today and her belly got significantly larger. She denies any headache or change in vision. No chest pain or shortness of breath. Admits to nausea and vomiting. Denies any dysuria, urgency, or frequency. No other exacerbating or remitting factors. ADDITIONAL HISTORY OBTAINED: Per HPI Chronic Medical/Social Conditions Affecting Care: Per HPI PAST MEDICAL HISTORY:See Below PAST SURGICAL HISTORY:See Below FAMILY HISTORY:See Below SOCIAL HISTORY:See Below HOME MEDICATIONS:See Below ALLERGIES:See Below VITALS:See Below PHYSICAL EXAMINATION: GENERAL: Sitting up in bed, alert, well appearing, well nourished, no distress, non-toxic EYE EXAM: normal conjunctiva. PERRL and EOM's grossly intact. OROPHARYNX: mucous membranes are moist NECK: supple, no nuchal rigidity, no adenopathy, non-tender LUNGS: Clear to auscultation. Normal chest wall mechanics HEART: no murmurs, S1 normal and S2 normal ABDOMEN: abdomen soft, distended, normo-active bowel sounds,no rebound or guarding. UPPER EXTREMITIES: upper extremities are grossly normal. LOWER EXTREMITIES: No pitting edema. NEURO EXAM: Normal sensorium, cranial nerves II-XII grossly intact, normal speech, no gross weakness of arms, no gross weakness of legs. MEDICAL DECISION MAKING: Patient is a 79-year-old female who presents ER for above-stated complaint. IV was established and blood work was obtained. Labs show no significant leukocytosis or anemia. BMP with slightly elevated BUN at 25. Lactate was normal. LFTs and bilirubin were unremarkable. CT abdomen pelvis showed suggested ileus and there is no obvious transition point for bowel obstruction. Patient was given Zofran and fluids. She was updated bedside. Discussed case with the hospitalist for further evaluation management treatment. Consults/Care Managements Discussions: Per [facility] Triage Nursing notes reviewed. Limited review of prior medical records performed Vital Signs: reviewed and remarkable for no significant abnormalities Differential diagnosis: Differential diagnoses includes but is not limited to gastritis, peptic ulcer disease, GERD, gallbladder disease, pancreatitis, small bowel obstruction, appendicitis, diverticulitis, hernia, urinary tract infection, torsion, [/ectopic (if female)], perforation, trauma, infectious. ER treatment provided: See below Diagnostics interpreted by me include EKG and cardiac monitoring as listed below: -Cardiac Monitoring: An order was placed for continuous cardiac monitoring. The monitor shows a rate of 70 with sinus rhythm. -ECG: none -Laboratory studies:Interpreted by me as stated above in MDM and shown below. Imaging studies: Xrays: As interpreted by me:none CTs show: CT abdomen pelvis per my pleurae interpretation showed multiple areas of dilated bowel CT abdomen pelvis per radiologist described above Procedures:none Critical Care: None Past Med/Surg History Problem List (Updated 12/01/24 @ 18:50 by Ty Tomlinson DO) Vomiting (Acute) Ileus (Acute) Ileus Abdominal pain (Acute) Morbid obesity Vreyysn-ekmjujr-mbhtcjcu syndrome Pre-diabetes Osteopenia Sudden visual loss of right eye (Acute) Palpitations with regular cardiac rhythm Essential (primary) hypertension (Acute) Hyperlipidemia Depression with anxiety Sleep apnea (Chronic) cpap > machine is currently away being serviced Chronic GERD Urinary incontinence, mixed (Chronic) Medical History Age related osteoporosis Exertional dyspnea History of central retinal artery occlusion Retinal artery occlusion, central Stroke-like symptoms History of anesthesia reaction had dizziness after spinal anesthesia Chronic back pain Urinary incontinence Carotid bruit Neg Carotid US, 09/2022 Surgical History History of cataract surgery LEFT History of lumbar spinal fusion L3, L4, L5 History of repair of left rotator cuff History of repair of right rotator cuff History of cholecystectomy History of tooth extraction partial upper History of wisdom tooth extraction History of tonsillectomy and adenoidectomy H/O colonoscopy 11/11 CT Colonography, Repeat 5 yrs Hx of appendectomy Family History Mother Diabetes Anxiety Depression Emphysema lung Lung disease Sister Ovarian cancer Osteoporosis Coronary heart disease Uterine cancer Myocardial infarction Heart disease Stroke Renal function impairment with growth failure Father Diabetes Family history of diabetes mellitus Other Breast cancer Colorectal cancer No family history of adverse response to anesthesia Denies family history of Prostate cancer Lung cancer Social History Smoking Status: Never smoker Tobacco Type: Cigarettes Age Started Using Tobacco: 21; Age Quit Using Tobacco: 41; packs per day: 0.5; Second Hand Exposure: No; Do You Dip or Chew Tobacco: No; Hx Alcohol Use: Yes Alcohol type: hard liquor and other Alcohol type Comment: wine coolers Alcohol Intake Frequency: Monthly or Less Hx Substance Use: No Preferred Language: Yakut Communication Ability: Effective Visual Impairment: Limited Hearing Ability: Normal Health And Fitness Professor Required: No Beliefs That Will Affect Care: None marital status: / Current Living Situation: Alone Current Living Situation Comment: apartment building> family close by current occupational status: retired How many Children do You have: 0 Feels Safe at Home: Yes Childhood Exposure to Second-Hand Smoke: Yes Diet: regular caffeine: Yes (alot of iced tea ) Dental Care, Regularly: Yes Physical Activity Frequency: Does not Exercise Seatbelt Use: always Sunscreen Use: No Assistive Devices: Cane, CPAP and Walker Allergies Allergies Allergy/AdvReac Type Severity Reaction Status Date / Time bee venom protein (honey bee) Allergy Severe swelling Verified 12/01/24 18:29 cephalexin Allergy Severe hives Verified 12/01/24 18:29 moxifloxacin Allergy Severe rash Verified 12/01/24 18:29 iodine Allergy Intermediate HIVES/ITCHI Verified 12/01/24 18:29 NG sulfamethoxazole Allergy Intermediate nausea, Verified 12/01/24 18:29 facial swelling hydrocodone Allergy Unknown unknown Verified 12/01/24 18:29 Penicillins Allergy Unknown unknown Verified 12/01/24 18:29 chlorpheniramine AdvReac Intermediate tremor Verified 12/01/24 18:29 [From Tussionex] etodolac AdvReac Intermediate nausea Verified 12/01/24 18:29 ibuprofen AdvReac Intermediate ULCER Verified 12/01/24 18:29 trimethoprim AdvReac Intermediate nausea Verified 06/29/24 14:55 Home Meds Home Medications Medication Instructions Recorded Confirmed multivitamin 1 tab PO HS 04/29/20 12/01/24 cholecalciferol (vitamin D3) 25 2,000 unit PO HS 05/09/20 12/01/24 mcg (1,000 unit) tablet (Vitamin D3) fexofenadine 180 mg tablet 180 mg PO HS 09/22/22 12/01/24 ascorbic acid (vitamin C) 500 mg 500 mg PO QAM 05/07/23 12/01/24 tablet (Vitamin C) Gemtesa 75 mg PO HS 12/01/24 12/01/24 aspirin 81 mg tablet,delayed 81 mg PO DAILY 12/01/24 12/01/24 release ketotifen fumarate 0.025 % (0.035 1 drp ophthalmic (eye) BID 12/01/24 12/01/24 %) eye drops (Alaway) vibegron 75 mg tablet (Gemtesa) 75 mg PO QPM 12/01/24 12/01/24 Previous Rx's Medication Instructions Recorded nystatin 100,000 unit/gram topical 1 unit topical BID PRN Rash #60 11/17/23 powder grams atorvastatin 10 mg tablet (Lipitor) 5 mg (1/2 x 10 mg) PO HS #90 tabs 04/27/24 fesoterodine 8 mg tablet,extended 8 mg PO HS #90 tabs 04/27/24 release 24 hr (Toviaz) lisinopril 10 mg tablet 10 mg PO HS #90 tabs 04/27/24 metoprolol succinate 25 mg 25 mg PO HS #90 tabs 04/27/24 tablet,extended release 24 hr pantoprazole 20 mg tablet,delayed 40 mg (2 x 20 mg) PO HS #180 tabs 04/27/24 release (Protonix) venlafaxine 75 mg capsule,extended 75 mg PO HS #90 caps 06/22/24 release 24 hr CPAP Machine #14 cm 07/03/24 Results & Data (ED) Vital Signs Vital Signs - 24 hr 12/01/24 16:01 12/01/24 16:01 12/01/24 16:25 Temperature 36.9 C Temperature Source Oral Pulse Rate 75 66 73 Pulse Rate [Apical] Pulse Rhythm Regular Respiratory Rate 16 20 Respiratory Effort / Characteristics Non-Labored Respiratory Depth Normal Blood Pressure 126/78 Blood Pressure Mean 94 Pulse Oximetry 94 92 Oxygen Delivery Method Room Air Room Air Oxygen Flow Rate Sepsis Recent Fever Within 48 Hours No Sepsis New/Unexplained Change in Mental Status N/A Sepsis Action Taken by Nursing No Action Required 12/01/24 17:06 12/01/24 17:09 12/01/24 18:46 Temperature Temperature Source Pulse Rate 71 Pulse Rate [Apical] 67 69 Pulse Rhythm Respiratory Rate 20 20 16 Respiratory Effort / Characteristics Non-Labored Spontaneous Respiratory Depth Normal Blood Pressure 137/76 Blood Pressure Mean Pulse Oximetry 88 L 96 93 Oxygen Delivery Method Room Air Nasal Cannula Nasal Cannula Oxygen Flow Rate 2 2 Sepsis Recent Fever Within 48 Hours Sepsis New/Unexplained Change in Mental Status Sepsis Action Taken by Nursing Laboratory Data 12/01/24 16:16 12/01/24 17:24 Lab Results 12/01/24 12/01/24 12/01/24 Range/Units 16:16 17:24 18:27 WBC 8.04 (4.8-10.8) K/ul RBC 5.28 (4.20-5.40) M/uL Hgb 15.2 (12.0-16.0) g/dl POC Hgb 16.0 (12.0-16.0) g/dl Hct 46.2 (37.0-47.0) % POC Hct 47 (37-47) % MCV 87.5 (80.0-100.0) fL MCH 28.8 (25.0-34.0) pg MCHC 32.9 (32.0-36.0) g/dL RDW Std Deviation 46.8 H (36.4-46.3) fL RDW Coeff of Praveen 14.5 (11.5-14.5) % Plt Count 241 (130-400) K/uL MPV 10.2 (9.4-12.4) fL Immature Gran % (Auto) 0.4 % Neut % (Auto) 75.3 % Lymph % (Auto) 14.1 % Nye % (Auto) 6.0 % Eos % (Auto) 3.6 % Baso % (Auto) 0.6 % Neut # (Auto) 6.06 (1.40-6.50) K/uL Lymph # (Auto) 1.13 L (1.20-3.40) K/uL Nye # (Auto) 0.48 (0.11-0.59) K/uL Eos # (Auto) 0.29 (0.00-0.50) K/uL Baso # (Auto) 0.05 (0.00-0.20) K/uL Immature Gran # (Auto) 0.03 (0.01-0.20) K/uL POC Sodium 140 (135-144) mmol/L Sodium TNP 141 POC Potassium 5.1 H (3.3-5.0) mmol/L Potassium TNP 4.1 POC Chloride 103 (101-112) mmol/L Chloride 101 (98-107) mmol/L Carbon Dioxide 32 (21-32) mmol/L POC Total CO2 31 (24-31) mmol/L Anion Gap TNP POC Anion Gap 13.0 L (16-25) mmol/L POC BUN 35 H (7-18) mg/dl BUN 25 H (6-23) mg/dl Creatinine 1.00 (0.6-1.2) mg/dl POC Creatinine 1.1 (0.6-1.3) mg/dl Est Cr Clr Drug Dosing 45.3 ml/min eGFR 57.66 BUN/Creatinine Ratio 25.0 H (10-20) Glucose 126 H (70-99(Fasting)) mg/dl POC Glucose (other) 125 H (70-99) mg/dl Lactate 1.2 (0.4-2.0) mmol/L Calcium 10.7 H (8.6-10.3) mg/dl POC Ioniz Calcium Sarah 1.12 (1.12-1.32) mmol/l Total Bilirubin 0.4 (0.2-1.0) mg/dl AST TNP 20 ALT 14 (7-52) U/L Alkaline Phosphatase 119 H (34-104) U/L Total Protein 8.8 H (6.0-8.3) gm/dl Albumin 4.6 (3.4-5.0) gm/dl Globulin 4.2 H (2.5-4.0) gm/dl Albumin/Globulin Ratio 1.1 (0.9-2) Lipase 16 (11-82) U/L 25-OH Vitamin D Total 42.6 (30-100) ng/ml Administered Medications Discontinued Medications Sodium Chloride (Nss) 1,000 mls @ 999 mls/hr IV .Q1H1M ONE Stop: 12/01/24 18:07 Last Admin: 12/01/24 17:12 Dose: 999 mls/hr Documented By: FELIPA Pantoprazole Sodium (Protonix) 40 mg in 10 mls @ 5 mls/min IV NOW STA Stop: 12/01/24 17:13 Last Admin: 12/01/24 17:39 Dose: 5 mls/min Documented By: JOY Ondansetron HCl (Ondansetron Inj 2 Mg/Ml 2 Ml Vial) 4 mg IV NOW STA Stop: 12/01/24 17:08 Last Admin: 12/01/24 17:12 Dose: 4 mg Documented By: FELIPA Imaging Data Radiologist's Impression: Abdomen/Pelvis CT 12/01/24 15:57 EXAMINATION: CT of the abdomen and pelvis performed without contrast TECHNIQUE: Helical CT images from the lung bases through the symphysis pubis were obtained without contrast. Coronal and sagittal reformatted images were generated at a workstation for further assessment. Dose reduction techniques were achieved by using automatic exposure control and/or adjustment of mA and/or kV according to patient size and/or use of iterative reconstruction technique. COMPARISON: None HISTORY: Abdominal pain FINDINGS: Lower chest: No consolidation. No pleural effusion or pneumothorax. Liver: No suspicious liver lesions. Gallbladder: Cholecystectomy. Spleen: Normal size. Pancreas: No suspicious pancreatic lesions. The pancreatic duct is not dilated. Adrenal glands: No adrenal nodules. Kidneys: No hydronephrosis or obstructing renal stones. Bladder / Pelvic organs: Unremarkable. Bowel: No bowel obstruction. No abnormal bowel wall thickening. The appendix is nonvisualized. Several gas distended and fluid-filled loops of small bowel, and stomach. The large bowel is mostly decompressed with minimal stool.. Lymph nodes: No retroperitoneal, mesenteric, or pelvic lymphadenopathy. Peritoneum / Retroperitoneum: No free fluid or air within the abdomen. Vessels: No infrarenal aortic aneurysm. Bones and soft tissues: No suspicious lesion in the bones. Fixation changes of the lumbar spine. IMPRESSION: Several fluid and gas distended loops of small bowel, without evidence for obstruction, suggestive of adynamic ileus. Electronically signed by Christiano Perkins 12-01-2024 4:58 PM Discharge Plan Visit Data Chief Complaint: Abdominal Pain Stated Complaint: AB PAIN & DISTENTION ED Provider: Ty Tomlinson Discharge Problem: Abdominal pain, Ileus, Vomiting Patient Disposition: Admitted As Inpatient Condition: Fair Discharge Instructions Interventions: ED Discharge Assessment Last Done: 12/01/24 18:46 Forms Stand Alone Forms: [employer] Prescriptions Prescriptions: No Action cholecalciferol (vitamin D3) [Vitamin D3] 25 mcg (1,000 unit) tablet 2,000 unit PO HS ascorbic acid (vitamin C) [Vitamin C] 500 mg tablet 500 mg PO QAM Patient Comments: Pt states she takes daily. Was previously listed as weekly. fesoterodine [Toviaz] 8 mg tablet extended release 24 hr 8 mg PO HS Qty: 90 3RF atorvastatin [Lipitor] 10 mg tablet 5 mg PO HS Qty: 90 3RF lisinopril 10 mg tablet 10 mg PO HS Qty: 90 3RF metoprolol succinate 25 mg tablet extended release 24 hr 25 mg PO HS Qty: 90 3RF pantoprazole [Protonix] 20 mg tablet,delayed release (DR/EC) 40 mg PO HS Qty: 180 3RF Rx Instructions: two 20 mg tablets venlafaxine 75 mg capsule,extended release 24hr 75 mg PO HS Qty: 90 3RF fexofenadine 180 mg tablet 180 mg PO HS nystatin 100,000 unit/gram powder 1 unit TOP BID PRN (Reason: Rash) Qty: 60 4RF (DME) CPAP Machine Misc See Rx Instructions .ROUTE .MEDSUPPLY Qty: 14 0RF Rx Instructions: New CPAP machine 14cm H20, tubing, filters, heated humidification, mask/supplies. ARIEL: 99-years multivitamin Tablet 1 tab PO HS aspirin [Aspir-81] 81 mg Tablet,Delayed Release (Dr/Ec) 81 mg PO DAILY ketotifen fumarate [Alaway] 0.025 % (0.035 %) Drops 1 drp ophthalmic (eye) BID Gemtesa 75 mg PO HS Gemtesa 75 mg tablet 75 mg PO QPM Referrals Referrals: Leobardo Richmond DO [Physician] - Discharge Problem: Abdominal pain Qualifiers: Abdominal location: unspecified location Qualified Code(s): R10.9 - Unspecified abdominal pain Vomiting Qualifiers: Vomiting type: unspecified Nausea presence: unspecified Qualified Code(s): R 11.10 - Vomiting, unspecified
[2024-12-01 16:27] LABS: Hematocrit (blood only) 46.2 % (37.0-47.0); Hemoglobin 15.2 g/dl (12.0-16.0); Immature Granulocytes # (auto) 0.03 K/uL (0.01-0.20); Immature Granulocytes % (auto) 0.4 %; Mean Corpuscular Hemoglobin 28.8 pg (25.0-34.0); Mean Corpuscular Volume 87.5 fL (80.0-100.0); Platelet Count 241 K/uL (130-400); RDW Standard Deviation 46.8 fL (36.4-46.3); Red Blood Count 5.28 M/uL (4.20-5.40); White Blood Count 8.04 K/ul (4.8-10.8)
[2024-12-01 16:57] LABS: Alanine Aminotransferase 14 U/L (7-52); Albumin Globulin Ratio 1.1 (0.9-2); Alkaline Phosphatase 119 U/L (34-104); Bilirubin,Total 0.4 mg/dl (0.2-1.0); Blood Urea Nitrogen 25 mg/dl (6-23); Calcium 10.7 mg/dl (8.6-10.3); Carbon Dioxide 32 mmol/L (21-32); Chloride 101 mmol/L (98-107); Creatinine Clr Calc Pharmacy 45.3 ml/min; Globulin 4.2 gm/dl (2.5-4.0); Glucose 126 mg/dl (70-99(Fasting)); Lipase 16 U/L (11-82); Total Protein 8.8 gm/dl (6.0-8.3)
--- NOTE | 2024-12-01 16:59 | CT Scan Report ---
EXAMINATION: CT of the abdomen and pelvis performed without contrast TECHNIQUE: Helical CT images from the lung bases through the symphysis pubis were obtained without contrast. Coronal and sagittal reformatted images were generated at a workstation for further assessment. Dose reduction techniques were achieved by using automatic exposure control and/or adjustment of mA and/or kV according to patient size and/or use of iterative reconstruction technique. COMPARISON: None HISTORY: Abdominal pain FINDINGS: Lower chest: No consolidation. No pleural effusion or pneumothorax. Liver: No suspicious liver lesions. Gallbladder: Cholecystectomy. Spleen: Normal size. Pancreas: No suspicious pancreatic lesions. The pancreatic duct is not dilated. Adrenal glands: No adrenal nodules. Kidneys: No hydronephrosis or obstructing renal stones. Bladder / Pelvic organs: Unremarkable. Bowel: No bowel obstruction. No abnormal bowel wall thickening. The appendix is nonvisualized. Several gas distended and fluid-filled loops of small bowel, and stomach. The large bowel is mostly decompressed with minimal stool.. Lymph nodes: No retroperitoneal, mesenteric, or pelvic lymphadenopathy. Peritoneum / Retroperitoneum: No free fluid or air within the abdomen. Vessels: No infrarenal aortic aneurysm. Bones and soft tissues: No suspicious lesion in the bones. Fixation changes of the lumbar spine. IMPRESSION: Several fluid and gas distended loops of small bowel, without evidence for obstruction, suggestive of adynamic ileus. Electronically signed by Christiano Perkins 12-01-2024 4:58 PM
[2024-12-01] MEDS: ONDANSETRON INJ 2 MG/ML 2 ML VIAL IV STA (17:12)
[2024-12-01] MEDS: SODIUM CHLORIDE 0.9% 1,000 ML IV ONE (17:12)
--- NOTE | 2024-12-01 17:17 | History & Physical Report ---
Date of Service December 01, 2024 Assessment & Plan (1) Abdominal pain: (2) Ileus: (3) Chronic GERD: (4) Pre-diabetes: (5) Essential (primary) hypertension: (6) Hyperlipidemia: (7) Depression with anxiety: (8) Sleep apnea: Plan #Abdominal pain- CTAP reading "adynamic ileus" however w/ symptoms and prior abdominal surgeries/adhesions suspect ileus but more likely partial SBO but reports passing gas. Pain primarily luq/eipgastic in nature. Hb not low, Cr 1.0, slight elevation of BUN. Ca 10.7. Hx appendectomy/adhesions/open cholecystectomy in the past. Admit med w/ tele NGT ordered IVF hydration, checking lactic Pain control Antiemetics as needed Maintain NPO Surgery consulted, appreciate recs/assistance Monitor labs/electrolytes on repeat, check TSH w/ AM labs KUB for AM ordered #GERD - continue PPI but make IV BID. Check mag. NGT as above #Hypercalcemia- suspected 2nd to above/dehydration, on Vit D supplementation. Ionized ca wnl. Vit D added to labs and monitor chemistries in AM #KATHE - CPAP HS #Mood - resume effexor once able to take PO #HTN- BP stable/lower side in ER. IVF hydration has been ordered. Hold home metoprolol 25mg HS, lisinopril 10mg HS while NPO. Monitor to resume #Hypoxia- stable on 2L, suspect from abdominal distension. Monitor in f/u w/ decompression w/ NGT and tx above. Supplemental O2 as needed and ordered incentive spirometry DVT proph: SCDs ordered, defer chemoproph w/ hx ulcer (no bleeding reported) and continues on PPI BID but if remains inpatient can add Dispo: admission for hopeful conservative management of above, suspect able to dc in 24-48hr pending course Updated niece via phone on admission in room with patient. History of Present Illness Chief Complaint: abdominal pain, SBO vs ileus Primary Care Provider: NO PCP 79yo female with PMHx significant for GERD, obesity, KATHE, HTN, depression/anxiety, pre-DM presented for abdominal pain, worsening over the past month with associated nausea and now vomiting starting today with increased abdominal distension. CTAP noting "adynamic ileus" however patient appears to have s/sx consistent w/ at least partial SBO likely on basis of adhesions and suspected dehydration on exam. Seen in A12B, resting in bed. Significant abdominal distension but denies overt pain at this time but does have epigastric discomfort. Reports vomiting prior to arrival, brown in color, no blood reported. Reports UTD on c-scopes until told no longer needing to have done. Reports hx appendectomy in the 60s and had some adhesions that were "massaged", also has large incisional scar from open cholecystectomy and discussed suspect 2nd to adhesions. Last BM yesterday, is careful what she eats. Has been having some chills in the evening, denies urinary symptoms/frequency but needing to urinate and uses pad at baseline, nursing can utilize purewick as needed. Discussed NGT, never had in the past but was agreeable to such for decompression. Reports passing gas, thinks might have start of diarrhea. Discussed admission for IVF hydration, bowel rest, NGT placement and conservative treatment but will have surgery follow along. ER Course: CTAP as noted. Is s/p 1L NSS, on 2L NC supplementation and lungs diminished but suspect 2nd to significantly increased abdominal distension. WBC 8k on admission. Stable Cr 1.0 but BUN elevated to 25. K TNP and recollection ordered. Ca notable elevated 10.7 and has been elevated in the past. No personal hx ca, as above w/ UTD c-scopes. Sister w/ EVENTS ASSISTANT cancer but unsure ovarian/uterine/etc. Protonix IVP x 1 ordered Full Code. Questions/concerns addressed at this time. Allergies Allergy/AdvReac Type Severity Reaction Status Date / Time bee venom protein (honey bee) Allergy Severe swelling Verified 06/29/24 14:55 cephalexin Allergy Severe hives Verified 06/29/24 14:55 moxifloxacin Allergy Severe rash Verified 06/29/24 14:55 iodine Allergy Intermediate HIVES/ITCHI Verified 06/29/24 14:55 NG sulfamethoxazole Allergy Intermediate nausea, Verified 06/29/24 14:55 facial swelling hydrocodone Allergy Unknown unknown Verified 06/29/24 14:55 Penicillins Allergy Unknown unknown Verified 06/29/24 14:55 chlorpheniramine AdvReac Intermediate tremor Verified 06/29/24 14:55 [From Tussionex] etodolac AdvReac Intermediate nausea Verified 06/29/24 14:55 ibuprofen AdvReac Intermediate ULCER Verified 06/29/24 14:55 trimethoprim AdvReac Intermediate nausea Verified 06/29/24 14:55 Home Medications Medication Instructions Recorded Confirmed Type multivitamin 1 tab PO HS 04/29/20 06/29/24 History cholecalciferol (vitamin D3) 25 2,000 unit PO HS 05/09/20 06/29/24 History mcg (1,000 unit) tablet (Vitamin D3) guaifenesin 600 mg tablet, 600 mg PO Q12H PRN Congestion 10/01/20 06/29/24 History extended release 12 hr (Mucinex) fexofenadine 180 mg tablet 180 mg PO HS 09/22/22 06/29/24 History ascorbic acid (vitamin C) 500 mg 500 mg PO HS 05/07/23 06/29/24 History tablet (Vitamin C) nystatin 100,000 unit/gram topical 1 unit topical BID PRN Rash #60 11/17/23 06/29/24 Rx powder grams ketotifen fumarate [Alaway] 1 drp ophthalmic (eye) BID 12/20/23 06/29/24 History atorvastatin 10 mg tablet (Lipitor) 5 mg (1/2 x 10 mg) PO HS #90 tabs 04/27/24 06/29/24 Rx fesoterodine 8 mg tablet,extended 8 mg PO HS #90 tabs 04/27/24 06/29/24 Rx release 24 hr (Toviaz) lisinopril 10 mg tablet 10 mg PO HS #90 tabs 04/27/24 06/29/24 Rx metoprolol succinate 25 mg 25 mg PO HS #90 tabs 04/27/24 06/29/24 Rx tablet,extended release 24 hr pantoprazole 20 mg tablet,delayed 40 mg (2 x 20 mg) PO HS #180 tabs 04/27/24 06/29/24 Rx release (Protonix) vibegron 75 mg tablet (Gemtesa) 75 mg PO HS #90 tabs 04/27/24 06/29/24 Rx venlafaxine 75 mg capsule,extended 75 mg PO HS #90 caps 06/22/24 06/29/24 Rx release 24 hr mometasone 50 mcg/actuation nasal 2 spray intranasal DAILY PRN 06/29/24 06/29/24 Rx spray Allergy Symptoms #17 grams CPAP Machine #14 cm 02/10/25 02/10/25 Rx Past Med/Surg History Problem List (Updated 12/01/24 @ 17:56 by Jane Pulido PA-C) Ileus Abdominal pain Morbid obesity Ekuuoaq-elccsni-nzvhnbfm syndrome Pre-diabetes Osteopenia Sudden visual loss of right eye (Acute) Palpitations with regular cardiac rhythm Essential (primary) hypertension (Acute) Hyperlipidemia Depression with anxiety Sleep apnea (Chronic) cpap > machine is currently away being serviced Chronic GERD Urinary incontinence, mixed (Chronic) Medical History Age related osteoporosis Exertional dyspnea History of central retinal artery occlusion Retinal artery occlusion, central Stroke-like symptoms History of anesthesia reaction had dizziness after spinal anesthesia Chronic back pain Urinary incontinence Carotid bruit Neg Carotid US, 09/2022 Surgical History History of cataract surgery LEFT History of lumbar spinal fusion L3, L4, L5 History of repair of left rotator cuff History of repair of right rotator cuff History of cholecystectomy History of tooth extraction partial upper History of wisdom tooth extraction History of tonsillectomy and adenoidectomy H/O colonoscopy 11/11 CT Colonography, Repeat 5 yrs Hx of appendectomy Family History Mother Diabetes Anxiety Depression Emphysema lung Lung disease Sister Ovarian cancer Osteoporosis Coronary heart disease Uterine cancer Myocardial infarction Heart disease Stroke Renal function impairment with growth failure Father Diabetes Family history of diabetes mellitus Other Breast cancer Colorectal cancer No family history of adverse response to anesthesia Denies family history of Prostate cancer Lung cancer Social History Smoking Status: Never smoker Tobacco Type: Cigarettes Age Started Using Tobacco: 21; Age Quit Using Tobacco: 41; packs per day: 0.5; Second Hand Exposure: No; Do You Dip or Chew Tobacco: No; Hx Alcohol Use: Yes Alcohol type: hard liquor and other Alcohol type Comment: wine coolers Alcohol Intake Frequency: Monthly or Less Hx Substance Use: No Preferred Language: Sinhala Communication Ability: Effective Visual Impairment: Limited Hearing Ability: Normal Nurse Rn Bsn Required: No Beliefs That Will Affect Care: None marital status: / Current Living Situation: Alone Current Living Situation Comment: apartment building> family close by current occupational status: retired How many Children do You have: 0 Feels Safe at Home: Yes Childhood Exposure to Second-Hand Smoke: Yes Diet: regular caffeine: Yes (alot of iced tea ) Dental Care, Regularly: Yes Physical Activity Frequency: Does not Exercise Seatbelt Use: always Sunscreen Use: No Assistive Devices: Cane, CPAP and Walker Physical Exam Physical Exam: General 79yo female laying in hospital bed in ER, NAD, on 2L NC Head atraumatic, normocephalic, mm DRY, trachea midline Resp; diminished in the bases with bibasilar crackles but no wheezing/rales, on 2L NC CV; regular, faint systolic murmur but no significant m/r/g, no pitting edema/calf tenderness GI: +BS, slightly slow throughout upper abdominal lee,+distension, +tenderness to palpation epigastic region/stomach, no rigidity/guarding, prior large incisional scar from GB removal noted, also note RLQ appendectomy scar no alvarez, needing to void MSK/Neuro: not confused, able to follow commands, no slurred speech/facial droop Psych: AOx3, cooperative with exam Results & Data Results & Data Vital Signs (Past 12 Hours) Vital Signs Temp Pulse Pulse Resp BP Pulse Ox O2 Del Method 12/01/24 17:09 69 20 96 Nasal Cannula 12/01/24 17:06 67 20 88 L Room Air 12/01/24 16:25 73 12/01/24 16:01 66 20 92 Room Air 12/01/24 16:01 36.9 C 75 16 126/78 94 Room Air O2 Flow Rate 12/01/24 17:09 2 12/01/24 17:06 12/01/24 16:25 12/01/24 16:01 12/01/24 16:01 Laboratory Results 12/01/24 12/01/24 Range/Units 17:24 16:16 WBC 8.04 (4.8-10.8) K/ul RBC 5.28 (4.20-5.40) M/uL Hgb 15.2 (12.0-16.0) g/dl POC Hgb 16.0 (12.0-16.0) g/dl Hct 46.2 (37.0-47.0) % POC Hct 47 (37-47) % MCV 87.5 (80.0-100.0) fL MCH 28.8 (25.0-34.0) pg MCHC 32.9 (32.0-36.0) g/dL RDW Std Deviation 46.8 H (36.4-46.3) fL RDW Coeff of Praveen 14.5 (11.5-14.5) % Plt Count 241 (130-400) K/uL MPV 10.2 (9.4-12.4) fL Immature Gran % (Auto) 0.4 % Neut % (Auto) 75.3 % Lymph % (Auto) 14.1 % Stephenson % (Auto) 6.0 % Eos % (Auto) 3.6 % Baso % (Auto) 0.6 % Neut # (Auto) 6.06 (1.40-6.50) K/uL Lymph # (Auto) 1.13 L (1.20-3.40) K/uL Stephenson # (Auto) 0.48 (0.11-0.59) K/uL Eos # (Auto) 0.29 (0.00-0.50) K/uL Baso # (Auto) 0.05 (0.00-0.20) K/uL Immature Gran # (Auto) 0.03 (0.01-0.20) K/uL POC Sodium 140 (135-144) mmol/L Sodium 141 TNP POC Potassium 5.1 H (3.3-5.0) mmol/L Potassium 4.1 TNP POC Chloride 103 (101-112) mmol/L Chloride 101 (98-107) mmol/L Carbon Dioxide 32 (21-32) mmol/L POC Total CO2 31 (24-31) mmol/L Anion Gap TNP POC Anion Gap 13.0 L (16-25) mmol/L POC BUN 35 H (7-18) mg/dl BUN 25 H (6-23) mg/dl Creatinine 1.00 (0.6-1.2) mg/dl POC Creatinine 1.1 (0.6-1.3) mg/dl Est Cr Clr Drug Dosing 45.3 ml/min eGFR 57.66 BUN/Creatinine Ratio 25.0 H (10-20) Glucose 126 H (70-99(Fasting)) mg/dl POC Glucose (other) 125 H (70-99) mg/dl Calcium 10.7 H (8.6-10.3) mg/dl POC Ioniz Calcium Sarah 1.12 (1.12-1.32) mmol/l Total Bilirubin 0.4 (0.2-1.0) mg/dl AST 20 TNP ALT 14 (7-52) U/L Alkaline Phosphatase 119 H (34-104) U/L Total Protein 8.8 H (6.0-8.3) gm/dl Albumin 4.6 (3.4-5.0) gm/dl Globulin 4.2 H (2.5-4.0) gm/dl Albumin/Globulin Ratio 1.1 (0.9-2) Lipase 16 (11-82) U/L 25-OH Vitamin D Total Pending Diagnostic Findings Abdomen/Pelvis CT 12/01/24 15:57 EXAMINATION: CT of the abdomen and pelvis performed without contrast TECHNIQUE: Helical CT images from the lung bases through the symphysis pubis were obtained without contrast. Coronal and sagittal reformatted images were generated at a workstation for further assessment. Dose reduction techniques were achieved by using automatic exposure control and/or adjustment of mA and/or kV according to patient size and/or use of iterative reconstruction technique. COMPARISON: None HISTORY: Abdominal pain FINDINGS: Lower chest: No consolidation. No pleural effusion or pneumothorax. Liver: No suspicious liver lesions. Gallbladder: Cholecystectomy. Spleen: Normal size. Pancreas: No suspicious pancreatic lesions. The pancreatic duct is not dilated. Adrenal glands: No adrenal nodules. Kidneys: No hydronephrosis or obstructing renal stones. Bladder / Pelvic organs: Unremarkable. Bowel: No bowel obstruction. No abnormal bowel wall thickening. The appendix is nonvisualized. Several gas distended and fluid-filled loops of small bowel, and stomach. The large bowel is mostly decompressed with minimal stool.. Lymph nodes: No retroperitoneal, mesenteric, or pelvic lymphadenopathy. Peritoneum / Retroperitoneum: No free fluid or air within the abdomen. Vessels: No infrarenal aortic aneurysm. Bones and soft tissues: No suspicious lesion in the bones. Fixation changes of the lumbar spine. IMPRESSION: Several fluid and gas distended loops of small bowel, without evidence for obstruction, suggestive of adynamic ileus. Electronically signed by Christiano Perkins 12-01-2024 4:58 PM PG Care Time/CCT Total # of Minutes Spent Total Time Spent with Patient: Total time spent is greater than 50% in coordination of care (as documented) at patient's floor/unit and/or counseling patient: Coding Level of Care Code 99049 INT INP/OBS CARE 375MIN Diagnoses Abdominal pain R10.9 Ileus K56.7 Chronic GERD K21.9 Pre-diabetes R73.03 Essential (primary) hypertension I10 Hyperlipidemia E78.5 Depression with anxiety F41.8 Sleep apnea G47.30
[2024-12-01] MEDS: PANTOprazole 40 MG/10 ML SYR IV STA (17:39)
[2024-12-01 17:53] LABS: Potassium 4.1 mmol/L (3.5-5.1); Sodium 141.0 mmol/L (136-145)
[2024-12-01] MEDS ORDERED: ACETAMINOPHEN 1,000 MG/100 ML VIAL IV PRN (19:28)
[2024-12-01] MEDS ORDERED: MoRPHine SULFATE 2 MG/ML CARP IV PRN (19:28)
[2024-12-01] MEDS: D5W AND NSS 1,000 ML IV SCH (19:42)
[2024-12-01] MEDS: VENLAFAXINE HCL XR 75 MG CAPXR NG SCH (19:48)
--- NOTE | 2024-12-01 20:52 | Surgery Consultation ---
Date of Consultation December 01, 2024 Assessment & Plan (1) Ileus: Patient is a 79-year-old female presented to the emergency department earlier this afternoon for complaints of abdominal pain distention. Patient states over the past month she has had worsening abdominal distention and nausea, however today did start to have episodes of vomiting which prompted her to come to the emergency department. Patient's CT imaging with results of fluid and gas distended loops of small bowel without obstruction, suggestive of adynamic ileus. Patient was seen and evaluated this evening and at this time her symptoms have seemed to improved, she denies any nausea or vomiting and she is passing gas and did have some diarrhea. From a surgical standpoint, recommend the following: -Conservative management at this time, continue NPO and IV fluid hydration. -Can hold off on NGT placement at this time however I did discuss with the patient if she becomes symptomatic overnight she will require NGT placement for bowel decompression -KUB in the morning -Continue medical management per primary team, surgery will follow History of Present Illness Reason for Consultation: adynamic ileus History of Present Illness Patient is a 79-year-old female presented to the emergency department earlier this afternoon for complaints of abdominal pain distention. Patient states over the past month she has had worsening abdominal distention and nausea, however today did start to have episodes of vomiting which prompted her to come to the emergency department. Patient states that along with the vomiting she noticed her distention also had gotten significantly worse today compared to previously. The patient was worked up and underwent CT imaging with results of fluid and gas distended loops of small bowel without obstruction, suggestive of adynamic ileus. The patient was admitted to the medical service and general surgery was consulted for further evaluation. The patient was seen and evaluated this evening at bedside, she is resting comfortably in bed, VSS, and states her pain and distention has improved at this time. She denies any nausea or vomiting and is passing gas and did have an e pisode of diarrhea since being in the hospital. In the emergency room they did attempt to place an NGT however was unsuccessful. The patient states she does have a surgical history of an open cholecystectomy and open appendectomy back in the 70s. Allergies Allergy/AdvReac Type Severity Reaction Status Date / Time bee venom protein (honey bee) Allergy Severe swelling Verified 12/01/24 18:29 cephalexin Allergy Severe hives Verified 12/01/24 18:29 moxifloxacin Allergy Severe rash Verified 12/01/24 18:29 iodine Allergy Intermediate HIVES/ITCHI Verified 12/01/24 18:29 NG sulfamethoxazole Allergy Intermediate nausea, Verified 12/01/24 18:29 facial swelling hydrocodone Allergy Unknown unknown Verified 12/01/24 18:29 Penicillins Allergy Unknown unknown Verified 12/01/24 18:29 chlorpheniramine AdvReac Intermediate tremor Verified 12/01/24 18:29 [From [facility]] etodolac AdvReac Intermediate nausea Verified 12/01/24 18:29 ibuprofen AdvReac Intermediate ULCER Verified 12/01/24 18:29 trimethoprim AdvReac Intermediate nausea Verified 06/29/24 14:55 Home Medications Medication Instructions Recorded Confirmed Type multivitamin 1 tab PO HS 04/29/20 12/01/24 History cholecalciferol (vitamin D3) 25 2,000 unit PO HS 05/09/20 12/01/24 History mcg (1,000 unit) tablet (Vitamin D3) fexofenadine 180 mg tablet 180 mg PO HS 09/22/22 12/01/24 History ascorbic acid (vitamin C) 500 mg 500 mg PO QAM 05/07/23 12/01/24 History tablet (Vitamin C) nystatin 100,000 unit/gram topical 1 unit topical BID PRN Rash #60 11/17/23 12/01/24 Rx powder grams atorvastatin 10 mg tablet (Lipitor) 5 mg (1/2 x 10 mg) PO HS #90 tabs 04/27/24 12/01/24 Rx fesoterodine 8 mg tablet,extended 8 mg PO HS #90 tabs 04/27/24 12/01/24 Rx release 24 hr (Toviaz) lisinopril 10 mg tablet 10 mg PO HS #90 tabs 04/27/24 12/01/24 Rx metoprolol succinate 25 mg 25 mg PO HS #90 tabs 04/27/24 12/01/24 Rx tablet,extended release 24 hr pantoprazole 20 mg tablet,delayed 40 mg (2 x 20 mg) PO HS #180 tabs 04/27/24 12/01/24 Rx release (Protonix) venlafaxine 75 mg capsule,extended 75 mg PO HS #90 caps 06/22/24 12/01/24 Rx release 24 hr CPAP Machine #14 cm 07/03/24 07/03/24 Rx Gemtesa 75 mg PO HS 12/01/24 12/01/24 History aspirin 81 mg tablet,delayed 81 mg PO DAILY 12/01/24 12/01/24 History release ketotifen fumarate 0.025 % (0.035 1 drp ophthalmic (eye) BID 12/01/24 12/01/24 History %) eye drops (Alaway) vibegron 75 mg tablet (Gemtesa) 75 mg PO QPM 12/01/24 12/01/24 History Patient History Medical History Age related osteoporosis Exertional dyspnea History of central retinal artery occlusion Retinal artery occlusion, central Stroke-like symptoms History of anesthesia reaction had dizziness after spinal anesthesia Chronic back pain Urinary incontinence Carotid bruit Neg Carotid US, 09/2022 Surgical History History of cataract surgery LEFT History of lumbar spinal fusion L3, L4, L5 History of repair of left rotator cuff History of repair of right rotator cuff History of cholecystectomy History of tooth extraction partial upper History of wisdom tooth extraction History of tonsillectomy and adenoidectomy H/O colonoscopy 11/11 CT Colonography, Repeat 5 yrs Hx of appendectomy Family History Mother Diabetes Anxiety Depression Emphysema lung Lung disease Sister Ovarian cancer Osteoporosis Coronary heart disease Uterine cancer Myocardial infarction Heart disease Stroke Renal function impairment with growth failure Father Diabetes Family history of diabetes mellitus Other Breast cancer Colorectal cancer No family history of adverse response to anesthesia Denies family history of Prostate cancer Lung cancer Social History Smoking Status: Former smoker Tobacco Type: Cigarettes Age Started Using Tobacco: 21; Age Quit Using Tobacco: 41; packs per day: 0.5; Second Hand Exposure: No; Do You Dip or Chew Tobacco: No; Hx Alcohol Use: Yes Alcohol type: hard liquor and other Alcohol type Comment: wine coolers Alcohol Intake Frequency: Monthly or Less Hx Substance Use: No Preferred Language: Amharic Communication Ability: Effective Visual Impairment: Limited Hearing Ability: Normal 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 Beliefs That Will Affect Care: None marital status: / Current Living Situation: Personal Care Facility Current Living Situation Comment: [facility] current occupational status: retired How many Children do You have: 0 Other Information That Helps Us Care for You: No Feels Safe at Home: Yes Safety Concerns: Feels Safe At This Time Childhood Exposure to Second-Hand Smoke: Yes Diet: regular caffeine: Yes (alot of iced tea ) Dental Care, Regularly: Yes Physical Activity Frequency: Does not Exercise Seatbelt Use: always Sunscreen Use: No Assistive Devices: CPAP and Glasses Assistive Devices Comment: reading glasses Review of Systems Constitutional: no fever, no chills and no weakness Respiratory: no cough and no chest congestion Cardiovascular: no chest pain, no palpitations and no syncope Gastrointestinal: + abdominal pain, + nausea and + vomitin g Genitourinary: no dysuria, no hematuria and no flank pain Physical Exam Constitutional: WD/WN, vitals as above Respiratory: normal respiratory effort, lungs clear to auscultation Cardiovascular: Rate/Rhythm: regular rate Gastrointestinal (Abdomen): Abdomen soft, +moderately distended, nontender to palpation. Old surgical scars in the right upper and lower quadrants No rebound, guarding or signs of peritonitis Skin: no rashes, warm and dry Psychiatric: A+Ox3, euthymic affect Results & Data Vital Signs (Past 12 Hours) Vital Signs Temp Pulse Pulse Resp BP Pulse Ox O2 Del Method 12/01/24 18:46 71 16 137/76 93 Nasal Cannula 12/01/24 17:09 69 20 96 Nasal Cannula 12/01/24 17:06 67 20 88 L Room Air 12/01/24 16:25 73 12/01/24 16:01 66 20 92 Room Air 12/01/24 16:01 36.9 C 75 16 126/78 94 Room Air O2 Flow Rate 12/01/24 18:46 2 12/01/24 17:09 2 12/01/24 17:06 12/01/24 16:25 12/01/24 16:01 12/01/24 16:01 Diagnostic Findings EXAMINATION: CT of the abdomen and pelvis performed without contrast TECHNIQUE: Helical CT images from the lung bases through the symphysis pubis were obtained without contrast. Coronal and sagittal reformatted images were generated at a workstation for further assessment. Dose reduction techniques were achieved by using automatic exposure control and/or adjustment of mA and/or kV according to patient size and/or use of iterative reconstruction technique. COMPARISON: None HISTORY: Abdominal pain FINDINGS: Lower chest: No consolidation. No pleural effusion or pneumothorax. Liver: No suspicious liver lesions. Gallbladder: Cholecystectomy. Spleen: Normal size. Pancreas: No suspicious pancreatic lesions. The pancreatic duct is not dilated. Adrenal glands: No adrenal nodules. Kidneys: No hydronephrosis or obstructing renal stones. Bladder / Pelvic organs: Unremarkable. Bowel: No bowel obstruction. No abnormal bowel wall thickening. The appendix is nonvisualized. Several gas distended and fluid-filled loops of small bowel, and stomach. The large bowel is mostly decompressed with minimal stool.. Lymph nodes: No retroperitoneal, mesenteric, or pelvic lymphadenopathy. Peritoneum / Retroperitoneum: No free fluid or air within the abdomen. Vessels: No infrarenal aortic aneurysm. Bones and soft tissues: No suspicious lesion in the bones. Fixation changes of the lumbar spine. IMPRESSION: Several fluid and gas distended loops of small bowel, without evidence for obstruction, suggestive of adynamic ileus. Electronically signed by Christiano Perkins 12-01-2024 4:58 PM PG Care Time/CCT Total # of Minutes Spent Total Time Spent with Patient: Total time spent is greater than 50% in coordination of care (as documented) at patient's floor/unit and/or counseling patient: [place] [address] INT INP/OBS CARE 1/40MIN Patient Type New Medical Decision Making Straight Forward Diagnoses Ileus K56.7
[2024-12-01] MEDS: PANTOprazole 40 MG/10 ML SYR IV SCH (21:15)
[2024-12-02 07:50] LABS: Hematocrit (blood only) 35.3 % (37.0-47.0); Hemoglobin 11.6 g/dl (12.0-16.0); Mean Corpuscular Hemoglobin 29.7 pg (25.0-34.0); Mean Corpuscular Volume 90.5 fL (80.0-100.0); Platelet Count 184 K/uL (130-400); RDW Standard Deviation 48.5 fL (36.4-46.3); Red Blood Count 3.90 M/uL (4.20-5.40); White Blood Count 6.58 K/ul (4.8-10.8)
[2024-12-02 08:01] LABS: Anion Gap 2.0 (3-11); Blood Urea Nitrogen 17.0 mg/dl (6-23); Calcium 8.6 mg/dl (8.6-10.3); Carbon Dioxide 28.0 mmol/L (21-32); Chloride 112.0 mmol/L (98-107); Creatinine Clr Calc Pharmacy 53.7 ml/min; Glucose 127.0 mg/dl (70-99(Fasting)); Magnesium 1.9 mg/dl (1.7-2.4); Potassium 4.0 mmol/L (3.5-5.1); Sodium 142.0 mmol/L (136-145)
--- NOTE | 2024-12-02 09:24 | Surgery Progress Note ---
Date of Service December 02, 2024 Assessment & Plan (1) Ileus: Plan: no surgical issues apparent. clinically improved. will start clears. may need bowel regiment at discharge. Admission and Anticipated Discharge Date Admission Date: December 01, 2024 Subjective pt seen. feeling well. +bm overnight. much less distended. no nausea. Physical Exam Constitutional: WD/WN, vitals as above no acute distress and not ill appearing Eyes: PERRL, conjunctivae normal, anicteric sclerae EOM intact bilaterally ENMT: external ear and nose normal, oropharynx normal Ears: no hearing impairment Neck: trachea midline, no thyromegaly Respiratory: normal respiratory effort; no respiratory distress and does not use accessory muscles Cardiovascular: Rate/Rhythm: regular rate and regular rhythm Gastrointestinal (Abdomen): soft. non-distended. +bs's. non-tender Skin: no rashes, warm and dry Psychiatric: Orientation: alert, oriented x 3 and cooperative Results & Data Vital Signs (Past 12 Hours) Vital Signs Temp Pulse Pulse Resp BP BP Pulse Ox 12/02/24 08:36 12/02/24 07:41 36.5 C 57 L 16 129/65 97 12/02/24 07:14 64 12/02/24 03:02 36.4 C L 58 L 16 127/77 97 12/01/24 21:54 36.7 C 69 18 114/75 97 12/01/24 21:47 68 O2 Del Method O2 Flow Rate 12/02/24 08:36 Nasal Cannula 2 12/02/24 07:41 Nasal Cannula 2 12/02/24 07:14 12/02/24 03:02 Nasal Cannula 2 12/01/24 21:54 Nasal Cannula 2 12/01/24 21:47 PG Care Time/CCT Total # of Minutes Spent Total Time Spent with Patient: Total time spent is greater than 50% in coordination of care (as documented) at patient's floor/unit and/or counseling patient: Coding Level of Care Code 45483 SUB INP/OBS CARE 06/17MIN Diagnoses Ileus K56.7
--- NOTE | 2024-12-02 09:45 | XRay Report ---
EXAM: Radiograph of the Abdomen 1 View INDICATION: Question small bowel obstruction. TECHNIQUE: Frontal supine view of the abdomen/pelvis. COMPARISON: 12/01/2024 CT abdomen FINDINGS: Limitations: None. Gastrointestinal tract: Result intestinal distention with some prominent aeration of bowel loops in the lower abdomen. Scattered stool throughout the colon. Organs: Visualized organ shadows appear grossly normal. Bones/joints: Degenerative changes noted in the scoliotic spine. No acute osseous abnormality noted. Intact well-seated posterior lumbosacral fusion hardware. Soft tissues: No abnormality noted. No radiopaque foreign body noted. IMPRESSION: Decreased intestinal distention. Mild residual ileus. ACT 112: N/A Electronically signed by Carol Lambert 12-02-2024 09:45 AM
[2024-12-02] MEDS: ACETAMINOPHEN 325 MG TAB PO PRN (17:11)
--- NOTE | 2024-12-02 22:57 | Hospitalist Progress Note ---
Date of Service December 02, 2024 Assessment & Plan (1) Abdominal pain: Plan: Asymptomatic on 12/02/2024. Ileus is RESOLVING. Advance diet from NPO to clear liquid diet (12/02/2024 breakfast) and observe for tolerance of such diet change before advancing diet to full liquid diet, then heart healthy diet in the 12/03/2024 am, with anticipated D/C back to patient's home in the 12/03/2024 am. Etiology of ileus remains unclear, but is most probably due to patient's sedentary lifestyle at 79 years of age with morbid obesity with BMI 41.8 (height 147.32 cm; weight 90.8 kg), none of which is reversible, unfortunately, despite our best efforts to encourage patient to get out of bed and start walking 1 mile per day. It is what it is. (2) Ileus: Plan: Asymptomatic on 12/02/2024. Ileus is RESOLVING. Advance diet from NPO to clear liquid diet (12/02/2024 breakfast) and observe for tolerance of such diet change before advancing diet to full liquid diet, then heart healthy diet in the 12/03/2024 am, with anticipated D/C back to patient's home in the 12/03/2024 am. Etiology of ileus remains unclear, but is most probably due to patient's sedentary lifestyle at 79 years of age with morbid obesity with BMI 41.8 (height 147.32 cm; weight 90.8 kg), none of which is reversible, unfortunately, despite our best efforts to encourage patient to get out of bed and start walking 1 mile per day. It is what it is. (3) Chronic GERD: Plan: Etiology of chronic GERD remains unclear, but is most probably due to patient's sedentary lifestyle at 79 years of age with morbid obesity with BMI 41.8 (height 147.32 cm; weight 90.8 kg), none of which is reversible, unfortunately, despite our best efforts to encourage patient to get out of bed and start walking 1 mile per day. It is what it is. (4) Pre-diabetes: Plan: Etiology of chronic pre-diabetes remains unclear, but is most probably due to patient's sedentary lifestyle at 79 years of age with morbid obesity with BMI 41.8 (height 147.32 cm; weight 90.8 kg), none of which is reversible, unfortunately, despite our best efforts to encourage patient to get out of bed and start walking 1 mile per day. It is what it is. (5) Essential (primary) hypertension: Plan: Etiology of chronic HTN remains unclear, but is most probably due to patient's sedentary lifestyle at 79 years of age with morbid obesity with BMI 41.8 (height 147.32 cm; weight 90.8 kg), none of which is reversible, unfortunately, despite our best efforts to encourage patient to get out of bed and start walking 1 mile per day. It is what it is. (6) Hyperlipidemia: Plan: Etiology of chronic hyperlipidemia remains unclear, but is most probably due to patient's sedentary lifestyle at 79 years of age with morbid obesity with BMI 41.8 (height 147.32 cm; weight 90.8 kg), none of which is reversible, unfortunat linh, despite our best efforts to encourage patient to get out of bed and start walking 1 mile per day. It is what it is. (7) Depression with anxiety: Plan: Etiology of chronic depression with anxiety remains unclear, but is most probably due to patient's sedentary lifestyle at 79 years of age with morbid obesity with BMI 41.8 (height 147.32 cm; weight 90.8 kg), none of which is reversible, unfortunately, despite our best efforts to encourage patient to get out of bed and start walking 1 mile per day. It is what it is. (8) Sleep apnea: Plan: Etiology of chronic KATHE remains unclear, but is most probably due to patient's sedentary lifestyle at 79 years of age with morbid obesity with BMI 41.8 (height 147.32 cm; weight 90.8 kg), none of which is reversible, unfortunately, despite our best efforts to encourage patient to get out of bed and start walking 1 mile per day. It is what it is. Plan #Abdominal pain- CTAP reading "adynamic ileus" however w/ symptoms and prior abdominal surgeries/adhesions suspect ileus but more likely partial SBO but reports passing gas. Pain primarily luq/eipgastic in nature. Hb not low, Cr 1.0, slight elevation of BUN. Ca 10.7. Hx appendectomy/adhesions/open cholecystectomy in the past. Admit med w/ tele NGT ordered IVF hydration, checking lactic Pain control Antiemetics as needed Maintain NPO Surgery consulted, appreciate recs/assistance Monitor labs/electrolytes on repeat, check TSH w/ AM labs KUB for AM ordered #GERD - continue PPI but make IV BID. Check mag. NGT as above #Hypercalcemia- suspected 2nd to above/dehydration, on Vit D supplementation. Ionized ca wnl. Vit D added to labs and monitor chemistries in AM #KATHE - CPAP HS #Mood - resume effexor once able to take PO #HTN- BP stable/lower side in ER. IVF hydration has been ordered. Hold home metoprolol 25mg HS, lisinopril 10mg HS while NPO. Monitor to resume #Hypoxia- stable on 2L, suspect from abdominal distension. Monitor in f/u w/ decompression w/ NGT and tx above. Supplemental O2 as needed and ordered incentive spirometry DVT proph: SCDs ordered, defer chemoproph w/ hx ulcer (no bleeding reported) and continues on PPI BID but if remains inpatient can add Dispo: admission for hopeful conservative management of above, suspect able to dc in 24-48hr pending course Updated niece via phone on admission in room with patient. Admission and Anticipated Discharge Date Admission Date: December 01, 2024 Subjective "I feel better today than yesterday (12/01/2024). I had diarrhea this morning; no blood. No nausea or vomit. I am not farting. No pain anywhere." Review of Systems Constitutional: Positive for diarrhea, patient does not know if the diarrhea is bloody or not, or even what color the diarrhea was, just saying "It squirted out of me. That's all I can say." Negative for antecedent/coincident fevers, chills, diaphoresis, cough, wheeze, sore throat, hemoptysis, chest pains, palpitations, pleurisy, nausea, vomiting, abdominal pain, pelvic pain, hematemesis, hematochezia, melena, hematuria, dysuria, frequency, urgency, headaches, dizziness, lightheadedness, visual changes, hearing changes, weakness, falls, syncope, trauma, travel history, sick contacts, or food/drug ingestions novel or new. All other review of systems are reported as negative by the patient on 12/02/2024. Physical Exam Constitutional: General: Comfortable, cooperative, coherent. Patient speaks in complete, fluent, and articulate sentences without pause, interruption, cough, or wheeze. HEENT: Normocephalic, atraumatic. Pupils equally round and reactive to light. Extra-ocular muscles intact. No nystagmus, gaze paresis, anisocoria, miosis, mydriasis, hyphema, scleral injection, conjunctivitis, or pterygium. No rhinorrhea. No otorrhea. No pharyngeal erythema, edema, or discharge. NGT with 200 cc of brown effluent. Neck: Supple, no stridor, bruit, or hepato-jugular reflux. No lid lag. No exophthalmos/proptosis. Jugular venous pressure is estimated to be 3 cm above the sternal angle of Alex, which in turn, is 5 cm above the level of the right atrium; with jugular venous pressure estimated to be 8 cm, then, there is no jugular venous distention on 12/02/2024. Lymphatics: Negative for anterior/posterior cervical, supraclavicular, infraclavicular, axillary, epitrochlear, or inguinal adenopathy. Chest: Symmetric rise and fall with respirations. Non-tender to palpation. Lungs: Clear to auscultation and percussion. No audible expiratory wheeze, egophony, pectoriloquy, increase in tactile fremitus, or flatness/dullness to percussion at the bases. Heart: Regular rate. Regular rhythm. S1 and S2 noted. No S3 or S4 summation gallop. No tripartite friction rub. Grade III/ early systolic murmur @ LLSB without radiation to the carotids, axilla, or back, and which remains invariant in regards to the respiratory cycle. Abdomen: Soft, non-tender, non-distended. No rebound, guarding, Muñoz's sign, or organomegaly. Bowel sounds auscultated in all 4 quadrants. Extremities: No clubbing, cyanosis, or edema in upper extremities or lower extremities bilaterally. 2+ pedal pulses bilaterally. Skin: No decubitus ulcer, exanthem, or enanthem. Genito-urinary: No urethral discharge. No alvarez catheter. Neurology: No myoclonus, tremors, or tics. Psychiatry: No homicidal ideation. No suicidal ideation. No flat affect; smiles appropriately. Results & Data Results & Data Vital Signs (Past 12 Hours) Vital Signs Temp Pulse Pulse Resp BP Pulse Ox O2 Del Method 12/02/24 19:24 36.4 C L 67 18 118/75 95 Room Air 12/02/24 16:18 36.3 C L 63 18 139/70 98 Nasal Cannula 12/02/24 13:24 67 12/02/24 11:18 36.4 C L 63 16 113/72 97 Nasal Cannula O2 Flow Rate 12/02/24 19:24 12/02/24 16:18 2 12/02/24 13:24 12/02/24 11:18 2 Laboratory Results WBC 8.04, N75 L14 M6 E4 B1, Hb 15.2, MCV 87.5, MCHC 32.9, platelet 241 (12/01/2024, 4:16pm). WBC 6.58, no differential, Hb 11.6, MCV 90.5, MCHC 32.9, platelet 184 (12/02/2024, 7:02am). BUN 25, creatinine 1.00 (12/01/2024, 4:16pm). BUN 17, creatinine 0.83 (12/02/2024, 7:02am). Ca 10.7 mg/dL (12/01/2024, 4:16pm). Ca 8.6 mg/dL (12/02/2024, 7:02am). Lactic acid #1 1.2 mmol/L (12/01/2024, 6:27pm). Lactic acid #2 1.1 mmol/L (12/02/2024, 10:09am). Diagnostic Findings CT abd/pelvis without IV contrast (12/01/2024, 3:57pm): 1. Several fluid and gas distended loops of small bowel, without evidence for obstruction, suggestive of adynamic ileus. KUB (12/02/2024, 7:00am): 1. Decreased intestinal distention. Mild residual ileus. PG Care Time/CCT Total # of Minutes Spent Total Time Spent with Patient: Total time spent is greater than 50% in coordination of care (as documented) at patient's floor/unit and/or counseling patient: Coding Level of Care Code 93213 SUB INP/OBS CARE 2/35MIN Diagnoses Abdominal pain R10.9 Abdominal location: unspecified location Ileus K56.7 Chronic GERD K21.9 Pre-diabetes R73.03 Essential (primary) hypertension I10 Hyperlipidemia E78.5 Depression with anxiety F41.8 Sleep apnea G47.30 (1) Abdominal pain Abdominal location: unspecified location Qualified Code(s): R10.9 - Unspecified abdominal pain
--- NOTE | 2024-12-03 06:09 | Surgery Progress Note ---
Date of Service December 03, 2024 Assessment & Plan (1) Ileus: Plan: Will continue to treat conservatively at this time Patient tolerating clear liquids without any reported issues. Will advance to full liquids this morning and see how she does. Patient will likely need a bowel regime at discharge Continue medical management, surgery to follow as above. doing well. +3 bm's yesterday. will initiate a bowel regiment. advance diet. no surgical intervention indicated. Admission and Anticipated Discharge Date Admission Date: December 01, 2024 Subjective Patient doing well this morning Continues to pass gas and having bowel movements Tolerating clear liquids without issues of worsening abdominal pain. Denies N/V Physical Exam Constitutional: WD/WN, vitals as above Respiratory: normal respiratory effort, lungs clear to auscultation Cardiovascular: Rate/Rhythm: regular rate Gastrointestinal (Abdomen): Abdomen slightly distended, otherwise soft and nontender throughout Skin: no rashes, warm and dry Psychiatric: A+Ox3, euthymic affect Results & Data Vital Signs (Past 12 Hours) Vital Signs Temp Pulse Pulse Resp BP Pulse Ox O2 Del Method 12/03/24 02:20 36.5 C 62 16 143/77 H 97 Room Air 12/02/24 22:57 36.6 C 62 16 120/78 94 Room Air 12/02/24 21:44 63 12/02/24 19:24 36.4 C L 67 18 118/75 95 Room Air PG Care Time/CCT Total # of Minutes Spent Total Time Spent with Patient: Total time spent is greater than 50% in coordination of care (as documented) at patient's floor/unit and/or counseling patient: Coding [place] [address] SUB INP/OBS CARE 06/17MIN Patient Type Established Medical Decision Making Straight Forward Diagnoses Ileus K56.7
[2024-12-03 07:32] LABS: Appearance Urine Clear (Clear); Bacteria Urine Automated 4+ (None Seen); Cast Urine Automated 0-2 /lpf (0-2); Epithelial Cell Urine Auto 0-2 /hpf (0-2); Glucose Urine UA Negative (Negative); RBC Urine Automated 0-2 /hpf (0-2); WBC Urine Automated 21-50 /hpf (0-5)
[2024-12-03] MEDS: ONDANSETRON INJ 2 MG/ML 2 ML VIAL IV PRN (07:34)
[2024-12-03 10:19] LABS: Hematocrit (blood only) 40.7 % (37.0-47.0); Hemoglobin 13.0 g/dl (12.0-16.0)
--- NOTE | 2024-12-03 10:48 | XRay Report ---
EXAM: Radiograph of the Abdomen 1 View INDICATION: Ileus TECHNIQUE: Frontal supine view of the abdomen/pelvis. COMPARISON: 12/02/2024 FINDINGS: Limitations: None. Gastrointestinal tract: Slight increased prominent aeration of small bowel loops in the left abdomen. Stable colonic aeration and stool. Organs: Visualized organ shadows appear grossly normal. Bones/joints: Degenerative changes in the spine with intact well-seated lower posterior lumbar fusion hardware. No acute osseous abnormality. Soft tissues: No abnormality noted. No radiopaque foreign body noted. IMPRESSION: Increased ileus. ACT 112: N/A Electronically signed by Carol Lambert 12-03-2024 10:44 AM
[2024-12-03] MEDS: SENNA 8.6 MG TAB PO SCH (10:51)
[2024-12-03] MEDS: POLYETHYLENE (MIRALAX) 17 GM PACK PO SCH (10:52)
--- NOTE | 2024-12-03 20:21 | Hospitalist Progress Note ---
Date of Service December 03, 2024 Assessment & Plan (1) Abdominal pain: Plan: Asymptomatic on 12/02/2024. Ileus is RESOLVING. Advance diet from NPO to clear liquid diet (12/02/2024 breakfast) and observe for tolerance of such diet change before advancing diet to full liquid diet, then heart healthy diet in the 12/03/2024 am, with anticipated D/C back to patient's home in the 12/03/2024 am. Etiology of ileus remains unclear, but is most probably due to patient's sedentary lifestyle at 79 years of age with morbid obesity with BMI 41.8 (height 147.32 cm; weight 90.8 kg), none of which is reversible, unfortunately, despite our best efforts to encourage patient to get out of bed and start walking 1 mile per day. It is what it is. (2) Ileus: Plan: Asymptomatic on 12/02/2024. Ileus is RESOLVING. Advance diet from NPO to clear liquid diet (12/02/2024 breakfast) and observe for tolerance of such diet change before advancing diet to full liquid diet, then heart healthy diet in the 12/03/2024 am, with anticipated D/C back to patient's home in the 12/03/2024 am. Etiology of ileus remains unclear, but is most probably due to patient's sedentary lifestyle at 79 years of age with morbid obesity with BMI 41.8 (height 147.32 cm; weight 90.8 kg), none of which is reversible, unfortunately, despite our best efforts to encourage patient to get out of bed and start walking 1 mile per day. It is what it is. (3) Chronic GERD: Plan: Etiology of chronic GERD remains unclear, but is most probably due to patient's sedentary lifestyle at 79 years of age with morbid obesity with BMI 41.8 (height 147.32 cm; weight 90.8 kg), none of which is reversible, unfortunately, despite our best efforts to encourage patient to get out of bed and start walking 1 mile per day. It is what it is. (4) Pre-diabetes: Plan: Etiology of chronic pre-diabetes remains unclear, but is most probably due to patient's sedentary lifestyle at 79 years of age with morbid obesity with BMI 41.8 (height 147.32 cm; weight 90.8 kg), none of which is reversible, unfortunately, despite our best efforts to encourage patient to get out of bed and start walking 1 mile per day. It is what it is. (5) Essential (primary) hypertension: Plan: Etiology of chronic HTN remains unclear, but is most probably due to patient's sedentary lifestyle at 79 years of age with morbid obesity with BMI 41.8 (height 147.32 cm; weight 90.8 kg), none of which is reversible, unfortunately, despite our best efforts to encourage patient to get out of bed and start walking 1 mile per day. It is what it is. (6) Hyperlipidemia: Plan: Etiology of chronic hyperlipidemia remains unclear, but is most probably due to patient's sedentary lifestyle at 79 years of age with morbid obesity with BMI 41.8 (height 147.32 cm; weight 90.8 kg), none of which is reversible, unfortunat linh, despite our best efforts to encourage patient to get out of bed and start walking 1 mile per day. It is what it is. (7) Depression with anxiety: Plan: Etiology of chronic depression with anxiety remains unclear, but is most probably due to patient's sedentary lifestyle at 79 years of age with morbid obesity with BMI 41.8 (height 147.32 cm; weight 90.8 kg), none of which is reversible, unfortunately, despite our best efforts to encourage patient to get out of bed and start walking 1 mile per day. It is what it is. (8) Sleep apnea: Plan: Etiology of chronic KATHE remains unclear, but is most probably due to patient's sedentary lifestyle at 79 years of age with morbid obesity with BMI 41.8 (height 147.32 cm; weight 90.8 kg), none of which is reversible, unfortunately, despite our best efforts to encourage patient to get out of bed and start walking 1 mile per day. It is what it is. Plan #Abdominal pain- CTAP reading "adynamic ileus" however w/ symptoms and prior abdominal surgeries/adhesions suspect ileus but more likely partial SBO but reports passing gas. Pain primarily luq/eipgastic in nature. Hb not low, Cr 1.0, slight elevation of BUN. Ca 10.7. Hx appendectomy/adhesions/open cholecystectomy in the past. Admit med w/ tele NGT ordered IVF hydration, checking lactic Pain control Antiemetics as needed Maintain NPO Surgery consulted, appreciate recs/assistance Monitor labs/electrolytes on repeat, check TSH w/ AM labs KUB for AM ordered #GERD - continue PPI but make IV BID. Check mag. NGT as above #Hypercalcemia- suspected 2nd to above/dehydration, on Vit D supplementation. Ionized ca wnl. Vit D added to labs and monitor chemistries in AM #KATHE - CPAP HS #Mood - resume effexor once able to take PO #HTN- BP stable/lower side in ER. IVF hydration has been ordered. Hold home metoprolol 25mg HS, lisinopril 10mg HS while NPO. Monitor to resume #Hypoxia- stable on 2L, suspect from abdominal distension. Monitor in f/u w/ decompression w/ NGT and tx above. Supplemental O2 as needed and ordered incentive spirometry DVT proph: SCDs ordered, defer chemoproph w/ hx ulcer (no bleeding reported) and continues on PPI BID but if remains inpatient can add Dispo: admission for hopeful conservative management of above, suspect able to dc in 24-48hr pending course Updated niece via phone on admission in room with patient. Admission and Anticipated Discharge Date Admission Date: December 01, 2024 Subjective "I had 2 bowel movements yesterday, and they were soft. Not diarrhea. Passed gas, too. Today, I had 1 bowel movement, and it was soft. Not diarrhea. Passing gas, today, too." Review of Systems Constitutional: Positive for diarrhea, patient does not know if the diarrhea is bloody or not, or even what color the diarrhea was, just saying "It squirted out of me. That's all I can say." Negative for antecedent/coincident fevers, chills, diaphoresis, cough, wheeze, sore throat, hemoptysis, chest pains, palpitations, pleurisy, nausea, vomiting, abdominal pain, pelvic pain, hematemesis, hematochezia, melena, hematuria, dysuria, frequency, urgency, headaches, dizziness, lightheadedness, visual changes, hearing changes, weakness, falls, syncope, trauma, travel history, sick contacts, or food/drug ingestions novel or new. All other review of systems are reported as negative by the patient on 12/03/2024. Physical Exam Constitutional: General: Comfortable, cooperative, coherent. Patient speaks in complete, fluent, and articulate sentences without pause, interruption, cough, or wheeze. HEENT: Normocephalic, atraumatic. Pupils equally round and reactive to light. Extra-ocular muscles intact. No nystagmus, gaze paresis, anisocoria, miosis, mydriasis, hyphema, scleral injection, conjunctivitis, or pterygium. No rhinorrhea. No otorrhea. No pharyngeal erythema, edema, or discharge. NGT with 200 cc of brown effluent. Neck: Supple, no stridor, bruit, or hepato-jugular reflux. No lid lag. No exophthalmos/proptosis. Jugular venous pressure is estimated to be 3 cm above the sternal angle of Alex, which in turn, is 5 cm above the level of the right atrium; with jugular venous pressure estimated to be 8 cm, then, there is no jugular venous distention on 12/03/2024. Lymphatics: Negative for anterior/posterior cervical, supraclavicular, infraclavicular, axillary, epitrochlear, or inguinal adenopathy. Chest: Symmetric rise and fall with respirations. Non-tender to palpation. Lungs: Clear to auscultation and percussion. No audible expiratory wheeze, egophony, pectoriloquy, increase in tactile fremitus, or flatness/dullness to percussion at the bases. Heart: Regular rate. Regular rhythm. S1 and S2 noted. No S3 or S4 summation gallop. No tripartite friction rub. Grade III/ early systolic murmur @ LLSB without radiation to the carotids, axilla, or back, and which remains invariant in regards to the respiratory cycle. Abdomen: Soft, non-tender, non-distended. No rebound, guarding, Muñoz's sign, or organomegaly. Bowel sounds auscultated in all 4 quadrants. Extremities: No clubbing, cyanosis, or edema in upper extremities or lower extremities bilaterally. 2+ pedal pulses bilaterally. Skin: No decubitus ulcer, exanthem, or enanthem. Genito-urinary: No urethral discharge. No alvarez catheter. Neurology: No myoclonus, tremors, or tics. Psychiatry: No homicidal ideation. No suicidal ideation. No flat affect; smiles appropriately. Results & Data Results & Data Vital Signs (Past 12 Hours) Vital Signs Temp Pulse Pulse Resp BP Pulse Ox O2 Del Method 12/03/24 19:45 36.6 C 86 18 135/81 94 Room Air 12/03/24 15:47 36.7 C 64 18 145/81 H 93 Room Air 12/03/24 13:52 74 12/03/24 11:36 36.7 C 67 18 140/75 95 Room Air Laboratory Results WBC 8.04, N75 L14 M6 E4 B1, Hb 15.2, MCV 87.5, MCHC 32.9, platelet 241 (12/01/2024, 4:16pm). WBC 6.58, no differential, Hb 11.6, MCV 90.5, MCHC 32.9, platelet 184 (12/02/2024, 7:02am). BUN 25, creatinine 1.00 (12/01/2024, 4:16pm). BUN 17, creatinine 0.83 (12/02/2024, 7:02am). Ca 10.7 mg/dL (12/01/2024, 4:16pm). Ca 8.6 mg/dL (12/02/2024, 7:02am). Lactic acid #1 1.2 mmol/L (12/01/2024, 6:27pm). Lactic acid #2 1.1 mmol/L (12/02/2024, 10:09am). Diagnostic Findings CT abd/pelvis without IV contrast (12/01/2024, 3:57pm): 1. Several fluid and gas distended loops of small bowel, without evidence for obstruction, suggestive of adynamic ileus. KUB (12/02/2024, 7:00am): 1. Decreased intestinal distention. Mild residual ileus. KUB (12/03/2024, 9:45am): 1. Increased ileus. PG Care Time/CCT Total # of Minutes Spent Total Time Spent with Patient: Total time spent is greater than 50% in coordination of care (as documented) at patient's floor/unit and/or counseling patient: Coding Level of Care Code 06395 SUB INP/OBS CARE 2/35MIN Diagnoses Abdominal pain R10.9 Abdominal location: unspecified location Ileus K56.7 Chronic GERD K21.9 Pre-diabetes R73.03 Essential (primary) hypertension I10 Hyperlipidemia E78.5 Depression with anxiety F41.8 Sleep apnea G47.30 (1) Abdominal pain Abdominal location: unspecified location Qualified Code(s): R10.9 - Unspecified abdominal pain
[2024-12-04 07:06] LABS: Hematocrit (blood only) 36.4 % (37.0-47.0); Hemoglobin 11.9 g/dl (12.0-16.0); Immature Granulocytes # (auto) 0.02 K/uL (0.01-0.20); Immature Granulocytes % (auto) 0.4 %; Mean Corpuscular Hemoglobin 29.0 pg (25.0-34.0); Mean Corpuscular Volume 88.8 fL (80.0-100.0); Platelet Count 172 K/uL (130-400); RDW Standard Deviation 45.1 fL (36.4-46.3); Red Blood Count 4.10 M/uL (4.20-5.40); White Blood Count 5.35 K/ul (4.8-10.8)
[2024-12-04 07:21] VITALS: BP 147/81; PULSE 61; RESP 20; TEMP 97.7; O2SAT 92
[2024-12-04 07:25] LABS: Anion Gap 4.0 (3-11); Blood Urea Nitrogen 7.0 mg/dl (6-23); Calcium 9.3 mg/dl (8.6-10.3); Carbon Dioxide 28.0 mmol/L (21-32); Chloride 109.0 mmol/L (98-107); Creatinine Clr Calc Pharmacy 53.0 ml/min; Glucose 106.0 mg/dl (70-99(Fasting)); Potassium 3.6 mmol/L (3.5-5.1); Sodium 141.0 mmol/L (136-145)
--- NOTE | 2024-12-04 07:56 | Surgery Progress Note ---
Date of Service December 04, 2024 Assessment & Plan (1) Ileus: Plan: Patient here w/ concern for ileus Tolerating fulls without n/v, but concerned she hasn't had a BM yesterday and now is passing smaller amounts of gas Has some epigastric discomfort as feels like food isn't going down fully and getting stuck Encourage ambulation and hydration Can consider bowel regimen from below if needed Fulls until symptoms improve then may adv diet as tolerates likely will need bowel regimen upon discharge A KUB has been ordered for today by medicine we will f/u upon Admission and Anticipated Discharge Date Admission Date: December 01, 2024 Subjective Patient reports no BM yesterday. Passing small amount of gas. No abdominal pain. No nausea, but feels like food is slow to pass and has a sensation in upper abdomen that its stuck. Ambulating frequently. Says she is on a bowel regimen. Physical Exam Physical Exam: awake/alert, no distress Gastrointestinal (Abdomen): Inspection/Auscultation: + abdomen distended (mild) Percussion/Palpation: abdomen soft; abdomen nontender Results & Data Vital Signs (Past 12 Hours) Vital Signs Temp Pulse Pulse Resp BP BP Pulse Ox 12/04/24 07:20 97.7 F 61 20 147/81 H 92 12/04/24 07:04 57 L 12/04/24 02:08 98.2 F 71 16 136/81 96 12/03/24 22:42 98.1 F 69 18 152/76 H 95 12/03/24 22:07 83 O2 Del Method O2 Flow Rate 12/04/24 07:20 Room Air 12/04/24 07:04 12/04/24 02:08 Nasal Cannula 2 12/03/24 22:42 Room Air 12/03/24 22:07 PG Care Time/CCT Total # of Minutes Spent Total Time Spent with Patient: Total time spent is greater than 50% in coordination of care (as documented) at patient's floor/unit and/or counseling patient: Coding Level of Care Code 48700 SUB INP/OBS CARE 06/17MIN Diagnoses Ileus K56.7
--- NOTE | 2024-12-04 10:13 | XRay Report ---
KUB HISTORY: eval for interval change(s) in ileus COMPARISON STUDY: 713:25 FINDINGS: Stable lower lumbar metallic fusion. Stable mild scoliosis. There is moderate retained stoo l. Prior small bowel distention has resolved. No evidence of bowel obstruction seen. No gross free ai r. IMPRESSION: No evidence of bowel obstruction seen. ACT 112: Negative or not required by law. The above report was generated using voice recognition software. It may contain grammatical, syntax o r spelling errors. Electronically signed by: Sancho Tran M.D. 12/04/2024 10:11 AM
[2024-12-04] MEDS: MAGNESIUM CITRATE 296 ML/BTL PO STA (11:06)
--- NOTE | 2024-12-04 12:30 | Discharge Summary ---
Discharge Summary Date of Service December 04, 2024 Principal Dx & Hospital Course #1 = Principal Diagnosis (1) Abdominal pain: Asymptomatic on 12/02/2024. Ileus is RESOLVING. Advanced diet from NPO to clear liquid diet (12/02/2024 breakfast) and observed tolerance of such diet change before advancing diet to full liquid diet, then heart healthy diet in the 12/03/2024 am, with D/C back to patient's home in the 12/04/2024 am. Etiology of ileus remains unclear, but is most probably due to patient's sedentary lifestyle at 79 years of age with morbid obesity with BMI 41.8 (height 147.32 cm; weight 90.8 kg), none of which is reversible, unfortunately, despite our best efforts to encourage patient to get out of bed and start walking 1 mile per day. It is what it is. (2) Ileus: Asymptomatic on 12/02/2024. Ileus is RESOLVING. Advance diet from NPO to clear liquid diet (12/02/2024 breakfast) and observed tolerance of such diet change before advancing diet to full liquid diet, then heart healthy diet in the 12/03/2024 am, with D/C back to patient's home in the 12/03/2024 am. Etiology of ileus remains unclear, but is most probably due to patient's sedentary lifestyle at 79 years of age with morbid obesity with BMI 41.8 (height 147.32 cm; weight 90.8 kg), none of which is reversible, unfortunately, despite our best efforts to encourage patient to get out of bed and start walking 1 mile per day. It is what it is. Of additional note, patient's ileus may have been exacerbated by patient's (1) home-scheduled fesoterodine (Toviaz), an anticholinergic drug used to treat overactive bladder/urinary incontinence in older women, and (2) home-scheduled vibegron (Gemtesa), a beta adrenergic drug used to treat overactive bladder/urinary incontinence. Discontinuation of (1) and (2) is possible, and patient did not receive either home-scheduled medication while in [facility] as either/both (1) and (2) not only relax the smooth muscles of the bladder (thereby mitigating bladder emptying, which manifests as overactive bladder/urinary incontinence), they also relax the smooth muscles surrounding t he intestines, causing delayed muscular contractions, and hence, delayed intestinal motility, leading to acute ileus. In the patient's case, I submit that it is far better to wet the bed and/or wet the pants, than it is to land up in a hospital for 4-5 days because the gut doesn't move due to administration of (1) and (2). To this end, then, I discontinued both (1) and (2) on patient's discharge medication list, and advised the patient to stop taking both (1) and (2) immediately/permanently on hospital discharge back to her home on 12/04/2024. Of final note, patient reported that her last bowel movement occurred on Wednesday morning (12/02/2024), and that she does not normally have a bowel movement on a daily basis. Patient reported no N/V/D on discharge home on 12/04/2024. Hence, patient received magnesium citrate 296 mL (10 ounces) PO x 1 dose on 12/04/2024, 11:06am, prior to hospital discharge home on 12/04/2024, 11:41am. Patient reported that she will go home to have a bowel movement, and will follow up with her PCP Dr. Ata Puga within 5-7 days of hospital discharge, to discuss attainment of regular bowel movements on a daily basis AFTER: 1. Patient stops taking fesoterodine (Toviaz) 8mg PO qhs and vibegron (Gemtesa) 75mg PO qpm as either/both medications can cause constipation. 2. Patient starts taking a bowel promoting regimen of colace 100mg PO bid and senna 17.2mg PO bid, starting on 12/04/2024. To this end, patient's [facility], [address] [place] [address], [place] [address], received electronic prescriptions on 12/04/2024, prior to hospital discharge home, for: a. Colace 100mg PO bid, #60 capsules, each capsule 100mg, no refills. b. Senna 17.2mg PO bid, #60 capsules, each capsule 8.6mg, no refills. (3) Chronic GERD: Etiology of chronic GERD remains unclear, but is most probably due to patient's sedentary lifestyle at 79 years of age with morbid obesity with BMI 41.8 (height 147.32 cm; weight 90.8 kg), none of which is reversible, unfortunately, despite our best efforts to encourage patient to get out of bed and start walking 1 mile per day. It is what it is. (4) Pre-diabetes: Etiology of chronic pre-diabetes remains unclear, but is most probably due to patient's sedentary lifestyle at 79 years of age with morbid obesity with BMI 41.8 (height 147.32 cm; weight 90.8 kg), none of which is reversible, unfortunately, despite our best efforts to encourage patient to get out of bed and start walking 1 mile per day. It is what it is. (5) Essential (primary) hypertension: Etiology of chronic HTN remains unclear, but is most probably due to patient's sedentary lifestyle at 79 years of age with morbid obesity with BMI 41.8 (height 147.32 cm; weight 90.8 kg), none of which is reversible, unfortunately, despite our best efforts to encourage patient to get out of bed and start walking 1 mile per day. It is what it is. (6) Hyperlipidemia: Etiology of chronic hyperlipidemia remains unclear, but is most probably due to patient's sedentary lifestyle at 79 years of age with morbid obesity with BMI 41.8 (height 147.32 cm; weight 90.8 kg), none of which is reversible, unfortunately, despite our best efforts to encourage patient to get out of bed and start walking 1 mile per day. It is what it is. (7) Depression with anxiety: Etiology of chronic depression with anxiety remains unclear, but is most probably due to patient's sedentary lifestyle at 79 years of age with morbid obesity with BMI 41.8 (height 147.32 cm; weight 90.8 kg), none of which is reversible, unfortunately, despite our best efforts to encourage patient to get out of bed and start walking 1 mile per day. It is what it is. (8) Sleep apnea: Etiology of chronic KATHE remains unclear, but is most probably due to patient's sedentary lifestyle at 79 years of age with morbid obesity with BMI 41.8 (height 147.32 cm; weight 90.8 kg), none of which is reversible, unfortunately, despite our best efforts to encourage patient to get out of bed and start walking 1 mile per day. It is what it is. Plan #Abdominal pain- CTAP reading "adynamic ileus" however w/ symptoms and prior abdominal surgeries/adhesions suspect ileus but more likely partial SBO but reports passing gas. Pain primarily luq/eipgastic in nature. Hb not low, Cr 1.0, slight elevation of BUN. Ca 10.7. Hx appendectomy/adhesions/open cholecyste ctomy in the past. Admit med w/ tele NGT ordered IVF hydration, checking lactic Pain control Antiemetics as needed Maintain NPO Surgery consulted, appreciate recs/assistance Monitor labs/electrolytes on repeat, check TSH w/ AM labs KUB for AM ordered #GERD - continue PPI but make IV BID. Check mag. NGT as above #Hypercalcemia- suspected 2nd to above/dehydration, on Vit D supplementation. Ionized ca wnl. Vit D added to labs and monitor chemistries in AM #KATHE - CPAP HS #Mood - resume effexor once able to take PO #HTN- BP stable/lower side in ER. IVF hydration has been ordered. Hold home metoprolol 25mg HS, lisinopril 10mg HS while NPO. Monitor to resume #Hypoxia- stable on 2L, suspect from abdominal distension. Monitor in f/u w/ decompression w/ NGT and tx above. Supplemental O2 as needed and ordered incentive spirometry DVT proph: SCDs ordered, defer chemoproph w/ hx ulcer (no bleeding reported) and continues on PPI BID but if remains inpatient can add Dispo: admission for hopeful conservative management of above, suspect able to dc in 24-48hr pending course Updated niece via phone on admission in room with patient. Admission HPI Per Admitting Provider 79yo female with PMHx significant for GERD, obesity, KATHE, HTN, depression/anxiety, pre-DM presented for abdominal pain, worsening over the past month with associated nausea and now vomiting starting today with incre ased abdominal distension. CTAP noting "adynamic ileus" however patient appears to have s/sx consistent w/ at least partial SBO likely on basis of adhesions and suspected dehydration on exam. Seen in A12B, resting in bed. Significant abdominal distension but denies overt pain at this time but does have epigastric discomfort. Reports vomiting prior to arrival, brown in color, no blood reported. Reports UTD on c-scopes until told no longer needing to have done. Reports hx appendectomy in the 60s and had some adhesions that were "massaged", also has large incisional scar from open cholecystectomy and discussed suspect 2nd to adhesions. Last BM yesterday, is careful what she eats. Has been having some chills in the evening, denies urinary symptoms/frequency but needing to urinate and uses pad at baseline, nursing can utilize purewick as needed. Discussed NGT, never had in the past but was agreeable to such for decompression. Reports passing gas, thinks might have start of diarrhea. Discussed admission for IVF hydration, bowel rest, NGT placement and conservative treatment but will have surgery follow along. ER Course: CTAP as noted. Is s/p 1L NSS, on 2L NC supplementation and lungs diminished but suspect 2nd to significantly increased abdominal distension. WBC 8k on admission. Stable Cr 1.0 but BUN elevated to 25. K TNP and recollection ordered. Ca notable elevated 10.7 and has been elevated in the past. No personal hx ca, as above w/ UTD c-scopes. Sister w/ [employer] cancer but unsure ovarian/uterine/etc. Protonix IVP x 1 ordered Full Code. Questions/concerns addressed at this time. Discharge Exam Constitutional General: Comfortable, cooperative, coherent. Patient speaks in compl ete, fluent, and articulate sentences without pause, interruption, cough, or wheeze. HEENT: Normocephalic, atraumatic. Pupils equally round and reactive to light. Extra-ocular muscles intact. No nystagmus, gaze paresis, anisocoria, miosis, mydriasis, hyphema, scleral injection, conjunctivitis, or pterygium. No rhinorrhea. No otorrhea. No pharyngeal erythema, edema, or discharge. Neck: Supple, no stridor, bruit, or hepato-jugular reflux. No lid lag. No exophthalmos/proptosis. Jugular venous pressure is estimated to be 3 cm above the sternal angle of Alex, which in turn, is 5 cm above the level of the right atrium; with jugular venous pressure estimated to be 8 cm, then, there is no jugular venous distention on 12/04/2024. Lymphatics: Negative for anterior/posterior cervical, supraclavicular, infraclavicular, axillary, epitrochlear, or inguinal adenopathy. Chest: Symmetric rise and fall with respirations. Non-tender to palpation. Lungs: Clear to auscultation and percussion. No audible expiratory wheeze, egophony, pectoriloquy, increase in tactile fremitus, or flatness/dullness to percussion at the bases. Heart: Regular rate. Regular rhythm. S1 and S2 noted. No S3 or S4 summation gallop. No tripartite friction rub. Grade III/ early systolic murmur @ LLSB without radiation to the carotids, axilla, or back, and which remains invariant in regards to the respiratory cycle. Abdomen: Soft, non-tender, non-distended. No rebound, guarding, Muñoz's sign, or organomegaly. Bowel sounds auscultated in all 4 quadrants. Extremities: No clubbing, cyanosis, or edema in upper extremities or lower extremities bilaterally. 2+ pedal pulses bilaterally. Skin: No decubitus ulcer, exanthem, or enanthem. Genito-urinary: No urethral discharge. No alvarez catheter. Neurology: No myoclonus, tremors, or tics. Psychiatry: No homicidal ideation. No suicidal ideation. No flat affect; smiles appropriately. Discharge Plan Discharge Items Patient Disposition: Home - Self-Care Reason For Visit: NAUSEA/VOMITING, ILEUS VS SBO Discharge Diagnosis: 1. Nausea/vomit/acute ileus RESOLVED. Condition on Discharge: Fair Activity: Resume your previous activity Lifting: Gradually increase as tolerated Bathing: No limitations Exercise/Sports: As tolerated Weightbearing: Full weightbearing Non-emergency contact: Primary Care Provider Call non-emergency contact if: you have any medication questions Follow-up/Referrals: Ata Puga, [Primary Care Provider] - (PLEASE CALL YOUR PRIMARY CARE PROVIDER TO SCHEDULE A HOSPITAL FOLLOW-UP APPOINTMENT WITHIN 7-10 DAYS) Diet: Heart Healthy Addtl Attending Provider Instructions: See your PCP Dr. Ata Puga within 5-7 days of hospital discharge to discuss attainment of regular bowel movements on a daily basis AFTER: 1. You stop taking fesoterodine (Toviaz) 8mg PO qhs and vibegron (Gemtesa) 75mg PO qpm as either/both medications can cause constipation. 2. You start taking a bowel promoting regimen of colace 100mg PO bid and senna 17.2mg PO bid, starting on 12/04/2024. Pending Studies at Discharge: No Stand-Alone Forms: [facility], Smoking Cessation Medications and DC Order Prescriptions: New docusate sodium [Colace] 100 mg capsule 100 mg PO BID Qty: 60 0RF senna 8.6 mg capsule 17.2 mg PO BID Qty: 60 0RF Continued cholecalciferol (vitamin D3) [Vitamin D3] 25 mcg (1,000 unit) tablet 2,000 unit PO HS ascorbic acid (vitamin C) [Vitamin C] 500 mg tablet 500 mg PO QAM Patient Comments: Pt states she takes daily. Was previously listed as weekly. atorvastatin [Lipitor] 10 mg tablet 5 mg PO HS Qty: 90 3RF lisinopril 10 mg tablet 10 mg PO HS Qty: 90 3RF metoprolol succinate 25 mg tablet extended release 24 hr 25 mg PO HS Qty: 90 3RF pantoprazole [Protonix] 20 mg tablet,delayed release (DR/EC) 40 mg PO HS Qty: 180 3RF Rx Instructions: two 20 mg tablets venlafaxine 75 mg capsule,extended release 24hr 75 mg PO HS Qty: 90 3RF fexofenadine 180 mg tablet 180 mg PO HS nystatin 100,000 unit/gram powder 1 unit TOP BID PRN (Reason: Rash) Qty: 60 4RF multivitamin Tablet 1 tab PO HS aspirin 81 mg Tablet,Delayed Release (Dr/Ec) 81 mg PO DAILY ketotifen fumarate [Alaway] 0.025 % (0.035 %) Drops 1 drp ophthalmic (eye) BID Discontinued fesoterodine [Toviaz] 8 mg tablet extended release 24 hr 8 mg PO HS Qty: 90 3RF Gemtesa 75 mg PO HS Gemtesa 75 mg tablet 75 mg PO QPM No Action (DME) CPAP Machine Misc See Rx Instructions .ROUTE .MEDSUPPLY Qty: 14 0RF Rx Instructions: New CPAP machine 14cm H20, tubing, filters, heated humidification, ma sk/supplies. ARIEL: 89-years Discharge Orders: Discharge Order (Routine); Ordered 12/04/24 Ordered By: Ernesto Mcdermott Admission Data Admit Date/Time: 12/01/24 17:47 Attending Provider: Ernesto Mcdermott Admit Provider: Xavier Camejo Primary Care Provider: Ata Puga Other Providers: Albino Mac Other Interventions: Discharge Summary Assessment (RN) Last Done: 12/04/24 11:35 Hospital Stay Data Consultations 12/01/24 17:20 Consult General Surgery Routine Diagnostic Imagining Performed 12/01/24 15:57 CT abd pelvis wo con Stat Pending Results Patient Have Any Pending Studies at Discharge: No Discharge Instructions Given to Patient (Per Discharging Provider) See your PCP Dr. Ata Puga within 5-7 days of hospital discharge to discuss attainment of regular bowel movements on a daily basis AFTER: 1. You stop taking fesoterodine (Toviaz) 8mg PO qhs and vibegron (Gemtesa) 75mg PO qpm as either/both medications can cause constipation. 2. You start taking a bowel promoting regimen of colace 100mg PO bid and senna 17.2mg PO bid, starting on 12/04/2024. Total Time Total Time Spent Total Time Spent (In Minutes): 35 minutes. Of this time period, 19 minutes were spent in coordinating patient's discharge. Coding Level of Care Code 88335 INP/OBS DISCH >30 MIN Diagnoses Abdominal pain R10.9 Abdominal location: unspecified location Ileus K56.7 Chronic GERD K21.9 Pre-diabetes R73.03 Essential (primary) hypertension I10 Hyperlipidemia E78.5 Depression with anxiety F41.8 Sleep apnea G47.30
== END 2024-12-04 13:28 | disposition home or self-care (01) | DRG 389 ==
LOC: ED 15:51 → SUATTDRO 17:47 → 2N 17:47